=== PATIENT | male | born 1950 | race Caucasian/White ===

== ENCOUNTER 2017-05-22 13:24 | Day surgery (SDC) | payer MEDICARE ==
[2017-05-20 11:42] VITALS: BMI 34.7
[~2017-05-22 13:24] MED LIST: LACTATED RINGERS 1,000 ML IV SCH; LIDOCAINE 1% 20 ML VIAL (10MG/ML) FOR IV START INTRADERMA PRN
[2017-05-22 14:10] VITALS: TEMP 98.2
[2017-05-22] MEDS ORDERED: LIDOCAINE 1% 20 ML VIAL (10MG/ML) FOR IV START INTRADERMA ONE (14:12)
[2017-05-22] MEDS ORDERED: PROPOFOL 10 MG/ML 20 ML VIAL IV ONE (14:26)
--- NOTE | 2017-05-22 14:27 | P.GSHP ---
History of Present Illness H&P Date: 05/22/17 Chief Complaint: GERD, screening colonoscopy This is a 67-year-old male referred from Dr. Adame. Patient resents today for EGD and screening colonoscopy. He's had issues with GERD Past Medical History Past Medical History: COPD, GERD/Reflux, Hyperlipidemia, Hypertension, Myocardial Infarction ([place]), Musculoskeletal Disorder, Osteoarthritis (OA), Prostate Disorder, Vascular Disorder Additional Past Medical History / Comment(s): BORN W/ONE KIDNEY, states gets dizzy but only when looks up Last Myocardial Infarction Date:: 1998 History of Any Multi-Drug Resistant Organisms: None Reported Past Surgical History: Appendectomy, Back Surgery, Heart Catheterization With Stent, Hernia Repair, Orthopedic Surgery Additional Past Surgical History / Comment(s): BOTH SHOULDERS & BOTH KNEES. 11/16 abdominal angiography. colonoscopy, egd Past Anesthesia/Blood Transfusion Reactions: No Reported Reaction Date of Last Stent Placement:: 1998, 10/09/13 Smoking Status: Current every day smoker - Past Family History Mother Family Medical History: Cancer Father Family Medical History: Cancer Medications and Allergies Home Medications Medication Instructions Recorded Confirmed Type Albuterol Inhaler [Ventolin Hfa 2 puff INHALATION Q4HR PRN 09/08/13 05/22/17 History Inhaler] Aspirin 81 mg PO DAILY 09/08/13 05/20/17 History Lisinopril [Zestril] 10 mg PO DAILY 09/08/13 05/20/17 History Simvastatin [Zocor] 20 mg PO HS 09/08/13 05/22/17 History Tamsulosin HCl [Flomax] 0.4 mg PO HS 09/08/13 05/22/17 History amLODIPine BESYLATE [Norvasc] 10 mg PO DAILY 09/08/13 05/20/17 History ALPRAZolam [Xanax] 2 mg PO BID 09/09/13 05/22/17 History buPROPion HCL [Wellbutrin SR] 150 mg PO DAILY 09/09/13 05/22/17 History Fluticasone/Vilanterol [Breo 1 each INHALATION DAILY 05/20/17 05/22/17 History Ellipta 100-25 Mcg Inhaler] HYDROcodone/APAP 10-325MG [[place] 1 tab PO TID 05/20/17 05/22/17 History 10-325] Pantoprazole Sodium 40 mg PO DAILY 05/20/17 05/22/17 History cloNIDine HCL [Catapres] 0.1 mg PO DAILY 05/20/17 05/22/17 History Allergies Allergy/AdvReac Type Severity Reaction Status Date / Time No Known Allergies Allergy Verified 05/20/17 11:29 Surgical - Exam Vital Signs Temp Pulse Resp BP Pulse Ox 98.2 F 62 18 138/78 98 05/22/17 14:09 05/22/17 14:09 05/22/17 14:09 05/22/17 14:09 05/22/17 14:09 - General well developed, no distress - Eyes PERRL - ENT normal pinna - Neck no masses - Respiratory normal expansion - Cardiovascular Rhythm: regular - Abdomen Abdomen: soft, non tender Assessment and Plan Assessment: GERD we'll perform EGD and screening colonoscopy.
--- NOTE | 2017-05-22 14:47 | P.OP ---
Date of Procedure: 05/22/17 Preoperative Diagnosis: GERD Screening colonoscopy Postoperative Diagnosis: Antral gastritis Mild diverticulosis Procedure(s) Performed: EGD Colonoscopy Anesthesia: MAC Surgeon: Rene Del Valle Pathology: other (Antrum) Condition: stable Disposition: PACU Description of Procedure: The patient's placed on the endoscopy table lateral position. He received IV sedation. The gastroscope was placed oropharynx and passed into the esophagus and into the stomach. The scope was then placed through the pylorus. The first and second portion of the duodenum appeared normal. Scope was then brought back the antrum and this was mildly inflamed. A biopsies was performed. The scope was unretroflexed and remainder stomach appeared normal. The GE junction was at 40 cm. There is no evidence of hiatal hernia. The distal esophagus appeared normal. The proximal esophagus appeared normal. Scope was withdrawn from patient. Next digital rectal exam was performed which revealed no abnormalities. Flexible colonoscope was then placed patient anus passed throughout the entire colon. The ileocecal valve was visualized. The cecum, ascending and transverse colon appeared normal. In the descending; there is mild diverticular changes. The scope was then brought back the rectum and this appeared normal. Scope was withdrawn for patient.
[2017-05-22 14:54] VITALS: RESP 16
[2017-05-22 15:07] VITALS: BP 160/85; PULSE 67
== END 2017-05-22 15:21 | disposition home or self-care (01) ==
LOC: ORWHC2ENDO 13:24
PROVIDERS: ATTEND Surgery
DX: Z12.11 Encounter for screening for malignant neoplasm of colon (principal); K29.60 Other gastritis without bleeding; K29.50 Unspecified chronic gastritis without bleeding; K57.90 Diverticulosis of intestine, part unspecified, without perforation or abscess without bleeding; K21.9 Gastro-esophageal reflux disease without esophagitis; E78.5 Hyperlipidemia, unspecified; I25.10 Atherosclerotic heart disease of native coronary artery without angina pectoris; J44.9 Chronic obstructive pulmonary disease, unspecified; F17.210 Nicotine dependence, cigarettes, uncomplicated; I25.2 Old myocardial infarction; Z95.5 Presence of coronary angioplasty implant and graft; M19.90 Unspecified osteoarthritis, unspecified site; N42.9 Disorder of prostate, unspecified; F41.9 Anxiety disorder, unspecified; F32.9 Major depressive disorder, single episode, unspecified; Z79.82 Long term (current) use of aspirin; Z79.891 Long term (current) use of opiate analgesic; Z79.51 Long term (current) use of inhaled steroids; Z79.899 Other long term (current) drug therapy
CPT/HCPCS: 88305; 88342; 43239; J2704; G0121; 45378

== ENCOUNTER 2018-05-20 09:29 | Day surgery (SDC) | payer MEDICARE ==
[2018-05-16 12:58] VITALS: BMI 30.5
[2018-05-20] MEDS: CYCLOPENTOLATE 1% OPHTH SOLN 2 ML BTL OP ONE ×3 (10:22→10:41)
[2018-05-20] MEDS: PHENYLEPHRINE 10% OPHTH DROPS 5 ML BTL OP ONE ×3 (10:26→10:43)
[2018-05-20] MEDS: KETOROLAC 0.5% OPHTH DROPS 5 ML BTL OP ONE ×3 (10:29→10:45)
[2018-05-20 10:34] VITALS: TEMP 97.4
[2018-05-20] MEDS ORDERED: LACTATED RINGERS 1,000 ML IV ONE (10:34)
[2018-05-20] MEDS ORDERED: PROPOFOL 10 MG/ML 20 ML VIAL IV ONE (10:57)
[2018-05-20] MEDS ORDERED: EPINEPHrine (PF) 0.5 ML in BALANCED SALT IRRIG SOLN COMB2 500 ML IRRIGATION ONE (11:12)
[2018-05-20] MEDS ORDERED: BALANCED SALT IRRIG SOLN COMB2 15 ML IRRIG.SOLN IRRIGATION ONE (11:14)
[2018-05-20] MEDS ORDERED: HYALURONATE SODIUM INTRAOCULAR 1 EACH SYRINGE (10MG/ML) INTRAOCULA ONE (11:15)
--- NOTE | 2018-05-20 11:24 | P.OP ---
Date of Procedure: 05/20/18 Procedure(s) Performed: PREOPERATIVE DIAGNOSIS: Cataract, left eye. POSTOPERATIVE DIAGNOSIS: Cataract, left eye. OPERATION: Phacoemulsification of cataract, intraocular lens placement, left eye. DESCRIPTION OF PROCEDURE: The patient was taken to the operating room. Intravenous Propofol was given so as to bring about sedation. The following mixture was given for local anesthesia: 5 mL of 2% lidocaine, 5 mL of 0.75% Marcaine, and 1 mL of Wydase. Approximately 4 mL was injected in the retrobulbar space of the surgical eye. Additional 1 mL was then directed to the temporal area of the surgical eye. This was performed to allow adequate neurological block of the facial muscles. The patient was revived. The patient was prepped and draped in the usual sterile manner for the operative eye. A lid speculum was put into position. The conjunctiva was resected back from the limbus in the 12 o'clock position. Bleeding was controlled with electrocautery. A #69 blade was then used and a half-thickness scleral incision approximately 1-mm posterior to the limbus was made on bare sclera. This was shelved in the clear cornea using a crescent knife. Next a 15-degree blade was used to make a stab incision at the 3 o'clock position at the corneolimbal interface. A keratome blade was then used and the superior wound was extended into the anterior chamber. Viscoelastic was injected into the anterior chamber to maintain its form. A cystotome was used and a continuous anterior capsulotomy was made. Hydrodissection of the lens cortex using a blunt cannula and BSS was performed. A phaco probe was then introduced and a groove extending from 12 to 6 o'clock in the lens was created. A Matthew wand was used through the stab incision and used to perform a divide and conquer dismantling of the cataract. An irrigation aspiration probe was utilized and any residual cortex was removed from the eye. Again, viscoelastic was injected into the anterior chamber. An Danilo posterior chamber lens implant was placed in a delivery cartridge and injected into the anterior chamber. A Sinskey hook was utilized to spin the lens into position within the capsular bag. The irrigation and aspiration probe was again introduced and any residual viscoelastic was removed from the eye. BSS was injected via blunt canula into the limbal stab incision and the anterior chamber was re-inflated. The conjunctiva was reapproximated using electrocautery. One drop of 0.25% Timoptic was placed over the corneal along with an antibiotic ophthalmic ointment. Two sterile patches and a Smith eye shield were taped into position. The patient was transported to the recovery room in stable condition. Pathology: none sent Condition: stable Disposition: same day
[2018-05-20 11:27] VITALS: RESP 16
[2018-05-20 11:42] VITALS: BP 120/59; PULSE 52
[2018-05-20] MEDS ORDERED: TIMOLOL 0.5% OPHTH DROPS 5 ML BTL OP ONE (23:00)
[2018-05-20] MEDS ORDERED: BUPIVACAINE (PF) 0.75% 5 ML, HYALURONIDASE, HUMAN RECOMB 150 UNIT, LIDOCAINE 2% (PF) 10... MISCELLANE ONE ×3 (23:00)
[2018-05-20] MEDS ORDERED: GENTAMICIN/PREDNISOL AC OPHTH OINT 3.5GM OPHTHALMIC ONE (23:00)
== END 2018-05-20 12:37 | disposition home or self-care (01) ==
LOC: OR 09:29
PROVIDERS: ATTEND Ophthalmology
DX: H25.13 Age-related nuclear cataract, bilateral (principal); H35.379 Puckering of macula, unspecified eye; K21.9 Gastro-esophageal reflux disease without esophagitis; J44.9 Chronic obstructive pulmonary disease, unspecified; F17.200 Nicotine dependence, unspecified, uncomplicated; N42.9 Disorder of prostate, unspecified; I25.10 Atherosclerotic heart disease of native coronary artery without angina pectoris; I10 Essential (primary) hypertension; I25.2 Old myocardial infarction; Q60.0 Renal agenesis, unilateral; M19.90 Unspecified osteoarthritis, unspecified site; Z79.82 Long term (current) use of aspirin; Z79.891 Long term (current) use of opiate analgesic; Z79.899 Other long term (current) drug therapy
CPT/HCPCS: 66984; V2632; J3470; J2001; J0171; J2704

== ENCOUNTER → 2018-09-11 | Outpatient (CLI) | payer MEDICARE ==
--- NOTE | 2018-09-11 15:33 | US ---
EXAMINATION TYPE: US abdomen comp/pelvis limited DATE OF EXAM: 09/11/2018 COMPARISON: US 2014, CT 2012 CLINICAL HISTORY: R10.9 ABD/PEL PAIN,R31.9 HEMATURIA. EXAM MEASUREMENTS: Liver Length: 11.9 cm Gallbladder Wall: 0.1 cm CBD: 0.2 cm Spleen: 11.8 cm Right Kidney: 12.9 x 5.2 x 5.6 cm Left Kidney: congenitally absent Post Void Residual: 16.2 mL Pancreas: Portions Obscured by bowel gas Liver: fatty Gallbladder: 1.3 x1.0 x 2.0 cm medial cystic non vascular mass CBD: wnl Spleen: wnl Right Kidney: small cyst mid pole 1.3 x 1.0 x 1.5 cm Left Kidney: congenitally absent Upper IVC: wnl Abd Aorta: wnl Bladder: wnl Bilateral Jets Seen rt jet. Left congenitally absent Normal Post Void Residual (normal less than 50ml) Yes Bladder is not greatly distended without intraluminal mass. After voiding tiny amount of residual uri ne is present. Visualized pancreas shows no mass or ductal dilatation. Portions are secured by overly ing bowel gas. Aorta shows no aneurysmal change. Visualized liver shows no mass or ductal dilatation. Gallbladder shows no shadowing gallstones. Technologist leigh portion of liver near gallbladder isabelle a as medial mass. Left kidney is congenitally absent. Right kidney shows no hydronephrosis. There is 1.0 cm oval anechoic lesion favoring thin-walled cyst midpole level. Spleen is normal in size. IMPRESSION: No suspicious right renal mass or hydronephrosis.
== END | disposition home or self-care (01) ==
LOC: RADUSWWP 08:14
PROVIDERS: ATTEND Internal Medicine
DX: R10.9 Unspecified abdominal pain (principal); R31.9 Hematuria, unspecified
CPT/HCPCS: 76700; 76857

== ENCOUNTER 2018-09-30 09:49 | Day surgery (SDC) | payer MEDICARE ==
[2018-09-26 08:22] VITALS: BMI 32.5
[~2018-09-30 09:49] MED LIST changes: -LIDOCAINE 1% 20 ML VIAL (10MG/ML) FOR IV START INTRADERMA PRN
[2018-09-30 10:16] VITALS: RESP 16; TEMP 97.6
[2018-09-30] MEDS ORDERED: LIDOCAINE 1% 20 ML VIAL (10MG/ML) FOR IV START INTRADERMA ONE (10:19)
[2018-09-30] MEDS ORDERED: fentaNYL (PF) 50 MCG/ML 2 ML AMP ONE (10:20)
[2018-09-30] MEDS ORDERED: LIDOCAINE 1% INJ 10MG/ML (20 ML MDV) ONE (10:20)
[2018-09-30] MEDS ORDERED: PROPOFOL 10 MG/ML 20 ML VIAL IV ONE (10:20)
--- NOTE | 2018-09-30 10:23 | P.GSHP ---
History of Present Illness H&P Date: 09/30/18 Chief Complaint: GI bleed, epigastric pain This is a 68-year-old male who presents today for EGD and colonoscopy. Patient is issues with epigastric abdominal pain. He is also had GI bleed. Past Medical History Past Medical History: COPD, GERD/Reflux, Hyperlipidemia, Hypertension, Myocardial Infarction ([place]), Musculoskeletal Disorder, Osteoarthritis ([place]), Prostate Disorder, Vascular Disorder Additional Past Medical History / Comment(s): BORN W/ONE KIDNEY, states gets dizzy but only when looks up, cataracts bilat eyes, has been having black to ramachandran stool, also has been have upper chest pain that radiates to back and shoulder Last Myocardial Infarction Date:: 1998 History of Any Multi-Drug Resistant Organisms: None Reported Past Surgical History: Appendectomy, Back Surgery, Heart Catheterization With Stent, Hernia Repair, Orthopedic Surgery Additional Past Surgical History / Comment(s): BOTH SHOULDERS & BOTH KNEES. 09/09/13 abdominal angiography. colonoscopy, egd. SURGERY TO LT JAW. lt cataract removed and sx for floaters Past Anesthesia/Blood Transfusion Reactions: No Reported Reaction Date of Last Stent Placement:: 1998, 10/09/13 Smoking Status: Current every day smoker - Past Family History Mother Family Medical History: Cancer Father Family Medical History: Cancer Medications and Allergies Home Medications Medication Instructions Recorded Confirmed Type Albuterol Inhaler [Ventolin Hfa 2 puff INHALATION Q4HR PRN 09/08/13 09/30/18 History Inhaler] Aspirin 81 mg PO DAILY 09/08/13 09/30/18 History Lisinopril [Zestril] 10 mg PO DAILY 09/08/13 09/30/18 History Simvastatin [Zocor] 20 mg PO HS 09/08/13 09/30/18 History Tamsulosin HCl [Flomax] 0.4 mg PO HS 09/08/13 09/30/18 History amLODIPine BESYLATE [Norvasc] 10 mg PO DAILY 09/08/13 09/30/18 History ALPRAZolam [Xanax] 0.5 - 2 mg PO BID PRN 09/09/13 09/30/18 History Fluticasone/Vilanterol [Breo 1 each INHALATION DAILY 05/20/17 09/30/18 History Ellipta 100-25 Mcg Inhaler] HYDROcodone/APAP 10-325MG [[place] 1 tab PO TID 05/20/17 09/30/18 History 10-325] Esomeprazole Magnesium [NexIUM 20 mg PO DAILY 05/16/18 09/30/18 History 24Hr] Ferrous Sulfate [Feosol] 325 mg PO DAILY 09/26/18 09/30/18 History Nitroglycerin [Nitromist] 1 spray SL Q5M PRN 09/26/18 09/30/18 History Allergies Allergy/AdvReac Type Severity Reaction Status Date / Time blue dye AdvReac Nausea & Verified 09/26/18 08:08 Vomiting Surgical - Exam Vital Signs Temp Pulse Resp BP Pulse Ox 97.6 F 70 16 133/71 98 09/30/18 10:08 09/30/18 10:08 09/30/18 10:08 09/30/18 10:08 09/30/18 10:08 - General well developed, well nourished, no distress - Eyes PERRL - ENT normal pinna - Neck no masses - Respiratory normal expansion - Cardiovascular Rhythm: regular - Abdomen Abdomen: soft, non tender Assessment and Plan Assessment: GI bleed, epigastric dull pain. We'll perform EGD and colonoscopy.
--- NOTE | 2018-09-30 10:50 | P.OP ---
Date of Procedure: 09/30/18 Preoperative Diagnosis: Epigastric abdominal pain GI bleed Postoperative Diagnosis: Antral gastritis Mild diverticulosis Rectal polyp Procedure(s) Performed: EGD Colonoscopy Anesthesia: MAC Surgeon: Rene Del Valle Pathology: none sent (Antrum,) Disposition: PACU Description of Procedure: Patient's placed on the endoscopy table in the lateral position. He received IV sedation. Digital rectal exam was performed which revealed no mass. Flexible colonoscope was then placed patient anus and passed throughout the entire colon. The ileocecal valve was visualized. The cecum, ascending and transverse colon appeared normal. In the descending and sigmoid colon there was mild diverticular changes. Scope was then brought back the rectum and there was a small sessile polyp. This was removed with the cold forcep. Scope was withdrawn for patient. Next the gastroscope placed oropharynx and passed in the esophagus and into the stomach. The scope was placed through the pylorus. The first and second portion of the duodenum appeared normal. The scope was then brought back the antrum this appeared mildly inflamed a biopsies performed. The scope was unretroflexed and remainder the stomach appeared normal. There was no significant hiatal hernia. The distal esophagus. Normal. Scope withdrawn for patient. There is no evidence of any rectal bleeding. It is presumed the patient has had bleeding from diverticulosis.
[2018-09-30 11:20] VITALS: BP 175/82; PULSE 55
== END 2018-09-30 11:44 | disposition home or self-care (01) ==
LOC: ORWHC2ENDO 09:49
PROVIDERS: ATTEND Surgery
DX: K62.1 Rectal polyp (principal); K29.50 Unspecified chronic gastritis without bleeding; K57.90 Diverticulosis of intestine, part unspecified, without perforation or abscess without bleeding; K21.9 Gastro-esophageal reflux disease without esophagitis; J44.9 Chronic obstructive pulmonary disease, unspecified; Q60.0 Renal agenesis, unilateral; E78.5 Hyperlipidemia, unspecified; I10 Essential (primary) hypertension; I25.2 Old myocardial infarction; M19.90 Unspecified osteoarthritis, unspecified site; N40.0 Benign prostatic hyperplasia without lower urinary tract symptoms; Z95.5 Presence of coronary angioplasty implant and graft; F17.200 Nicotine dependence, unspecified, uncomplicated; I99.9 Unspecified disorder of circulatory system; Z79.82 Long term (current) use of aspirin; Z79.891 Long term (current) use of opiate analgesic; Z79.51 Long term (current) use of inhaled steroids; Z79.899 Other long term (current) drug therapy; Z91.048 Other nonmedicinal substance allergy status
CPT/HCPCS: 88305; 45380; 43239; J2001; J3010; J2704

== ENCOUNTER → 2018-10-09 | Outpatient (CLI) | payer MEDICARE ==
--- NOTE | 2018-10-09 13:43 | CT ---
EXAMINATION TYPE: CT chest w con DATE OF EXAM: 10/09/2018 COMPARISON: No recent comparisons. Previous chest x-rays 08/31/2013 HISTORY: Abnormal cxr. Left lung mass. CT DLP: 450.5 mGycm, Automated exposure control for dose reduction was used. CONTRAST: Performed injected with 80 mL of Isovue M300. TECHNIQUE: Axial images were obtained at 5 mm thick sections. Reconstructed images are reviewed on [employer] computer in the coronal plane. FINDINGS: Portion of the thyroid visualized is normal. There is a soft tissue mass adjacent to the right main pulmonary artery measuring 3.8 x 5.4 cm in siz e. There is an enlarged pretracheal lymph node measuring 1.3 cm. The ascending aorta diameter at the level of the main pulmonary artery is 3.8 cm. The main pulmonary artery diameter at the bifurcation is 3.[address] sections are obtained through the upper abdomen. Left kidney is not identified. There may be partial visualization of the superior pole of what may be an atrophic kidney. This may communicate with the posterior limb of the left adrenal gland measures 1.7 cm. By history the left kidney is con genitally absent. IMPRESSIONS: 1. Soft tissue mass adjacent to the left main pulmonary artery. 2. Enlarged pretracheal lymph node
== END | disposition home or self-care (01) ==
LOC: RADCTMAIN 09:40
PROVIDERS: ATTEND Internal Medicine
DX: R91.8 Other nonspecific abnormal finding of lung field (principal); R59.0 Localized enlarged lymph nodes
CPT/HCPCS: 82565; 84520; 71260; 36415; Q9967

== ENCOUNTER → 2018-10-18 | Outpatient (CLI) | payer MEDICARE ==
--- NOTE | 2018-10-20 07:33 | PE ---
EXAMINATION TYPE: PET CT fusion skull to thigh DATE OF EXAM: 10/18/2018 COMPARISON: Chest CT October 09, 2018 HISTORY: Left lung mass, initial staging study. TECHNIQUE: Following the intravenous administration of 10.71 mCi of F-18 FDG, whole body images are performed from the skull base to the midthigh. Images are reviewed on the computer in the coronal, a xial, and sagittal planes. Reconstructed rotating images are created on independent workstation and reviewed on the computer. A noncontrast CT is performed in conjunction with the PET scan. SCAN: Initial Scan FINDINGS: SKULL BASE AND NECK: No areas of suspicious hypermetabolic uptake. There is incidental 6 mm hypermetabolic right upper terminate posterior subcutaneous nodule abutting skin surface axial image 33, max SUV is 3.47. Differential would include melanoma. Advise direct clin ical correlation. CHEST, MEDIASTINUM, AND HILAR REGION: There is background mild to moderate underlying emphysematous c hange. Adjacent to left pulmonary artery there is redemonstration of left suprahilar upper lobe mass measuring 4.4 x 4.0 cm axial image 100 with indistinct margins from adjacent mediastinum, max SUV is 23.39. Extending superior and anterior to this there is groundglass opacity with some nodularity rede monstrated. A 1.2 cm cavitary lesion is now present axial image 96 at area of prior nodularity. Some hypermetabolic uptake is noted anterior superior to the large mass on axial image 94 Max SUV is 4.97. There is soft tissue extension into the left hilar region with occlusion of upper lobe bronchus and the mass noted. No additional areas of suspicious hypermetabolic uptake or adenopathy are present. There is enlarged pericarinal lymph node measuring 1.5 x 1.2 cm axial image 101 without abnormal hypermetabolic uptake. ABDOMEN AND PELVIS: No areas of suspicious hypermetabolic uptake. OSSEOUS STRUCTURES: No areas of suspicious hypermetabolic uptake. OTHER CT: Mild/moderate calcified plaque bilateral carotid bulb level is seen. There is generalized d iffuse cerebral atrophy and chronic small vessel ischemic change. Mild to moderate coronary artery calcification is present which is noted marker for underlying varela ry artery disease. 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 [id number] multile liv spurring in the spine is present. IMPRESSION: 1. Hypermetabolic uptake in the left upper lobe mass consistent with malignancy. Some adjacent suspic ious hypermetabolic nodularity anteriorly and superiorly noted. No hypermetabolic thoracic adenopathy . No metastatic malignancy. 2. Suspicious hypermetabolic subcentimeter focus right upper extremity, correlate clinically. Differe ntial includes malignant melanoma.
== END | disposition home or self-care (01) ==
LOC: RADPETMAIN 08:03
PROVIDERS: ATTEND Internal Medicine Critical Care Medicine
DX: R91.8 Other nonspecific abnormal finding of lung field (principal)
CPT/HCPCS: 78815; A9552

== ENCOUNTER 2018-10-31 09:32 | Day surgery (SDC) | payer MEDICARE ==
[2018-10-30 09:58] VITALS: BMI 32.5
[~2018-10-31 09:32] MED LIST changes: +ATROPINE SULFATE 0.4 MG/ML 1 ML VIAL IM ONE; +HYDROmorphone 0.5 MG/0.5 ML SYRINGE IVP PRN; -LACTATED RINGERS 1,000 ML IV SCH; +LIDOCAINE VISCOUS 300 MG/15 ML CUP MUCOUS MEM ONE; +SODIUM CHLORIDE 0.9% 1,000 ML IV SCH
[2018-10-31] MEDS: LACTATED RINGERS 1,000 ML IV SCH ×2 (10:06→11:52)
[2018-10-31] MEDS: ALBUTEROL NEB (CONC) 2.5 MG/0.5 ML INHALATION ONE ×2 (10:20→10:21)
[2018-10-31] MEDS: LIDOCAINE 2% (PF) 20 MG/ML 5 ML VIAL INHALATION ONE ×2 (10:20→10:21)
[2018-10-31] MEDS ORDERED: NEOSTIGMINE 1 MG/ML 10 ML VIAL ONE (11:54)
[2018-10-31] MEDS ORDERED: GLYCOPYRROLATE 0.2 MG/ML 2 ML VIAL ONE (11:54)
[2018-10-31] MEDS ORDERED: PROPOFOL 10 MG/ML 20 ML VIAL IV ONE (11:54)
[2018-10-31] MEDS ORDERED: SUCCINYLCHOLINE CHLORIDE 100 MG/5 ML SYR IV ONE (11:54)
[2018-10-31] MEDS ORDERED: ePHEDrine SULFATE/0.9% NACL/PF 50 MG/5 ML SYRINGE IV ONE (11:54)
[2018-10-31] MEDS ORDERED: ROCURONIUM BROMIDE 10 MG/ML 10 ML VIAL IV ONE (11:54)
[2018-10-31] MEDS ORDERED: LIDOCAINE 1% INJ 10MG/ML (20 ML MDV) ONE (11:54)
[2018-10-31] MEDS ORDERED: fentaNYL (PF) 50 MCG/ML 2 ML AMP ONE (11:54)
--- NOTE | 2018-10-31 11:54 | CT ---
EXAMINATION TYPE: CT Chest lindy Saldana Protocol DATE OF EXAM: 10/31/2018 COMPARISON: 10/09/2018 HISTORY: Bronchial navigation Unenhanced CT of the chest was performed with lung and mediastinal window settings submitted. The la ck of contrast limits evaluation of the vascular, mediastinal and parenchymal structures including th e upper abdomen. LUNGS: Left suprahilar mass measures 5.3 x 4.6 cm left upper lobe extension. Multiple satellite nodul es are identified some of which demonstrate cavitation. No additional masses seen. No evidence of ple ural effusion. MEDIASTINUM/SHERIDAN: Thoracic aorta is of normal caliber with limited evaluation given lack of contrast . The heart is not enlarged. No evidence for mediastinal mass. Low right paratracheal lymph node me asures 1.2 cm. Prevascular lymph node measures 1 cm. 2 subcentimeter AP window lymph nodes identified . Subcentimeter subcarinal lung lymph node. UPPER ABDOMEN: No significant abnormality is seen. OTHER: No significant other abnormality. IMPRESSION: 1. Lobulated left suprahilar mass with multiple satellite nodules compatible with malignancy. 2. Borderline lymph nodes within the mediastinum.
[2018-10-31 13:06] VITALS: TEMP 97.6
[2018-10-31 13:42] VITALS: RESP 18
--- NOTE | 2018-10-31 14:07 | PCN ---
PROCEDURE NOTE PROCEDURE: Navigational bronchoscopy. PREOPERATIVE DIAGNOSIS: Left upper lung mass, rule out cancer. POSTOPERATIVE DIAGNOSIS: Left upper lung mass, rule out cancer. OPERATORS: Dr. Holland and Dr. Pena. PROCEDURE: There was informed consent. There was universal timeout. All paperwork was signed in advance. Anesthesia provided general anesthesia. After the patient was anesthetized and on the ventilator, the bronchoscope adapter was connected to the endotracheal tube. The bronchoscope was pushed through the bronchoscope adapter and down the endotracheal tube. We evaluated the left lung. In the left upper lobe, there was a distinct abnormality. This is where we did our sampling. Using the variant electromagnetic navigational bronchoscopy set up, we were able to do multiple sampling in this area. It included needle biopsies, transbronchial biopsies, brushes, washes, etc. Pathology was on standby. Dr. Gomez did see atypical cells but wanted more time to evaluate the specimen. The patient tolerated the procedure well. There was no immediate complication. The patient will be recovered. He tolerated anesthesia well. The procedure went well without any immediate complications. The patient will be recovered. MMODL / IJN: [id number] /
[2018-10-31 14:12] VITALS: PULSE 59
[2018-10-31 14:29] VITALS: BP 141/76
--- NOTE | 2018-11-03 10:04 | XR ---
EXAMINATION TYPE: XR chest 1V portable DATE OF EXAM: 10/31/2018 COMPARISON: 10/31/2018 HISTORY: Shortness of breath. Cases dated 10/31/2018 and is presented for dictation on 11/03/2017 TECHNIQUE: Single frontal view of the chest is obtained. FINDINGS: Left hilar mass suspected extending the left upper lobe with left upper lobe consolidation . Right lung clear. Heart prominent. Arthropathy of the shoulders. No pneumothorax. IMPRESSION: Left hilar and upper lobe mass with left upper lobe consolidation correlate for postobst ructive atelectasis or pneumonia.
== END 2018-10-31 14:43 | disposition home or self-care (01) ==
LOC: ORWHC2ENDO 09:32
PROVIDERS: ATTEND Internal Medicine Critical Care Medicine
DX: C34.12 Malignant neoplasm of upper lobe, left bronchus or lung (principal); I10 Essential (primary) hypertension; E78.5 Hyperlipidemia, unspecified; I25.10 Atherosclerotic heart disease of native coronary artery without angina pectoris; F41.9 Anxiety disorder, unspecified; F32.9 Major depressive disorder, single episode, unspecified; M19.90 Unspecified osteoarthritis, unspecified site; J44.9 Chronic obstructive pulmonary disease, unspecified; Q60.0 Renal agenesis, unilateral; F17.210 Nicotine dependence, cigarettes, uncomplicated; Z79.891 Long term (current) use of opiate analgesic; Z79.899 Other long term (current) drug therapy
CPT/HCPCS: 31629; 31623; 31624; 31627; 88305; 94640; 88104; 88108; 88173; 88342; 88341; 71045; 71250; J0461; J2710; J2001 ×2; J3010; J0330; J2704; 31625

== ENCOUNTER → 2018-11-24 | Outpatient (CLI) | payer MEDICARE ==
--- NOTE | 2018-11-24 17:56 | MR ---
EXAMINATION TYPE: MR brain wo/w con DATE OF EXAM: 11/24/2018 COMPARISON: NONE HISTORY: No prior, lung CA TECHNIQUE: Multiplanar, multisequence images of the brain and brainstem is performed without and with IV contras t, utilizing 10ml mL intravenous Gadavist . FINDINGS: Diffusion weighted images demonstrate no evidence of a recent infarct or other diffusion ab normality. There is no worrisome extra-axial fluid collection. There is ventricular and sulcal promi nence. Scattered foci of T2 hyperintensity are seen throughout the white matter bilaterally most prom inent involving the deep and periventricular levels. Lesions are presumed on basis of product of chrome worker dominick small vessel ischemic change in patient of this age. Midline structures demonstrate normal morphology. The craniocervical junction appears within normal limits. Post contrast images demonstrate no abnormal enhancing intraparenchymal masses. The dural ve nous sinuses appear patent. The visualized sinuses are clear and the globes are intact. Nasal septum is deviated to the left of midline. IMPRESSION: There is mild to moderate diffuse cerebral atrophy and moderate to advanced chronic small vessel ischemic change. No suspicious enhancing intraparenchymal masses are present.
== END | disposition home or self-care (01) ==
LOC: RADMRIMAIN 16:44
PROVIDERS: ATTEND Radiology Radiation Oncology
DX: I67.82 Cerebral ischemia (principal); G31.9 Degenerative disease of nervous system, unspecified; C34.12 Malignant neoplasm of upper lobe, left bronchus or lung
CPT/HCPCS: 70553; A9585

== ENCOUNTER 2018-12-25 16:11 | Inpatient (IN) | payer MEDICARE ==
[2018-12-25] MEDS ORDERED: SODIUM CHLORIDE 0.9% 500 ML 500 ML IV STA (16:48)
--- NOTE | 2018-12-25 16:56 | ED ---
General Adult HPI - General Chief complaint: Recheck/Abnormal Lab/Rx Stated complaint: Confusion-ca pt Time Seen by Provider: 12/25/18 16:24 Source: patient, family Mode of arrival: wheelchair Limitations: altered mental status - History of Present Illness Initial comments: Patient is a 68-year-old male with past medical history of squamous cell lung ca ncer who presents to the emergency department after radiation today. His ex- is at bedside and provides majority of the history after his permission is obtained. She states that the patient did receive radiation to his right arm mass. At the facility, it was noted that the patient seemed more confused. He had a low blood pressure with a high heart rate. They did send him into the emergency department for further evaluation. Patient currently undergoes radiation 5 days a week. Also received chemo once per week, last of which was Saturday. The patient reports generalized fatigue and hunger. Denies any complaints of chest pain, chest palpation, shortness of breath, abdominal pain. No nausea or vomiting. Denies any fevers or chills. No ripping or tearing sensation to his back. Denies any diarrhea, constipation, melanotic stools or hematochezia. States he's had a good appetite. Denies any lower extremity edema. No history of DVTs or PEs. The patient is not on any anticoagulation. Denies any unilateral numbness or weakness. No headaches, visual changes or photophobia. No neck pain or stiffness. There are no other alleviating, precipitating or modifying factors - Related Data Home Medications Medication Instructions Recorded Confirmed Albuterol Inhaler [Ventolin Hfa 2 puff INHALATION Q4HR PRN 09/08/13 12/30/18 Inhaler] Tamsulosin HCl [Flomax] 0.4 mg PO HS 09/08/13 12/30/18 ALPRAZolam [Xanax] 1 mg PO BID PRN 09/09/13 12/30/18 Fluticasone/Vilanterol [Breo 1 puff INHALATION QAM 05/20/17 12/30/18 Ellipta 100-25 Mcg Inhaler] HYDROcodone/APAP 10-325MG [[place] 1 tab PO TID 05/20/17 12/30/18 10-325] Ferrous Sulfate [Feosol] 325 mg PO DAILY 09/26/18 12/30/18 Nitroglycerin [Nitromist] 1 spray SL Q5M PRN 09/26/18 12/30/18 Esomeprazole Magnesium [NexIUM] 40 mg PO BID 12/25/18 12/30/18 Previous Rx's Medication Instructions Recorded Apixaban [Eliquis] 5 mg PO BID #60 tab 12/27/18 Apixaban [Eliquis] 10 mg PO BID #12 tab 12/27/18 Aspirin 81 mg PO DAILY chew 12/27/18 Atorvastatin [Lipitor] 40 mg PO HS #90 tab 12/27/18 Metoprolol Tartrate [Lopressor] 25 mg PO BID #180 tab 12/27/18 Allergies Allergy/AdvReac Type Severity Reaction Status Date / Time blue dye AdvReac Nausea & Verified 12/30/18 08:49 Vomiting Review of Systems ROS Statement: Those systems with pertinent positive or pertinent negative responses have been documented in the HPI. ROS Other: All systems not noted in ROS Statement are negative. Past Medical History Past Medical History: COPD, GERD/Reflux, Hyperlipidemia, Hypertension, Myocard ial Infarction (GA), Musculoskeletal Disorder, Osteoarthritis (OA), Prostate Disorder, Vascular Disorder Additional Past Medical History / Comment(s): BORN W/ONE KIDNEY, states gets dizzy but only when looks up, cataracts bilateral eyes, recent black to ramachandran stool, upper chest pain that radiates to back and shoulder X last few months. Chronic back pain. Mass found in lung. Last Myocardial Infarction Date:: 1998 History of Any Multi-Drug Resistant Organisms: None Reported Past Surgical History: Appendectomy, Back Surgery, Heart Catheterization With Stent, Hernia Repair, Orthopedic Surgery Additional Past Surgical History / Comment(s): Bilateral shoulder, bilateral kne e surgery, abdominal angiography,. colonoscopy, EGD, SURGERY TO LEFT JAW, left cataract removed and surgery for floaters. Past Anesthesia/Blood Transfusion Reactions: No Reported Reaction Date of Last Stent Placement:: 1998, 10/09/13 Past Psychological History: Anxiety, Depression Smoking Status: Current every day smoker Past Alcohol Use History: None Reported Past Drug Use History: None Reported - Past Family History Mother Family Medical History: Cancer Father Family Medical History: Cancer General Exam Limitations: no limitations General appearance: alert, in no apparent distress, other (fatigued) Head exam: Present: atraumatic, normocephalic, normal inspection Eye exam: Present: normal appearance, PERRL, EOMI. Absent: scleral icterus, conjunctival injection, periorbital swelling ENT exam: Present: normal exam, mucous membranes dry Neck exam: Present: normal inspection. Absent: tenderness, meningismus, lymphadenopathy Respiratory exam: Present: normal lung sounds bilaterally. Absent: respiratory distress, wheezes, rales, rhonchi, stridor Cardiovascular Exam: Present: tachycardia, irregular rhythm, normal heart sounds. Absent: systolic murmur, diastolic murmur, rubs, gallop, clicks GI/Abdominal exam: Present: soft, normal bowel sounds. Absent: distended, tenderness, guarding, rebound, rigid Extremities exam: Present: full ROM, normal capillary refill, other (large nodul ar mass on the lateral aspect of the patient right arm). Absent: tenderness, pedal edema, joint swelling, calf tenderness Back exam: Present: normal inspection Neurological exam: Present: alert, oriented X3, CN II-XII intact Psychiatric exam: Present: normal affect, normal mood Skin exam: Present: warm, dry, intact, normal color. Absent: rash Course Vital Signs 12/25/18 12/25/18 12/25/18 16:14 16:47 16:50 Temperature 98.4 F Pulse Rate 129 H 133 H 124 H Respiratory 22 17 17 Rate Blood Pressure 96/65 90/63 O2 Sat by Pulse 99 Oximetry 12/25/18 12/25/18 12/25/18 17:00 17:10 17:20 Temperature Pulse Rate 147 H 144 H Respiratory 16 17 18 Rate Blood Pressure 90/63 92/67 101/68 O2 Sat by Pulse 97 Oximetry 12/25/18 12/25/18 12/25/18 17:30 17:40 17:50 Temperature Pulse Rate 129 H 161 H 122 H Respiratory 17 17 18 Rate Blood Pressure 101/68 101/68 81/54 O2 Sat by Pulse 99 Oximetry 12/25/18 12/25/18 12/25/18 18:00 18:10 18:20 Temperature Pulse Rate 138 H 135 H 129 H Respiratory 17 17 17 Rate Blood Pressure 102/60 92/74 O2 Sat by Pulse 99 Oximetry 12/25/18 12/25/18 12/25/18 18:30 18:40 18:50 Temperature Pulse Rate 138 H 129 H 134 H Respiratory 17 17 19 Rate Blood Pressure 97/81 107/81 87/67 O2 Sat by Pulse Oximetry 12/25/18 12/25/18 12/25/18 19:00 19:01 19:10 Temperature Pulse Rate 128 H 138 H 109 H Respiratory 17 18 18 Rate Blood Pressure 99/77 107/77 107/77 O2 Sat by Pulse 99 100 Oximetry 12/25/18 12/25/18 12/25/18 19:20 19:30 19:40 Temperature Pulse Rate 106 H 106 H 109 H Respiratory 19 17 Rate Blood Pressure 112/72 116/101 116/103 O2 Sat by Pulse Oximetry 12/25/18 12/25/18 19:51 20:15 Temperature 98.1 F 100.8 F H Pulse Rate Respiratory 18 Rate Blood Pressure O2 Sat by Pulse Oximetry EKG Findings - EKG Comments: EKG Findings:: EKG demonstrates atrial fibrillation with a rapid ventricular response. Rate of 138. QRS is 80 QTC 421. There is moderate ST depression in the lateral leads. No acute ST segment elevations. Medical Decision Making - Medical Decision Making Upon arrival the patient is placed into room 20. He is hooked up to continuous pulse ox and cardiac monitoring. A thorough history of physical exam was performed. Peripheral IV was established. The patient was given a 500 mL of 0.9 normal saline. I did recommend laboratory studies. An EKG was performed which demonstrated atrial fibrillation with a rapid ventricular response. The patient does not have a history of A. fib. I also recommended a CT of the patient's brain as well as a chest x-ray. The patient does have improvement in his blood pressure with the fluid administration. I did provide the patient with second 500 mL bolus. The patient's laboratory studies are reviewed. I did initiate Cardizem on the patient. He is started 2.5 mg per hour without a bolus due to his low blood pressure readings. I did recommend admission to the hospital for which the patient did agree to. I did call discuss the case with Dr. alvarado who did accept admission of the patient. I did call and discuss the case with Dr. Horn in regards to heparinizing the patient. As the patient does demonstrate some confusion at this time, it is suggested to hold off on heparinization. I will place cardiology on consult. Bridging orders were placed. The patient is reevaluated has had improvement in his heart rate as well as blood pressure. Upon transport upstairs, it is noted the patient is febrile. He is provided with Tylenol. Blood cultures were obtained and I did provide the patient with a dose of Zosyn. The patient remained in stable condition. - Differential Diagnosis afib with rvr, hypotension, lung ca on chemo/rads, acute pyrexia - Lab Data Result diagrams: 12/27/18 05:49 12/27/18 05:49 Lab Results 12/25/18 12/25/18 12/25/18 Range/Units 16:40 16:40 16:40 WBC 9.0 (3.8-10.6) k/uL RBC 4.07 L (4.30-5.90) m/uL Hgb 10.5 L (13.0-17.5) gm/dL Hct 32.9 L (39.0-53.0) % MCV 80.8 (80.0-100.0) fL MCH 25.9 (25.0-35.0) pg MCHC 32.0 (31.0-37.0) g/dL RDW 13.9 (11.5-15.5) % Plt Count 319 (150-450) k/uL Neutrophils % 86 % Lymphocytes % 8 % Monocytes % 3 % Eosinophils % 3 % Basophils % 0 % Neutrophils # 7.7 (1.3-7.7) k/uL Lymphocytes # 0.7 L (1.0-4.8) k/uL Monocytes # 0.3 (0-1.0) k/uL Eosinophils # 0.3 (0-0.7) k/uL Basophils # 0.0 (0-0.2) k/uL PT 10.8 (9.0-12.0) sec INR 1.0 (<1.2) APTT 22.1 (22.0-30.0) sec Sodium 138 (137-145) mmol/L Potassium 4.3 (3.5-5.1) mmol/L Chloride 107 (98-107) mmol/L Carbon Dioxide 22 (22-30) mmol/L Anion Gap 9 mmol/L BUN 31 H (9-20) mg/dL Creatinine 1.57 H (0.66-1.25) mg/dL Est GFR (CKD-EPI)AfAm 51 (>60 ml/min/1.73 sqM) Est GFR (CKD-EPI)NonAf 44 (>60 ml/min/1.73 sqM) Glucose 80 (74-99) mg/dL Calcium 9.3 (8.4-10.2) mg/dL Magnesium 1.8 (1.6-2.3) mg/dL Total Bilirubin 0.5 (0.2-1.3) mg/dL AST 14 L (17-59) U/L ALT 43 (21-72) U/L Alkaline Phosphatase 102 (38-126) U/L Ammonia (<30) umol/L Creatine Kinase 46 L (55-170) U/L Troponin I (0.000-0.034) ng/mL Total Protein 6.0 L (6.3-8.2) g/dL Albumin 3.4 L (3.5-5.0) g/dL TSH 1.840 (0.465-4.680) mIU/L 12/25/18 12/25/18 Range/Units 16:40 16:40 WBC (3.8-10.6) k/uL RBC (4.30-5.90) m/uL Hgb (13.0-17.5) gm/dL Hct (39.0-53.0) % MCV (80.0-100.0) fL MCH (25.0-35.0) pg MCHC (31.0-37.0) g/dL RDW (11.5-15.5) % Plt Count (150-450) k/uL Neutrophils % % Lymphocytes % % Monocytes % % Eosinophils % % Basophils % % Neutrophils # (1.3-7.7) k/uL Lymphocytes # (1.0-4.8) k/uL Monocytes # (0-1.0) k/uL Eosinophils # (0-0.7) k/uL Basophils # (0-0.2) k/uL PT (9.0-12.0) sec INR (<1.2) APTT (22.0-30.0) sec Sodium (137-145) mmol/L Potassium (3.5-5.1) mmol/L Chloride (98-107) mmol/L Carbon Dioxide (22-30) mmol/L Anion Gap mmol/L BUN (9-20) mg/dL Creatinine (0.66-1.25) mg/dL Est GFR (CKD-EPI)AfAm (>60 ml/min/1.73 sqM) Est GFR (CKD-EPI)NonAf (>60 ml/min/1.73 sqM) Glucose (74-99) mg/dL Calcium (8.4-10.2) mg/dL Magnesium (1.6-2.3) mg/dL Total Bilirubin (0.2-1.3) mg/dL AST (17-59) U/L ALT (21-72) U/L Alkaline Phosphatase (38-126) U/L Ammonia <9 (<30) umol/L Creatine Kinase (55-170) U/L Troponin I <0.012 (0.000-0.034) ng/mL Total Protein (6.3-8.2) g/dL Albumin (3.5-5.0) g/dL TSH (0.465-4.680) mIU/L Disposition Clinical Impression: New onset a-fib, Cavitating mass in left upper lung lobe, Hypotension, Pyrexia Disposition: ADMITTED IP TO THIS [facility] Condition: Serious Is patient prescribed a controlled substance at d/c from ED?: No Decision to Admit Reason: Admit from EC Decision Date: 12/25/18 Decision Time: 18:38
[2018-12-25 17:02] LABS: Basophils % (A) 0 %; Eosinophils # (A) 0.3 k/uL (0-0.7); Eosinophils % (A) 3 %; HCT 32.9 % (39.0-53.0); HGB 10.5 gm/dL (13.0-17.5); Lymphocytes # (A) 0.7 k/uL (1.0-4.8); Lymphocytes % (A) 8 %; MCH 25.9 pg (25.0-35.0); MCV 80.8 fL (80.0-100.0); Mean Platelet Volume 7.7; Monocytes # (A) 0.3 k/uL (0-1.0); Monocytes % (A) 3 %; Neutrophils # (A) 7.7 k/uL (1.3-7.7); Neutrophils % (A) 86 %; Platelet Count 319 k/uL (150-450); RBC 4.07 m/uL (4.30-5.90); RDW 13.9 % (11.5-15.5)
[2018-12-25 17:09] LABS: Partial Thromboplastin Time 22.1 sec (22.0-30.0); Prothrombin Time 10.8 sec (9.0-12.0)
[2018-12-25 17:12] LABS: Albumin 3.4 g/dL (3.5-5.0); Calcium 9.3 mg/dL (8.4-10.2); Magnesium 1.8 mg/dL (1.6-2.3); Potassium 4.3 mmol/L (3.5-5.1); Total Bilirubin 0.5 mg/dL (0.2-1.3)
--- NOTE | 2018-12-25 17:41 | CT ---
EXAMINATION TYPE: CT brain wo con DATE OF EXAM: 12/25/2018 COMPARISON: None HISTORY: Confusion, cancer patient. CT DLP: 1099.4 mGycm Automated exposure control for dose reduction was used. FINDINGS: There is cerebral cortical atrophy. There is no mass effect nor midline shift. There is no sign of in tracranial hemorrhage. Calvarium is intact. There is mild white matter hypodensity in the parietal lobes bilaterally. IMPRESSION: CEREBRAL ATROPHY AND MILD CHRONIC SMALL VESSEL ISCHEMIA. NO ACUTE INTRACRANIAL ABNORMALITY.
--- NOTE | 2018-12-25 17:44 | XR ---
EXAMINATION TYPE: XR chest 2V DATE OF EXAM: 12/25/2018 COMPARISON: 10/31/2018 HISTORY: Dysrhythmia TECHNIQUE: Frontal and lateral views of the chest are obtained. FINDINGS: There is 8 cm area of consolidation in the left upper lobe adjacent to the left pulmonary hilum. The right lung is clear. Heart size is normal. There is no heart failure. There is no pleural effusion. There are chest leads. Bones are osteopenic. IMPRESSION: Left upper lobe masslike consolidation increased compared to last exam. No heart failure.
[2018-12-25] MEDS ORDERED: SODIUM CHLORIDE 0.9% 500 ML 500 ML IV ONE (18:19)
[2018-12-25] MEDS ORDERED: DILTIAZEM 125 MG in SODIUM CHLORIDE 0.9% 100 ML IV SCH (18:30)
[2018-12-25] MEDS ORDERED: NALOXONE 0.4 MG/ML 1 ML VIAL IV PRN (18:39)
[2018-12-25] MEDS ORDERED: ALBUTEROL NEBULIZED 2.5 MG/3 ML INHALATION PRN (18:42)
[2018-12-25] MEDS ORDERED: ALPRAZolam 1 MG TAB PO PRN (18:42)
[2018-12-25] MEDS ORDERED: MAGNESIUM SULFATE-D5W PMX 1 GM in DEXTROSE/WATER 1 100ML.BAG IVPB ONE (18:43)
[2018-12-25] MEDS: SODIUM CHLORIDE 0.9% 1,000 ML IV SCH (19:46)
[2018-12-25] MEDS: HYDROcodone/APAP 10-325MG 1 EACH TAB PO SCH (20:24)
[2018-12-25] MEDS: PANTOPRAZOLE 40 MG TABLET PO SCH (20:24)
[2018-12-25] MEDS ORDERED: ACETAMINOPHEN TAB 325 MG TAB PO STA (20:27)
[2018-12-25 20:45] VITALS: BMI 30.1
[2018-12-25] MEDS ORDERED: ATORVASTATIN 10 MG TAB PO SCH (21:00)
[2018-12-25] MEDS: PIPERACILLIN-TAZOBACTAM 3.375 GM in SODIUM CHLORIDE 0.9% 100 ML IVPB SCH (23:17)
[2018-12-26] MEDS ORDERED: NITROGLYCERIN SL PRN (00:15)
[2018-12-26 01:47] LABS: Appearance,Urine Clear (Clear); Bilirubin,Urine Negative (Negative); Blood,Urine Negative (Negative); Color,Urine Yellow; Glucose,Urine (UA) Negative (Negative); Ketones,Urine Negative (Negative); Leukocyte Esterase,Urine Negative (Negative); Nitrite,Urine Negative (Negative); Protein,Urine Negative (Negative); Specific Gravity,Urine 1.017 (1.001-1.035); Urobilinogen,Urine <2.0 mg/dL (<2.0)
[2018-12-26] MEDS: PANTOPRAZOLE 40 MG TABLET PO SCH ×2 (05:58→17:12)
[2018-12-26] MEDS: SYMBICORT 80-4.5 MCG INHALER INHALATION SCH ×2 (08:21→19:17)
--- NOTE | 2018-12-26 08:57 | HP ---
HISTORY AND PHYSICAL DATE OF SERVICE: 12/25/2018 CHIEF COMPLAINTS: Confusion and change in mental status. HISTORY OF PRESENT ILLNESS: This 68-year-old gentleman with a past medical history of multiple medical problems including COPD, GERD, hypertension, hyperlipidemia, history of myocardial infarction, history of DJD, history of appendectomy, history of CAD, stent being followed by Dr. Howell in the outpatient setting, was recently diagnosed with left upper lobe lung cancer. The patient also had a skin lesion which was possibly metastatic in nature on the right shoulder area. Patient was receiving radiation therapy. Today, the patient had radiation therapy. Subsequently, patient's family noted that the patient is tired and the patient also had some confusion. The patient was taken to [facility] and was found to have atrial fibrillation with fast ventricular rate and patient started on Cardizem drip with improvement in the cardiac rhythm. Patient was closely monitored at this time. Currently the patient is drowsy, able to be aroused, but no focal weakness is noted. Patient is unable to give coherent history, most is taken from discussion with staff and review of chart at this time. The patient apparently had low blood pressure and high heart rate also prior to coming to the emergency room. There is no history of any headache, loss consciousness or seizures at this time. A CT scan done showed some atrophy without any focal changes. The patient also has fever prior to admission. PAST MEDICAL HISTORY: History of COPD, GERD, hypertension, hyperlipidemia, history of myocardial infarction, recently diagnosed lung cancer with mets as mentioned earlier. MEDICATIONS: Medications prior to admission include home medications are: 1. NitroMist 1 spray q.5 p.r.n. 2. Breo Ellipta 100/25 q.a.m. 3. Ventolin HFA 2 puffs q.4 p.r.n. 4. Xanax 1 mg p.o. b.i.d. p.r.n. 5. Norvasc 10 mg q.a.m. 6. Flomax 0.4 q.h.s. 7. Zocor 20 mg q.h.s. 8. [place] 10 mg p.o. t.i.d. 9. Iron sulfate 325 mg p.o. daily. 10.Nexium 40 mg p.o. b.i.d.. ALLERGIES: Allergies are BLUE DYE. FAMILY HISTORY: History of cancer in the family. SOCIAL HISTORY: Continued ongoing nicotine dependence. No history of alcohol intake. REVIEW OF SYSTEMS: Could not be taken because of the patient's change in mental status. PHYSICAL EXAMINATION: The patient's pulse is 118 irregular blood pressure 122/70, respiration 20, temperature 98.8, T-max 100.8, pulse ox 92% on 3L. HEENT: Conjunctivae normal. Oral mucosa moist. NECK is no jugular venous distention. No carotid bruit. No lymph node enlargement. CARDIOVASCULAR: S1, S2 muffled. No S3, no S4. RESPIRATORY: Breath sounds diminished at the bases. Bilateral scattered rhonchi and crackles. ABDOMEN: Soft, nontender. No mass palpable. LEGS: No edema, no swelling. NERVOUS SYSTEM: Higher function as mentioned earlier. Moves all 4 limbs. No focal motor or sensory deficits. LYMPHATICS: No lymphadenopathy of the neck, axillae or groin. SKIN: Significant malignant fungating ulcer present on the right shoulder area. Otherwise, no lymphadenopathy JOINTS: No active deforming arthropathy. LABS: Labs are at this time show: WBC 9, hemoglobin 10.5, creatinine is 1.57. ASSESSMENT: 1. Atrial fibrillation with fast ventricular rate. 2. Change in mental status possible acute metabolic encephalopathy multifactorial. 3. Fever, rule out infection or sepsis. 4. Anemia, normocytic anemia of malignancy. 5. Left upper lobe lung cancer, on chemotherapy with metastasis. 6. Fungating ulceration in the right shoulder area. 7. Increased BUN with possibly chronic kidney disease stage 3. 8. History of chronic obstructive pulmonary disease. 9. History of gastroesophageal reflux disease. 10.Hypertension. 11.Hyperlipidemia. 12.History of myocardial infarction,. 13.History of degenerative joint disease. 14.History of prostate disorder. 15.History of appendectomy. 16.History of coronary artery disease, stent. 17.History of anxiety, depression. 18.History of continued ongoing nicotine dependence. 19.FULL CODE. RECOMMENDATIONS AND DISCUSSION: This 68-year-old gentleman who presented with multiple complex medical issues, we will monitor the patient closely. Continue the current medications, continue symptomatic treatment. Will initiate home medications, broad-spectrum IV antibiotics. Cardiology and Hematology/Oncology consultations. The patient is currently FULL CODE. Prognosis guarded because of multiple complex medical issues. The exact etiology of fever is unknown. The patient is arousable at this time. We will continue with neuro checks. There is no focal abnormality. I would also recommend a neurology consultation as well. Otherwise, continue to monitor. Further recommendations to follow. A copy of dictation forwarded to Dr. Howell who is the primary physician. MMODL / IJN: [id number] / MTDD
[2018-12-26] MEDS ORDERED: APIXABAN 5 MG TAB PO SCH (09:00)
[2018-12-26] MEDS ORDERED: amLODIPine 10 MG TAB PO SCH (09:00)
[2018-12-26] MEDS: HYDROcodone/APAP 10-325MG 1 EACH TAB PO SCH ×3 (10:11→20:58)
[2018-12-26] MEDS: PIPERACILLIN-TAZOBACTAM 3.375 GM in SODIUM CHLORIDE 0.9% 100 ML IVPB SCH ×3 (10:11→23:35)
[2018-12-26] MEDS: ASPIRIN 81 MG PO SCH (10:12)
[2018-12-26] MEDS: METOPROLOL TARTRATE 25 MG TAB PO SCH ×2 (10:12→20:58)
[2018-12-26] MEDS: FERROUS SULFATE 325 MG TAB PO SCH (10:12)
[2018-12-26] MEDS: SODIUM CHLORIDE 0.9% 1,000 ML IV SCH ×2 (10:14→21:41)
[2018-12-26 10:43] VITALS: RESP 18
--- NOTE | 2018-12-26 13:44 | ECHOF ---
Referral Reason:afib MEASUREMENTS -------- HEIGHT: 177.8 cm WEIGHT: 95.7 kg BP: 122/70 IVSd: 1.7 cm (0.6 - 1.1) LVIDd: 4.5 cm (3.9 - 5.3) LVPWd: 1.5 cm (0.6 - 1.1) IVSs: 1.9 cm LVIDs: 3.2 cm LVPWs: 2.1 cm LAESV Index (A-L): 47.41 ml/m Ao Diam: 3.3 cm (2.0 - 3.7) AV Cusp: 1.8 cm (1.5 - 2.6) LA Diam: 5.4 cm (2.7 - 3.8) RAP: 5.00 mmHg RVSP: 42.82 mmHg FINDINGS -------- Atrial fibrillation with RVR This was a technically adequate study. The left ventricular size is normal. There is moderate concentric left ventricular hypertrophy. O verall left ventricular systolic function is mildly impaired with, an EF between 45 - 50 %. Basal i nferior LV wall motion is hypokinetic. The right ventricle is normal in size. Left atrium is severely dilated by volume. RA appears enlarged Interatrial and interventricular septum intact. The aortic valve is trileaflet and appears structurally normal. There is mild aortic regurgitation. There is no evidence of aortic stenosis. Mild mitral regurgitation is present. [id number] tricuspid regurgitation present. There is moderate pulmonary hypertension. The r ight ventricular systolic pressure, as measured by Doppler, is 42.82mmHg. The aortic root size is normal. The inferior vena cava is mildly dilated. There is no pericardial effusion. CONCLUSIONS -------- 1. Atrial fibrillation. 2. This was a technically adequate study. 3. The left ventricular size is normal. 4. There is moderate concentric left ventricular hypertrophy. 5. Overall left ventricular systolic function is mildly impaired with, an EF between 45 - 50 %. 6. Basal inferior LV wall motion is hypokinetic. 7. The right ventricle is normal in size. 8. Left atrium is severely dilated by volume. 9. RA appears enlarged 10. Interatrial and interventricular septum intact. 11. The aortic valve is trileaflet and appears structurally normal. 12. There is mild aortic regurgitation. 13. There is no evidence of aortic stenosis. 14. Mild mitral regurgitation is present. 15. [id number]-[id number]-[id number] tricuspid regurgitation present. 16. There is moderate pulmonary hypertension. 17. The right ventricular systolic pressure, as measured by Doppler, is 42.82mmHg. 18. The aortic root size is normal. 19. The inferior vena cava is mildly dilated. 20. There is no pericardial effusion. EXECUTIVE ADVISOR: Brigid Harmon RDCS
--- NOTE | 2018-12-26 14:30 | CONS ---
CONSULTATION Mr. Perez is a 68-year-old male who presented from the radiation unit with progressive weakness. He has been followed by Dr. Jacky Washburn on a regular basis. He has been diagnosed with squamous cell cancer and has been followed by Dr. Carballo and and undergoing chemotherapy and radiation. Apparently, he has been complaining of progressive fatigue and was noted to have low blood pressure and high heart rate and was noted to be in atrial fibrillation on presentation. Asking the patient, he is feeling tired but he is denying any chest pain. He denies any knowledge of the arrhythmia. He denies any dizziness or palpitation. He denies any syncope. He has dyspnea on exertion, but his main complaint is the progressive fatigue and lack of energy. His appetite has been poor. He has underwent cardiac catheterization by Dr. Jacky Washburn performed in September of this year and was noted to have a mild disease in the LAD and the right coronary artery with occluded diagonal branch. In the past, his left ventricular systolic function was preserved. His most recent echocardiogram available to me dates to January of 2018 and at that time he had moderate aortic and mild mitral and tricuspid regurgitation. He has a known history of peripheral vascular disease, has underwent peripheral revascularization by Dr. Vu in the past. He had single kidney with chronic kidney disease. His coronary risk factors are remarkable for hypertension, hyperlipidemia and chronic tobacco use. MEDICATION: His medications at home include Nexium, iron, simvastatin 20 mg daily, Flomax, Norvasc 10 mg daily, Ventolin, Breo Ellipta. REVIEW OF SYSTEMS: RESPIRATORY SYSTEM: He had dyspnea on exertion. The recent diagnosis of squamous cell CA. GI SYSTEM: No recent GI bleeding. No peptic ulcer disease. He has poor appetite. SYSTEM: No dysuria or hematuria. NERVOUS SYSTEM: No stroke or seizure. PHYSICAL EXAMINATION: A 68-year-old male, alert, oriented, no apparent distress. Blood pressure 122/70 with the heart rate in the one teens. HEAD: Normocephalic. EYES: Sclerae anicteric. NECK: No bruit. LUNGS: With decreased air exchange, no wheezes. HEART: Irregular, irregular. S1, S2. No S3 with systolic murmur at the base. No diastolic murmur. No rub. ABDOMEN: Soft, nontender. No organomegaly. EXTREMITIES: No edema. Intact distal pulses. LAB DATA: Lab data revealed a hemoglobin of 10.5, BUN and creatinine 31 and 1.57. Troponin less than 0.012 for 3 samples. TSH 1.840. EKG revealed atrial fibrillation with nonspecific ST-T wave changes, rate of 138. Chest x-ray shows no acute infiltrate with left upper lobe mass increasing in size. Brain CT shows no acute changes. IMPRESSION: 1. Atrial fibrillation of unknown duration, appears to be recent. 2. Squamous cell carcinoma, receiving chemotherapy and radiation. 3. History of coronary artery disease with no evidence of unstable pattern. 4. Progressive weakness and fatigue, probably related to his malignancy. 5. History of chronic tobacco use and chronic obstructive lung disease. 6. History of peripheral vascular disease. 7. Hypertension. 8. Hyperlipidemia. RECOMMENDATION: From the cardiac standpoint, I will start him on oral beta milady. I will stop his IV Cardizem. I will obtain echocardiogram with Doppler. I have discussed with him the issue of anticoagulation. We will initiate anticoagulation. I will follow his renal function and depending on his progress, further recommendation will be made. Thank you for this consult. We will follow with you. MMODL / IJN: [id number] /
--- NOTE | 2018-12-26 15:21 | P.CONS ---
<Amina Alexander - Last Filed: 12/26/18 15:35> History of Present Illness - Reason for Consult Consult date: 12/26/18 Metastatic Squamous Cell Carcinoma Requesting physician: Clovis Ta - Chief Complaint Mental Status Changes - History of Present Illness Mr. Perez was recently diagnosed with Metastatic Squamous Cell Carcinoma Lung with outer large skin lesion to RUE. He is status post two cycles of weekly chemotherapy carboplatin and taxol concurrent with radiation. He was seen in office yesterday and complained of pain relieved with [place]. He was sent in from office for increased mental status changes and found to have Atrial fib with RVR. Review of Systems A 14 point review of systems was assessed and completed and are all negative except for HPI Past Medical History Past Medical History: COPD, GERD/Reflux, Hyperlipidemia, Hypertension, Myocardial Infarction ([place]), Musculoskeletal Disorder, Osteoarthritis (OA), Prostate Disorder, Vascular Disorder Additional Past Medical History / Comment(s): BORN W/ONE KIDNEY, states gets dizzy but only when looks up, cataracts bilateral eyes, recent black to ramachandran stool, upper chest pain that radiates to back and shoulder X last few months. Chronic back pain. Mass found in lung. Last Myocardial Infarction Date:: 1998 History of Any Multi-Drug Resistant Organisms: None Reported Past Surgical History: Appendectomy, Back Surgery, Heart Catheterization With Stent, Hernia Repair, Orthopedic Surgery Additional Past Surgical History / Comment(s): Bilateral shoulder, bilateral knee surgery, abdominal angiography,. colonoscopy, EGD, SURGERY TO LEFT JAW, left cataract removed and surgery for floaters. Past Anesthesia/Blood Transfusion Reactions: No Reported Reaction Date of Last Stent Placement:: 1998, 10/09/13 Past Psychological History: Anxiety, Depression Smoking Status: Current every day smoker Past Alcohol Use History: None Reported Past Drug Use History: None Reported - Past Family History Mother Family Medical History: Cancer Father Family Medical History: Cancer Medications and Allergies Home Medications Medication Instructions Recorded Confirmed Type Albuterol Inhaler [Ventolin Hfa 2 puff INHALATION Q4HR PRN 09/08/13 12/25/18 History Inhaler] Simvastatin [Zocor] 20 mg PO HS 09/08/13 12/25/18 History Tamsulosin HCl [Flomax] 0.4 mg PO HS 09/08/13 12/25/18 History amLODIPine BESYLATE [Norvasc] 10 mg PO QAM 09/08/13 12/25/18 History ALPRAZolam [Xanax] 1 mg PO BID PRN 09/09/13 12/25/18 History Fluticasone/Vilanterol [Breo 1 puff INHALATION QAM 05/20/17 12/25/18 History Ellipta 100-25 Mcg Inhaler] HYDROcodone/APAP 10-325MG [[place] 1 tab PO TID 05/20/17 12/25/18 History 10-325] Ferrous Sulfate [Feosol] 325 mg PO DAILY 09/26/18 12/25/18 History Nitroglycerin [Nitromist] 1 spray SL Q5M PRN 09/26/18 12/25/18 History Esomeprazole Magnesium [NexIUM] 40 mg PO BID 12/25/18 12/25/18 History Allergies Allergy/AdvReac Type Severity Reaction Status Date / Time blue dye AdvReac Nausea & Verified 12/25/18 16:56 Vomiting Physical Exam Vitals: Vital Signs Temp Pulse Pulse Resp BP BP BP 12/26/18 14:29 62 18 116/63 12/26/18 08:20 98 F 74 18 99/65 12/26/18 03:15 98.2 F 112 H 18 12/25/18 23:10 98.8 F 118 H 20 122/70 12/25/18 20:35 99.9 F H 119 H 18 12/25/18 20:15 100.8 F H 12/25/18 19:51 98.1 F 18 12/25/18 19:40 109 H 116/103 12/25/18 19:30 106 H 17 116/101 12/25/18 19:20 106 H 19 112/72 12/25/18 19:10 109 H 18 107/77 12/25/18 19:01 138 H 18 107/77 12/25/18 19:00 128 H 17 99/77 12/25/18 18:50 134 H 19 87/67 12/25/18 18:40 129 H 17 107/81 12/25/18 18:30 138 H 17 97/81 12/25/18 18:20 129 H 17 92/74 12/25/18 18:10 135 H 17 12/25/18 18:00 138 H 17 102/60 12/25/18 17:50 122 H 18 81/54 12/25/18 17:40 161 H 17 101/68 12/25/18 17:30 129 H 17 101/68 12/25/18 17:20 18 101/68 12/25/18 17:10 144 H 17 92/67 12/25/18 17:00 147 H 16 90/63 12/25/18 16:50 124 H 17 90/63 12/25/18 16:47 133 H 17 12/25/18 16:14 98.4 F 129 H 22 96/65 BP Pulse Ox 12/26/18 14:29 98 12/26/18 08:20 98 12/26/18 03:15 92 L 12/25/18 23:10 92 L 12/25/18 20:35 124/66 96 12/25/18 20:15 12/25/18 19:51 12/25/18 19:40 12/25/18 19:30 12/25/18 19:20 12/25/18 19:10 100 12/25/18 19:01 99 12/25/18 19:00 12/25/18 18:50 12/25/18 18:40 12/25/18 18:30 12/25/18 18:20 12/25/18 18:10 12/25/18 18:00 99 12/25/18 17:50 99 12/25/18 17:40 12/25/18 17:30 12/25/18 17:20 12/25/18 17:10 97 12/25/18 17:00 12/25/18 16:50 12/25/18 16:47 12/25/18 16:14 99 Intake and Output 12/26/18 12/26/18 12/26/18 06:59 14:59 22:59 Intake Total 615 Output Total 600 600 Balance -600 15 Intake: Intake, IV Titration 615 Amount Piperacillin-Tazobactam 3 100 .375 gm In Sodium Chloride 0.9% 100 ml @ 25 mls/hr IVPB Q8HR [facility] Rx# :[id number] Sodium Chloride 0.9% 1, 515 000 ml @ 75 mls/hr IV . [id number] [facility] Rx#:[id number] Output: Urine 600 600 Other: Weight 96 kg General: NAD Head: Normocytic, Atraumatic Neck: Supple Mouth: No Lesions, No Thrush Eyes: Non-sclerotic No Palpable cervical, supraclavicular, axillary adenopathy Heart:Irreg irreg Lungs: Clear to Ausculations, No Wheeze, No Rhonchi, Diminishe bilateral lower lobes, No increased respiratory effort noted Abdomen: Soft, Non-Distended, Non-Tended, BSx4 Extremities: RUE Large exterior lesion with purulent drainage and sloghing Results CBC & Chem 7: 12/25/18 16:40 12/25/18 16:40 Labs: Abnormal Lab Results - Last 24 Hours (Table) 12/25/18 12/25/18 Range/Units 16:40 16:40 RBC 4.07 L (4.30-5.90) m/uL Hgb 10.5 L (13.0-17.5) gm/dL Hct 32.9 L (39.0-53.0) % Lymphocytes # 0.7 L (1.0-4.8) k/uL BUN 31 H (9-20) mg/dL Creatinine 1.57 H (0.66-1.25) mg/dL AST 14 L (17-59) U/L Creatine Kinase 46 L (55-170) U/L Total Protein 6.0 L (6.3-8.2) g/dL Albumin 3.4 L (3.5-5.0) g/dL Microbiology - Last 24 Hours (Table) 12/26/18 05:00 Wound Culture - Preliminary Shoulder - Right 12/26/18 01:20 Urine Culture - Preliminary Urine,Clean Catch Assessment and Plan Plan: Assessment and recommendations: Squamous Cell carcinoma lung to RuE - Status Post week two of concurrent chemo and radiation - On hold at this time - Discussed with Atrial Fib with RVR: - Cardiology Following <Kait,Mark - Last Filed: 12/26/18 18:15> Physical Exam Vitals: Vital Signs Temp Pulse Pulse Resp BP BP BP 12/26/18 14:29 62 18 116/63 12/26/18 08:20 98 F 74 18 99/65 12/26/18 03:15 98.2 F 112 H 18 12/25/18 23:10 98.8 F 118 H 20 122/70 12/25/18 20:35 99.9 F H 119 H 18 12/25/18 20:15 100.8 F H 12/25/18 19:51 98.1 F 18 12/25/18 19:40 109 H 116/103 12/25/18 19:30 106 H 17 116/101 12/25/18 19:20 106 H 19 112/72 12/25/18 19:10 109 H 18 107/77 12/25/18 19:01 138 H 18 107/77 12/25/18 19:00 128 H 17 99/77 12/25/18 18:50 134 H 19 87/67 12/25/18 18:40 129 H 17 107/81 12/25/18 18:30 138 H 17 97/81 12/25/18 18:20 129 H 17 92/74 BP Pulse Ox 12/26/18 14:29 98 12/26/18 08:20 98 12/26/18 03:15 92 L 12/25/18 23:10 92 L 12/25/18 20:35 124/66 96 12/25/18 20:15 12/25/18 19:51 12/25/18 19:40 12/25/18 19:30 12/25/18 19:20 12/25/18 19:10 100 12/25/18 19:01 99 12/25/18 19:00 12/25/18 18:50 12/25/18 18:40 12/25/18 18:30 12/25/18 18:20 Intake and Output 12/26/18 12/26/18 12/26/18 06:59 14:59 22:59 Intake Total 615 Output Total 600 600 Balance -600 15 Intake: Intake, IV Titration 615 Amount Piperacillin-Tazobactam 3 100 .375 gm In Sodium Chloride 0.9% 100 ml @ 25 mls/hr IVPB Q8HR [facility] Rx# :[id number] Sodium Chloride 0.9% 1, 515 000 ml @ 75 mls/hr IV . [id number] [facility] Rx#:[id number] Output: Urine 600 600 Other: Weight 96 kg Results CBC & Chem 7: 12/25/18 16:40 12/25/18 16:40 Labs: Microbiology - Last 24 Hours (Table) 12/26/18 05:00 Wound Culture - Preliminary Shoulder - Right 12/26/18 01:20 Urine Culture - Preliminary Urine,Clean Catch Assessment and Plan Plan: As above. Case was discussed withpractitioner, and patient personally examined and evaluated. In this patient with history of malignancy, with ongoing chemotherapy, new onset arrhythmia is suspicious for pulmonary embolism. Echocardiogram also shows pulmonary hypertension and mild to moderate TR, which, if acute, could be due to a PE. Therefore imaging for the same will be ordered. As creatinine is elevated a VQ scan will be ordered. The patient has already been started on anticoagulation. However IF a PE is confirmed, the dose of a request will need to be increased to 10 mg twice a day for 7 days before switching back to 5 mg
--- NOTE | 2018-12-26 18:57 | PN ---
PROGRESS NOTE DATE OF SERVICE: 12/26/2018 This 68-year-old gentleman who was admitted with confusion and change in mental status also had atrial fibrillation with fast ventricular rate. Patient is being closely monitored. The patient also had a fever. Patient was started on IV antibiotics. The white count is normal. Final cultures are still pending at this time. The patient's sensorium is slightly improved at this time. Patient is being closely monitored. Past medical history reviewed. REVIEW OF SYSTEMS: CARDIOVASCULAR SYSTEM: No angina, palpitations. RESPIRATORY SYSTEM: As mentioned earlier. GI: No nausea, vomiting. : No dysuria or retention. NERVOUS SYSTEM: No numbness, weakness. CURRENT MEDICATIONS: Reviewed. They include: 1. [place] 10 mg t.i.d. p.r.n. 2. Ventolin q.4. 3. Xanax 1 mg p.o. b.i.d. 4. Eliquis 5 mg p.o. b.i.d. 5. Aspirin 81 mg p.o. daily. 6. Lipitor 40 mg at bedtime. 7. Symbicort 80/4.5 two puffs b.i.d. 8. Iron sulfate 325 mg p.o. daily. 9. Lopressor 25 mg p.o. b.i.d. 10.Narcan 0.2 q.2 p.r.n. 11.NitroMist q.5 p.r.n. 12.Protonix 40 mg b.i.d. 13.Zosyn 3.375 IV q.8. 14.Flomax 0.4 at bedtime. PHYSICAL EXAMINATION: Patient is alert, oriented x3. Pulse is 74, blood pressure 99/65, respiration 18, temperature 98 degrees, pulse ox 98% on room air. HEENT: Conjunctivae normal. Oral mucosa moist. NECK: No jugular venous distention. No carotid bruit. No lymph node enlargement. CARDIOVASCULAR SYSTEM: S1, S2 muffled. RESPIRATORY SYSTEM: Breath sounds diminished at the bases. A few scattered rhonchi and crackles. ABDOMEN: Soft, non-tender. LEGS: No edema. No swelling. Right ulcer present. NERVOUS SYSTEM: No focal deficit. LABS: WBC 9, hemoglobin 10.5, creatinine 1.57. ASSESSMENT: 1. Atrial fibrillation with fast ventricular rate, present on admission. 2. Change in mental status, possible acute metabolic encephalopathy, multifactorial. 3. Fever; possible infection or sepsis. 4. Anemia, normocytic; anemia of malignancy. 5. Left upper lobe lung cancer, on chemotherapy, with metastasis. 6. Fungating ulceration on the right shoulder area. 7. Increased BUN with possibly chronic kidney disease, stage III. 8. History of chronic obstructive pulmonary disease. 9. History of gastroesophageal reflux disease. 10.Hypertension. 11.Hyperlipidemia. 12.History of myocardial infarction. 13.History of degenerative joint disease. 14.History of prostate disorder. 15.History of appendectomy. 16.History of coronary artery disease, stent. 17.History of anxiety, depression. 18.History of and continued ongoing nicotine dependence. 19.FULL CODE. RECOMMENDATIONS AND DISCUSSION: I recommend to continue current medications, continue with the monitoring, symptomatic treatment. Continue with the antibiotics. Will continue with hydration. Repeat labs have been ordered. Will closely follow with multiple consultants. Sensorium is slightly improved, but again prognosis is extremely guarded because of the multiple complex medical issues, as detailed above. Further recommendations to follow. Please see orders for details. MMODL / IJN: [id number] /
--- NOTE | 2018-12-26 18:58 | NM ---
EXAMINATION TYPE: NM pul vent and perfuse DATE OF EXAM: 12/26/2018 COMPARISON: NONE HISTORY: Short of breath TECHNIQUE: Utilizing inhalation of 66.3 mCi Tc 99m DTPA aerosol and intravenous injection of 4.87 mC i of Tc 99m MAA, ventilation and perfusion images are acquired post injection in multiple projections . FINDINGS: There is large matching ventilation and perfusion defect involving most of the left lung. There is ve ry little ventilation and perfusion seen on the left side in the left lower lobe. There is absent act ivity left upper lobe. On the right side there are small subsegmental peripheral ventilation and perfusion matching defects. IMPRESSION: Large matching defects in the left lung. Radiographic abnormality on the chest x-ray yesterday is sma ller than the perfusion abnormality. There is overall intermediate probability of pulmonary embolism. :
[2018-12-26] MEDS: APIXABAN 5 MG TAB PO SCH (20:59)
[2018-12-26] MEDS ORDERED: ATORVASTATIN 40 MG TAB PO SCH (21:00)
[2018-12-26] MEDS ORDERED: TAMSULOSIN 0.4 MG CAP.ER.24H PO SCH (21:00)
[2018-12-27] MEDS: PANTOPRAZOLE 40 MG TABLET PO SCH (06:07)
[2018-12-27 06:28] LABS: Basophils % (A) 0 %; Eosinophils # (A) 0.2 k/uL (0-0.7); Eosinophils % (A) 2 %; HCT 27.8 % (39.0-53.0); HGB 9.1 gm/dL (13.0-17.5); Lymphocytes # (A) 0.7 k/uL (1.0-4.8); Lymphocytes % (A) 10 %; MCH 26.5 pg (25.0-35.0); MCHC 32.9 g/dL (31.0-37.0); MCV 80.6 fL (80.0-100.0); Monocytes # (A) 0.1 k/uL (0-1.0); Monocytes % (A) 2 %; Neutrophils # (A) 5.6 k/uL (1.3-7.7); Neutrophils % (A) 86 %; Platelet Count 251 k/uL (150-450); RBC 3.45 m/uL (4.30-5.90); RDW 14.4 % (11.5-15.5); WBC 6.6 k/uL (3.8-10.6)
[2018-12-27 06:42] LABS: Albumin 2.5 g/dL (3.5-5.0); Calcium 8.5 mg/dL (8.4-10.2); Potassium 4.3 mmol/L (3.5-5.1); Total Bilirubin 0.4 mg/dL (0.2-1.3); Total Protein 4.7 g/dL (6.3-8.2)
[2018-12-27] MEDS: APIXABAN 5 MG TAB PO SCH (07:54)
[2018-12-27] MEDS: HYDROcodone/APAP 10-325MG 1 EACH TAB PO SCH (07:55)
[2018-12-27] MEDS: FERROUS SULFATE 325 MG TAB PO SCH (07:55)
[2018-12-27] MEDS: METOPROLOL TARTRATE 25 MG TAB PO SCH (07:55)
[2018-12-27] MEDS: PIPERACILLIN-TAZOBACTAM 3.375 GM in SODIUM CHLORIDE 0.9% 100 ML IVPB SCH (07:56)
[2018-12-27] MEDS: ASPIRIN 81 MG PO SCH (07:56)
[2018-12-27] MEDS: SYMBICORT 80-4.5 MCG INHALER INHALATION SCH (08:26)
[2018-12-27 12:16] VITALS: BP 113/75; PULSE 75; TEMP 97.8
--- NOTE | 2018-12-27 12:53 | P.PN ---
Subjective Progress Note Date: 12/27/18 This is a pleasant 68-year-old woman who presented from the radiation unit with progressive weakness. He is followed regularly in our office by Dr. KELLY Washburn. He's been diagnosed as squamous cell cancer and has been followed by Dr. Varma and and is undergoing chemotherapy and radiation. He has been complaining of progressive fatigue and was noted to have low blood pressure and high heart rate and was noted to be in atrial fibrillation on presentation. He did undergo cardiac catheterization by Dr. KELLY Washburn in September of this year and was noted to have mild disease in the LAD and RCA with occluded diagonal branch. He was initiated on beta milady yesterday and IV Cardizem was discontinued. He remains in atrial fibrillation with fairly well controlled ventricular response in the 80s to 90s. Echocardiogram with Doppler done yesterday showed a mildly impaired LV systolic function with ejection fraction of 45-50% with basal inferior LV wall motion hypokinesis, normal size RV, mild MR, [id number] TR and moderate pulmonary hypertension with an RVSP of 42. He did undergo VQ scan yesterday which showed intermediate probability of a PE and his Eliquis has been increased to 10 mg by mouth twice a day. Objective - Vital Signs Vital signs: Vital Signs Temp 97.8 F 12/27/18 12:13 Pulse 75 12/27/18 12:13 Resp 18 12/27/18 12:13 BP 113/75 12/27/18 12:13 Pulse Ox 95 12/27/18 12:13 Intake & Output 12/26/18 12/27/18 12/27/18 18:59 06:59 18:59 Intake Total 615 Output Total 600 500 Balance 15 -500 Weight 94.6 kg Intake: Intake, IV Titration 615 Amount Piperacillin-Tazobactam 3 100 .375 gm In Sodium Chloride 0.9% 100 ml @ 25 mls/hr IVPB Q8HR [facility] Rx# :[id number] Sodium Chloride 0.9% 1, 515 000 ml @ 75 mls/hr IV . [id number] [facility] Rx#:[id number] Output: Urine 600 500 - Exam PHYSICAL EXAMINATION: HEENT: Head is atraumatic, normocephalic. Pupils equal, round. Neck is supple. There is no elevated jugular venous pressure. HEART EXAMINATION: Heart sounds irregular irregular, S1 and S2 with a systolic murmur. CHEST EXAMINATION: Lungs with decreased air exchange. No chest wall tenderness is noted on palpation or with deep breathing. ABDOMEN: Soft, nontender. Bowel sounds are heard. No organomegaly noted. EXTREMITIES: 2+ peripheral pulses with no evidence of peripheral edema and no calf tenderness noted. NEUROLOGIC patient is awake, alert and oriented x3. . - Labs CBC & Chem 7: 12/27/18 05:49 12/27/18 05:49 Labs: Abnormal Lab Results - Last 24 Hours (Table) 12/27/18 12/27/18 Range/Units 05:49 05:49 RBC 3.45 L (4.30-5.90) m/uL Hgb 9.1 L (13.0-17.5) gm/dL Hct 27.8 L (39.0-53.0) % Lymphocytes # 0.7 L (1.0-4.8) k/uL Sodium 136 L (137-145) mmol/L Chloride 108 H (98-107) mmol/L BUN 24 H (9-20) mg/dL Glucose 153 H (74-99) mg/dL AST 8 L (17-59) U/L Total Protein 4.7 L (6.3-8.2) g/dL Albumin 2.5 L (3.5-5.0) g/dL Microbiology - Last 24 Hours (Table) 12/26/18 05:00 Gram Stain - Preliminary Shoulder - Right Wound Culture - Preliminary Gram Neg Bacilli Group D Enterococcus 12/26/18 01:20 Urine Culture - Preliminary Urine,Clean Catch Assessment and Plan Assessment: #1 atrial fibrillation of unknown duration, appears to be recent #2 squamous cell carcinoma, receiving chemotherapy and radiation #3 history of CAD with no evidence of unstable pattern #4 progressive weakness and fatigue, probably related to malignancy and current treatment #5 history of chronic tobacco use and COPD #6 history of peripheral vascular disease #7 hypertension #8 hyperlipidemia Plan: From cardiology's perspective, medications reviewed and will continue the same. From our standpoint, patient may be discharged home once cleared by primary and follow-up in the office with Dr. KELLY Washburn. HAT MEASURER note has been reviewed, I agree with a documented findings and plan of care. Patient was seen and examined.
--- NOTE | 2018-12-28 00:10 | DS ---
DISCHARGE SUMMARY FINAL DIAGNOSES: 1. Atrial fibrillation with fast ventricular rate, present on admission. 2. Change in mental status possible acute metabolic encephalopathy multifactorial. 3. Fever, possible infection and sepsis of undetermined etiology. 4. Anemia, normocytic anemia of chronic malignancy. 5. Left upper lobe lung cancer on chemotherapy with metastasis. 6. Fungating ulceration of the right shoulder area. 7. Increased BUN with possibly chronic kidney stage III. 8. History of chronic obstructive pulmonary disease. 9. History of gastroesophageal reflux disease. 10.History of hypertension. 11.History of hyperlipidemia. 12.History of myocardial infarction. 13.History of degenerative joint disease. 14.History of prostate disorder. 15.History of appendectomy. 16.History of coronary artery disease, stent. 17.History of anxiety, depression. 18.History of continued ongoing nicotine dependence. 19.FULL CODE. DISCHARGE DISPOSITION: The patient left the hospital AGAINST MEDICAL ADVICE. HISTORY OF PRESENT ILLNESS: This 68-year-old gentleman with a past medical problems of multiple medical problems admitted with atrial fibrillation, multiple other medical problems as mentioned earlier. Patient is being treated in the hospital. Patient on antibiotics. Cardiology is following the patient. However, the patient is not willing to stay and in the patient 1000, against medical advice. Please refer to the staff notes for further information and prognosis remains extremely guarded throughout the hospital stay. MMODL / IJN: [id number] /
[2019-01-03] MEDS ORDERED: APIXABAN 5 MG TAB PO SCH (09:00)
== END 2018-12-27 13:36 | disposition left against medical advice (07) | DRG 308 ==
LOC: EC 16:11 → 3SCARD 18:39
PROVIDERS: ADMIT Internal Medicine; ATTEND Internal Medicine
DX: I48.91 Unspecified atrial fibrillation (principal); G93.41 Metabolic encephalopathy; A41.9 Sepsis, unspecified organism; C34.12 Malignant neoplasm of upper lobe, left bronchus or lung; Q60.0 Renal agenesis, unilateral; K21.9 Gastro-esophageal reflux disease without esophagitis; J44.9 Chronic obstructive pulmonary disease, unspecified; M19.90 Unspecified osteoarthritis, unspecified site; M54.9 Dorsalgia, unspecified; F32.9 Major depressive disorder, single episode, unspecified; F41.9 Anxiety disorder, unspecified; H26.9 Unspecified cataract; I25.10 Atherosclerotic heart disease of native coronary artery without angina pectoris; D63.0 Anemia in neoplastic disease; E78.5 Hyperlipidemia, unspecified; F17.200 Nicotine dependence, unspecified, uncomplicated; I08.1 Rheumatic disorders of both mitral and tricuspid valves; I12.9 Hypertensive chronic kidney disease with stage 1 through stage 4 chronic kidney disease, or unspecified chronic kidney disease; I27.20 Pulmonary hypertension, unspecified; G89.29 Other chronic pain; I73.9 Peripheral vascular disease, unspecified; L98.9 Disorder of the skin and subcutaneous tissue, unspecified; N18.9 Chronic kidney disease, unspecified; Z79.899 Other long term (current) drug therapy; I25.2 Old myocardial infarction; Z90.49 Acquired absence of other specified parts of digestive tract; Z80.9 Family history of malignant neoplasm, unspecified; Z85.118 Personal history of other malignant neoplasm of bronchus and lung; Z95.5 Presence of coronary angioplasty implant and graft; Z91.048 Other nonmedicinal substance allergy status; Z90.89 Acquired absence of other organs; Z98.890 Other specified postprocedural states
CPT/HCPCS: 36415; 70450; 71046; 77386; 78582; 80053; 81003; 82140; 82550; 83735; 84443; 84484; 85025; 85610; 85730; 87040; 87070; 87077; 87086; 87186; 87205; 93005; 93306; 94640; 96361; 96365; 96368; 99285

== ENCOUNTER 2019-01-12 16:00 | Inpatient (IN) | payer MEDICARE ==
[2019-01-12] MEDS ORDERED: DILTIAZEM DRIP BOLUS FROM BAG 1 MG SOLN IV ONE ×2 (16:26→17:58)
--- NOTE | 2019-01-12 16:26 | ED ---
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 He denies any chest pain fevers chills nausea vomiting sweats shortness of breath cough or phlegm production nothing else out of the ordinary. No peripheral edema. MD Complaint: rapid heart beat - Related Data Home Medications Medication Instructions Recorded Confirmed Albuterol Inhaler [Ventolin Hfa 2 puff INHALATION Q4HR PRN 09/08/13 01/12/19 Inhaler] ALPRAZolam [Xanax] 1 mg PO TID 09/09/13 01/12/19 Fluticasone/Vilanterol [Breo 1 puff INHALATION QAM PRN 05/20/17 01/12/19 Ellipta 100-25 Mcg Inhaler] HYDROcodone/APAP 10-325MG [[place] 1 tab PO QID PRN 05/20/17 01/12/19 10-325] Nitroglycerin [Nitromist] 1 spray SL Q5M PRN 09/26/18 01/12/19 Esomeprazole Magnesium [NexIUM] 40 mg PO DAILY 12/25/18 01/12/19 Lisinopril [Zestril] 10 mg PO DAILY 01/06/19 01/12/19 Simvastatin [Zocor] 20 mg PO HS 01/06/19 01/12/19 amLODIPine BESYLATE [Norvasc] 10 mg PO DAILY 01/06/19 01/12/19 Apixaban [Eliquis] 5 mg PO BID 01/12/19 01/12/19 Previous Rx's Medication Instructions Recorded Atorvastatin [Lipitor] 40 mg PO HS #90 tab 12/27/18 Metoprolol Tartrate [Lopressor] 25 mg PO BID #180 tab 12/27/18 Allergies Allergy/AdvReac Type Severity Reaction Status Date / Time blue dye AdvReac Nausea & Verified 01/12/19 16:10 Vomiting Review of Systems ROS Statement: Those systems with pertinent positive or pertinent negative responses have been documented in the HPI. ROS Other: All systems not noted in ROS Statement are negative. Past Medical History Past Medical History: COPD, GERD/Reflux, Hyperlipidemia, Hypertension, Myocardial Infarction ([place]), Musculoskeletal Disorder, Osteoarthritis (OA), Prostate Disorder, Vascular Disorder Additional Past Medical History / Comment(s): BORN W/ONE KIDNEY, states gets dizzy but only when looks up, cataracts bilateral eyes, recent black to ramachandran stool, upper chest pain that radiates to back and shoulder X last few months. Chronic back pain. Mass found in lung. Last Myocardial Infarction Date:: 1998 History of Any Multi-Drug Resistant Organisms: None Reported Past Surgical History: Appendectomy, Back Surgery, Heart Catheterization With Stent, Hernia Repair, Orthopedic Surgery Additional Past Surgical History / Comment(s): Bilateral shoulder, bilateral knee surgery, abdominal angiography,. colonoscopy, EGD, SURGERY TO LEFT JAW, left cataract removed and surgery for floaters. Past Anesthesia/Blood Transfusion Reactions: No Reported Reaction Date of Last Stent Placement:: 1998, 10/09/13 Past Psychological History: Anxiety, Depression Smoking Status: Current every day smoker Past Alcohol Use History: None Reported Past Drug Use History: None Reported - Past Family History Mother Family Medical History: Cancer Father Family Medical History: Cancer General Exam - General Exam Comments Initial Comments: This is a well-developed well-nourished awake alert oriented 3 male Limitations: no limitations General appearance: alert, in no apparent distress Head exam: Present: atraumatic, normocephalic, normal inspection Eye exam: Present: normal appearance, PERRL, EOMI. Absent: scleral icterus, conjunctival injection, periorbital swelling ENT exam: Present: normal exam, mucous membranes moist Neck exam: Present: normal inspection, full ROM. Absent: tenderness, meningismus, lymphadenopathy Respiratory exam: Present: decreased breath sounds. Absent: respiratory distress, wheezes, rales, rhonchi, stridor Cardiovascular Exam: Present: tachycardia, irregular rhythm. Absent: systolic murmur, diastolic murmur, rubs, gallop, clicks GI/Abdominal exam: Present: soft, normal bowel sounds. Absent: distended, tenderness, guarding, rebound, rigid Extremities exam: Present: full ROM, normal capillary refill, other (Lesion to the right lateral arm consistent with his stated metastatic cancer.). Absent: tenderness, pedal edema, joint swelling, calf tenderness Back exam: Present: normal inspection Neurological exam: Present: alert, oriented X3, CN II-XII intact Psychiatric exam: Present: normal affect, normal mood Skin exam: Present: warm, dry, intact, normal color. Absent: rash Course Vital Signs 01/12/19 01/12/19 01/12/19 16:08 17:10 17:37 Temperature 97.9 F Pulse Rate 144 H 134 H 131 H Respiratory 20 18 18 Rate Blood Pressure 102/64 115/76 106/82 O2 Sat by Pulse 99 95 Oximetry - Reevaluation(s) Reevaluation #1: 01/12/19 18:05 The patient persists to have atrial fibrillation with rapid ventricular responses have initial treatment. He was found be continually in A. fib RVR along with hypomagnesemia. IV magnesium was initiated EKG Findings - EKG Results: EKG: interpreted by ERMD (Atrial for ablation with a rapid ventricular response rate PVC noted rate was 140 QRS 80 QT/QTC 314/[address]-T wave configuration) Medical Decision Making - Medical Decision Making I did discuss findings with the patient and his family as well as with Dr. Ta. Patient will be admitted with cardiology consultation for rapid atrial fibrillation and hypomagnesemia. - Lab Data Result diagrams: 01/12/19 16:17 01/12/19 16:17 Lab Results 01/12/19 01/12/19 01/12/19 Range/Units 16:17 16:17 16:17 WBC 2.7 L (3.8-10.6) k/uL RBC 3.74 L (4.30-5.90) m/uL Hgb 9.8 L (13.0-17.5) gm/dL Hct 29.5 L (39.0-53.0) % MCV 78.8 L (80.0-100.0) fL MCH 26.3 (25.0-35.0) pg MCHC 33.4 (31.0-37.0) g/dL RDW 15.2 (11.5-15.5) % Plt Count 245 (150-450) k/uL Neutrophils % 71 % Lymphocytes % 21 % Monocytes % 4 % Eosinophils % 2 % Basophils % 1 % Neutrophils # 1.9 (1.3-7.7) k/uL Lymphocytes # 0.6 L (1.0-4.8) k/uL Monocytes # 0.1 (0-1.0) k/uL Eosinophils # 0.1 (0-0.7) k/uL Basophils # 0.0 (0-0.2) k/uL PT 11.6 (9.0-12.0) sec INR 1.1 (<1.2) APTT 27.9 (22.0-30.0) sec Sodium 138 (137-145) mmol/L Potassium 3.8 (3.5-5.1) mmol/L Chloride 103 (98-107) mmol/L Carbon Dioxide 24 (22-30) mmol/L Anion Gap 11 mmol/L BUN 19 (9-20) mg/dL Creatinine 1.17 (0.66-1.25) mg/dL Est GFR (CKD-EPI)AfAm 73 (>60 ml/min/1.73 sqM) Est GFR (CKD-EPI)NonAf 63 (>60 ml/min/1.73 sqM) Glucose 120 H (74-99) mg/dL Calcium 8.4 (8.4-10.2) mg/dL Magnesium 1.3 L (1.6-2.3) mg/dL Total Bilirubin 0.4 (0.2-1.3) mg/dL AST 16 L (17-59) U/L ALT 29 (21-72) U/L Alkaline Phosphatase 101 (38-126) U/L Creatine Kinase 33 L (55-170) U/L Troponin I (0.000-0.034) ng/mL Total Protein 5.9 L (6.3-8.2) g/dL Albumin 3.3 L (3.5-5.0) g/dL TSH 1.730 (0.465-4.680) mIU/L 01/12/19 Range/Units 16:17 WBC (3.8-10.6) k/uL RBC (4.30-5.90) m/uL Hgb (13.0-17.5) gm/dL Hct (39.0-53.0) % MCV (80.0-100.0) fL MCH (25.0-35.0) pg MCHC (31.0-37.0) g/dL RDW (11.5-15.5) % Plt Count (150-450) k/uL Neutrophils % % Lymphocytes % % Monocytes % % Eosinophils % % Basophils % % Neutrophils # (1.3-7.7) k/uL Lymphocytes # (1.0-4.8) k/uL Monocytes # (0-1.0) k/uL Eosinophils # (0-0.7) k/uL Basophils # (0-0.2) k/uL PT (9.0-12.0) sec INR (<1.2) APTT (22.0-30.0) sec Sodium (137-145) mmol/L Potassium (3.5-5.1) mmol/L Chloride (98-107) mmol/L Carbon Dioxide (22-30) mmol/L Anion Gap mmol/L BUN (9-20) mg/dL Creatinine (0.66-1.25) mg/dL Est GFR (CKD-EPI)AfAm (>60 ml/min/1.73 sqM) Est GFR (CKD-EPI)NonAf (>60 ml/min/1.73 sqM) Glucose (74-99) mg/dL Calcium (8.4-10.2) mg/dL Magnesium (1.6-2.3) mg/dL Total Bilirubin (0.2-1.3) mg/dL AST (17-59) U/L ALT (21-72) U/L Alkaline Phosphatase (38-126) U/L Creatine Kinase (55-170) U/L Troponin I <0.012 (0.000-0.034) ng/mL Total Protein (6.3-8.2) g/dL Albumin (3.5-5.0) g/dL TSH (0.465-4.680) mIU/L Critical Care Time Critical Care Time: Yes Critical Care Time: CC time: 31 minutes of critical care time which includes initial presentation with history physical labs x-rays reevaluation patient responsive therapy review of old charting available discussed with the patient and family regarding findings discussed with the admitting physician initial orders and documentation of the above Disposition Clinical Impression: Rapid atrial fibrillation, Hypomagnesemia syndrome, Small cell lung cancer in adult Disposition: [facility]ITT[facility] Condition: Serious Referrals: Michael Howell MD [Primary Care Provider] - 1-2 days
[2019-01-12] MEDS ORDERED: DILTIAZEM 125 MG in SODIUM CHLORIDE 0.9% 100 ML IV SCH (16:30)
[2019-01-12 16:36] LABS: Basophils % (A) 1 %; Eosinophils # (A) 0.1 k/uL (0-0.7); Eosinophils % (A) 2 %; HCT 29.5 % (39.0-53.0); HGB 9.8 gm/dL (13.0-17.5); Lymphocytes # (A) 0.6 k/uL (1.0-4.8); Lymphocytes % (A) 21 %; MCH 26.3 pg (25.0-35.0); MCHC 33.4 g/dL (31.0-37.0); MCV 78.8 fL (80.0-100.0); Mean Platelet Volume 7.5; Monocytes # (A) 0.1 k/uL (0-1.0); Monocytes % (A) 4 %; Neutrophils # (A) 1.9 k/uL (1.3-7.7); Neutrophils % (A) 71 %; Platelet Count 245 k/uL (150-450); RBC 3.74 m/uL (4.30-5.90); RDW 15.2 % (11.5-15.5); WBC 2.7 k/uL (3.8-10.6)
[2019-01-12 16:44] LABS: INR 1.1 (<1.2); Partial Thromboplastin Time 27.9 sec (22.0-30.0); Prothrombin Time 11.6 sec (9.0-12.0)
[2019-01-12 16:47] LABS: Albumin 3.3 g/dL (3.5-5.0); Calcium 8.4 mg/dL (8.4-10.2); Magnesium 1.3 mg/dL (1.6-2.3); Potassium 3.8 mmol/L (3.5-5.1); Total Bilirubin 0.4 mg/dL (0.2-1.3); Total Protein 5.9 g/dL (6.3-8.2)
--- NOTE | 2019-01-12 16:52 | XR ---
EXAMINATION TYPE: XR chest 2V DATE OF EXAM: 01/12/2019 COMPARISON: Chest x-ray December 25, 2018. Chest CT October 31, 2018. PET/CT October 18, 2018. HISTORY: History of lung cancer with dysrhythmia. TECHNIQUE: Frontal and lateral views of the chest are obtained. FINDINGS: There is background chronic emphysematous change with left hilar masslike consolidation wi th suprahilar extension redemonstrated. Right lung remains clear. The cardiac silhouette size remains mildly enlarged. Surgical change right humeral head level is noted. IMPRESSION: Persistent chronic emphysematous change and mild cardiomegaly with left suprahilar neopl asm causing postobstructive atelectatic change to the left upper lung. No new infiltrate is seen. No significant change from priors.
[2019-01-12] MEDS ORDERED: NALOXONE 0.4 MG/ML 1 ML VIAL IV PRN (18:09)
[2019-01-12] MEDS ORDERED: ALBUTEROL NEBULIZED 2.5 MG/3 ML INHALATION PRN (18:12)
[2019-01-12] MEDS ORDERED: SODIUM CHLORIDE 0.9% 1,000 ML IV SCH (18:15)
[2019-01-12] MEDS ORDERED: NITROGLYCERIN SL TABS 0.4 MG TAB SUBLINGUAL PRN (18:30)
[2019-01-12] MEDS: MAGNESIUM SULFATE-D5W PMX 1 GM in DEXTROSE/WATER 1 100ML.BAG IVPB SCH ×2 (19:03→20:13)
[2019-01-12] MEDS: APIXABAN 5 MG TAB PO SCH (20:13)
[2019-01-12] MEDS: METOPROLOL TARTRATE 25 MG TAB PO SCH (20:13)
[2019-01-12] MEDS: ATORVASTATIN 10 MG TAB PO SCH (20:13)
[2019-01-12] MEDS: ALPRAZolam 1 MG TAB PO SCH (20:14)
[2019-01-12] MEDS: HYDROcodone/APAP 10-325MG 1 EACH TAB PO PRN (20:17)
[2019-01-12] MEDS ORDERED: ATORVASTATIN 40 MG TAB PO SCH (21:00)
[2019-01-12 21:53] VITALS: BMI 31.9
[2019-01-13] MEDS: PANTOPRAZOLE 40 MG TABLET PO SCH (06:25)
[2019-01-13] MEDS: SYMBICORT 80-4.5 MCG INHALER INHALATION SCH ×2 (08:39→19:54)
[2019-01-13] MEDS: APIXABAN 5 MG TAB PO SCH ×2 (08:57→20:51)
[2019-01-13] MEDS: METOPROLOL TARTRATE 25 MG TAB PO SCH ×2 (08:57→20:51)
[2019-01-13] MEDS: ALPRAZolam 1 MG TAB PO SCH ×3 (08:57→20:51)
[2019-01-13] MEDS ORDERED: amLODIPine 10 MG TAB PO SCH (09:00)
[2019-01-13] MEDS ORDERED: LISINOPRIL 10 MG TAB PO SCH (09:00)
[2019-01-13] MEDS: HYDROcodone/APAP 10-325MG 1 EACH TAB PO PRN ×2 (09:09→20:51)
[2019-01-13] MEDS ORDERED: METOPROLOL TARTRATE 25 MG TAB PO STA (10:28)
[2019-01-13] MEDS: MAGNESIUM SULFATE-D5W PMX 1 GM in DEXTROSE/WATER 1 100ML.BAG IVPB SCH ×3 (13:10→17:12)
--- NOTE | 2019-01-13 13:26 | CONS ---
CONSULTATION Mr. Perez is a 68-year-old gentleman who is seen for atrial fibrillation and rapid rate. The patient's old chart is reviewed. Patient is a rather poor historian. This patient has been diagnosed to have metastatic squamous cell carcinoma and has been treated with chemotherapy and radiation. Patient was getting radiation therapy yesterday. The patient did not look very good. His heart rate was faster and he was sent to the ER and the patient was admitted. This patient recently was in the hospital with atrial fibrillation with a rapid rate and he was treated. There was a questionable pulmonary embolism, but there was a matching defect and the patient has a mass in that side. The patient is currently being treated Eliquis for 5 mg b.i.d. The patient had a cardiac catheterization in September of this year and was found to have mild disease in the LAD and the right coronary artery. Recent echocardiogram reveals overall normal left ventricular systolic function. MEDICATIONS: Patient's home medications included Norvasc 10 mg daily, MMODL / IJN: [id number] /
--- NOTE | 2019-01-13 13:34 | P.HPIM ---
History of Present Illness 59-year-old pleasant gentleman with known history of small cell lung cancer metastatic found to be tachycardic while she was receiving radiation therapy found to be in atrial fibrillation patient does have known history of A. concha lawrence franklin is on Eliquis for that. Patient is presently on Cardizem drip. Cardiology was consulted patient had ejection fraction of 45-50% in the past. Patient doesn't have any clinical evidence of dehydration, denied any fever chills doesn't have any evidence of infection. Patient does have some of right abnormality this including hypomagnesemia which are being corrected at this time TSH is 1.7. Patient heart rate is 121 at rest. Patient is comparing of tiredness and weakness which can be part of her cancer cachexia can be from atrial fibrillation as well as company of some shortness of breath as well. Chest x-ray showed right sided cancerous mass with postobstructive atelectasis no evidence of pneumonia. Review of Systems REVIEW OF SYSTEMS: CONSTITUTIONAL: No fever, no malaise, no fatigue. HEENT: No recent visual problems or hearing problems. Denied any sore throat. CARDIOVASCULAR: No chest pain, orthopnea, PND, no palpitations, no syncope. PULMONARY: No shortness of breath, no cough, no hemoptysis. GASTROINTESTINAL: No diarrhea, no nausea, no vomiting, no abdominal pain. NEUROLOGICAL: No headaches, no weakness, no numbness. HEMATOLOGICAL: Denies any bleeding or petechiae. GENITOURINARY: Denies any burning micturition, frequency, or urgency. MUSCULOSKELETAL/RHEUMATOLOGICAL: Denies any joint pain, swelling, or any muscle pain. ENDOCRINE: Denies any polyuria or polydipsia. The rest of the 14-point review of systems is negative. Past Medical History Past Medical History: COPD, GERD/Reflux, Hyperlipidemia, Hypertension, Myocardial Infarction ([place]), Musculoskeletal Disorder, Osteoarthritis (OA), Prostate Disorder, Vascular Disorder Additional Past Medical History / Comment(s): BORN W/ONE KIDNEY, states gets dizzy but only when looks up, cataracts bilateral eyes, recent black to ramachandran stool, upper chest pain that radiates to back and shoulder X last few months. Chronic back pain. Mass found in lung. Last Myocardial Infarction Date:: 1998 History of Any Multi-Drug Resistant Organisms: None Reported Past Surgical History: Appendectomy, Back Surgery, Heart Catheterization With Stent, Hernia Repair, Orthopedic Surgery Additional Past Surgical History / Comment(s): Bilateral shoulder, bilateral knee surgery, abdominal angiography,. colonoscopy, EGD, SURGERY TO LEFT JAW, left cataract removed and surgery for floaters. Past Anesthesia/Blood Transfusion Reactions: No Reported Reaction Date of Last Stent Placement:: 1998, 10/09/13 Past Psychological History: Anxiety, Depression Smoking Status: Current every day smoker Past Alcohol Use History: None Reported Additional Past Alcohol Use History / Comment(s): SMOKES <1/2 PPD SINCE AGE 4. Past Drug Use History: None Reported - Past Family History Mother Family Medical History: Cancer Father Family Medical History: Cancer Medications and Allergies Home Medications Medication Instructions Recorded Confirmed Type Albuterol Inhaler [Ventolin Hfa 2 puff INHALATION Q4HR PRN 09/08/13 01/12/19 History Inhaler] ALPRAZolam [Xanax] 1 mg PO TID 09/09/13 01/12/19 History Fluticasone/Vilanterol [Breo 1 puff INHALATION QAM PRN 05/20/17 01/12/19 History Ellipta 100-25 Mcg Inhaler] HYDROcodone/APAP 10-325MG [[place] 1 tab PO QID PRN 05/20/17 01/12/19 History 10-325] Nitroglycerin [Nitromist] 1 spray SL Q5M PRN 09/26/18 01/12/19 History Esomeprazole Magnesium [NexIUM] 40 mg PO DAILY 12/25/18 01/12/19 History Atorvastatin [Lipitor] 40 mg PO HS #90 tab 12/27/18 01/12/19 Rx Metoprolol Tartrate [Lopressor] 25 mg PO BID #180 tab 12/27/18 01/12/19 Rx Lisinopril [Zestril] 10 mg PO DAILY 01/06/19 01/12/19 History Simvastatin [Zocor] 20 mg PO HS 01/06/19 01/12/19 History amLODIPine BESYLATE [Norvasc] 10 mg PO DAILY 01/06/19 01/12/19 History Apixaban [Eliquis] 5 mg PO BID 01/12/19 01/12/19 History Allergies Allergy/AdvReac Type Severity Reaction Status Date / Time blue dye AdvReac Nausea & Verified 01/12/19 16:10 Vomiting Physical Exam Vitals: Vital Signs Temp Pulse Pulse Resp BP BP Pulse Ox 01/13/19 12:00 121 H 16 99/61 91 L 01/13/19 08:00 97.6 F 132 H 16 108/71 92 L 01/13/19 04:00 98.2 F 123 H 18 110/67 93 L 01/12/19 23:34 134 H 18 01/12/19 23:32 98.7 F 134 H 18 115/68 94 L 01/12/19 20:00 98.3 F 132 H 18 110/71 93 L 01/12/19 18:51 68 18 111/84 95 01/12/19 17:37 131 H 18 106/82 01/12/19 17:10 134 H 18 115/76 95 01/12/19 16:08 97.9 F 144 H 20 102/64 99 Intake and Output 01/12/19 01/13/19 01/13/19 22:59 06:59 14:59 Intake Total 360 0 Balance 360 0 Intake: Intake, IV Titration 360 Amount Magnesium Sulfate-D5w Pmx 200 1 gm In Dextrose/Water 1 100ml.bag @ 100 mls/hr IVPB Q1H LILIBETH Rx#: [id number] Sodium Chloride 0.9% 1, 160 000 ml @ 20 mls/hr IV . Q24H LILIBETH Rx#:[id number] Oral 0 Other: Voiding Method Toilet Toilet Toilet Weight 95.254 kg 94.4 kg PHYSICAL EXAMINATION: GENERAL: The patient is alert and oriented x3, not in any acute distress. Well developed, well nourished. HEENT: Pupils are round and equally reacting to light. EOMI. No scleral icterus. No conjunctival pallor. Normocephalic, atraumatic. No pharyngeal erythema. No thyromegaly. CARDIOVASCULAR: S1 and S2 present. No murmurs, rubs, or gallops. Tachycardic irregularly irregular rhythm PULMONARY: Chest is clear to auscultation, no wheezing or crackles. ABDOMEN: Soft, nontender, nondistended, normoactive bowel sounds. No palpable organomegaly. MUSCULOSKELETAL: No joint swelling or deformity. EXTREMITIES: No cyanosis, clubbing, or pedal edema. NEUROLOGICAL: Gross neurological examination did not reveal any focal deficits. SKIN: No rashes. Results CBC & Chem 7: 09/09/19 16:17 01/12/19 16:17 Labs: Abnormal Lab Results - Last 24 Hours (Table) 01/12/19 01/12/19 Range/Units 16:17 16:17 WBC 2.7 L (3.8-10.6) k/uL RBC 3.74 L (4.30-5.90) m/uL Hgb 9.8 L (13.0-17.5) gm/dL Hct 29.5 L (39.0-53.0) % MCV 78.8 L (80.0-100.0) fL Lymphocytes # 0.6 L (1.0-4.8) k/uL Glucose 120 H (74-99) mg/dL Magnesium 1.3 L (1.6-2.3) mg/dL AST 16 L (17-59) U/L Creatine Kinase 33 L (55-170) U/L Total Protein 5.9 L (6.3-8.2) g/dL Albumin 3.3 L (3.5-5.0) g/dL Thrombosis Risk Factor Assmnt - Choose All That Apply Any of the Below Risk Factors Present?: Yes Each Factor Represents 1 point: Abnormal pulmonary function (COPD), Obesity (BMI >25) Other Risk Factors: Yes Each Risk Factor Represents 2 Points: Age 61-74 years Other congenital or acquired thrombophilia - If yes, enter type in comment: No Thrombosis Risk Factor Assessment Total Risk Factor Score: 4 Thrombosis Risk Factor Assessment Level: Moderate Risk Assessment and Plan Plan: -Atrial fibrillation with rapid unclear rate: Patient was on Cardizem which will be discontinued because of low ejection fraction and patient's metoprolol dose will be increased. Patient will be continued on anti-coagulation -Hypomagnesemia magnesium will be corrected -Small cell lung cancer metastatic, patient is receiving chemotherapy and radiation therapy. -Fungating ulcerating the lesion on the right arm which is cancerous metastasis to the skin and subcutaneous tissue -Hypertension: Abdomen will be discontinued with concerns of hypotension because of metoprolol -Coronary artery disease -Benign prostatic hypertrophy -Depression and anxiety Congestive heart failure chronic systolic dysfunction ejection fraction mildly decreased 40 with 50% not in acute exacerbation
[2019-01-13] MEDS: ATORVASTATIN 10 MG TAB PO SCH (20:51)
[2019-01-13] MEDS ORDERED: METOPROLOL TARTRATE 50 MG TAB PO SCH (21:00)
--- NOTE | 2019-01-13 22:55 | CONS ---
CONSULTATION Mr. Perez is a 68-year-old gentleman who has been seen for atrial fibrillation and rapid ventricular rate. Patient's old chart was reviewed. Patient is a rather poor historian. He has been diagnosed to have metastatic squamous cell carcinoma and has been treated with chemotherapy and radiation. Patient was getting radiation therapy yesterday. The patient did not look very good. His heart was beating faster. He was sent to the ER and subsequently was admitted. This patient was recently in the hospital with atrial fibrillation with a rapid rate and was treated. There was a questionable history of pulmonary embolism, but the patient has been treated with Eliquis 5 mg b.i.d. Patient has a past history of coronary artery disease. He had a cardiac catheterization done in September of this year and was found to have mild disease in the LAD and right coronary artery. Recent echocardiogram revealed normal left ventricular systolic function. HOME MEDICATIONS: Home medications included: 1. Ventolin inhaler. 2. Xanax. 3. Breo inhaler. 4. [place]. 5. Mucomyst. 6. Nexium. 7. Zestril 10 mg daily. 8. Norvasc once a day. 9. Metoprolol 25 mg b.i.d. PAST MEDICAL HISTORY: Past medical history includes: 1. Hypertension. 2. Hyperlipidemia. 3. Patient has a history of one kidney. 4. History of known coronary artery disease. 5. Metastatic squamous cell carcinoma of the lung. 6. History of appendicectomy. 7. Back surgery. PHYSICAL EXAMINATION: In the emergency room, this patient was afebrile but his heart rate was 130 to 140 and it was irregular. At present the patient is lying comfortably without any respiratory distress. Heart rate is 110 to 120, blood pressure 99/61 mmHg. Head/ENT examination is negative. Neck is supple. There is no increase in jugular venous pressure. Both the carotid pulses are felt. There is no bruit. Chest is symmetrical. HEART: The PMI is not felt. First and second heart sounds are heard. Lungs are fairly clear to auscultation and percussion. ABDOMEN: Soft. EXTREMITIES: Peripheral pulsations are 1+. Chest x-ray is suggestive of COPD without any significant congestive cardiac failure. EKG shows evidence of atrial fibrillation with a rapid ventricular response. IMPRESSION: 1. Atrial fibrillation with rapid ventricular response. 2. History of chronic obstructive pulmonary disease. 3. History of metastatic squamous cell carcinoma. 4. History of diabetes. 5. Hypertension. 6. Stable coronary artery disease. PLAN: We will discontinue the Zestril and increase the Lopressor to 75 mg b.i.d. to control the rate. Continue Lipitor 10 mg daily and Eliquis 5 mg b.i.d. MMEMMAL / MERRICKN: [id number] /
[2019-01-14 05:54] LABS: Anisocytosis Slight; HCT 27.6 % (39.0-53.0); Hypochromasia Slight; MCH 26.9 pg (25.0-35.0); MCHC 32.5 g/dL (31.0-37.0); Mean Platelet Volume 7.2; Platelet Count 224 k/uL (150-450); RBC 3.32 m/uL (4.30-5.90); RDW 16.5 % (11.5-15.5); WBC 3.2 k/uL (3.8-10.6)
[2019-01-14 06:03] LABS: Calcium 8.5 mg/dL (8.4-10.2); Magnesium 2.1 mg/dL (1.6-2.3); Potassium 4.1 mmol/L (3.5-5.1)
[2019-01-14] MEDS: PANTOPRAZOLE 40 MG TABLET PO SCH (06:32)
[2019-01-14] MEDS: ALPRAZolam 1 MG TAB PO SCH ×3 (08:54→21:18)
[2019-01-14] MEDS: METOPROLOL TARTRATE 25 MG TAB PO SCH ×2 (08:54→21:18)
[2019-01-14] MEDS: APIXABAN 5 MG TAB PO SCH ×2 (08:54→21:19)
[2019-01-14] MEDS ORDERED: LISINOPRIL 5 MG TAB PO SCH (09:00)
[2019-01-14] MEDS: SYMBICORT 80-4.5 MCG INHALER INHALATION SCH ×2 (09:49→20:30)
--- NOTE | 2019-01-14 15:36 | P.PN ---
Subjective Progress Note Date: 01/14/19 Principal diagnosis: This is a 68-year-old male who was undergoing radiation therapy and was found tachycardic and in atrial fibrillation with an elevated heart rate and is being closely monitored. Cardiology was consulted. Patient does have a history of A. fib and is currently on Eliquis for this. Patient states that he felt fine and has been with no reports of chest pain, shortness of breath, or palpitations. Patient denies any nausea or vomiting and has been tolerating diet. Patient is quite agitated about being hospitalized and has made multiple comments about feeling fine and just wanting to go home. Patient also states that he has been receiving chemo and radiation per his family's requests. Patient has made multiple comments about wanting to but denies any suicidal or homicidal ideation. Psychiatry is being consulted as he continues to make comments to nursing staff. Discussed with the patient at length about discharge plans and patient states that he wants to go home patient does not want to go to rehab at this time. Guarded prognosis. Objective - Vital Signs Vital signs: Vital Signs Temp 98.5 F 01/14/19 12:00 Pulse 108 H 01/14/19 12:00 Resp 16 01/14/19 12:00 BP 133/78 01/14/19 12:00 Pulse Ox 94 L 01/14/19 12:00 Intake & Output 01/13/19 01/14/19 01/14/19 18:59 06:59 18:59 Intake Total 700 Output Total 750 350 Balance -50 -350 Intake: Intake, IV Titration 460 Amount Magnesium Sulfate-D5w Pmx 300 1 gm In Dextrose/Water 1 100ml.bag @ 100 mls/hr IVPB Q1H LILIBETH Rx#: [id number] Sodium Chloride 0.9% 1, 160 000 ml @ 20 mls/hr IV . Q24H LILIBETH Rx#:[id number] Oral 240 Output: Urine 750 350 Other: Voiding Method Toilet Toilet Toilet # Voids 1 - Exam GENERAL: The patient is alert and oriented x3, not in any acute distress. Well developed, well nourished. Vital signs are stable. Temp is 98.5F, pulse is 94, respirations are 16, blood pressure is 133/78, oxygen saturation is 94% on room air HEENT: Pupils are round and equally reacting to light. EOMI. No scleral icterus. No conjunctival pallor. Normocephalic, atraumatic. No pharyngeal erythema. No thyromegaly. CARDIOVASCULAR: S1 and S2 present. No murmurs, rubs, or gallops. irregularly irregular rhythm PULMONARY: Chest is clear to auscultation, no wheezing or crackles. ABDOMEN: Soft, nontender, nondistended, normoactive bowel sounds. No palpable organomegaly. MUSCULOSKELETAL: No joint swelling or deformity. EXTREMITIES: No cyanosis, clubbing, or pedal edema. NEUROLOGICAL: Gross neurological examination did not reveal any focal deficits. SKIN: No rashes. Right upper extremity lesion with an ABD pad intact with some clear to light yellow drainage that is dried - Labs CBC & Chem 7: 01/14/19 05:38 01/14/19 05:38 Labs: Abnormal Lab Results - Last 24 Hours (Table) 01/14/19 01/14/19 Range/Units 05:38 05:38 WBC 3.2 L (3.8-10.6) k/uL RBC 3.32 L (4.30-5.90) m/uL Hgb 9.0 L (13.0-17.5) gm/dL Hct 27.6 L (39.0-53.0) % RDW 16.5 H (11.5-15.5) % Sodium 135 L (137-145) mmol/L Assessment and Plan Assessment: -Atrial fibrillation with rapid ventricular rate: Patient was on Cardizem which will be discontinued because of low ejection fraction and patient's metoprolol dose will be increased. Patient will be continued on anti-coagulation. Cardiology is following -Hypomagnesemia magnesium improved and is currently 2.1 -Small cell lung cancer metastatic, patient is receiving chemotherapy and radiation therapy. -Fungating ulcerating the lesion on the right arm which is cancerous metastasis to the skin and subcutaneous tissue; Abd pad shows some clear drainage that is d ried. -Hypertension: Amlodipine was discontinued with concerns of hypotension because of metoprolol -Coronary artery disease -Benign prostatic hypertrophy -Depression and anxiety Congestive heart failure chronic systolic dysfunction ejection fraction mildly decreased 40 with 50% not in acute exacerbation
--- NOTE | 2019-01-14 20:16 | PN ---
PROGRESS NOTE This patient was admitted with atrial fibrillation and rapid ventricular response. The patient is a rather poor historian. He is feeling well. He is not in any respiratory distress. The heart rate is now 80 to 90 per minute. Blood pressure is 133/78 mmHg. Respirations are not labored. First and second heart sounds are normal. Lungs are clinically clear to auscultation and percussion. The patient's hemoglobin is 9 grams. Creatinine is 1.0. Continue the current medications. Patient can be discharged home on metoprolol 75 mg b.i.d. MMODL / IJN: [id number] /
[2019-01-14] MEDS: ATORVASTATIN 10 MG TAB PO SCH (21:18)
[2019-01-14] MEDS: HYDROcodone/APAP 10-325MG 1 EACH TAB PO PRN (21:19)
[2019-01-14] MEDS ORDERED: LORazepam 2 MG/ML INJ IV PRN (21:27)
[2019-01-14] MEDS ORDERED: HALOPERIDOL LACTATE 5 MG/ML 1 ML VIAL IM PRN (21:29)
[2019-01-15] MEDS: PANTOPRAZOLE 40 MG TABLET PO SCH (07:02)
[2019-01-15] MEDS: SYMBICORT 80-4.5 MCG INHALER INHALATION SCH ×2 (07:03→20:57)
[2019-01-15 09:32] LABS: HCT 27.8 % (39.0-53.0); HGB 9.5 gm/dL (13.0-17.5); MCH 26.8 pg (25.0-35.0); MCHC 34.1 g/dL (31.0-37.0); MCV 78.5 fL (80.0-100.0); Platelet Count 210 k/uL (150-450); RBC 3.54 m/uL (4.30-5.90); RDW 15.5 % (11.5-15.5)
[2019-01-15 09:50] LABS: Calcium 8.8 mg/dL (8.4-10.2); Magnesium 1.7 mg/dL (1.6-2.3)
[2019-01-15] MEDS: APIXABAN 5 MG TAB PO SCH ×2 (09:58→20:08)
[2019-01-15] MEDS: ALPRAZolam 1 MG TAB PO SCH ×3 (09:58→20:08)
[2019-01-15] MEDS: METOPROLOL TARTRATE 25 MG TAB PO SCH (09:58)
[2019-01-15] MEDS: HYDROcodone/APAP 10-325MG 1 EACH TAB PO PRN ×2 (10:02→20:09)
--- NOTE | 2019-01-15 15:01 | P.PN ---
Subjective Progress Note Date: 01/15/19 Principal diagnosis: This is a 68-year-old male who was undergoing radiation therapy and was found tachycardic and in atrial fibrillation with an elevated heart rate and is being closely monitored. Cardiology was consulted. Patient does have a history of A. fib and is currently on Eliquis for this. Patient states that he felt fine and has been with no reports of chest pain, shortness of breath, or palpitations. Patient denies any nausea or vomiting and has been tolerating diet. Patient is quite agitated about being hospitalized and has made multiple comments about feeling fine and just wanting to go home. Patient also states that he has been receiving chemo and radiation per his family's requests. Patient has made multiple comments about wanting to but denies any suicidal or homicidal ideation. Psychiatry is being consulted as he continues to make comments to nursing staff. Discussed with the patient at length about discharge plans and patient states that he wants to go home patient does not want to go to rehab at this time. Guarded prognosis. 01/15/2019 Patient is lying in bed sleeping in no acute distress. Patient is easily arousable. Sitter is currently at the bedside for suicide precautions as he was making threats about wanting to and having the means to do it. Psychiatry was consulted and awaiting at this time. Patient denies any chest pain, shortness of breath, or palpitations at this time. Patient denies any nausea or vomiting and per nursing staff patient is not eating this morning. Patient remains afebrile. Yesterday patient refused the physical therapy evaluation. Spoke to them this morning and they will reevaluate. Patient is refusing any form of rehab upon discharge. Guarded prognosis. Objective - Vital Signs Vital signs: Vital Signs Temp 97.7 F 01/15/19 11:55 Pulse 107 H 01/15/19 12:00 Resp 12 01/15/19 12:00 BP 97/54 01/15/19 11:55 Pulse Ox 96 01/15/19 11:55 Intake & Output 01/14/19 01/15/19 01/15/19 18:59 06:59 18:59 Intake Total 280 222 260 Output Total 950 Balance -670 222 260 Weight 91 kg Intake: Oral 280 222 260 Output: Urine 950 Other: Voiding Method Toilet Toilet Toilet # Voids 0 0 - Exam GENERAL: The patient is alert and oriented x3, not in any acute distress. Well developed, well nourished. Vital signs are stable. Temp is 96.8 F, pulse is 108, respirations are 17, blood pressure is 116/80, oxygen saturation is 98 % on room air HEENT: Pupils are round and equally reacting to light. EOMI. No scleral icterus. No conjunctival pallor. Normocephalic, atraumatic. No pharyngeal erythema. No thyromegaly. CARDIOVASCULAR: S1 and S2 present. No murmurs, rubs, or gallops. irregularly irregular rhythm PULMONARY: Chest is clear to auscultation, no wheezing or crackles. ABDOMEN: Soft, nontender, nondistended, normoactive bowel sounds. No palpable organomegaly. MUSCULOSKELETAL: No joint swelling or deformity. EXTREMITIES: No cyanosis, clubbing, or pedal edema. NEUROLOGICAL: Gross neurological examination did not reveal any focal deficits. SKIN: No rashes. Right upper extremity lesion with an ABD pad intact - Labs CBC & Chem 7: 01/15/19 08:58 01/15/19 08:58 Labs: Abnormal Lab Results - Last 24 Hours (Table) 01/15/19 Range/Units 08:58 WBC 3.0 L (3.8-10.6) k/uL RBC 3.54 L (4.30-5.90) m/uL Hgb 9.5 L (13.0-17.5) gm/dL Hct 27.8 L (39.0-53.0) % MCV 78.5 L (80.0-100.0) fL Assessment and Plan Assessment: -Atrial fibrillation with rapid ventricular rate: Patient was on Cardizem which was discontinued because of low ejection fraction and patient's metoprolol dose is 75 mg twice daily. Patient will be continued on anti-coagulation. Cardiology is following -Hypomagnesemia magnesium improved and is currently 1.7 -Small cell lung cancer metastatic, patient is receiving chemotherapy and radiation therapy. -Fungating ulcerating the lesion on the right arm which is cancerous metastasis to the skin and subcutaneous tissue -Hypertension: Amlodipine was discontinued with concerns of hypotension -Coronary artery disease -Benign prostatic hypertrophy -Depression and anxiety; psychiatry was consulted and is pending for multiple statements made about wanting to with the means to do so. Suicide precaution sitter is at the bedside Congestive heart failure chronic systolic dysfunction ejection fraction mildly decreased 40-50% not in acute exacerbation
[2019-01-15] MEDS: METOPROLOL TARTRATE 50 MG TAB PO SCH ×2 (17:14→22:59)
--- NOTE | 2019-01-15 17:25 | P.CN ---
Psychiatric Consult - . Consult date: 01/15/19 Consult:: 01/15/19 17:01 IDENTIFYING DATA: This patient is a 68-year-old male who currently lives alone in a house is and has 2 kids and 3 grandkids currently retired. HISTORY OF PRESENT ILLNESS: The patient was admitted to medicine for becoming tachycardic and found to be in A. fib with a history of small cell lung cancer while he was receiving treatment outpatient. Psychiatry was consulted for suicidal ideations describing plans of wanting to end his life. Patient was seen today was agreeable to speak to copywriter the bedside. Patient appeared to be disheveled with poor hygiene and poor grooming and had a depressed affect and spoke softly. Patient states that he has been dealing with his cancer treatments and coming in and out of the hospital. Patient states he does not know what stage his cancer treatment is however feels hopeless with aggressive treatment and was endorsing suicidal ideations. Patient was stating that his ex- is the one that's pushing him to get treatment and help. Patient is not future oriented and claims that he has little support at home. When asked more about the suicidal thoughts patient claims that he has multiple plans including possibly paying himself, or shooting himself in the head with his guns at home. He states that his guns are not locked away and he has 3 of them and also has a rope to hang himself with. When asked about his reasons to live patient could not give one reason why. He also states that he is not baptism" don't care if I ". Patient even states that one of his sons agrees with him that he would rather be than getting worse with treatment. Patient threatened multiple times to copywriter stating that "if I'm not getting better then Id rather be ". He states that his mood is "okay" however affect is incongruent and appears to be depressed. He endorses some anxiety and also endorses poor sleep. At this time patient denies any homical ideations, intent or plan. Patient denies any auditory, visual hallucinations and denies any paranoia or delusions. PAST PSYCHIATRIC HISTORY: Patient denies being on any psychotropic medications in the past and denies seeing a psychiatrist however did claim that he saw a therapist many years ago. He denies any previous psychiatric diagnosis. He did claim that he has history of previously attempting to hang himself years ago. He denies any previous psychiatric admissions. PAST MEDICAL HISTORY: Small cell lung cancer currently undergoing chemo/radiation, atrial fibrillation, COPD, GERD, hypertension, previous KS, OA, vascular disease ALLERGIES: Blue dye. CHEMICAL DEPENDENCY HISTORY: Claims to smoke cigarettes approximately half a pack a day. He denies any other substance use or alcohol. FAMILY PSYCHIATRIC/SUBSTANCE USE HISTORY: Claims that his sister was depressed SOCIAL HISTORY: Patient states that he was born in [facility] and completed the 10th grade and dropped out. 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 MENTAL STATUS EXAM: General Appearance: Patient appears to be older than stated age appears to be frail and was wheezing and coughing during the interview. Patient however was directable yet guarded. Patient has poor hygiene and grooming. Behavior: Patient is calmly lying in bed without any agitated behavior. Speech: Patient's speech is fluent and nonpressured. Mood/Affect: Patient reports their mood is "ok", affect is incongruent Suicidality/Homicidality: Patient denies having any homicidal ideation intent or plan. Patient admits to having suicidal ideations with intent and plans to either hang himself or shoot himself with his guns at home. Perceptions: Patient denies any auditory or visual hallucinations. Though content/process: There is no evidence of any delusional thought content and thought process is linear and goal-directed. Memory and concentration: AOX3, grossly intact for the purposes of this session. Can spell "WORLD" backwards Judgment and insight: Poor IMPRESSIONS: Depressive disorder unspecified Nicotine dependence PLAN: -Patient DOES NOT have decision making capacity at this time and is unable to reason through and communicate/appreciate the risks, benefits and alternatives to treatment. Patient persists with suicidal ideations with intent and plan sharing multiple different plans and means to do so. -Patient is currently at high risk for suicide completion as patient is elderly, lives alone, has a terminal illness, poor support, nonreligious and has attempted suicide in the past and also has the means to complete suicide. -Would recommend the following medication changes/additions: Will start patient on Lexapro 5 mg daily for mood with plan to increase as tolerated. Will also start patient on Remeron 7.5 mg daily at bedtime for mood and insomnia. -Continue 1:1 sitter for safety -Cannot leave AMA at this time. Patient will need a petition and certification if attempting to leave AMA. Patient may need emergency guardianship if he refuses treatment or wants to leave the hospital as he does not have capacity to do so. -Will continue to follow along -When medically stable, patient is eligible for transfer to either a geriatric psych unit or possibly hospice with close observation/sitter given patient's progressive/terminal illness. Thank you for the consult 01/15/19 17:16
[2019-01-15] MEDS: ATORVASTATIN 10 MG TAB PO SCH (20:08)
[2019-01-15] MEDS: MIRTAZAPINE 15 MG TAB PO SCH (20:08)
[2019-01-16] MEDS: PANTOPRAZOLE 40 MG TABLET PO SCH (06:29)
[2019-01-16] MEDS: SYMBICORT 80-4.5 MCG INHALER INHALATION SCH ×2 (09:06→21:02)
[2019-01-16] MEDS: METOPROLOL TARTRATE 50 MG TAB PO SCH ×3 (09:26→21:43)
[2019-01-16] MEDS: ESCITALOPRAM 5 MG TAB PO SCH (09:26)
[2019-01-16] MEDS: APIXABAN 5 MG TAB PO SCH ×2 (09:26→20:07)
[2019-01-16] MEDS: ALPRAZolam 1 MG TAB PO SCH ×3 (09:26→21:43)
--- NOTE | 2019-01-16 14:24 | P.CONS ---
History of Present Illness - Reason for Consult Consult date: 01/16/19 Squamous cell on chemotherapy Requesting physician: Ashley Zuñiga - Chief Complaint Afib with RVR - History of Present Illness Mr Perez is a pleasant white male with multiple medical problems. The patient has a history of pain in the mid chest area in a bandlike distribution, described as burning in nature. This actually has been chronic for several months. He was complaining of possibly some change in that as well as a pressure sensation, leading to a chest x-ray on 09/25/18. This showed possibility of a mass in the left perihilar region. A CT of the chest was done on 10/09/18 revealing 3.8 x 5.4 cm soft tissue mass adjacent to the left main pulmonary artery with an enlarged pretracheal lymph node. The patient was referred to pulmonary medicine, Dr. Pena, and had a PET scan on 10/18/18. This showed a left suprahilar mass measuring 4.4 x 4 cm with indistinct margins from adjacent mediastinum with SUV of 23.39. There is some opacity extending superi or and anterior to this with nodularity. There was a 1.2 cm cavitary lesion in this area with SUV of 4.97. The soft tissue extension into the left hilar region with occlusion of the left upper lobe bronchus. An enlarged precarinal node was seen without associated uptake. There was no other areas of uptake noted. Incidentally there was a hypermetabolic focus noted in the right upper extremity. The patient had navigational bronchoscopy with biopsy on 10/31/18. Lavage and fine-needle aspiration revealed highly atypical cells consistent with non-small cell carcinoma with IHC consistent with pulmonary origin. The patient has a known history of COPD, as well as coronary artery disease. He was referred to radiation oncology and medical oncology as he was not felt to be a good candidate for resection based on extent of disease and underlying medical issues. The patient had noted right upper arm nodular lesion, around early October and since then has observed significant growth in size. He denied any prior history of malignancy. He had biopsy of the right upper extremity lesion by dermatology, revealing squamous cell cancer. It could not be definitively determined if this was primary versus metastatic. However the clinical appearance on exam appeared to be much more suggestive of a metastatic lesion. Case was discussed in dermatology who agreed. MRI of the brain was negative. The patient was also seen by radiation oncology. After detailed discussion of the case with dermatology and radiation oncology, it was decided to treat him with a definitive intent, as for oligo metastatic disease He started concurrent chemoRT with weekly Carbo/Taxol on 12/16/18. He is s/p 3 cycles. He was admitted to [facility] for weakness and afib with RVR. VQ scans showed intermediate probability. He was discharged on Eliquis on 12/27/18.. Review of Systems A 14 point review of systems was assessed and completed and are all negative except for HPI Past Medical History Past Medical History: COPD, GERD/Reflux, Hyperlipidemia, Hypertension, Myocardial Infarction (NM), Musculoskeletal Disorder, Osteoarthritis (OA), Prostate Disorder, Vascular Disorder Additional Past Medical History / Comment(s): BORN W/ONE KIDNEY, states gets dizzy but only when looks up, cataracts bilateral eyes, recent black to ramachandran stool, upper chest pain that radiates to back and shoulder X last few months. Chronic back pain. Mass found in lung. Last Myocardial Infarction Date:: 1998 History of Any Multi-Drug Resistant Organisms: None Reported Past Surgical History: Appendectomy, Back Surgery, Heart Catheterization With Stent, Hernia Repair, Orthopedic Surgery Additional Past Surgical History / Comment(s): Bilateral shoulder, bilateral knee surgery, abdominal angiography,. colonoscopy, EGD, SURGERY TO LEFT JAW, left cataract removed and surgery for floaters. Past Anesthesia/Blood Transfusion Reactions: No Reported Reaction Date of Last Stent Placement:: 1998, 10/09/13 Past Psychological History: Anxiety, Depression Smoking Status: Current every day smoker Past Alcohol Use History: None Reported Additional Past Alcohol Use History / Comment(s): SMOKES <1/2 PPD SINCE AGE 4. Past Drug Use History: None Reported - Past Family History Mother Family Medical History: Cancer Father Family Medical History: Cancer Medications and Allergies Home Medications Medication Instructions Recorded Confirmed Type Albuterol Inhaler [Ventolin Hfa 2 puff INHALATION Q4HR PRN 09/08/13 01/12/19 History Inhaler] ALPRAZolam [Xanax] 1 mg PO TID 09/09/13 01/12/19 History Fluticasone/Vilanterol [Breo 1 puff INHALATION QAM PRN 05/20/17 01/12/19 History Ellipta 100-25 Mcg Inhaler] HYDROcodone/APAP 10-325MG [[place] 1 tab PO QID PRN 05/20/17 01/12/19 History 10-325] Nitroglycerin [Nitromist] 1 spray SL Q5M PRN 09/26/18 01/12/19 History Esomeprazole Magnesium [NexIUM] 40 mg PO DAILY 12/25/18 01/12/19 History Atorvastatin [Lipitor] 40 mg PO HS #90 tab 12/27/18 01/12/19 Rx Metoprolol Tartrate [Lopressor] 25 mg PO BID #180 tab 12/27/18 01/12/19 Rx Lisinopril [Zestril] 10 mg PO DAILY 01/06/19 01/12/19 History Simvastatin [Zocor] 20 mg PO HS 01/06/19 01/12/19 History amLODIPine BESYLATE [Norvasc] 10 mg PO DAILY 01/06/19 01/12/19 History Apixaban [Eliquis] 5 mg PO BID 01/12/19 01/12/19 History Allergies Allergy/AdvReac Type Severity Reaction Status Date / Time blue dye AdvReac Nausea & Verified 01/12/19 16:10 Vomiting Physical Exam Vitals: Vital Signs Temp Pulse Resp BP Pulse Ox 01/16/19 08:00 98.0 F 100 12 117/79 97 01/16/19 04:00 97.7 F 91 16 118/70 95 01/15/19 23:39 98.0 F 76 17 113/76 96 01/15/19 19:58 97.9 F 98 18 114/67 97 01/15/19 16:00 97.6 F 122 H 12 112/82 96 Intake and Output 01/15/19 01/16/19 01/16/19 22:59 06:59 14:59 Intake Total 1200 220 Balance 1200 220 Intake: IV 20 Invasive Line 2 20 Oral 1200 200 Other: Voiding Method Toilet Toilet Toilet # Voids 1 1 # Bowel Movements 1 0 Weight 90.1 kg Gen: Alert and Oriented, NAD Head: NCNT Neck Supple Heart irregular irregular Lungs No increased effort CTA B Abdomen: S/ND/NT Ext: Right upper arm dressing area on squamous cell improved Psych: Depressed fla affect Neuro: No Focal Deficits Noted. Results CBC & Chem 7: 01/15/19 08:58 01/15/19 08:58 Assessment and Plan Plan: Assessment and Recommendations: 1. Squamous Cell Carcinoma: - Currently undergoing definitive treatment and good response after cycle 4 chemo and radiation 2. Atrial Fib with RVR: Recurrent - Cardiology Following 3. Depression/Anxiety: - Psych Following As far as the status of his malignancy it is felt this is treatable and he is responding well. There is not enough support to recommend hospice from oncology point of view. Agree with psych consult first to evaluate depression. Psychology does state patient does not have decision making capacity at this time
--- NOTE | 2019-01-16 16:46 | P.PN ---
Subjective Progress Note Date: 01/16/19 Principal diagnosis: This is a 68-year-old male who was undergoing radiation therapy and was found tachycardic and in atrial fibrillation with an elevated heart rate and is being closely monitored. Cardiology was consulted. Patient does have a history of A. fib and is currently on Eliquis for this. Patient states that he felt fine and has been with no reports of chest pain, shortness of breath, or palpitations. Patient denies any nausea or vomiting and has been tolerating diet. Patient is quite agitated about being hospitalized and has made multiple comments about feeling fine and just wanting to go home. Patient also states that he has been receiving chemo and radiation per his family's requests. Patient has made multiple comments about wanting to but denies any suicidal or homicidal ideation. Psychiatry is being consulted as he continues to make comments to nursing staff. Discussed with the patient at length about discharge plans and patient states that he wants to go home patient does not want to go to rehab at this time. Guarded prognosis. 01/15/2019 Patient is lying in bed sleeping in no acute distress. Patient is easily arousable. Sitter is currently at the bedside for suicide precautions as he was making threats about wanting to and having the means to do it. Psychiatry was consulted and awaiting at this time. Patient denies any chest pain, shortness of breath, or palpitations at this time. Patient denies any nausea or vomiting and per nursing staff patient is not eating this morning. Patient remains afebrile. Yesterday patient refused the physical therapy evaluation. Spoke to them this morning and they will reevaluate. Patient is refusing any form of rehab upon discharge. Guarded prognosis. 01/16/2019 Patient lying in bed in no acute distress. Suicide sitter is currently at the bedside. Patient is eating toast. She denies any chest pain, shortness of breath, or palpitations at this time. Patient has been eating more per nursing staff. Psychiatry saw the patient yesterday and has made some medication ad justments. Discussed with the patient at length today about stating accusations of wanting to with the ability to do so and patient stated "anyone to make disease comments and she be taken with a grain of salt". "I just want to go home and live what life I have left and not be bothered". Per psychiatry recommendations the patient is unable to make sound decisions and is recommending a geriatric inpatient psych facility. PT/OT following. Will continue to monitor closely. Guarded prognosis. Objective - Vital Signs Vital signs: Vital Signs Temp 97.6 F 01/16/19 15:00 Pulse 83 01/16/19 15:20 Resp 12 01/16/19 15:20 BP 122/93 01/16/19 15:00 Pulse Ox 97 01/16/19 15:00 Intake & Output 01/15/19 01/16/19 01/16/19 18:59 06:59 18:59 Intake Total 1460 230 Balance 1460 230 Weight 90.1 kg Intake: IV 30 Invasive Line 2 30 Oral 1460 200 Other: Voiding Method Toilet Toilet Toilet # Voids 0 1 1 # Bowel Movements 1 0 - Exam GENERAL: The patient is alert and oriented x3, not in any acute distress. Well developed, well nourished. Vital signs are stable. Temp is 98.0 F, pulse is 100, respirations are 12, blood pressure is 117/79, oxygen saturation is 97 % on room air HEENT: Pupils are round and equally reacting to light. EOMI. No scleral icterus. No conjunctival pallor. Normocephalic, atraumatic. No pharyngeal erythema. No thyromegaly. CARDIOVASCULAR: S1 and S2 present. No murmurs, rubs, or gallops. irregularly irregular rhythm PULMONARY: Chest is clear to auscultation, no wheezing or crackles. ABDOMEN: Soft, nontender, nondistended, normoactive bowel sounds. No palpable organomegaly. MUSCULOSKELETAL: No joint swelling or deformity. EXTREMITIES: No cyanosis, clubbing, or pedal edema. NEUROLOGICAL: Gross neurological examination did not reveal any focal deficits. SKIN: No rashes. Right upper extremity lesion with an ABD pad intact - Labs CBC & Chem 7: 01/15/19 08:58 01/15/19 08:58 Assessment and Plan Assessment: -Atrial fibrillation with rapid ventricular rate: Patient was on Cardizem which was discontinued because of low ejection fraction and patient's metoprolol dose is 75 mg twice daily. Patient will be continued on anti-coagulation. Cardiology is following -Hypomagnesemia magnesium improved and is currently 1.7 -Small cell lung cancer metastatic, patient is receiving chemotherapy and radia tion therapy. -Fungating ulcerating the lesion on the right arm which is cancerous metastasis to the skin and subcutaneous tissue -Hypertension: Amlodipine was discontinued with concerns of hypotension -Coronary artery disease -Benign prostatic hypertrophy -Depression and anxiety; psychiatry is following. Suicide precaution sitter is at the bedside Congestive heart failure chronic systolic dysfunction ejection fraction mildly decreased 40-50% not in acute exacerbation Recommendations and discussion: Recommend continue current medications, management, and symptomatic treatment. Oncology was consulted. Psychiatry is following. To continue with one-on-one patient sitter for suicide Precautions. Extremely guarded prognosis. further recommendations to follow. Case management and social work are aware of the situation and looking into possible inpatient geriatric psych facilities.
[2019-01-16] MEDS: MIRTAZAPINE 15 MG TAB PO SCH (20:07)
[2019-01-16] MEDS: ATORVASTATIN 10 MG TAB PO SCH (20:08)
[2019-01-17] MEDS: SYMBICORT 80-4.5 MCG INHALER INHALATION SCH ×2 (08:44→20:37)
[2019-01-17] MEDS: ESCITALOPRAM 5 MG TAB PO SCH (08:49)
[2019-01-17] MEDS: PANTOPRAZOLE 40 MG TABLET PO SCH (08:49)
[2019-01-17] MEDS: APIXABAN 5 MG TAB PO SCH ×2 (08:49→20:42)
[2019-01-17] MEDS: ALPRAZolam 1 MG TAB PO SCH ×3 (08:49→20:42)
[2019-01-17] MEDS: METOPROLOL TARTRATE 50 MG TAB PO SCH ×3 (08:49→20:41)
--- NOTE | 2019-01-17 13:34 | P.PN ---
Subjective 68-year-old male who was undergoing radiation therapy and was found tachycardic and in atrial fibrillation with an elevated heart rate and is being closely monitored. Cardiology was consulted. Patient does have a history of A. fib and is currently on Eliquis for this. Patient states that he felt fine and has been with no reports of chest pain, shortness of breath, or palpitations. Patient denies any nausea or vomiting and has been tolerating diet. Patient is quite agitated about being hospitalized and has made multiple comments about fee ling fine and just wanting to go home. Patient also states that he has been receiving chemo and radiation per his family's requests. Patient has made multiple comments about wanting to but denies any suicidal or homicidal ideation. Psychiatry is being consulted as he continues to make comments to nursing staff. Discussed with the patient at length about discharge plans and patient states that he wants to go home patient does not want to go to rehab at this time. Guarded prognosis. 01/15/2019 Patient is lying in bed sleeping in no acute distress. Patient is easily arousable. Sitter is currently at the bedside for suicide precautions as he was making threats about wanting to and having the means to do it. Psychiatry was consulted and awaiting at this time. Patient denies any chest pain, shortness of breath, or palpitations at this time. Patient denies any nausea or vomiting and per nursing staff patient is not eating this morning. Patient remains afebrile. Yesterday patient refused the physical therapy evaluation. Spoke to them this morning and they will reevaluate. Patient is refusing any form of rehab upon discharge. Guarded prognosis. 01/16/2019 Patient lying in bed in no acute distress. Suicide sitter is currently at the bedside. Patient is eating toast. She denies any chest pain, shortness of breath, or palpitations at this time. Patient has been eating more per nursing staff. Psychiatry saw the patient yesterday and has made some medication a djustments. Discussed with the patient at length today about stating accusations of wanting to with the ability to do so and patient stated "anyone to make disease comments and she be taken with a grain of salt". "I just want to go home and live what life I have left and not be bothered". Per psychiatry recommendations the patient is unable to make sound decisions and is recommending a geriatric inpatient psych facility. PT/OT following. Will continue to monitor closely. Guarded prognosis. 01/17/2019 Patient is wheezing on exam because of which I'll start him on oral steroids and the patient probably can be discharged tomorrow if cleared by psychiatric psychiatrically will evaluate the patient today patient has a sitter and patient has multiple family members at bedside Constitutional: Denied any fatigue denied any fever. Cardio vascular: denied any chest pain, palpitations Gastrointestinal denied any nausea vomiting Pulmonary: Denied any shortness of breath cough Neurologic denied any new focal deficits All inpatient medications were reviewed and appropriate changes in these medications as dictated in the interval history and assessment and plan. Objective - Vital Signs Vital signs: Vital Signs Temp 97.8 F 01/17/19 04:42 Pulse 99 01/17/19 04:42 Resp 28 H 01/17/19 04:42 BP 118/75 01/17/19 04:42 Pulse Ox 96 01/17/19 04:42 Intake & Output 01/16/19 01/17/19 01/17/19 18:59 06:59 18:59 Intake Total 230 10 Balance 230 10 Intake: IV 30 10 Invasive Line 2 30 10 Oral 200 Other: Voiding Method Toilet Toilet # Voids 1 1 # Bowel Movements 0 - Exam PHYSICAL EXAMINATION: GENERAL: The patient is alert and oriented x3, not in any acute distress. Well developed, well nourished. HEENT: Pupils are round and equally reacting to light. EOMI. No scleral icterus. No conjunctival pallor. Normocephalic, atraumatic. No pharyngeal erythema. No thyromegaly. CARDIOVASCULAR: S1 and S2 present. No murmurs, rubs, or gallops. PULMONARY: Expiratory wheezing on exam decreased air entry into bilateral lung lange ABDOMEN: Soft, nontender, nondistended, normoactive bowel sounds. No palpable organomegaly. MUSCULOSKELETAL: No joint swelling or deformity. EXTREMITIES: No cyanosis, clubbing, or pedal edema. NEUROLOGICAL: Gross neurological examination did not reveal any focal deficits. SKIN: No rashes. - Labs CBC & Chem 7: 01/15/19 08:58 01/15/19 08:58 Assessment and Plan Plan: -Atrial fibrillation with rapid ventricular rate: Wasn't given rate controlled Patient was on Cardizem which was discontinued because of low ejection fraction and patient's metoprolol dose is 75 mg twice daily. Patient will be continued on anti-coagulation. Cardiology is following -Hypomagnesemia magnesium improved and is currently 1.7 COPD with acute exacerbation patient will be started on systemic steroids, will be discharged tomorrow if cleared by psychiatric and if his wheezing improves -Small cell lung cancer metastatic, patient is receiving chemotherapy and radiation therapy. -Fungating ulcerating the lesion on the right arm which is cancerous metastasis to the skin and subcutaneous tissue -Hypertension: Well-controlled blood pressure -Suicidal ideation for which is psychiatrically is evaluating the patient -Benign prostatic hypertrophy -Depression and anxiety; psychiatry is following. Suicide precaution sitter is at the bedside Congestive heart failure chronic systolic dysfunction ejection fraction mildly decreased 40-50% not in acute exacerbation
--- NOTE | 2019-01-17 14:18 | PN ---
PROGRESS NOTE DATE OF SERVICE: 01/17/2019. INTERVAL HISTORY: The patient is being seen in psychiatric followup for concerns of depressive symptoms and suicidal ideation. He was seen in psychiatric consultation by Dr. Foster on 01/15/2019. The medical team is asking for re-evaluation as the patient and his family do not believe that he needs geriatric psychiatric admission. Upon entering the room, the patient had approximately 10 family members at bedside. These included 2 sons, [id number]'s, his ex- and grandchildren. The patient is seated upright in bed. He indicates his mood is good today. He states he is frustrated that he is still in the hospital. He states that he did make some statements that were "misunderstood" referring to previous suicidal ideation. He states that he is known to say things like that at times, but he has no intent or plan of acting on that. His family indicates that he does make statements that are "not politically correct" all the time and they have no concerns related to his safety. They have removed all firearms from his home. They state that they check on him on a daily basis. His home is in good order. He cooks for himself and cleans. The family unanimously state that they do not want him admitted to a psychiatric hospital as they feel it is unnecessary. The patient was prescribed Lexapro 5 mg daily and Remeron 7.5 mg at bedtime for depressive symptoms. He has been compliant with medication. We reviewed his psychiatric history. I have reviewed the psychiatric evaluation, Dr. Foster. I spent approximately 25 minutes with the patient and his family during this evaluation. MENTAL STATUS EXAM: The patient is alert. He has a disheveled appearance. Eye contact is appropriate. He is pleasant, cooperative. He indicates his mood is fine. Affect is constricted, mildly reactive. He reports no suicidal ideation, intent, or plan. He reports no hopeless thinking. He endorses feelings of frustration related to this hospitalization and his ongoing diagnosis and treatment for cancer. He reports no auditory or visual hallucinations or any specific delusions. He demonstrates no tangential thinking, loose associations or flight of ideas. He does not appear hypomanic or manic. He does appear to have some possible neurocognitive symptoms in terms of attention span and short-term memory. IMPRESSION: Depression, unspecified. PLAN: The patient may continue on the Lexapro and Remeron as written. At this time, I do not believe there is an imminent safety risk in terms of his previously reported suicidal ideation. We will discontinue the health safety coordinator. His family members at bedside adamantly and unanimously feel that he is safe and they do not wish to have him admitted to a psychiatric unit. They have removed firearms from the home. They can oversee his medication. They will be checking on him on a regular basis. It appears several family members live in close proximity to him. Internal Medicine plans to keep the patient another day due to some wheezing upon auscultation. We will continue to follow the patient while medically admitted. MMODL / IJN: [id number] /
[2019-01-17] MEDS: predniSONE 20 MG TAB PO SCH (14:28)
[2019-01-17 15:21] VITALS: RESP 16
[2019-01-17] MEDS: ATORVASTATIN 10 MG TAB PO SCH (20:42)
[2019-01-18] MEDS: MIRTAZAPINE 15 MG TAB PO SCH (00:29)
[2019-01-18 04:53] VITALS: BP 133/82; TEMP 97.5
[2019-01-18] MEDS: predniSONE 20 MG TAB PO SCH (07:38)
[2019-01-18] MEDS: PANTOPRAZOLE 40 MG TABLET PO SCH (07:38)
[2019-01-18] MEDS: APIXABAN 5 MG TAB PO SCH (07:38)
[2019-01-18] MEDS: ALPRAZolam 1 MG TAB PO SCH (07:38)
[2019-01-18] MEDS: METOPROLOL TARTRATE 50 MG TAB PO SCH (07:38)
[2019-01-18] MEDS: ESCITALOPRAM 5 MG TAB PO SCH (07:38)
[2019-01-18] MEDS: HYDROcodone/APAP 10-325MG 1 EACH TAB PO PRN (07:45)
[2019-01-18] MEDS: SYMBICORT 80-4.5 MCG INHALER INHALATION SCH (08:26)
[2019-01-18 11:52] VITALS: PULSE 98
--- NOTE | 2019-01-18 11:55 | P.DS ---
Providers Date of admission: 01/12/19 18:13 Attending physician: Clovis Ta Consults: 01/12/19 18:11 Consult Physician Routine Consulting Provider: Kevin Castro Consult Reason/Comments: Rapid atrial fibrillation, hypomagnesemia Do you want consulting provider notified?: Yes 01/14/19 17:40 Consult Physician Routine Consulting Provider: Lorenzo Foster Consult Reason/Comments: suicidal ideations Do you want consulting provider notified?: Already Contacted 01/15/19 17:20 Consult Physician Routine Consulting Provider: Wilberto Perez Consult Reason/Comments: Possible hospice, life expectancy, Do you want consulting provider notified?: Yes Primary care physician: Dante Osborne [facility] Course: 68-year-old male who was undergoing radiation therapy and was found tachycardic and in atrial fibrillation with an elevated heart rate and is being closely monitored. Cardiology was consulted. Patient does have a history of A. fib and is currently on Eliquis for this. Patient states that he felt fine and has been with no reports of chest pain, shortness of breath, or palpitations. Patient denies any nausea or vomiting and has been tolerating diet. Patient is quite agitated about being hospitalized and has made multiple comments about feeling fine and just wanting to go home. Patient also states that he has been receiving chemo and radiation per his family's requests. Patient has made multiple comments about wanting to but denies any suicidal or homicidal ideation. Psychiatry is being consulted as he continues to make comments to nursing staff. Discussed with the patient at length about discharge plans and patient states that he wants to go home patient does not want to go to rehab at this time. Guarded prognosis. 01/15/2019 Patient is lying in bed sleeping in no acute distress. Patient is easily arousable. Sitter is currently at the bedside for suicide precautions as he was making threats about wanting to and having the means to do it. Psychiatry was consulted and awaiting at this time. Patient denies any chest pain, shortness of breath, or palpitations at this time. Patient denies any nausea or vomiting and per nursing staff patient is not eating this morning. Patient remains afebrile. Yesterday patient refused the physical therapy evaluation. Spoke to them this morning and they will reevaluate. Patient is refusing any form of rehab upon discharge. Guarded prognosis. 01/16/2019 Patient lying in bed in no acute distress. Suicide sitter is currently at the bedside. Patient is eating toast. She denies any chest pain, shortness of br eath, or palpitations at this time. Patient has been eating more per nursing staff. Psychiatry saw the patient yesterday and has made some medication adjustments. Discussed with the patient at length today about stating accusations of wanting to with the ability to do so and patient stated "anyone to make disease comments and she be taken with a grain of salt". "I just want to go home and live what life I have left and not be bothered". Per psychiatry recommendations the patient is unable to make sound decisions and is recommending a geriatric inpatient psych facility. PT/OT following. Will continue to monitor closely. Guarded prognosis. 01/17/2019 Patient is wheezing on exam because of which I'll start him on oral steroids and the patient probably can be discharged tomorrow if cleared by psychiatric psychiatrically will evaluate the patient today patient has a sitter and patient has multiple family members at bedside. 01/18/2019 Patient wheezing completely resolved will ablate the patient is doing okay patient will be discharged patient was Cleared from a psychiatric perspective. PHYSICAL EXAMINATION: GENERAL: The patient is alert and oriented x3, not in any acute distress. Well developed, well nourished. HEENT: Pupils are round and equally reacting to light. EOMI. No scleral icterus. No conjunctival pallor. Normocephalic, atraumatic. No pharyngeal erythema. No thyromegaly. CARDIOVASCULAR: S1 and S2 present. No murmurs, rubs, or gallops. PULMONARY: Chest is clear to auscultation, no wheezing or crackles. ABDOMEN: Soft, nontender, nondistended, normoactive bowel sounds. No palpable organomegaly. MUSCULOSKELETAL: No joint swelling or deformity. EXTREMITIES: No cyanosis, clubbing, or pedal edema. NEUROLOGICAL: Gross neurological examination did not reveal any focal deficits. SKIN: Fungating ulcer in the right hand Assessment and Plan Plan: -Atrial fibrillation with rapid ventricular rate: Presently rate controlled will be discharged today -Hypomagnesemia improved with supplementation COPD with acute exacerbation improved now patient will be discharged on short course of steroids -Small cell lung cancer metastatic, patient is receiving chemotherapy and radiation therapy. -Fungating ulcerating the lesion on the right arm which is cancerous metastasis to the skin and subcutaneous tissue -Hypertension: Well-controlled blood pressure -Suicidal ideation psychiatric evaluate the patient and the patient is cleared from psychiatric perspective -Benign prostatic hypertrophy -Depression and anxiety; Congestive heart failure chronic systolic dysfunction ejection fraction mildly decreased 40-50% not in acute exacerbation Patient Condition at Discharge: Serious Plan - Discharge Summary Discharge Rx Participant: No New Discharge Prescriptions: New Metoprolol Tartrate [Lopressor] 75 mg PO TID #90 tab predniSONE 10 mg PO DAILY #10 tab Continue Albuterol Inhaler [Ventolin Hfa Inhaler] 2 puff INHALATION Q4HR PRN PRN Reason: Shortness Of Breath ALPRAZolam [Xanax] 1 mg PO TID HYDROcodone/APAP 10-325MG [[place] 10-325] 1 tab PO QID PRN PRN Reason: Moderate To Severe Pain Fluticasone/Vilanterol [Breo Ellipta 100-25 Mcg Inhaler] 1 puff INHALATION QAM PRN PRN Reason: difficulty breathing Nitroglycerin [Nitromist] 1 spray SL Q5M PRN PRN Reason: Chest Pain Esomeprazole Magnesium [NexIUM] 40 mg PO DAILY Atorvastatin [Lipitor] 40 mg PO HS #90 tab Simvastatin [Zocor] 20 mg PO HS Apixaban [Eliquis] 5 mg PO BID Discontinued Metoprolol Tartrate [Lopressor] 25 mg PO BID #180 tab Lisinopril [Zestril] 10 mg PO DAILY amLODIPine BESYLATE [Norvasc] 10 mg PO DAILY Discharge Medication List Albuterol Inhaler [Ventolin Hfa Inhaler] 2 puff INHALATION Q4HR PRN 09/08/13 [History] ALPRAZolam [Xanax] 1 mg PO TID 09/09/13 [History] Fluticasone/Vilanterol [Breo Ellipta 100-25 Mcg Inhaler] 1 puff INHALATION QAM PRN 05/20/17 [History] HYDROcodone/APAP 10-325MG [[place] 10-325] 1 tab PO QID PRN 05/20/17 [History] Nitroglycerin [Nitromist] 1 spray SL Q5M PRN 09/26/18 [History] Esomeprazole Magnesium [NexIUM] 40 mg PO DAILY 12/25/18 [History] Atorvastatin [Lipitor] 40 mg PO HS #90 tab 12/27/18 [Rx] Simvastatin [Zocor] 20 mg PO HS 01/06/19 [History] Apixaban [Eliquis] 5 mg PO BID 01/12/19 [History] Metoprolol Tartrate [Lopressor] 75 mg PO TID #90 tab 01/18/19 [Rx] predniSONE 10 mg PO DAILY #10 tab 01/18/19 [Rx] Follow up Appointment(s)/Referral(s): Michael Howell MD [Primary Care Provider] - 3 Days Patient Instructions/Handouts: Metoprolol (By mouth), Prednisone (By mouth), A- fib (Atrial Fibrillation) (DC) Discharge Disposition: HOME SELF-CARE
== END 2019-01-18 12:20 | disposition home or self-care (01) | DRG 309 ==
LOC: EC 16:00 → 3SCARD 18:13 → 3NMEDONC 01-17 00:59
PROVIDERS: ADMIT Hospitalist; ATTEND Hospitalist
DX: I48.91 Unspecified atrial fibrillation (principal); I50.22 Chronic systolic (congestive) heart failure; J44.1 Chronic obstructive pulmonary disease with (acute) exacerbation; C34.90 Malignant neoplasm of unspecified part of unspecified bronchus or lung; C79.2 Secondary malignant neoplasm of skin; J98.11 Atelectasis; Q60.0 Renal agenesis, unilateral; R45.851 Suicidal ideations; R64 Cachexia; E11.9 Type 2 diabetes mellitus without complications; E78.5 Hyperlipidemia, unspecified; E83.42 Hypomagnesemia; F17.210 Nicotine dependence, cigarettes, uncomplicated; F32.9 Major depressive disorder, single episode, unspecified; F41.9 Anxiety disorder, unspecified; I11.0 Hypertensive heart disease with heart failure; I25.10 Atherosclerotic heart disease of native coronary artery without angina pectoris; I25.2 Old myocardial infarction; K21.9 Gastro-esophageal reflux disease without esophagitis; N40.0 Benign prostatic hyperplasia without lower urinary tract symptoms; Z68.30 Body mass index [BMI] 30.0-30.9, adult; Z79.01 Long term (current) use of anticoagulants; Z79.899 Other long term (current) drug therapy; Z98.42 Cataract extraction status, left eye; Z98.41 Cataract extraction status, right eye; Z80.9 Family history of malignant neoplasm, unspecified; Z60.2 Problems related to living alone; R45.1 Restlessness and agitation; G89.29 Other chronic pain; M54.9 Dorsalgia, unspecified; Z88.8 Allergy status to other drugs, medicaments and biological substances
CPT/HCPCS: 36415; 71046; 77336; 77386; 80048; 80053; 82550; 83735; 84443; 84484; 85025; 85027; 85610; 85730; 93005; 94640; 96365; 96366; 96368; 96376; 99291

== ENCOUNTER → 2019-02-13 | Outpatient (CLI) | payer MEDICARE ==
[2019-02-13 21:17] LABS: African American GFR (CKD) 64.5 (60.0-200.0); Anion Gap 10.1 mmol/L (4.00-12.00); BUN/Creat Ratio 18.46 Ratio (12.00-20.00); Calcium 8.8 mg/dL (8.7-10.3); Carbon Dioxide 23.9 mmol/L (21.6-31.8); Magnesium 1.3 mg/dL (1.5-2.4)
== END | disposition home or self-care (01) ==
LOC: LABWHC1 10:20
PROVIDERS: ATTEND Nurse Practitioner
DX: I48.91 Unspecified atrial fibrillation (principal)
CPT/HCPCS: 36415; 80048; 83735

== ENCOUNTER → 2019-02-16 | Outpatient (CLI) | payer MEDICARE ==
--- NOTE | 2019-02-17 09:11 | CT ---
EXAMINATION TYPE: CT ChestAbdPelvis wo con DATE OF EXAM: 02/16/2019 INDICATION: Lung cancer COMPARISON: 10/31/[address] DLP: 1035.4 mGycm CONTRAST: Performed with Oral Contrast TECHNIQUE: Axial images at 5 mm thick sections. Delayed images through the kidneys. FINDINGS: CT CHEST: Portion of the thyroid visualized is normal. There is an irregular area of increased density within the left upper lobe compatible with the patien t's lung cancer. A moderate left pleural effusion is present. Minimal right pleural effusion is prese nt There is a 0.4 cm nodule within the major fissure on the left. Series 4 image 22. There is a 1.0 cm lymph node in the pretracheal space. The more inferior pretracheal space lymph node enlargement 1.8 cm. Soft tissue thickening is along the left lateral mediastinum which extends into the patient's left lung cancer. It may be difficult to exclude left hilar adenopathy on this noncontr ast study. The ascending aorta diameter at the level of the main pulmonary artery is 4.1 cm. The main pulmonary artery diameter at the bifurcation is 3.6 cm. Moderate coronary artery calcification is present. Some reflux into the distal esophagus is evident. CT ABDOMEN: Small amount of ascites is adjacent to the liver and minimal ascites is adjacent to the s pleen. Some fluid is adjacent to the gallbladder. Small amount of fluid is within the pelvis. Liver: Normal Spleen: Normal Pancreas: Normal Adrenal glands: The adrenal glands are normal. Gallbladder: Small amount of fluid is adjacent. Cholecystitis is not excluded. This may be related to ascites in the absence of clinical symptoms. Kidneys: No masses are evident. No hydronephrosis is present. No cysts are present. Left kidney is absent. Aorta: Vascular calcifications within the aorta. Inferior vena cava: Normal. CT PELVIS: Loops of bowel within the abdomen and pelvis are normal. There are loops of bowel which are incom pletely distended or lack oral contrast limiting their evaluation. Appendix: Not clearly identified. Urinary bladder: Decompressive Limited evaluation Genitourinary structures: Prostate is normal size. Some calcification is present. Osseous structures: No suspicious lytic or sclerotic lesions. Facet degenerative changes are within t he lower lumbar spine. IMPRESSIONS: 1. Left upper lobe mass compatible with the patient's lung cancer. 2. Enlarged pretracheal lymphadenopathy. 3. Moderate left and minimal right pleural effusions. 4. Small amount of free fluid within the pelvis with minimal ascites in the upper abdomen discussed a kerline
== END | disposition home or self-care (01) ==
LOC: RADCTMAIN 12:58
PROVIDERS: ATTEND Internal Medicine Hematology & Oncology
DX: C34.12 Malignant neoplasm of upper lobe, left bronchus or lung (principal); R59.0 Localized enlarged lymph nodes; J90 Pleural effusion, not elsewhere classified; R18.8 Other ascites
CPT/HCPCS: 82565; 84520; 71250; 74176; Q9967

== ENCOUNTER → 2019-02-28 | Outpatient (CLI) | payer MEDICARE ==
--- NOTE | 2019-02-28 15:39 | MR ---
EXAMINATION TYPE: MR humerus RT w/wo con DATE OF EXAM: 02/28/2019 COMPARISON: None HISTORY: Soft tissue mass, humeral head CONTRAST: Standard multiplanar, multisequence MRI departmental protocol utilizing 10 mL intravenous Gadavist ga dolinium contrast. FINDINGS: There is a 6 x 2.5 cm cutaneous mass on the lateral aspect of the proximal upper arm. The mass has intermediate signal on T1 images and shows mild enhancement. Margins are fairly sharp. Mass is lobulated. There is metal artifact at the greater tuberosity of the humerus consistent with previous surgery. Th ere is narrowing of the subacromial joint space. There is no evidence of focal bone destruction in th e humerus. IMPRESSION: Large lobulated subcutaneous mass that measures up to 2.5 cm in thickness. There is invasion into the subcutaneous fat down to the upper arm musculature. 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
== END | disposition home or self-care (01) ==
LOC: RADMRIMAIN 08:03
PROVIDERS: ATTEND Radiology Radiation Oncology
DX: R22.31 Localized swelling, mass and lump, right upper limb (principal); C49.11 Malignant neoplasm of connective and soft tissue of right upper limb, including shoulder; C34.12 Malignant neoplasm of upper lobe, left bronchus or lung; C79.2 Secondary malignant neoplasm of skin; F17.210 Nicotine dependence, cigarettes, uncomplicated
CPT/HCPCS: 73220; A9585

== ENCOUNTER 2019-03-18 09:13 | Inpatient (IN) | payer MEDICARE, OTHER ==
[2019-03-18] MEDS ORDERED: SODIUM CHLORIDE 0.9% 500 ML 500 ML IV STA (09:43)
[2019-03-18] MEDS ORDERED: IPRATROPIUM-ALBUTEROL 3 ML NEB INHALATION STA (09:44)
[2019-03-18] MEDS ORDERED: PIPERACILLIN-TAZOBACTAM 3.375 GM in SODIUM CHLORIDE 0.9% 100 ML IVPB STA (09:44)
--- NOTE | 2019-03-18 10:01 | ED ---
General Adult HPI - General Chief complaint: Altered Mental Status Stated complaint: WEAKNESS Time Seen by Provider: 03/18/19 09:25 Source: EMS, RN notes reviewed, old records reviewed Mode of arrival: EMS Limitations: altered mental status - History of Present Illness Initial comments: This is a 69-year-old male who presents emergency Department with a past medical history significant for lung cancer with metastatic disease to a pedunculated open wound on the patient's right arm. Patient was post to have the mass on the arm removed today however they were unable to get him up because he was so weak. Patient denies any fever chills. Patient states she's always short of breath and always has chest pain but it's no different today. Patient denies any headache patient denies numbness weakness. Patient denies any abdominal pain patient denies nausea vomiting diarrhea per patient denies any dysuria hematuria urinary frequency. Family states there is no confusion he's just too weak to get him up to go to the hospital. - Related Data Home Medications Medication Instructions Recorded Confirmed Albuterol Inhaler [Ventolin Hfa 2 puff INHALATION RT-QID PRN 09/08/13 03/18/19 Inhaler] ALPRAZolam [Xanax] 1 mg PO BID 09/09/13 03/18/19 HYDROcodone/APAP 10-325MG [[place] 1 tab PO QID PRN 05/20/17 03/18/19 10-325] Nitroglycerin [Nitromist] 1 spray SL Q5M PRN 09/26/18 03/18/19 Esomeprazole Magnesium [NexIUM] 40 mg PO DAILY 12/25/18 03/18/19 Simvastatin [Zocor] 20 mg PO HS 01/06/19 03/18/19 Apixaban [Eliquis] 5 mg PO BID 01/12/19 03/18/19 Amiodarone [Cordarone] 200 mg PO BID 03/18/19 03/18/19 Ferrous Sulfate [Feosol] 325 mg PO DAILY 03/18/19 03/18/19 Fluticasone/Vilanterol [Breo 1 puff INHALATION RT-DAILY 03/18/19 03/18/19 Ellipta 200-25 Mcg INH] Furosemide [Lasix] 40 mg PO DAILY 03/18/19 03/18/19 Magnesium Oxide [Mag-Ox] 400 mg PO DAILY 03/18/19 03/18/19 Metoprolol Tartrate [Lopressor] 75 mg PO TID 03/18/19 03/18/19 Montelukast [Singulair] 10 mg PO HS 03/18/19 03/18/19 Tamsulosin HCl [Flomax] 0.4 mg PO HS 03/18/19 03/18/19 amLODIPine [Norvasc] 10 mg PO DAILY 03/18/19 03/18/19 Allergies Allergy/AdvReac Type Severity Reaction Status Date / Time blue dye AdvReac Nausea & Verified 03/18/19 11:34 Vomiting Review of Systems ROS Statement: Those systems with pertinent positive or pertinent negative responses have been documented in the HPI. ROS Other: All systems not noted in ROS Statement are negative. Past Medical History Past Medical History: COPD, GERD/Reflux, Hyperlipidemia, Hypertension, Myocardia l Infarction ([place]), Musculoskeletal Disorder, Osteoarthritis (OA), Prostate Disorder, Vascular Disorder Additional Past Medical History / Comment(s): BORN W/ONE KIDNEY, states gets dizzy but only when looks up, cataracts bilateral eyes, recent black to ramachandran stool, upper chest pain that radiates to back and shoulder X last few months. Chronic back pain. Mass found in lung. Last Myocardial Infarction Date:: 1998 History of Any Multi-Drug Resistant Organisms: None Reported Past Surgical History: Appendectomy, Back Surgery, Heart Catheterization With Stent, Hernia Repair, Orthopedic Surgery Additional Past Surgical History / Comment(s): Bilateral shoulder, bilateral knee surgery, abdominal angiography,. colonoscopy, EGD, SURGERY TO LEFT JAW, left cataract removed and surgery for floaters. Past Anesthesia/Blood Transfusion Reactions: No Reported Reaction Date of Last Stent Placement:: 1998, 10/09/13 Past Psychological History: Anxiety, Depression Smoking Status: Former smoker Past Alcohol Use History: None Reported Past Drug Use History: None Reported - Past Family History Mother Family Medical History: Cancer Father Family Medical History: Cancer General Exam - General Exam Comments Initial Comments: GENERAL: Patient is well-developed and well-nourished. Patient is nontoxic and well- hydrated and is in distress. ENT: Neck is soft and supple. No significant lymphadenopathy is noted. Oropharynx is clear. Moist mucous membranes. Neck has full range of motion without eliciting any pain. EYES: The sclera were anicteric and conjunctiva were pink and moist. Extraocular movements were intact and pupils were equal round and reactive to light. Eye lids were unremarkable. PULMONARY: very wheezing CARDIOVASCULAR: There is a regular rate and rhythm without any murmurs gallops or rubs. ABDOMEN: Soft and nontender with normal bowel sounds. No palpable organomegaly was noted. There is no palpable pulsatile mass. SKIN: Skin is clear with no lesions or rashes and otherwise unremarkable. NEUROLOGIC: Patient is alert and oriented x3. Cranial nerves II through XII are grossly intact. Motor and sensory are also intact. Normal speech, volume and content. Symmetrical smile. MUSCULOSKELETAL: Normal extremities with adequate strength and full range of motion. Patient has an 8 cm in diameter fungating mass right arm PSYCHIATRIC: Normal psychiatric evaluation. Limitations: altered mental status Course Vital Signs 03/18/19 03/18/19 03/18/19 09:21 10:30 10:43 Temperature 97.9 F Pulse Rate 64 65 64 Respiratory 20 Rate Blood Pressure 132/70 O2 Sat by Pulse 100 Oximetry 03/18/19 11:00 Temperature Pulse Rate 67 Respiratory 16 Rate Blood Pressure 104/60 O2 Sat by Pulse 96 Oximetry Medical Decision Making - Medical Decision Making EKG shows atrial fibrillation at 69 bpm QRS is 82 QT interval 478 QTC is 512. Patient has no ST segment elevation Chest x-ray shows multifocal pneumonia. Patient also has a urinary tract infection. I started the patient on Rocephin emergency department. Patient has elevated troponins started on eliquis I will consult cardiology. I spoke with Dr. Milian he agreed to admit the patient admitted the patient wrote admitting orders. - Lab Data Result diagrams: 03/18/19 09:54 03/18/19 09:54 Lab Results 03/18/19 03/18/19 03/18/19 Range/Units 09:54 09:54 09:54 WBC 5.3 (3.8-10.6) k/uL RBC 3.26 L (4.30-5.90) m/uL Hgb 8.9 L (13.0-17.5) gm/dL Hct 29.9 L (39.0-53.0) % MCV 91.8 D (80.0-100.0) fL MCH 27.3 (25.0-35.0) pg MCHC 29.7 L (31.0-37.0) g/dL RDW 19.1 H (11.5-15.5) % Plt Count 282 (150-450) k/uL Neutrophils % 63 % Lymphocytes % 18 % Monocytes % 4 % Eosinophils % 12 % Basophils % 1 % Neutrophils # 3.3 (1.3-7.7) k/uL Lymphocytes # 1.0 (1.0-4.8) k/uL Monocytes # 0.2 (0-1.0) k/uL Eosinophils # 0.7 (0-0.7) k/uL Basophils # 0.1 (0-0.2) k/uL Hypochromasia Marked Anisocytosis Slight PT (9.0-12.0) sec INR (<1.2) APTT (22.0-30.0) sec Sodium 145 (137-145) mmol/L Potassium 3.7 (3.5-5.1) mmol/L Chloride 104 (98-107) mmol/L Carbon Dioxide 34 H (22-30) mmol/L Anion Gap 7 mmol/L BUN 22 H (9-20) mg/dL Creatinine 1.12 (0.66-1.25) mg/dL Est GFR (CKD-EPI)AfAm 77 (>60 ml/min/1.73 sqM) Est GFR (CKD-EPI)NonAf 66 (>60 ml/min/1.73 sqM) Glucose 102 H (74-99) mg/dL Plasma Lactic Acid [place] 1.0 (0.7-2.0) mmol/L Calcium 9.6 (8.4-10.2) mg/dL Magnesium 2.2 (1.6-2.3) mg/dL Total Bilirubin 1.7 H (0.2-1.3) mg/dL AST 11 L (17-59) U/L ALT 21 (21-72) U/L Alkaline Phosphatase 92 (38-126) U/L Troponin I (0.000-0.034) ng/mL Total Protein 5.6 L (6.3-8.2) g/dL Albumin 3.0 L (3.5-5.0) g/dL Urine Color Urine Appearance (Clear) Urine pH (5.0-8.0) Ur Specific [place] (1.001-1.035) Urine Protein (Negative) Urine Glucose (UA) (Negative) Urine Ketones (Negative) Urine Blood (Negative) Urine Nitrite (Negative) Urine Bilirubin (Negative) Urine Urobilinogen (<2.0) mg/dL Ur Leukocyte Esterase (Negative) Urine RBC (0-5) /hpf Urine WBC (0-5) /hpf Urine WBC Clumps (None) /hpf Ur Squamous Epith Cells (0-4) /hpf Urine Bacteria (None) /hpf Urine Mucus (None) /hpf 03/18/19 03/18/19 03/18/19 Range/Units 09:54 09:54 10:08 WBC (3.8-10.6) k/uL RBC (4.30-5.90) m/uL Hgb (13.0-17.5) gm/dL Hct (39.0-53.0) % MCV (80.0-100.0) fL MCH (25.0-35.0) pg MCHC (31.0-37.0) g/dL RDW (11.5-15.5) % Plt Count (150-450) k/uL Neutrophils % % Lymphocytes % % Monocytes % % Eosinophils % % Basophils % % Neutrophils # (1.3-7.7) k/uL Lymphocytes # (1.0-4.8) k/uL Monocytes # (0-1.0) k/uL Eosinophils # (0-0.7) k/uL Basophils # (0-0.2) k/uL Hypochromasia Anisocytosis PT 13.2 H (9.0-12.0) sec INR 1.3 H (<1.2) APTT 25.9 (22.0-30.0) sec Sodium (137-145) mmol/L Potassium (3.5-5.1) mmol/L Chloride (98-107) mmol/L Carbon Dioxide (22-30) mmol/L Anion Gap mmol/L BUN (9-20) mg/dL Creatinine (0.66-1.25) mg/dL Est GFR (CKD-EPI)AfAm (>60 ml/min/1.73 sqM) Est GFR (CKD-EPI)NonAf (>60 ml/min/1.73 sqM) Glucose (74-99) mg/dL Plasma Lactic Acid [place] (0.7-2.0) mmol/L Calcium (8.4-10.2) mg/dL Magnesium (1.6-2.3) mg/dL Total Bilirubin (0.2-1.3) mg/dL AST (17-59) U/L ALT (21-72) U/L Alkaline Phosphatase (38-126) U/L Troponin I 0.254 H* (0.000-0.034) ng/mL Total Protein (6.3-8.2) g/dL Albumin (3.5-5.0) g/dL Urine Color Yellow Urine Appearance Cloudy (Clear) Urine pH 6.5 (5.0-8.0) Ur Specific [place] 1.017 (1.001-1.035) Urine Protein Trace H (Negative) Urine Glucose (UA) Negative (Negative) Urine Ketones Trace H (Negative) Urine Blood Negative (Negative) Urine Nitrite Negative (Negative) Urine Bilirubin Negative (Negative) Urine Urobilinogen 4.0 (<2.0) mg/dL Ur Leukocyte Esterase Large H (Negative) Urine RBC 1 (0-5) /hpf Urine WBC 110 H (0-5) /hpf Urine WBC Clumps Few H (None) /hpf Ur Squamous Epith Cells <1 (0-4) /hpf Urine Bacteria Many H (None) /hpf Urine Mucus Few H (None) /hpf Critical Care Time Critical Care Time: Yes Total Critical Care Time: 35 Disposition Clinical Impression: Generalized weakness, Pneumonia, NSTEMI (non-ST elevated myocardial infarction), Urinary tract infection, Mass of arm Disposition: ADMITTED IP TO THIS HOSP Referrals: Michael Howell MD [Primary Care Provider] - 1-2 days Time of Disposition: 12:08
[2019-03-18 10:04] LABS: Anisocytosis Slight; Basophils # (A) 0.1 k/uL (0-0.2); Basophils % (A) 1 %; Eosinophils # (A) 0.7 k/uL (0-0.7); Eosinophils % (A) 12 %; HCT 29.9 % (39.0-53.0); HGB 8.9 gm/dL (13.0-17.5); Hypochromasia Marked; Lymphocytes % (A) 18 %; MCH 27.3 pg (25.0-35.0); MCHC 29.7 g/dL (31.0-37.0); Monocytes # (A) 0.2 k/uL (0-1.0); Monocytes % (A) 4 %; Neutrophils # (A) 3.3 k/uL (1.3-7.7); Neutrophils % (A) 63 %; Platelet Count 282 k/uL (150-450); RBC 3.26 m/uL (4.30-5.90); RDW 19.1 % (11.5-15.5); WBC 5.3 k/uL (3.8-10.6)
[2019-03-18 10:08] LABS: MCV 91.8 fL (80.0-100.0)
[2019-03-18 10:12] LABS: INR 1.3 (<1.2); Partial Thromboplastin Time 25.9 sec (22.0-30.0); Prothrombin Time 13.2 sec (9.0-12.0)
[2019-03-18 10:13] LABS: Calcium 9.6 mg/dL (8.4-10.2); Magnesium 2.2 mg/dL (1.6-2.3); Potassium 3.7 mmol/L (3.5-5.1); Total Bilirubin 1.7 mg/dL (0.2-1.3); Total Protein 5.6 g/dL (6.3-8.2)
[2019-03-18 10:27] LABS: Appearance,Urine Cloudy (Clear); Bacteria,Urine Many /hpf; Bilirubin,Urine Negative (Negative); Blood,Urine Negative (Negative); Color,Urine Yellow; Glucose,Urine (UA) Negative (Negative); Ketones,Urine Trace (Negative); Leukocyte Esterase,Urine Large (Negative); Mucus,Urine Few /hpf; Nitrite,Urine Negative (Negative); PH, Urine 6.5 (5.0-8.0); Protein,Urine Trace (Negative); RBC,Urine 1 /hpf (0-5); Specific Gravity,Urine 1.017 (1.001-1.035); Squamous Epithelial Cell,Urine <1 /hpf (0-4)
--- NOTE | 2019-03-18 10:45 | XR ---
EXAMINATION TYPE: XR chest 2V DATE OF EXAM: 03/18/2019 COMPARISON: 01/12/2019 HISTORY: Weakness TECHNIQUE: Frontal and lateral views of the chest are obtained. FINDINGS: There is left hemidiaphragm elevation and new left basilar opacity. Left perihilar opacity is also new. Mild diffuse interstitial prominence. Cardiomediastinal silhouette is partially obscure d. Moderate degenerative changes of the spine. Flattening of the diaphragms on the lateral view indic ative of underlying COPD. Mild diffuse osseous. IMPRESSION: New multifocal left-sided patchy opacities, likely multifocal pneumonia with component o f atelectasis given the left hemidiaphragm elevation (secondary sign of volume loss). Underlying COPD .
[2019-03-18] MEDS ORDERED: LEVOFLOXACIN 750MG-D5W PMX 750 MG in DEXTROSE/WATER 1 150ML.BAG IVPB STA (12:08)
[2019-03-18] MEDS ORDERED: PNEUMONIA PROTOCOL UTILIZED 1 EACH MISC PO PRN (12:08)
[2019-03-18] MEDS: ALBUTEROL NEBULIZED 2.5 MG/3 ML INHALATION SCH ×2 (16:15→19:47)
[2019-03-18] MEDS: PIPERACILLIN-TAZOBACTAM 3.375 GM in SODIUM CHLORIDE 0.9% 100 ML IVPB SCH ×2 (17:32→23:07)
--- NOTE | 2019-03-18 22:46 | P.HPIM ---
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 Patient has chronic confused but very lethargic on admission. Patient has been having baseline shortness of breath and medications chest pains. Denied any worsening cough or sputum production. Denied any abdominal pain. No hematuria or dysuria. Patient does have some urinary frequency increased. No headache or dizziness. The case is mainly generalized. No diarrhea. Troponin 0.254 and 0.233 Hemoglobin 8.9 Urinalysis showed large leukocyte esterase and pyuria. Chest x-ray showed new multifocal left-sided patchy opacities. Likely multifocal pneumonia with component of atelectasis given the left hemidiaphragm elevation. Underlying COPD. Patient is supposed to go to his surgeon for right upper extremity tumor resection. Review of Systems Constitutional: Patient denies any fever or chills . Generalized weakness and weight loss. Abdomen: Patient denied nausea vomiting and diarrhea and abdominal pain. Cardiovascular: Patient denies any chest pain or short of breath no palpitations. Respiratory: patient denied any cough is from production. No shortness of breath Neurologic: Patient denied any numbness or tingling headache. Generalized weakness. Musculoskeletal: Patient denies any complaints of joint swelling or deformity. Skin: Negative Psychiatric: Negative Endocrine: No heat or cold intolerance. No recent weight gain. Genitourinary: No dysuria or hematuria. All other 14 point ROS negative except the above Past Medical History Past Medical History: Atrial Fibrillation, Coronary Artery Disease (CAD), Cancer, Heart Failure, COPD, Eye Disorder, GERD/Reflux, Hyperlipidemia, Hypertension, Myocardial Infarction ([place]), Musculoskeletal Disorder, Osteoarthritis (OA), Prostate Disorder, Renal Disease, Vascular Disorder Additional Past Medical History / Comment(s): L lung small cell lung cancer with mets to skin/subcutaneous tissue-has sore/mass R upper arm, pt states last chemo/radiation was a few months ago, chronic SOB, chronic chest pain which goes into his back and shoulders, chronic low back pain, DJD, Afib with RVR, pt born with only R kidney, kidney stones, BPH, vertigo if looks upward, r cataract. Last Myocardial Infarction Date:: 1998 History of Any Multi-Drug Resistant Organisms: None Reported Past Surgical History: Appendectomy, Back Surgery, Heart Catheterization With St ent, Hernia Repair, Orthopedic Surgery Additional Past Surgical History / Comment(s): PCI with stents in 1998 and 2013, bilateral carpal tunnel releases, bilateral shoulder surgery for rotator cuff repairs, bilateral knee arthroscopies, L jaw injury with surgery, abdominal a ngiography, EGD, colonoscopy, L cataract removal and surgery for "floaters" Past Anesthesia/Blood Transfusion Reactions: No Reported Reaction Date of Last Stent Placement:: 1998, 10/09/13 Smoking Status: Former smoker - Past Family History Mother History Unknown: Yes Family Medical History: Cancer Additional Family Medical History / Comment(s): Pt states he does not know his mothers health history/he had no relationship with her. Father Family Medical History: Cancer Additional Family Medical History / Comment(s): Leukemia Medications and Allergies Home Medications Medication Instructions Recorded Confirmed Type Albuterol Inhaler [Ventolin Hfa 2 puff INHALATION RT-QID PRN 09/08/13 03/18/19 History Inhaler] ALPRAZolam [Xanax] 1 mg PO BID 09/09/13 03/18/19 History HYDROcodone/APAP 10-325MG [[place] 1 tab PO QID PRN 05/20/17 03/18/19 History 10-325] Nitroglycerin [Nitromist] 1 spray SL Q5M PRN 09/26/18 03/18/19 History Esomeprazole Magnesium [NexIUM] 40 mg PO DAILY 12/25/18 03/18/19 History Simvastatin [Zocor] 20 mg PO HS 01/06/19 03/18/19 History Apixaban [Eliquis] 5 mg PO BID 01/12/19 03/18/19 History Amiodarone [Cordarone] 200 mg PO BID 03/18/19 03/18/19 History Ferrous Sulfate [Feosol] 325 mg PO DAILY 03/18/19 03/18/19 History Fluticasone/Vilanterol [Breo 1 puff INHALATION RT-DAILY 03/18/19 03/18/19 History Ellipta 200-25 Mcg INH] Furosemide [Lasix] 40 mg PO DAILY 03/18/19 03/18/19 History Magnesium Oxide [Mag-Ox] 400 mg PO DAILY 03/18/19 03/18/19 History Metoprolol Tartrate [Lopressor] 75 mg PO TID 03/18/19 03/18/19 History Montelukast [Singulair] 10 mg PO HS 03/18/19 03/18/19 History Tamsulosin HCl [Flomax] 0.4 mg PO HS 03/18/19 03/18/19 History amLODIPine [Norvasc] 10 mg PO DAILY 03/18/19 03/18/19 History Allergies Allergy/AdvReac Type Severity Reaction Status Date / Time blue dye AdvReac Nausea & Verified 03/18/19 11:34 Vomiting Physical Exam Vitals: Vital Signs Temp Pulse Pulse Resp BP BP Pulse Ox 03/18/19 20:51 67 18 03/18/19 19:55 75 03/18/19 19:47 98.3 F 69 67 18 107/55 92 L 03/18/19 16:29 68 03/18/19 16:15 68 03/18/19 15:10 70 18 92/67 91 L 03/18/19 12:30 73 30 H 100/66 96 03/18/19 11:45 98.1 F 70 30 H 109/64 89 L 03/18/19 11:00 67 16 104/60 96 03/18/19 10:43 64 03/18/19 10:30 65 03/18/19 09:21 97.9 F 64 20 132/70 100 Intake and Output 03/18/19 03/18/19 03/18/19 06:59 14:59 22:59 Intake Total 100 Output Total 1 Balance 99 Intake: Intake, IV Titration 100 Amount Piperacillin-Tazobactam 3 100 .375 gm In Sodium Chloride 0.9% 100 ml @ 25 mls/hr IVPB Q8HR [facility] Rx# :[id number] Output: Urine 1 Other: # Voids 1 Weight 77.111 kg PHYSICAL EXAMINATION: Patient is lying in the bed comfortably, no acute distress, awake alert and oriented but confused and lethargic.. HEENT: Normocephalic. Neck is supple. Pupils reactive. Nostrils clear. Oral cavity is moist. Ears reveal no drainage. Neck reveals no JVD, carotid bruits, or thyromegaly. CHEST EXAMINATION: Trachea is central. Symmetrical expansion. Scattered rhonchi and bibasilar diminished air entry. CARDIAC: Normal S1, S2 with no gallops. No murmurs ABDOMEN: Soft. Bowel sounds normal. No organomegaly. No abdominal bruits. Extremities: reveal no edema. No clubbing or cyanosis Neurologically awake, alert, oriented x3 with well-coordinated movements. No focal deficits noted Skin: No rash or skin lesions. Psychiatric: Coperative. Nonsuicidal Musculoskeletal: No joint swelling or deformity. Normal range of motion. Results CBC & Chem 7: 03/18/19 09:54 03/18/19 09:54 Labs: Abnormal Lab Results - Last 24 Hours (Table) 03/18/19 03/18/19 03/18/19 Range/Units 09:54 09:54 09:54 RBC 3.26 L (4.30-5.90) m/uL Hgb 8.9 L (13.0-17.5) gm/dL Hct 29.9 L (39.0-53.0) % MCHC 29.7 L (31.0-37.0) g/dL RDW 19.1 H (11.5-15.5) % PT 13.2 H (9.0-12.0) sec INR 1.3 H (<1.2) Carbon Dioxide 34 H (22-30) mmol/L BUN 22 H (9-20) mg/dL Glucose 102 H (74-99) mg/dL Total Bilirubin 1.7 H (0.2-1.3) mg/dL AST 11 L (17-59) U/L Troponin I (0.000-0.034) ng/mL Total Protein 5.6 L (6.3-8.2) g/dL Albumin 3.0 L (3.5-5.0) g/dL Urine Protein (Negative) Urine Ketones (Negative) Ur Leukocyte Esterase (Negative) Urine WBC (0-5) /hpf Urine WBC Clumps (None) /hpf Urine Bacteria (None) /hpf Urine Mucus (None) /hpf 03/18/19 03/18/19 03/18/19 Range/Units 09:54 10:08 15:08 RBC (4.30-5.90) m/uL Hgb (13.0-17.5) gm/dL Hct (39.0-53.0) % MCHC (31.0-37.0) g/dL RDW (11.5-15.5) % PT (9.0-12.0) sec INR (<1.2) Carbon Dioxide (22-30) mmol/L BUN (9-20) mg/dL Glucose (74-99) mg/dL Total Bilirubin (0.2-1.3) mg/dL AST (17-59) U/L Troponin I 0.254 H* 0.233 H* (0.000-0.034) ng/mL Total Protein (6.3-8.2) g/dL Albumin (3.5-5.0) g/dL Urine Protein Trace H (Negative) Urine Ketones Trace H (Negative) Ur Leukocyte Esterase Large H (Negative) Urine WBC 110 H (0-5) /hpf Urine WBC Clumps Few H (None) /hpf Urine Bacteria Many H (None) /hpf Urine Mucus Few H (None) /hpf Microbiology - Last 24 Hours (Table) 03/18/19 10:08 Wound Culture - Preliminary Arm - Right 03/18/19 10:08 Urine Culture - Preliminary Urine,Voided Thrombosis Risk Factor Assmnt - DVT/VTE Prophylaxis DVT/VTE Prophylaxis: Pharmacologic Prophylaxis ordered - Choose All That Apply Any of the Below Risk Factors Present?: Yes Each Factor Represents 1 point: Abnormal pulmonary function (COPD), Acute OR, Serious lung disease incl. pneumonia (< 1month) Other Risk Factors: Yes Each Risk Factor Represents 2 Points: Age 61-74 years, Malignancy Other congenital or acquired thrombophilia - If yes, enter type in comment: No Thrombosis Risk Factor Assessment Total Risk Factor Score: 7 Thrombosis Risk Factor Assessment Level: High Risk Assessment and Plan Assessment: Acute urinary tract infection Left lower lobe Multifocal pneumonia with component of atelectasis given the left hemidiaphragm elevation. Possible gram-negative. Elevated troponin level. Possible non-ST elevated OR History of left lung small cell cancer status post chemoradiation and metastatic lesions to skin/subcutaneous tissue Right upper arm mass. Hypertension Paroxysmal atrial fibrillation on anticoagulation with Eliquis Chronic CHF with ejection fraction unknown Coronary artery disease with history of stent placement COPD stable GERD Hyperlipidemia History of OR BPH Chronic low back pain right nephrolithiasis nonobstructive Generalized weakness and medical debility Previous history of smoking Plan: Patient will be continued on IV antibiotics in the form of Levaquin and Zosyn. Follow with blood in urine culture report Serial troponins and telemetry monitoring. Continue with aspirin, statins, metoprolol and Eliquis. Patient is also on amiodarone at home. Continue the pain management and follow closely. Prognosis is poor at this time. Further recommendations based on the clinical course. Time with Patient: Greater than 30
[2019-03-18] MEDS: MONTELUKAST 10 MG TAB PO SCH (23:07)
[2019-03-18] MEDS: ATORVASTATIN 10 MG TAB PO SCH (23:07)
[2019-03-18] MEDS: APIXABAN 5 MG TAB PO SCH (23:07)
[2019-03-19] MEDS ORDERED: FUROSEMIDE 10 MG/ML 4 ML VIAL IV STA (00:03)
[2019-03-19 06:13] LABS: Anisocytosis Slight; Basophils # (A) 0.1 k/uL (0-0.2); Basophils % (A) 1 %; Eosinophils # (A) 0.3 k/uL (0-0.7); Eosinophils % (A) 7 %; HCT 30.1 % (39.0-53.0); HGB 8.9 gm/dL (13.0-17.5); Hypochromasia Marked; Lymphocytes # (A) 0.8 k/uL (1.0-4.8); Lymphocytes % (A) 16 %; MCH 27.2 pg (25.0-35.0); MCHC 29.6 g/dL (31.0-37.0); Mean Platelet Volume 6.9; Monocytes # (A) 0.2 k/uL (0-1.0); Monocytes % (A) 4 %; Neutrophils # (A) 3.4 k/uL (1.3-7.7); Neutrophils % (A) 71 %; Platelet Count 274 k/uL (150-450); RBC 3.27 m/uL (4.30-5.90); RDW 18.7 % (11.5-15.5); WBC 4.8 k/uL (3.8-10.6)
[2019-03-19 06:35] LABS: Calcium 9.6 mg/dL (8.4-10.2); Potassium 3.5 mmol/L (3.5-5.1)
[2019-03-19] MEDS: IPRATROPIUM-ALBUTEROL 3 ML NEB INHALATION PRN (08:43)
[2019-03-19] MEDS: SYMBICORT 160-4.5 MCG INHALER INHALATION SCH ×3 (08:44→20:36)
--- NOTE | 2019-03-19 09:13 | XR ---
EXAMINATION TYPE: XR chest 2V DATE OF EXAM: 03/19/2019 COMPARISON: 03/18/2019 HISTORY: 69-year-old male with pneumonia TECHNIQUE: AP and lateral views FINDINGS: Heart mild to moderately enlarged. Multifocal airspace opacities left mid and lower lung and slightly increasing right midlung. Diffuse interstitial densities also persist. Small bilateral pleural effus ions slightly increased in the interval. IMPRESSION: 1. Cardiomegaly with continued diffuse interstitial changes and enlarging small effusions. Consider s uperimposed CHF with pulmonary edema. 2. Multifocal infiltrates/airspace disease stable to slightly increasing. Either multifocal pneumonia and/or worsening pulmonary edema.
[2019-03-19] MEDS: PIPERACILLIN-TAZOBACTAM 3.375 GM in SODIUM CHLORIDE 0.9% 100 ML IVPB SCH ×3 (09:16→23:06)
[2019-03-19] MEDS: APIXABAN 5 MG TAB PO SCH ×2 (09:34→20:13)
[2019-03-19] MEDS: AMIODARONE 200 MG TAB PO SCH ×2 (09:34→20:13)
[2019-03-19] MEDS: FUROSEMIDE 40 MG TAB PO SCH (09:34)
[2019-03-19] MEDS: PANTOPRAZOLE 40 MG TABLET PO SCH (09:35)
[2019-03-19] MEDS: METOPROLOL TARTRATE 25 MG TAB PO SCH ×3 (09:39→22:59)
--- NOTE | 2019-03-19 12:03 | P.CRDCN ---
History of Present Illness Consult date: 03/19/19 Requesting physician: Clare Milian Reason for Consult (text): Abnormal troponin Chief complaint: Mental status changes History of present illness: This is a 69-year-old gentleman with known history of peripheral vascular disease and prior peripheral revascularization by Dr. Fabian in the past, a single kidney with chronic kidney disease, hypertension, hyperlipidemia, chronic tobacco use, lung cancer with metastatic disease to a pedunculated open wound on the patient's right arm. He was supposed to have a mass on his arm removed however they were unable to get him off because he was so weak. Patient was also noted to have some mental status changes and was brought to the hospital for the same. Patient does have history of undergoing cardiac catheterization in September of this year he was noted to have mild disease in the LAD and RCA with an occluded diagonal branch, echocardiogram with Doppler study was performed in December 2018 which revealed an ejection fraction of 45-50% with mild mitral regurgitation, mild to moderate tricuspid regurg and moderate pulmonary hypertension. Chest x-ray on presentation here showed new multifocal left-sided patchy opaque cities, likely a multifocal pneumonia with a component of atelectasis. Underlying COPD. EKG shows atrial fibrillation with a controlled ventricular response. Blood pressure 122/60 with a heart rate of 78, resp irations 20, afebrile. White blood cell count 4.8, hemoglobin 8.9, platelet count 274. Sodium 144, potassium 3.5, BUN 19, creatinine 1.0. Magnesium 2.2, total bilirubin 1.7, troponin 0.2, 0.2, 0.2. Cardiology consultation was requested because of abnormality in troponin. Urinalysis shows positive UTI. At the time of my examination this morning, patient is sitting up in his chair at bedside, he denies having any chest discomfort. Does admit to productive cough. 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 Last Myocardial Infarction Date:: 1998 History of Any Multi-Drug Resistant Organisms: None Reported Past Surgical History: Appendectomy, Back Surgery, Heart Catheterization With Stent, Hernia Repair, Orthopedic Surgery Additional Past Surgical History / Comment(s): PCI with stents in 1998 and 2013, bilateral carpal tunnel releases, bilateral shoulder surgery for rotator cuff repairs, bilateral knee arthroscopies, L jaw injury with surgery, abdominal angiography, EGD, colonoscopy, L cataract removal and surgery for "floaters" Past Anesthesia/Blood Transfusion Reactions: No Reported Reaction Date of Last Stent Placement:: 1998, 10/09/13 Smoking Status: Former smoker - Past Family History Mother History Unknown: Yes Family Medical History: Cancer Additional Family Medical History / Comment(s): Pt states he does not know his mothers health history/he had no relationship with her. Father Family Medical History: Cancer Additional Family Medical History / Comment(s): Leukemia Medications and Allergies Home Medications Medication Instructions Recorded Confirmed Type Albuterol Inhaler [Ventolin Hfa 2 puff INHALATION RT-QID PRN 09/08/13 03/18/19 History Inhaler] ALPRAZolam [Xanax] 1 mg PO BID 09/09/13 03/18/19 History HYDROcodone/APAP 10-325MG [[place] 1 tab PO QID PRN 05/20/17 03/18/19 History 10-325] Nitroglycerin [Nitromist] 1 spray SL Q5M PRN 09/26/18 03/18/19 History Esomeprazole Magnesium [NexIUM] 40 mg PO DAILY 12/25/18 03/18/19 History Simvastatin [Zocor] 20 mg PO HS 01/06/19 03/18/19 History Apixaban [Eliquis] 5 mg PO BID 01/12/19 03/18/19 History Amiodarone [Cordarone] 200 mg PO BID 03/18/19 03/18/19 History Ferrous Sulfate [Feosol] 325 mg PO DAILY 03/18/19 03/18/19 History Fluticasone/Vilanterol [Breo 1 puff INHALATION RT-DAILY 03/18/19 03/18/19 History Ellipta 200-25 Mcg INH] Furosemide [Lasix] 40 mg PO DAILY 03/18/19 03/18/19 History Magnesium Oxide [Mag-Ox] 400 mg PO DAILY 03/18/19 03/18/19 History Metoprolol Tartrate [Lopressor] 75 mg PO TID 03/18/19 03/18/19 History Montelukast [Singulair] 10 mg PO HS 03/18/19 03/18/19 History Tamsulosin HCl [Flomax] 0.4 mg PO HS 03/18/19 03/18/19 History amLODIPine [Norvasc] 10 mg PO DAILY 03/18/19 03/18/19 History Allergies Allergy/AdvReac Type Severity Reaction Status Date / Time blue dye AdvReac Nausea & Verified 03/18/19 11:34 Vomiting Physical Exam Vitals: Vital Signs Temp Pulse Pulse Resp BP BP Pulse Ox 03/19/19 08:54 78 36 H 03/19/19 08:00 98.3 F 78 36 H 107/59 95 03/19/19 04:00 98.2 F 87 22 111/68 90 L 03/19/19 03:41 20 03/18/19 23:24 98.0 F 78 20 114/78 90 L 03/18/19 20:51 67 18 03/18/19 19:55 75 03/18/19 19:47 98.3 F 69 67 18 107/55 92 L 03/18/19 16:29 68 03/18/19 16:15 68 03/18/19 15:10 70 18 92/67 91 L 03/18/19 12:30 73 30 H 100/66 96 Intake and Output 03/18/19 03/19/19 03/19/19 22:59 06:59 14:59 Intake Total 100 Output Total 1 150 Balance 99 -150 Intake: Intake, IV Titration 100 Amount Piperacillin-Tazobactam 3 100 .375 gm In Sodium Chloride 0.9% 100 ml @ 25 mls/hr IVPB Q8HR [facility] Rx# :[id number] Output: Urine 1 150 Other: # Voids 1 2 2 Weight 37 kg PHYSICAL EXAMINATION: GENERAL: 69-year-old gentleman in no acute distress at the time of my examination HEENT: Head is atraumatic, normocephalic. Pupils equal, round. Sclera anicteric. Conjunctiva are clear. Mucous membranes of the mouth are moist. Neck is supple. There is no elevated jugular venous pressure. No carotid bruit is heard. HEART EXAMINATION: Heart S1-S2 irregularly irregular a systolic murmur is heard CHEST EXAMINATION: Reveal scattered coarse rhonchi and wheezing throughout. ABDOMEN: Soft, nontender. Bowel sounds are heard. No organomegaly noted. EXTREMITIES: 2+ peripheral pulses with no evidence of peripheral edema and no calf tenderness noted. Dressing applied to the right upper arm. NEUROLOGIC patient is awake, alert and oriented 1. . Results 03/19/19 05:58 03/19/19 05:58 Cardiac Enzymes 03/18/19 03/18/19 Range/Units 15:08 21:17 Troponin I 0.233 H* 0.212 H* (0.000-0.034) ng/mL CBC 03/19/19 Range/Units 05:58 WBC 4.8 (3.8-10.6) k/uL RBC 3.27 L (4.30-5.90) m/uL Hgb 8.9 L (13.0-17.5) gm/dL Hct 30.1 L (39.0-53.0) % Plt Count 274 (150-450) k/uL Comprehensive Metabolic Panel 03/19/19 Range/Units 05:58 Sodium 144 (137-145) mmol/L Potassium 3.5 (3.5-5.1) mmol/L Chloride 103 (98-107) mmol/L Carbon Dioxide 34 H (22-30) mmol/L BUN 19 (9-20) mg/dL Creatinine 1.05 (0.66-1.25) mg/dL Glucose 124 H (74-99) mg/dL Calcium 9.6 (8.4-10.2) mg/dL Current Medications Generic Name Dose Route Start Last Admin Trade Name Freq PRN Reason Stop Dose Admin Albuterol/Ipratropium 3 ml 03/18/19 22:23 Duoneb 0.5 Mg-3 Mg/3 Ml Soln INHALATION RT-QID PRN Shortness Of Breath Or Wheezing Amiodarone HCl 200 mg 03/19/19 09:00 03/19/19 09:34 Cordarone PO Not Given BID LILIBETH Apixaban 5 mg 03/18/19 22:30 03/19/19 09:34 Eliquis PO Not Given BID [facility] Atorvastatin Calcium 10 mg 03/18/19 22:45 03/18/19 23:07 Lipitor PO 10 mg HS LILIBETH Administration Budesonide/Formoterol Fumarate 2 puff 03/19/19 08:00 Symbicort 160-4.5 Mcg Inhaler INHALATION RT-BID LILIBETH Furosemide 40 mg 03/19/19 09:00 03/19/19 09:34 Lasix PO Not Given DAILY LILIBETH Piperacillin Sod/Tazobactam 100 mls @ 25 mls/hr 03/18/19 16:00 03/19/19 09:16 Sod 3.375 gm/ Sodium Chloride IVPB 03/28/19 16:01 25 mls/hr Q8HR LILIBETH Administration Levofloxacin 750 mg/ IV 150 mls @ 100 mls/hr 03/19/19 16:00 Solution IVPB 03/31/19 16:01 Q24H LILIBETH Metoprolol Tartrate 75 mg 03/19/19 09:00 03/19/19 09:39 Lopressor PO Not Given TID [facility] Miscellaneous Information 1 each 03/18/19 12:08 Pneumonia Protocol Utilized PO ONCE PRN Per Protocol Montelukast Sodium 10 mg 03/18/19 22:30 03/18/19 23:07 Singulair PO 10 mg HS LILIBETH Administration Pantoprazole Sodium 40 mg 03/19/19 09:00 03/19/19 09:35 Protonix PO Not Given DAILY [facility] Tamsulosin HCl 0.4 mg 03/19/19 21:00 Flomax PO HS [facility] Intake and Output 03/18/19 03/19/19 03/19/19 22:59 06:59 14:59 Intake Total 100 Output Total 1 150 Balance 99 -150 Intake: Intake, IV Titration 100 Amount Piperacillin-Tazobactam 3 100 .375 gm In Sodium Chloride 0.9% 100 ml @ 25 mls/hr IVPB Q8HR [facility] Rx# :[id number] Output: Urine 1 150 Other: # Voids 1 2 2 Weight 37 kg 03/19/19 05:58 03/19/19 05:58 EKG Interpretations (text) EKG shows atrial fibrillation with a controlled ventricular response Assessment and Plan Plan: Assessment and plan #1 mental status changes, could be secondary to UTI, patient has known mild dementia #2 acute UTI #3 left lower lobe multifocal pneumonia #4 history of left lung small lung cancer status post chemoradiation with metastatic lesions to the skin and subcutaneous tissue, metastatic squamous cell carcinoma #5 right upper arm mass #6 hypertension #7 chronic persistent A. fib on Eliquis #8 chronic congestive heart failure, diastolic #9 coronary artery disease with prior PCI #10 COPD #11 GERD #12 hyperlipidemia #13 abnormal troponin, with no significant rise and fall pattern, not suggestive of acute coronary syndrome. #14 anemia Plan Troponin abnormality likely secondary to pneumonia, patient had an echocardiogram with Doppler study performed in December which revealed an ejection fraction of 45-50%. We will obtain a limited echo at this time to assess the LV function. Continue current medications.. Further recommendation to follow. DNP note has been reviewed, I agree with a documented findings and plan of care. Patient was seen and examined.
[2019-03-19 12:20] VITALS: BMI 28.3
[2019-03-19] MEDS ORDERED: LEVOFLOXACIN 750MG-D5W PMX 750 MG in DEXTROSE/WATER 1 150ML.BAG IVPB SCH (16:00)
[2019-03-19] MEDS: LEVOFLOXACIN 750 MG TAB PO SCH (17:28)
--- NOTE | 2019-03-19 18:31 | ECHOF ---
Referral Reason:limited assess lvf MEASUREMENTS -------- HEIGHT: 175.3 cm WEIGHT: 82.1 kg BP: IVSd: 1.4 cm (0.6 - 1.1) LVIDd: 5.2 cm (3.9 - 5.3) LVPWd: 1.5 cm (0.6 - 1.1) IVSs: 1.7 cm LVIDs: 3.6 cm LVPWs: 2.1 cm %FS: 29.69 % EDV(Teich): 222.55 ml EF(Teich): 55.58 % ESV(Teich): 98.85 ml IVSd: 1.47 cm (0.6 - 1.1) IVSs: 1.96 cm LVIDd: 6.59 cm (3.9 - 5.3) LVIDs: 4.63 cm LVPWd: 1.44 cm (0.6 - 1.1) LVPWs: 2.47 cm SV(Teich): 123.70 ml FINDINGS -------- Sinus rhythm. This was a technically adequate study. Limited Study The left ventricular size is normal. There is moderate concentric left ventricular hypertrophy. O verall left ventricular systolic function is moderate-severely impaired with, an EF between 30 - 35 % . Mid lateral LV wall motion is hypokinetic. Mid posterior LV wall motion is hypokinetic. Mid inferior LV wall motion is hypokinetic. Mid inferoseptal LV wall motion is hypokinetic. Mid an teroseptal LV wall motion is hypokinetic. Apical lateral LV wall motion is hypokinetic. Apical inferior LV wall motion is hypokinetic. Apical septum LV wall motion is hypokinetic. CONCLUSIONS -------- 1. Sinus rhythm. 2. This was a technically adequate study. 3. Limited Study 4. The left ventricular size is normal. 5. There is moderate concentric left ventricular hypertrophy. 6. Overall left ventricular systolic function is moderate-severely impaired with, an EF between 30 - 35 %. 7. Mid lateral LV wall motion is hypokinetic. 8. Mid posterior LV wall motion is hypokinetic. 9. Mid inferior LV wall motion is hypokinetic. 10. Mid inferoseptal LV wall motion is hypokinetic. 11. Mid anteroseptal LV wall motion is hypokinetic. 12. Apical lateral LV wall motion is hypokinetic. 13. Apical inferior LV wall motion is hypokinetic. 14. Apical septum LV wall motion is hypokinetic. PRESIDENT CEO [employer] FOUNDER: Brigid Harmon RDCS
[2019-03-19] MEDS: MONTELUKAST 10 MG TAB PO SCH (20:13)
[2019-03-19] MEDS: ATORVASTATIN 10 MG TAB PO SCH (20:13)
[2019-03-19] MEDS: TAMSULOSIN 0.4 MG CAP.ER.24H PO SCH (20:13)
--- NOTE | 2019-03-19 22:55 | P.PN ---
Subjective Progress Note Date: 03/19/19 Principal diagnosis: Generalized weakness Multifocal pneumonia Acute urinary tract infection Patient is a 69-year-old male with a known history of paroxysmal atrial fibrillation on anticoagulation with Eliquis, coronary artery disease with history of stent placement, COPD, 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 Patient has chronic confused but very lethargic on admission. Patient has been having baseline shortness of breath and medications chest pains. Denied any worsening cough or sputum production. Denied any abdominal pain. No hematuria or dysuria. Patient does have some urinary frequency increased. No headache or dizziness. The case is mainly generalized. No diarrhea. Troponin 0.254 and 0.233 Hemoglobin 8.9 Urinalysis showed large leukocyte esterase and pyuria. Chest x-ray showed new multifocal left-sided patchy opacities. Likely multifocal pneumonia with component of atelectasis given the left hemidiaphragm elevation. Underlying COPD. Patient is supposed to go to his surgeon for right upper extremity tumor resection. 03/19/2019 Patient is currently sitting in the chair comfortably. Weakness is better. Able to tolerate diet slowly. Otherwise patient is being continued on antibiotics. No complaints of chest pain or shortness of breath. No fever no chills. No leukocytosis. Urine culture showed gram-negative bacilli. Cardiology has seen the patient. Troponin anemia likely due to infection. Limited 2-D echocardiogram was ordered. I did discuss with Dr. Raffi Johnson his radiation oncologist. Apparently patient was scheduled for right upper arm mass resection yesterday but patient could not follow up with his surgeon Dr. Garcia, orthopedic oncology at [facility]. Suggested to transfer the patient to be seen by his surgeon for possible resection on Saturday. Will hold Eliquis if cardiology is agreeable. Active Medications Albuterol/Ipratropium (Duoneb 0.5 Mg-3 Mg/3 Ml Soln) 3 ml INHALATION RT-QID PRN PRN Reason: Shortness Of Breath Or Wheezing Amiodarone HCl (Cordarone) 200 mg PO BID LILIBETH Last Admin: 03/19/19 20:13 Dose: 200 mg Documented by: Apixaban (Eliquis) 5 mg PO BID [facility] Last Admin: 03/19/19 20:13 Dose: 5 mg Documented by: Atorvastatin Calcium (Lipitor) 10 mg PO [facility] Last Admin: 03/19/19 20:13 Dose: 10 mg Documented by: Budesonide/Formoterol Fumarate (Symbicort 160-4.5 Mcg Inhaler) 2 puff INHALATION RT-BID [facility] Last Admin: 03/19/19 20:36 Dose: 2 puff Documented by: Furosemide (Lasix) 40 mg PO DAILY [facility] Last Admin: 03/19/19 09:34 Dose: Not Given Documented by: Piperacillin Sod/Tazobactam (Sod 3.375 gm/ Sodium Chloride) 100 mls @ 25 mls/hr IVPB Q8HR [facility] Stop: 03/28/19 16:01 Last Admin: 03/19/19 17:28 Dose: 25 mls/hr Documented by: Levofloxacin (Levaquin) 750 mg PO DAILY@1600 [facility] Stop: 03/31/19 16:01 Last Admin: 03/19/19 17:28 Dose: 750 mg Documented by: Metoprolol Tartrate (Lopressor) 75 mg PO TID [facility] Last Admin: 03/19/19 17:28 Dose: 75 mg Documented by: Miscellaneous Information (Pneumonia Protocol Utilized) 1 each PO ONCE PRN PRN Reason: Per Protocol Montelukast Sodium (Singulair) 10 mg PO [facility] Last Admin: 03/19/19 20:13 Dose: 10 mg Documented by: Pantoprazole Sodium (Protonix) 40 mg PO DAILY [facility] Last Admin: 03/19/19 09:35 Dose: Not Given Documented by: Tamsulosin HCl (Flomax) 0.4 mg PO [facility] Last Admin: 03/19/19 20:13 Dose: 0.4 mg Documented by: Objective - Vital Signs Vital signs: Vital Signs Temp 98.7 F 03/19/19 20:16 Pulse 75 03/19/19 20:16 Resp 16 03/19/19 20:16 BP 108/63 03/19/19 20:16 Pulse Ox 93 L 03/19/19 20:16 Intake & Output 03/19/19 03/19/19 03/20/19 06:59 18:59 06:59 Intake Total 100 Output Total 150 Balance -150 100 Weight 37 kg 86.954 kg Intake: Oral 100 Output: Urine 150 Other: # Voids 2 2 - Exam PHYSICAL EXAMINATION: Patient is lying in the bed comfortably, no acute distress, awake alert and oriented but slow to respond.. HEENT: Normocephalic. Neck is supple. Pupils reactive. Nostrils clear. Oral cavity is moist. Ears reveal no drainage. Neck reveals no JVD, carotid bruits, or thyromegaly. CHEST EXAMINATION: Trachea is central. Symmetrical expansion. Scattered rhonchi and bibasilar diminished air entry. CARDIAC: Normal S1, S2 with no gallops. No murmurs ABDOMEN: Soft. Bowel sounds normal. No organomegaly. No abdominal bruits. Extremities: reveal no edema. No clubbing or cyanosis Neurologically awake, alert, oriented x3 with well-coordinated movements. No focal deficits noted Skin: No rash or skin lesions. Psychiatric: Coperative. Nonsuicidal Musculoskeletal: No joint swelling or deformity. Normal range of motion. - Labs CBC & Chem 7: 03/19/19 05:58 03/19/19 05:58 Labs: Abnormal Lab Results - Last 24 Hours (Table) 03/18/19 03/19/19 03/19/19 Range/Units 21:17 05:58 05:58 RBC 3.27 L (4.30-5.90) m/uL Hgb 8.9 L (13.0-17.5) gm/dL Hct 30.1 L (39.0-53.0) % MCHC 29.6 L (31.0-37.0) g/dL RDW 18.7 H (11.5-15.5) % Lymphocytes # 0.8 L (1.0-4.8) k/uL Carbon Dioxide 34 H (22-30) mmol/L Glucose 124 H (74-99) mg/dL Troponin I 0.212 H* (0.000-0.034) ng/mL Microbiology - Last 24 Hours (Table) 03/18/19 16:08 Blood Culture - Preliminary Blood No Growth after 24 hours 03/18/19 15:08 Blood Culture - Preliminary Blood No Growth after 24 hours 03/18/19 10:08 Urine Culture - Preliminary Urine,Voided Gram Neg Bacilli 03/18/19 09:54 Blood Culture - Preliminary Blood No Growth after 24 hours 03/18/19 10:08 Gram Stain - Preliminary Arm - Right Wound Culture - Preliminary Gram Neg Bacilli Assessment and Plan Assessment: Acute urinary tract infection with gram-negative bacilli Left lower lobe Multifocal pneumonia with component of atelectasis given the left hemidiaphragm elevation. Possible gram-negative. Elevated troponin level. Likely due to infection. Unlikely acute IN. History of left lung small cell cancer status post chemoradiation and metastatic lesions to skin/subcutaneous tissue Right upper arm mass. Hypertension Paroxysmal atrial fibrillation on anticoagulation with Eliquis Chronic CHF with ejection fraction unknown Coronary artery disease with history of stent placement COPD stable GERD Hyperlipidemia History of IN BPH Chronic low back pain right nephrolithiasis nonobstructive Generalized weakness and medical debility Previous history of smoking Plan: Patient will be continued on IV antibiotics in the form of Levaquin and Zosyn. Follow with blood in urine culture final report Serial troponins and telemetry monitoring. Continue with aspirin, statins, metoprolol and Eliquis. Patient is also on amiodarone at home. Cardiology is following. Continue the pain management and follow closely. Prognosis is poor at this time. Further recommendations based on the clinical course. Time with Patient: Greater than 30
[2019-03-20] MEDS: SYMBICORT 160-4.5 MCG INHALER INHALATION SCH ×2 (07:11→19:49)
[2019-03-20] MEDS: PIPERACILLIN-TAZOBACTAM 3.375 GM in SODIUM CHLORIDE 0.9% 100 ML IVPB SCH ×3 (08:31→23:53)
[2019-03-20] MEDS: FUROSEMIDE 40 MG TAB PO SCH (08:32)
[2019-03-20] MEDS: AMIODARONE 200 MG TAB PO SCH ×2 (08:32→21:33)
[2019-03-20] MEDS: PANTOPRAZOLE 40 MG TABLET PO SCH (08:32)
[2019-03-20] MEDS: METOPROLOL TARTRATE 25 MG TAB PO SCH ×3 (08:33→21:33)
[2019-03-20] MEDS: APIXABAN 5 MG TAB PO SCH ×2 (08:33→21:33)
[2019-03-20] MEDS: LISINOPRIL 2.5 MG TAB PO SCH (10:44)
--- NOTE | 2019-03-20 12:21 | P.PN ---
Subjective Progress Note Date: 03/20/19 This is a 69-year-old gentleman with known history of peripheral vascular disease and prior peripheral revascularization by Dr. Fabian in the past, a single kidney with chronic kidney disease, hypertension, hyperlipidemia, chronic tobacco use, lung cancer with metastatic disease to a pedunculated open wound on the patient's right arm. He was supposed to have a mass on his arm removed however they were unable to get him off because he was so weak. Patient was also noted to have some mental status changes and was brought to the hospital for the same. Patient does have history of undergoing cardiac catheterization in September of this year he was noted to have mild disease in the LAD and RCA with an occluded diagonal branch, echocardiogram with Doppler study was performed in December 2018 which revealed an ejection fraction of 45-50% with mild mitral regurgitation, mild to moderate tricuspid regurg and moderate pulmonary hypertension. Chest x-ray on presentation here showed new multifocal left-sided patchy opaque cities, likely a multifocal pneumonia with a component of atelectasis. Underlying COPD. EKG shows atrial fibrillation with a controlled ventricular response. Blood pressure 122/60 with a heart rate of 78, respirations 20, afebrile. White blood cell count 4.8, hemoglobin 8.9, platelet count 274. Sodium 144, potassium 3.5, BUN 19, creatinine 1.0. Magnesium 2.2, total bilirubin 1.7, troponin 0.2, 0.2, 0.2. Cardiology consultation was requested because of abnormality in troponin. Urinalysis shows positive UTI. At the time of my examination this morning, patient is sitting up in his chair at bedside, he denies having any chest discomfort. Does admit to productive cough. 03/20/2019 Patient seen and examined this morning, blood pressure 119/72 with heart rate in the 70s, 88% on 2 L of oxygen. Blood cell count 4.8, hemoglobin 8.9, platelet count 274. Sodium 144, potassium 3.5, BUN 19 and creatinine 1.0. Echocardiogram with Doppler study was performed which revealed an ejection fraction of 30-35%, patient's prior echo showed an ejection fraction of 40-45%. We will add lisinopril and a dose of Aldactone to the patient's medication regime. Objective - Vital Signs Vital signs: Vital Signs Temp 98 F 03/20/19 11:51 Pulse 71 03/20/19 11:51 Resp 28 H 03/20/19 11:51 BP 119/72 03/20/19 11:51 Pulse Ox 86 L 03/20/19 11:51 Intake & Output 03/19/19 03/20/19 03/20/19 18:59 06:59 18:59 Intake Total 100 Output Total 2 Balance 98 Weight 86.954 kg 86.9 kg Intake: Oral 100 Output: Urine 2 Other: Voiding Method Urinal # Voids 2 2 - Exam PHYSICAL EXAMINATION: GENERAL: 69-year-old gentleman in no acute distress at the time of my examination HEENT: Head is atraumatic, normocephalic. Pupils equal, round. Sclera anicteric. Conjunctiva are clear. Mucous membranes of the mouth are moist. Neck is supple. There is no elevated jugular venous pressure. No carotid bruit is heard. HEART EXAMINATION: Heart S1-S2 irregularly irregular a systolic murmur is heard CHEST EXAMINATION: Reveal scattered coarse rhonchi and wheezing throughout. ABDOMEN: Soft, nontender. Bowel sounds are heard. No organomegaly noted. EXTREMITIES: 2+ peripheral pulses with no evidence of peripheral edema and no calf tenderness noted. Dressing applied to the right upper arm. NEUROLOGIC patient is awake, alert and oriented 1. - Labs CBC & Chem 7: 03/19/19 05:58 03/19/19 05:58 Labs: Microbiology - Last 24 Hours (Table) 03/18/19 09:54 Blood Culture - Preliminary Blood No Growth after 48 hours 03/18/19 10:08 Urine Culture - Final Urine,Voided Escherichia coli 03/18/19 16:08 Blood Culture - Preliminary Blood No Growth after 24 hours 03/18/19 15:08 Blood Culture - Preliminary Blood No Growth after 24 hours 03/18/19 10:08 Gram Stain - Preliminary Arm - Right Wound Culture - Preliminary Gram Neg Bacilli Assessment and Plan Plan: Assessment and plan #1 mental status changes, could be secondary to UTI, patient has known mild dementia #2 acute UTI #3 left lower lobe multifocal pneumonia #4 history of left lung small lung cancer status post chemoradiation with metastatic lesions to the skin and subcutaneous tissue, metastatic squamous cell carcinoma #5 right upper arm mass #6 hypertension #7 chronic persistent A. fib on Eliquis #8 chronic congestive heart failure, diastolic #9 coronary artery disease with prior PCI #10 COPD #11 GERD #12 hyperlipidemia #13 abnormal troponin, with no significant rise and fall pattern, not suggestive of acute coronary syndrome. #14 anemia Plan Echocardiogram with Doppler study was performed which revealed an ejection fraction of 30-35%. We will add a dose of BELLA inhibitor and Aldactone to the patient's medication regime DNP note has been reviewed, I agree with a documented findings and plan of care. Patient was seen and examined.
--- NOTE | 2019-03-20 12:56 | CDI ---
Documentation Clarification Form Date: 03/20/2019 12:24:55 PM From: Sommer Obrien RN CCDS Admit Date: 03/18/2019 12:08:00 PM Patient Name: Vamsi Perez Visit Number: [id number] Discharge Date: ATTENTION: The Clinical Documentation Specialists (CDI) and [facility] Coding Staff appreciate your assistance in clarifying documentation. Please respond to the clarification below the line at the bottom and electronically sign. The CDI & [facility] Coding staff will review the response and follow-up if needed. Please note: Queries are made part of the Legal Health Record. If you have any questions, please contact the author of this message via ITS. Dr. Clare Milian Altered Mental Status was documented in the Cardiology consult 03/18/2019 Also documented in the ED report 03/18/2019 History/Risk Factors: 69-year-old male presents to the ED via EMS with weakness. Medical History Renal disease, chronic shortness of breath; Afib with RVR, Chronic Congestive Heart Failure, diastolic Clinical Indicators: Labs: 03/18 UA large leukocyte esterase; Wbc 110; Protein trace; Wbc Clumps; bacteria many; UA Culture Ecoli Per the H & P 03/18 Patient has chronic confused but very lethargic on admission Per Cardiology consult 03/19/2019 mental status changes, could be secondary to UTI, patient has known mild dementia Treatment: 03/18 Zosyn Ivpb q 8 hrs ; Levaquin Ivpb q 24 hrs In your professional opinion, please clarify the etiology of the Altered Mental Status, if known. * Metabolic Encephalopathy (Underlying Medical Illness) * Other condition (please specify) * Unable to determine (Last Revision: August 2017) Metabolic encephalopathy secondary to infection MTDD
[2019-03-20] MEDS: LEVOFLOXACIN 750 MG TAB PO SCH (17:16)
[2019-03-20] MEDS ORDERED: HYDROmorphone 0.5 MG/0.5 ML SYRINGE IVP PRN (20:11)
[2019-03-20] MEDS: TAMSULOSIN 0.4 MG CAP.ER.24H PO SCH (21:33)
[2019-03-20] MEDS: ATORVASTATIN 10 MG TAB PO SCH (21:33)
[2019-03-20] MEDS: MONTELUKAST 10 MG TAB PO SCH (21:33)
[2019-03-21] MEDS: SYMBICORT 160-4.5 MCG INHALER INHALATION SCH ×2 (08:32→20:08)
[2019-03-21] MEDS: FUROSEMIDE 40 MG TAB PO SCH (09:32)
[2019-03-21] MEDS: METOPROLOL TARTRATE 25 MG TAB PO SCH ×3 (09:32→22:35)
[2019-03-21] MEDS: APIXABAN 5 MG TAB PO SCH ×2 (09:32→20:27)
[2019-03-21] MEDS: PANTOPRAZOLE 40 MG TABLET PO SCH (09:32)
[2019-03-21] MEDS: SPIRONOLACTONE 25 MG TAB PO SCH (09:33)
[2019-03-21] MEDS: LISINOPRIL 2.5 MG TAB PO SCH (09:33)
[2019-03-21] MEDS: PIPERACILLIN-TAZOBACTAM 3.375 GM in SODIUM CHLORIDE 0.9% 100 ML IVPB SCH ×3 (09:33→23:21)
[2019-03-21] MEDS: AMIODARONE 200 MG TAB PO SCH ×2 (09:33→20:26)
[2019-03-21] MEDS: LEVOFLOXACIN 750 MG TAB PO SCH (17:26)
[2019-03-21] MEDS: TAMSULOSIN 0.4 MG CAP.ER.24H PO SCH (20:26)
[2019-03-21] MEDS: MONTELUKAST 10 MG TAB PO SCH (20:26)
[2019-03-21] MEDS: ATORVASTATIN 10 MG TAB PO SCH (20:27)
--- NOTE | 2019-03-22 00:21 | P.PN ---
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 Patient has chronic confused but very lethargic on admission. Patient has been having baseline shortness of breath and medications chest pains. Denied any worsening cough or sputum production. Denied any abdominal pain. No hematuria or dysuria. Patient does have some urinary frequency increased. No headache or dizziness. The case is mainly generalized. No diarrhea. Troponin 0.254 and 0.233 Hemoglobin 8.9 Urinalysis showed large leukocyte esterase and pyuria. Chest x-ray showed new multifocal left-sided patchy opacities. Likely multifocal pneumonia with component of atelectasis given the left hemidiaphragm elevation. Underlying COPD. Patient is supposed to go to his surgeon for right upper extremity tumor resection. 03/19/2019 Patient is currently sitting in the chair comfortably. Weakness is better. Able to tolerate diet slowly. Otherwise patient is being continued on antibiotics. No complaints of chest pain or shortness of breath. No fever no chills. No leukocytosis. Urine culture showed gram-negative bacilli. Cardiology has seen the patient. Troponin anemia likely due to infection. Limited 2-D echocardiogram was ordered. I did discuss with Dr. Raffi Johnson his radiation oncologist. Apparently patient was scheduled for right upper arm mass resection yesterday but patient could not follow up with his surgeon Dr. Garcia, orthopedic oncology at [facility]. Suggested to transfer the patient to be seen by his surgeon for possible resection on Saturday. Will hold Eliquis if cardiology is agreeable. 03/20/2019 Patient is currently sitting in the chair comfortably. Patient is still hypoxic requiring oxygen with another cannula 3-4 L. No leukocytosis. Patient has been afebrile. GEN 19 creatinine 1.0, 2-D echocardiogram was done. Cardiology is following. Showed 30-35% ejection fraction. Patient is being continued on broad-spectrum antibiotics. Active Medications Albuterol/Ipratropium (Duoneb 0.5 Mg-3 Mg/3 Ml Soln) 3 ml INHALATION RT-QID PRN PRN Reason: Shortness Of Breath Or Wheezing Amiodarone HCl (Cordarone) 200 mg PO BID [facility] Last Admin: 03/19/19 20:13 Dose: 200 mg Documented by: Apixaban (Eliquis) 5 mg PO BID [facility] Last Admin: 03/19/19 20:13 Dose: 5 mg Documented by: Atorvastatin Calcium (Lipitor) 10 mg PO HS [facility] Last Admin: 03/19/19 20:13 Dose: 10 mg Documented by: Budesonide/Formoterol Fumarate (Symbicort 160-4.5 Mcg Inhaler) 2 puff INHALATION RT-BID [facility] Last Admin: 03/19/19 20:36 Dose: 2 puff Documented by: Furosemide (Lasix) 40 mg PO DAILY [facility] Last Admin: 03/19/19 09:34 Dose: Not Given Documented by: Piperacillin Sod/Tazobactam (Sod 3.375 gm/ Sodium Chloride) 100 mls @ 25 mls/hr IVPB Q8HR [facility] Stop: 03/28/19 16:01 Last Admin: 03/19/19 17:28 Dose: 25 mls/hr Documented by: Levofloxacin (Levaquin) 750 mg PO DAILY@1600 [facility] Stop: 03/31/19 16:01 Last Admin: 03/19/19 17:28 Dose: 750 mg Documented by: Metoprolol Tartrate (Lopressor) 75 mg PO TID [facility] Last Admin: 03/19/19 17:28 Dose: 75 mg Documented by: Miscellaneous Information (Pneumonia Protocol Utilized) 1 each PO ONCE PRN PRN Reason: Per Protocol Montelukast Sodium (Singulair) 10 mg PO [facility] Last Admin: 03/19/19 20:13 Dose: 10 mg Documented by: Pantoprazole Sodium (Protonix) 40 mg PO DAILY [facility] Last Admin: 03/19/19 09:35 Dose: Not Given Documented by: Tamsulosin HCl (Flomax) 0.4 mg PO [facility] Last Admin: 03/19/19 20:13 Dose: 0.4 mg Documented by: Objective - Vital Signs Vital signs: Vital Signs Temp 98.2 F 03/20/19 19:58 Pulse 65 03/20/19 19:58 Resp 22 03/20/19 19:58 BP 112/72 03/20/19 21:31 Pulse Ox 95 03/20/19 19:58 Intake & Output 03/20/19 03/20/19 03/21/19 06:59 18:59 06:59 Intake Total 100 Output Total 2 200 Balance 98 -200 Weight 86.9 kg Intake: Oral 100 Output: Urine 2 200 Other: Voiding Method Urinal Urinal Incontinent Incontinent # Voids 2 3 - Exam PHYSICAL EXAMINATION: Patient is lying in the bed comfortably, no acute distress, awake alert and oriented but slow to respond.. HEENT: Normocephalic. Neck is supple. Pupils reactive. Nostrils clear. Oral cavity is moist. Ears reveal no drainage. Neck reveals no JVD, carotid bruits, or thyromegaly. CHEST EXAMINATION: Trachea is central. Symmetrical expansion. Scattered rhonchi and bibasilar diminished air entry. CARDIAC: Normal S1, S2 with no gallops. No murmurs ABDOMEN: Soft. Bowel sounds normal. No organomegaly. No abdominal bruits. Extremities: reveal no edema. No clubbing or cyanosis Neurologically awake, alert, oriented x3 with well-coordinated movements. No focal deficits noted Skin: No rash or skin lesions. Psychiatric: Coperative. Nonsuicidal Musculoskeletal: No joint swelling or deformity. Normal range of motion. - Labs CBC & Chem 7: 03/19/19 05:58 03/19/19 05:58 Labs: Microbiology - Last 24 Hours (Table) 03/20/19 10:57 Gram Stain - Preliminary Sputum Sputum Culture - Preliminary 03/18/19 16:08 Blood Culture - Preliminary Blood No Growth after 48 hours 03/18/19 15:08 Blood Culture - Preliminary Blood No Growth after 48 hours 03/18/19 09:54 Blood Culture - Preliminary Blood No Growth after 48 hours 03/18/19 10:08 Urine Culture - Final Urine,Voided Escherichia coli Assessment and Plan Assessment: Acute urinary tract infection with E. coli Left lower lobe Multifocal pneumonia with component of atelectasis given the left hemidiaphragm elevation. Possible gram-negative. Elevated troponin level. Likely due to infection. Unlikely acute OR. History of left lung small cell cancer status post chemoradiation and metastatic lesions to skin/subcutaneous tissue Right upper arm mass with wound cultures growing KlebsiellaHypertension Paroxysmal atrial fibrillation on anticoagulation with Eliquis Chronic CHF with ejection fraction unknown Coronary artery disease with history of stent placement COPD stable GERD Hyperlipidemia History of [place] BPH Chronic low back pain right nephrolithiasis nonobstructive Generalized weakness and medical debility Previous history of smoking Plan: Patient will be continued on IV antibiotics in the form of Levaquin and Zosyn. Urine culture showed E. coli and right upper extremity weakness is central. Serial troponins and telemetry monitoring. Continue with aspirin, statins, metoprolol and Eliquis. On amiodarone. Started on losartan and chel nolactone. Cardiology is following. Continue the pain management and follow closely. Prognosis is poor at this time. Further recommendations based on the clinical course. Time with Patient: Greater than 30
--- NOTE | 2019-03-22 00:23 | P.PN ---
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 Patient has chronic confused but very lethargic on admission. Patient has been having baseline shortness of breath and medications chest pains. Denied any worsening cough or sputum production. Denied any abdominal pain. No hematuria or dysuria. Patient does have some urinary frequency increased. No headache or dizziness. The case is mainly generalized. No diarrhea. Troponin 0.254 and 0.233 Hemoglobin 8.9 Urinalysis showed large leukocyte esterase and pyuria. Chest x-ray showed new multifocal left-sided patchy opacities. Likely multifocal pneumonia with component of atelectasis given the left hemidiaphragm elevation. Underlying COPD. Patient is supposed to go to his surgeon for right upper extremity tumor resection. 03/19/2019 Patient is currently sitting in the chair comfortably. Weakness is better. Able to tolerate diet slowly. Otherwise patient is being continued on antibiotics. No complaints of chest pain or shortness of breath. No fever no chills. No leukocytosis. Urine culture showed gram-negative bacilli. Cardiology has seen the patient. Troponin anemia likely due to infection. Limited 2-D echocardiogram was ordered. I did discuss with Dr. Raffi Johnson his radiation oncologist. Apparently patient was scheduled for right upper arm mass resection yesterday but patient could not follow up with his surgeon Dr. Garcia, orthopedic oncology at [facility]. Suggested to transfer the patient to be seen by his surgeon for possible resection on Saturday. Will hold Eliquis if cardiology is agreeable. 03/20/2019 Patient is currently sitting in the chair comfortably. Patient is still hypoxic requiring oxygen with another cannula 3-4 L. No leukocytosis. Patient has been afebrile. GEN 19 creatinine 1.0, 2-D echocardiogram was done. Cardiology is following. Showed 30-35% ejection fraction. Patient is being continued on broad-spectrum antibiotics. 03/21/2019 Patient is more awake and alert today. Feels comfortable. Still hypoxic requiring oxygen with another cannula. Patient has been afebrile. Blood pressure is fairly stable. Cardiology is following. Continued on broad-spectrum antibiotics. Anticipate transfer to [facility] for right upper extremity mass resection once medically stable. Active Medications Albuterol/Ipratropium (Duoneb 0.5 Mg-3 Mg/3 Ml Soln) 3 ml INHALATION RT-QID PRN PRN Reason: Shortness Of Breath Or Wheezing Amiodarone HCl (Cordarone) 200 mg PO BID [facility] Last Admin: 03/19/19 20:13 Dose: 200 mg Documented by: Apixaban (Eliquis) 5 mg PO BID [facility] Last Admin: 03/19/19 20:13 Dose: 5 mg Documented by: Atorvastatin Calcium (Lipitor) 10 mg PO HS [facility] Last Admin: 03/19/19 20:13 Dose: 10 mg Documented by: Budesonide/Formoterol Fumarate (Symbicort 160-4.5 Mcg Inhaler) 2 puff INHALATION RT-BID [facility] Last Admin: 03/19/19 20:36 Dose: 2 puff Documented by: Furosemide (Lasix) 40 mg PO DAILY [facility] Last Admin: 03/19/19 09:34 Dose: Not Given Documented by: Piperacillin Sod/Tazobactam (Sod 3.375 gm/ Sodium Chloride) 100 mls @ 25 mls/hr IVPB Q8HR [facility] Stop: 03/28/19 16:01 Last Admin: 03/19/19 17:28 Dose: 25 mls/hr Documented by: Levofloxacin (Levaquin) 750 mg PO DAILY@1600 [facility] Stop: 03/31/19 16:01 Last Admin: 03/19/19 17:28 Dose: 750 mg Documented by: Metoprolol Tartrate (Lopressor) 75 mg PO TID [facility] Last Admin: 03/19/19 17:28 Dose: 75 mg Documented by: Miscellaneous Information (Pneumonia Protocol Utilized) 1 each PO ONCE PRN PRN Reason: Per Protocol Montelukast Sodium (Singulair) 10 mg PO HS [facility] Last Admin: 03/19/19 20:13 Dose: 10 mg Documented by: Pantoprazole Sodium (Protonix) 40 mg PO DAILY [facility] Last Admin: 03/19/19 09:35 Dose: Not Given Documented by: Tamsulosin HCl (Flomax) 0.4 mg PO HS [facility] Last Admin: 03/19/19 20:13 Dose: 0.4 mg Documented by: Objective - Vital Signs Vital signs: Vital Signs Temp 98.6 F 03/21/19 16:00 Pulse 75 03/21/19 16:00 Resp 22 03/21/19 16:00 BP 112/67 03/21/19 16:00 Pulse Ox 95 03/21/19 16:00 Intake & Output 03/20/19 03/21/19 03/21/19 18:59 06:59 18:59 Intake Total 210 Output Total 365 022 7254 Balance -200 -150 -1390 Intake: Oral 210 Output: Urine 160 461 3529 Other: Voiding Method Urinal Urinal Urinal Incontinent Incontinent Incontinent # Voids 3 1 1 # Bowel Movements 0 - Exam PHYSICAL EXAMINATION: Patient is lying in the bed comfortably, no acute distress, awake alert and oriented but slow to respond.. HEENT: Normocephalic. Neck is supple. Pupils reactive. Nostrils clear. Oral cavity is moist. Ears reveal no drainage. Neck reveals no JVD, carotid bruits, or thyromegaly. CHEST EXAMINATION: Trachea is central. Symmetrical expansion. Scattered rhonchi and bibasilar diminished air entry. CARDIAC: Normal S1, S2 with no gallops. No murmurs ABDOMEN: Soft. Bowel sounds normal. No organomegaly. No abdominal bruits. Extremities: reveal no edema. No clubbing or cyanosis Neurologically awake, alert, oriented x3 with well-coordinated movements. No focal deficits noted Skin: No rash or skin lesions. Psychiatric: Coperative. Nonsuicidal Musculoskeletal: No joint swelling or deformity. Normal range of motion. - Labs CBC & Chem 7: 03/19/19 05:58 03/19/19 05:58 Labs: Microbiology - Last 24 Hours (Table) 03/18/19 15:08 Blood Culture - Preliminary Blood No Growth after 72 hours 03/20/19 10:57 Gram Stain - Preliminary Sputum Sputum Culture - Preliminary 03/18/19 10:08 Gram Stain - Final Arm - Right Wound Culture - Final Klebsiella pneumoniae Acinetobacter edson/haemol 03/18/19 09:54 Blood Culture - Preliminary Blood No Growth after 72 hours 03/18/19 16:08 Blood Culture - Preliminary Blood No Growth after 48 hours Assessment and Plan Assessment: Acute urinary tract infection with E. coli Left lower lobe Multifocal pneumonia with component of atelectasis given the le ft hemidiaphragm elevation. Possible gram-negative. Elevated troponin level. Likely due to infection. Unlikely acute CA. History of left lung small cell cancer status post chemoradiation and metastatic lesions to skin/subcutaneous tissue Right upper arm mass with wound cultures growing KlebsiellaHypertension Paroxysmal atrial fibrillation on anticoagulation with Eliquis Chronic CHF with ejection fraction unknown Coronary artery disease with history of stent placement COPD stable GERD Hyperlipidemia History of [place] BPH Chronic low back pain right nephrolithiasis nonobstructive Generalized weakness and medical debility Previous history of smoking Plan: Patient will be continued on IV antibiotics in the form of Levaquin and Zosyn. Urine culture showed E. coli and right upper extremity weakness is central. Serial troponins and telemetry monitoring. Continue with aspirin, statins, meto prolol and Eliquis. On amiodarone. Started on losartan and spironolactone. Cardiology is following. Continue the pain management and follow closely. Prognosis is poor at this time. Further recommendations based on the clinical course. Time with Patient: Greater than 30
[2019-03-22] MEDS: PIPERACILLIN-TAZOBACTAM 3.375 GM in SODIUM CHLORIDE 0.9% 100 ML IVPB SCH ×3 (09:43→23:18)
[2019-03-22] MEDS: METOPROLOL TARTRATE 25 MG TAB PO SCH ×3 (09:44→21:44)
[2019-03-22] MEDS: APIXABAN 5 MG TAB PO SCH ×2 (09:44→21:24)
[2019-03-22] MEDS: SPIRONOLACTONE 25 MG TAB PO SCH (09:44)
[2019-03-22] MEDS: AMIODARONE 200 MG TAB PO SCH ×2 (09:44→23:17)
[2019-03-22] MEDS: LISINOPRIL 2.5 MG TAB PO SCH (09:44)
[2019-03-22] MEDS: FUROSEMIDE 40 MG TAB PO SCH (09:44)
[2019-03-22] MEDS: PANTOPRAZOLE 40 MG TABLET PO SCH (09:44)
[2019-03-22] MEDS: SYMBICORT 160-4.5 MCG INHALER INHALATION SCH ×2 (11:08→19:09)
[2019-03-22] MEDS: IPRATROPIUM-ALBUTEROL 3 ML NEB INHALATION PRN (11:08)
--- NOTE | 2019-03-22 11:46 | P.PN ---
Subjective Progress Note Date: 03/22/19 This is a 69-year-old gentleman with known history of peripheral vascular disease and prior peripheral revascularization by Dr. Fabian in the past, a single kidney with chronic kidney disease, hypertension, hyperlipidemia, chronic tobacco use, lung cancer with metastatic disease to a pedunculated open wound on the patient's right arm. He was supposed to have a mass on his arm removed however they were unable to get him off because he was so weak. Patient was also noted to have some mental status changes and was brought to the hospital for the same. Patient does have history of undergoing cardiac catheterization in September of this year he was noted to have mild disease in the LAD and RCA with an occluded diagonal branch, echocardiogram with Doppler study was performed in December 2018 which revealed an ejection fraction of 45-50% with mild mitral regurgitation, mild to moderate tricuspid regurg and moderate pulmonary hypertension. Chest x-ray on presentation here showed new multifocal left-sided patchy opaque cities, likely a multifocal pneumonia with a component of atelectasis. Underlying COPD. EKG shows atrial fibrillation with a controlled ventricular response. Blood pressure 122/60 with a heart rate of 78, respirations 20, afebrile. White blood cell count 4.8, hemoglobin 8.9, platelet count 274. Sodium 144, potassium 3.5, BUN 19, creatinine 1.0. Magnesium 2.2, total bilirubin 1.7, troponin 0.2, 0.2, 0.2. Cardiology consultation was requested because of abnormality in troponin. Urinalysis shows positive UTI. At the time of my examination this morning, patient is sitting up in his chair at bedside, he denies having any chest discomfort. Does admit to productive cough. 03/20/2019 Patient seen and examined this morning, blood pressure 119/72 with heart rate in the 70s, 88% on 2 L of oxygen. Blood cell count 4.8, hemoglobin 8.9, platelet count 274. Sodium 144, potassium 3.5, BUN 19 and creatinine 1.0. Echocardiogram with Doppler study was performed which revealed an ejection fraction of 30-35%, patient's prior echo showed an ejection fraction of 40-45%. We will add lisinopril and a dose of Aldactone to the patient's medication regime. 03/22/2019 Patient seen and examined this morning, sitting up in his chair at bedside, denies any shortness of breath, no chest discomfort. He is actually feeling quite bored from being here. I pressure this morning 104/60 with a heart rate in the 60s blood cell count 4.8, hemoglobin 8.9, platelet count 274. Sodium 144, potassium 3.5, BUN 19 and creatinine 1.0. The plan is for the patient to transfer to [facility] on Saturday of next week for right upper extremity mass resection. They are requesting cardiac clearance. Patient was cleared prior to this admission to go for the procedure, his LV function is noted to be less then previous with an ejection fraction of 30-35. Tomorrow whe n the office is open we will obtain the records from Dr. KELLY Washburn on his clearance previously, and reassess the patient again tomorrow morning. Objective - Vital Signs Vital signs: Vital Signs Temp 97.7 F 03/22/19 08:00 Pulse 71 03/22/19 11:20 Resp 20 03/22/19 08:00 BP 104/62 03/22/19 08:00 Pulse Ox 93 L 03/22/19 04:00 Intake & Output 03/21/19 03/22/19 03/22/19 18:59 06:59 18:59 Intake Total 210 240 Output Total 1600 350 Balance -1390 -350 240 Intake: Oral 210 240 Output: Urine 1600 350 Other: Voiding Method Urinal Urinal Urinal Incontinent Incontinent Incontinent # Voids 1 1 # Bowel Movements 0 1 - Exam PHYSICAL EXAMINATION: GENERAL: 69-year-old gentleman in no acute distress at the time of my examination HEENT: Head is atraumatic, normocephalic. Pupils equal, round. Sclera anicteric. Conjunctiva are clear. Mucous membranes of the mouth are moist. Neck is supple. There is no elevated jugular venous pressure. No carotid bruit is heard. HEART EXAMINATION: Heart S1-S2 irregularly irregular a systolic murmur is heard CHEST EXAMINATION: Reveal scattered coarse rhonchi and wheezing throughout. ABDOMEN: Soft, nontender. Bowel sounds are heard. No organomegaly noted. EXTREMITIES: 2+ peripheral pulses with no evidence of peripheral edema and no calf tenderness noted. Dressing applied to the right upper arm. NEUROLOGIC patient is awake, alert and oriented 1. - Labs CBC & Chem 7: 03/19/19 05:58 03/19/19 05:58 Labs: Microbiology - Last 24 Hours (Table) 03/20/19 10:57 Gram Stain - Final Sputum Sputum Culture - Final Orquidea albicans 03/18/19 16:08 Blood Culture - Preliminary Blood No Growth after 72 hours 03/18/19 15:08 Blood Culture - Preliminary Blood No Growth after 72 hours 03/18/19 10:08 Gram Stain - Final Arm - Right Wound Culture - Final Klebsiella pneumoniae Acinetobacter edson/haemol 03/18/19 09:54 Blood Culture - Preliminary Blood No Growth after 72 hours Assessment and Plan Plan: Assessment and plan #1 mental status changes, could be secondary to UTI, patient has known mild dementia #2 acute UTI #3 left lower lobe multifocal pneumonia #4 history of left lung small lung cancer status post chemoradiation with metastatic lesions to the skin and subcutaneous tissue, metastatic squamous cell carcinoma #5 right upper arm mass #6 hypertension #7 chronic persistent A. fib on Eliquis #8 chronic congestive heart failure, diastolic #9 coronary artery disease with prior PCI #10 COPD #11 GERD #12 hyperlipidemia #13 abnormal troponin, with no significant rise and fall pattern, not suggestive of acute coronary syndrome. #14 anemia Plan We will obtain Dr. KELLY Washburn's notes from the office, giving consent for the patient to have the right arm mass removal previously. We will reevaluate the patient in the morning and further recommendations will be made. DNP note has been reviewed, I agree with a documented findings and plan of care. Patient was seen and examined.
[2019-03-22] MEDS: LEVOFLOXACIN 750 MG TAB PO SCH (16:58)
[2019-03-22] MEDS: TAMSULOSIN 0.4 MG CAP.ER.24H PO SCH (21:24)
[2019-03-22] MEDS: ATORVASTATIN 10 MG TAB PO SCH (21:24)
[2019-03-22] MEDS: MONTELUKAST 10 MG TAB PO SCH (21:24)
[2019-03-22] MEDS: HYDROcodone/APAP 10-325MG 1 EACH TAB PO SCH (21:24)
[2019-03-22] MEDS: SODIUM CHLORIDE 0.9% 1,000 ML IV SCH (23:18)
[2019-03-23] MEDS: SYMBICORT 160-4.5 MCG INHALER INHALATION SCH ×2 (07:56→19:47)
--- NOTE | 2019-03-23 08:29 | CDI ---
Documentation Clarification Form Date: 03/23/2019 7:58:12 AM From: Sommer Obrien RN CCDS Admit Date: 03/18/2019 12:08:00 PM Patient Name: Vamsi Perez Visit Number: [id number] Discharge Date: ATTENTION: The Clinical Documentation Specialists (CDI) and [facility] Coding Staff appreciate your assistance in clarifying documentation. Please respond to the clarification below the line at the bottom and electronically sign. The CDI & [facility] Coding staff will review the response and follow-up if needed. Please note: Queries are made part of the Legal Health Record. If you have any questions, please contact the author of this message via ITS. Dr. Clare Milian The patient presented with baseline shortness of breath. Documented in the H & P 03/18 History/Risk Factors: 69-year-old male presents to the ED with lethargy and increased urinary frequency. Medical History of HTN; Hyperlipidemia; Heart Failure; Lung Cancer; COPD Tobacco use: chronic tobacco use. Clinical Indicators: Vital signs: admission 132/70 64 97.9 20 100% 2L 03/19 90% 7L 22 rr; 95% 6L 36 rr 03/21 75 98.6 20 95% 4L 03/21 Your Progress Note Patient is still hypoxic requiring oxygen with another cannula 3-4L. Lung/Breathing assessment: 03/21 Scattered rhonchi and bibasilar diminished airway Treatment: Breathing tx 03/18 DuoNeb qid prn; Singulair po HS; 03/19 Symbicort inhaler oxygen 2L to 7L In your professional opinion, can you please clarify if these findings signify one of the following conditions? * Acute Respiratory Failure * Acute on Chronic Respiratory Failure * Chronic Respiratory Failure * Acute Respiratory Distress * Acute Respiratory Insufficiency * Other Diagnosis, please specify * Unable to determine Specificity: If known, further specify (if known): With hypercapnia? (pCO2 >50 and pH <7.35) With hypoxia? (pO2 <60 mm Hg or SpO2 <91% on room air) (Last Query Form Revision: January 2019) Acute Respiratory Failure With hypoxia MTDD
--- NOTE | 2019-03-23 09:03 | CDI ---
chronic combined chf Documentation Clarification Form Date: 03/23/2019 8:30:50 AM From: Sommer Obrien RN CCDS Admit Date: 03/18/2019 12:08:00 PM Patient Name: Vamsi Perez Visit Number: [id number] Discharge Date: ATTENTION: The Clinical Documentation Specialists (CDI) and [facility] Coding Staff appreciate your assistance in clarifying documentation. Please respond to the clarification below the line at the bottom and electronically sign. The CDI & [facility] Coding staff will review the response and follow-up if needed. Please note: Queries are made part of the Legal Health Record. If you have any questions, please contact the author of this message via ITS. Dr. Andreina Mcknight Chronic diastolic heart failure is documented in the Cardiology consult 03/19 and in subsequent documentation History/Risk Factors: 69-year-old male presents to the ED with weakness and lethargy. Medical history COPD; HTN; Heart Failure Clinical Indicators: VS/Pulse OX: 132/70 64 97.9 axillary 20 100% 2L Echocardiogram Results: 03/19 moderate concentric left ventricular hypertrophy. Overall left ventricular systolic function is moderate- severely impaired with an EF 30 -35 % Echo from 12/22 EF of 45 50% with mild mitral regurgitation mild to moderate tricuspid reg and moderate pulmonary htn; Chest X Ray: 03/19 Cardiomegaly with continued diffuse interstitial changes and enlarging small effusions. Home meds Lasix 40mg po daily; Lopressor 75mg po tid; Treatment: 03/19 Lasix ivp x 1; Lasix 40mg po daily; Lopressor 75mg po tid ; Zestril 2.5mg po daily 03/21 Aldatcone 25mg po ; In your professional opinion, can you please clarify the acuity and type of CHF if known? * Chronic Systolic Heart Failure * Chronic Diastolic Heart Failure * Chronic Systolic Diastolic Heart failure * Unable to Determine * Other, please specify (Last Revision: August 2017) MTDD
[2019-03-23] MEDS: PANTOPRAZOLE 40 MG TABLET PO SCH (09:29)
[2019-03-23] MEDS: METOPROLOL TARTRATE 25 MG TAB PO SCH ×3 (09:29→20:12)
[2019-03-23] MEDS: LISINOPRIL 2.5 MG TAB PO SCH (09:29)
[2019-03-23] MEDS: PIPERACILLIN-TAZOBACTAM 3.375 GM in SODIUM CHLORIDE 0.9% 100 ML IVPB SCH ×2 (09:30→18:23)
[2019-03-23] MEDS: FUROSEMIDE 40 MG TAB PO SCH (09:30)
[2019-03-23] MEDS: SPIRONOLACTONE 25 MG TAB PO SCH (09:30)
[2019-03-23] MEDS: APIXABAN 5 MG TAB PO SCH ×2 (09:30→19:13)
[2019-03-23] MEDS: HYDROcodone/APAP 10-325MG 1 EACH TAB PO SCH ×2 (09:30→20:09)
[2019-03-23] MEDS: AMIODARONE 200 MG TAB PO SCH ×2 (09:30→20:09)
[2019-03-23] MEDS: SODIUM CHLORIDE 0.9% 1,000 ML IV SCH ×2 (09:32→19:13)
--- NOTE | 2019-03-23 14:54 | P.PN ---
Subjective Progress Note Date: 03/23/19 This is a 69-year-old gentleman with known history of peripheral vascular disease and prior peripheral revascularization by Dr. Fabian in the past, a single kidney with chronic kidney disease, hypertension, hyperlipidemia, chronic tobacco use, lung cancer with metastatic disease to a pedunculated open wound on the patient's right arm. He was supposed to have a mass on his arm removed however they were unable to get him off because he was so weak. Patient was also noted to have some mental status changes and was brought to the hospital for the same. Patient does have history of undergoing cardiac catheterization in September of this year he was noted to have mild disease in the LAD and RCA with an occluded diagonal branch, echocardiogram with Doppler study was performed in December 2018 which revealed an ejection fraction of 45-50% with mild mitral regurgitation, mild to moderate tricuspid regurg and moderate pulmonary hypertension. Chest x-ray on presentation here showed new multifocal left-sided patchy opaque cities, likely a multifocal pneumonia with a component of atelectasis. Underlying COPD. EKG shows atrial fibrillation with a controlled ventricular response. Blood pressure 122/60 with a heart rate of 78, respirations 20, afebrile. White blood cell count 4.8, hemoglobin 8.9, platelet count 274. Sodium 144, potassium 3.5, BUN 19, creatinine 1.0. Magnesium 2.2, total bilirubin 1.7, troponin 0.2, 0.2, 0.2. Cardiology consultation was requested because of abnormality in troponin. Urinalysis shows positive UTI. At the time of my examination this morning, patient is sitting up in his chair at bedside, he denies having any chest discomfort. Does admit to productive cough. 03/20/2019 Patient seen and examined this morning, blood pressure 119/72 with heart rate in the 70s, 88% on 2 L of oxygen. Blood cell count 4.8, hemoglobin 8.9, platelet count 274. Sodium 144, potassium 3.5, BUN 19 and creatinine 1.0. Echocardiogram with Doppler study was performed which revealed an ejection fraction of 30-35%, patient's prior echo showed an ejection fraction of 40-45%. We will add lisinopril and a dose of Aldactone to the patient's medication regime. 03/22/2019 Patient seen and examined this morning, sitting up in his chair at bedside, denies any shortness of breath, no chest discomfort. He is actually feeling quite bored from being here. I pressure this morning 104/60 with a heart rate in the 60s blood cell count 4.8, hemoglobin 8.9, platelet count 274. Sodium 144, potassium 3.5, BUN 19 and creatinine 1.0. The plan is for the patient to transfer to [facility] on Saturday of next week for right upper extremity mass resection. They are requesting cardiac clearance. Patient was cleared prior to this admission to go for the procedure, his LV function is noted to be less then previous with an ejection fraction of 30-35. Tomorrow whe n the office is open we will obtain the records from Dr. KELLY Washburn on his clearance previously, and reassess the patient again tomorrow morning. 03/23/2019 Patient seen and examined this morning, hemodynamically stable. Denies any shortness of breath, no chest discomfort. We did obtain the office notes from Dr. India Washburn which stated that the patient is having increased risk for perioperative cardiac events but no absolute contraindication to his proposed surgery on the right arm. The plan is for the patient to be transferred tomorrow to undergo that surgery. In spite of the fact that his LV function is reduced as compared with prior Dr. Fabian feels that the patient continues to be at an increased risk but that there is no absolute contraindication to his proposed surgery. Objective - Vital Signs Vital signs: Vital Signs Temp 97.9 F 03/23/19 08:00 Pulse 68 03/23/19 12:00 Resp 18 03/23/19 12:00 BP 96/57 03/23/19 12:00 Pulse Ox 99 03/23/19 12:00 Intake & Output 03/22/19 03/23/19 03/23/19 18:59 06:59 18:59 Intake Total 690 Output Total 1050 400 Balance -360 -400 Weight 87.2 kg 87.2 kg Intake: Oral 690 Output: Urine 1050 400 Other: Voiding Method Urinal Urinal Urinal Incontinent Incontinent Incontinent # Voids 1 # Bowel Movements 0 - Exam PHYSICAL EXAMINATION: GENERAL: 69-year-old gentleman in no acute distress at the time of my examination HEENT: Head is atraumatic, normocephalic. Pupils equal, round. Sclera anicteric. Conjunctiva are clear. Mucous membranes of the mouth are moist. Neck is supple. There is no elevated jugular venous pressure. No carotid bruit is heard. HEART EXAMINATION: Heart S1-S2 irregularly irregular a systolic murmur is heard CHEST EXAMINATION: Reveal scattered coarse rhonchi and wheezing throughout. ABDOMEN: Soft, nontender. Bowel sounds are heard. No organomegaly noted. EXTREMITIES: 2+ peripheral pulses with no evidence of peripheral edema and no calf tenderness noted. Dressing applied to the right upper arm. NEUROLOGIC patient is awake, alert and oriented 1. 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 fib on Eliquis #8 chronic congestive heart failure, diastolic #9 coronary artery disease with prior PCI #10 COPD #11 GERD #12 hyperlipidemia #13 abnormal troponin, with no significant rise and fall pattern, not suggestive of acute coronary syndrome. #14 anemia Plan Cardiology's perspective, patient may be transferred tomorrow to undergo surgery on that right arm, he is at an increased risk for perioperative cardiac events but there is no absolute contraindication to the proposed surgery. DNP note has been reviewed, I agree with a documented findings and plan of care. Patient was seen and examined.
[2019-03-23 16:08] LABS: Calcium 9.3 mg/dL (8.4-10.2); Potassium 3.6 mmol/L (3.5-5.1)
[2019-03-23 16:29] LABS: Anisocytosis Slight; Basophils % (A) 1 %; Eosinophils # (A) 0.6 k/uL (0-0.7); Eosinophils % (A) 18 %; HCT 29.2 % (39.0-53.0); HGB 9.1 gm/dL (13.0-17.5); Hypochromasia Marked; Lymphocytes % (A) 28 %; MCHC 31.1 g/dL (31.0-37.0); MCV 89.8 fL (80.0-100.0); Mean Platelet Volume 6.6; Monocytes # (A) 0.2 k/uL (0-1.0); Monocytes % (A) 7 %; Neutrophils # (A) 1.6 k/uL (1.3-7.7); Neutrophils % (A) 45 %; Platelet Count 220 k/uL (150-450); RBC 3.25 m/uL (4.30-5.90); RDW 16.8 % (11.5-15.5); WBC 3.5 k/uL (3.8-10.6)
[2019-03-23] MEDS: LEVOFLOXACIN 750 MG TAB PO SCH (18:27)
[2019-03-23] MEDS: TAMSULOSIN 0.4 MG CAP.ER.24H PO SCH (20:09)
[2019-03-23] MEDS: MONTELUKAST 10 MG TAB PO SCH (20:10)
[2019-03-23] MEDS: ATORVASTATIN 10 MG TAB PO SCH (20:10)
[2019-03-23 20:44] VITALS: BP 102/62; PULSE 72; RESP 17; TEMP 98.7
--- NOTE | 2019-03-23 23:28 | P.PN ---
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 Patient has chronic confused but very lethargic on admission. Patient has been having baseline shortness of breath and medications chest pains. Denied any worsening cough or sputum production. Denied any abdominal pain. No hematuria or dysuria. Patient does have some urinary frequency increased. No headache or dizziness. The case is mainly generalized. No diarrhea. Troponin 0.254 and 0.233 Hemoglobin 8.9 Urinalysis showed large leukocyte esterase and pyuria. Chest x-ray showed new multifocal left-sided patchy opacities. Likely multifocal pneumonia with component of atelectasis given the left hemidiaphragm elevation. Underlying COPD. Patient is supposed to go to his surgeon for right upper extremity tumor resection. 03/19/2019 Patient is currently sitting in the chair comfortably. Weakness is better. Able to tolerate diet slowly. Otherwise patient is being continued on antibiotics. No complaints of chest pain or shortness of breath. No fever no chills. No leukocytosis. Urine culture showed gram-negative bacilli. Cardiology has seen the patient. Troponin anemia likely due to infection. Limited 2-D echocardiogram was ordered. I did discuss with Dr. Raffi Johnson his radiation oncologist. Apparently patient was scheduled for right upper arm mass resection yesterday but patient could not follow up with his surgeon Dr. Garcia, orthopedic oncology at [facility]. Suggested to transfer the patient to be seen by his surgeon for possible resection on Saturday. Will hold Eliquis if cardiology is agreeable. 03/20/2019 Patient is currently sitting in the chair comfortably. Patient is still hypoxic requiring oxygen with another cannula 3-4 L. No leukocytosis. Patient has been afebrile. GEN 19 creatinine 1.0, 2-D echocardiogram was done. Cardiology is following. Showed 30-35% ejection fraction. Patient is being continued on broad-spectrum antibiotics. 03/21/2019 Patient is more awake and alert today. Feels comfortable. Still hypoxic requiring oxygen with another cannula. Patient has been afebrile. Blood pressure is fairly stable. Cardiology is following. Continued on broad-spectrum antibiotics. Anticipate transfer to [facility] for right upper extremity mass resection once medically stable. 03/22/2019 Patient is more awake and oriented. Sitting with a comfortably. Requiring oxyg en via nasal cannula. Otherwise hemodynamically stable. Blood pressure this morning 104/60 with a heart rate in the 60s blood cell count 4.8, hemoglobin 8.9, platelet count 274. Sodium 144, potassium 3.5, BUN 19 and creatinine 1.0. his LV function is noted to be less then previous with an ejection fraction of 30-35. Cardiology is following for clearance. Plan to transfer the patient to [facility] for right upper extremity mass dissection was cleared by cardiology. Patient has been afebrile. No nausea vomiting or abdominal pain. Tolerating oral diet. No cough or sputum production. Antibiotics day 6 / for multifocal pneumonia and E. coli UTI. Levaquin and Zosyn. Active Medications Albuterol/Ipratropium (Duoneb 0.5 Mg-3 Mg/3 Ml Soln) 3 ml INHALATION RT-QID PRN PRN Reason: Shortness Of Breath Or Wheezing Amiodarone HCl (Cordarone) 200 mg PO BID COUNTS INCLUDE 234 BEDS AT THE [facility] Last Admin: 03/19/19 20:13 Dose: 200 mg Documented by: Apixaban (Eliquis) 5 mg PO BID COUNTS INCLUDE 234 BEDS AT THE [facility] Last Admin: 03/19/19 20:13 Dose: 5 mg Documented by: Atorvastatin Calcium (Lipitor) 10 mg PO HS COUNTS INCLUDE 234 BEDS AT THE [facility] Last Admin: 03/19/19 20:13 Dose: 10 mg Documented by: Budesonide/Formoterol Fumarate (Symbicort 160-4.5 Mcg Inhaler) 2 puff INHALATION RT-BID COUNTS INCLUDE 234 BEDS AT THE [facility] Last Admin: 03/19/19 20:36 Dose: 2 puff Documented by: Furosemide (Lasix) 40 mg PO DAILY COUNTS INCLUDE 234 BEDS AT THE [facility] Last Admin: 03/19/19 09:34 Dose: Not Given Documented by: Piperacillin Sod/Tazobactam (Sod 3.375 gm/ Sodium Chloride) 100 mls @ 25 mls/hr IVPB Q8HR COUNTS INCLUDE 234 BEDS AT THE [facility] Stop: 03/28/19 16:01 Last Admin: 03/19/19 17:28 Dose: 25 mls/hr Documented by: Levofloxacin (Levaquin) 750 mg PO DAILY@1600 COUNTS INCLUDE 234 BEDS AT THE [facility] Stop: 03/31/19 16:01 Last Admin: 03/19/19 17:28 Dose: 750 mg Documented by: Metoprolol Tartrate (Lopressor) 75 mg PO TID COUNTS INCLUDE 234 BEDS AT THE [facility] Last Admin: 03/19/19 17:28 Dose: 75 mg Documented by: Miscellaneous Information (Pneumonia Protocol Utilized) 1 each PO ONCE PRN PRN Reason: Per Protocol Montelukast Sodium (Singulair) 10 mg PO [facility] Last Admin: 03/19/19 20:13 Dose: 10 mg Documented by: Pantoprazole Sodium (Protonix) 40 mg PO DAILY COUNTS INCLUDE 234 BEDS AT THE [facility] Last Admin: 03/19/19 09:35 Dose: Not Given Documented by: Tamsulosin HCl (Flomax) 0.4 mg PO [facility] Last Admin: 03/19/19 20:13 Dose: 0.4 mg Documented by: Objective - Vital Signs Vital signs: Vital Signs Temp 98.7 F 03/23/19 20:00 Pulse 72 03/23/19 20:00 Resp 17 03/23/19 20:00 BP 102/62 03/23/19 20:00 Pulse Ox 96 03/23/19 20:00 Intake & Output 03/23/19 03/23/19 03/24/19 06:59 18:59 06:59 Intake Total 222 200 Output Total 400 500 100 Balance -400 -278 100 Weight 87.2 kg 87.2 kg Intake: Intake, IV Titration 200 Amount Sodium Chloride 0.9% 1, 200 000 ml @ 100 mls/hr IV . Q10H COUNTS INCLUDE 234 BEDS AT THE [facility] Rx#:[id number] Oral 222 Output: Urine 400 500 100 Other: Voiding Method Urinal Urinal Urinal Incontinent Incontinent Incontinent # Voids 1 - Exam PHYSICAL EXAMINATION: Patient is lying in the bed comfortably, no acute distress, awake alert and oriented but slow to respond.. HEENT: Normocephalic. Neck is supple. Pupils reactive. Nostrils clear. Oral cavity is moist. Ears reveal no drainage. Neck reveals no JVD, carotid bruits, or thyromegaly. CHEST EXAMINATION: Trachea is central. Symmetrical expansion. Scattered rhonchi and bibasilar diminished air entry. CARDIAC: Normal S1, S2 with no gallops. No murmurs ABDOMEN: Soft. Bowel sounds normal. No organomegaly. No abdominal bruits. Extremities: reveal no edema. No clubbing or cyanosis Neurologically awake, alert, oriented x3 with well-coordinated movements. No focal deficits noted Skin: No rash or skin lesions. Psychiatric: Coperative. Nonsuicidal Musculoskeletal: No joint swelling or deformity. Normal range of motion. - Labs CBC & Chem 7: 03/23/19 15:01 03/23/19 15:01 Labs: Abnormal Lab Results - Last 24 Hours (Table) 03/23/19 03/23/19 Range/Units 15: 15:01 WBC 3.5 L (3.8-10.6) k/uL RBC 3.25 L (4.30-5.90) m/uL Hgb 9.1 L (13.0-17.5) gm/dL Hct 29.2 L (39.0-53.0) % RDW 16.8 H (11.5-15.5) % Glucose 144 H (74-99) mg/dL Microbiology - Last 24 Hours (Table) 03/18/19 16:08 Blood Culture - Preliminary Blood No Growth after 120 hours 03/18/19 15:08 Blood Culture - Preliminary Blood No Growth after 120 hours 03/18/19 09:54 Blood Culture - Preliminary Blood No Growth after 120 hours Assessment and Plan Assessment: Acute urinary tract infection with E. coli Left lower lobe Multifocal pneumonia with component of atelectasis given the left hemidiaphragm elevation. Possible gram-negative. Elevated troponin level. Likely due to infection. Unlikely acute [place]. History of left lung small cell cancer status post chemoradiation and metastatic lesions to skin/subcutaneous tissue Right upper arm mass with wound cultures growing KlebsiellaHypertension Paroxysmal atrial fibrillation on anticoagulation with Eliquis Chronic CHF with ejection fraction unknown Coronary artery disease with history of stent placement COPD stable GERD Hyperlipidemia History of [place] BPH Chronic low back pain right nephrolithiasis nonobstructive Generalized weakness and medical debility Previous history of smoking Plan: Patient will be continued on IV antibiotics in the form of Levaquin and Zosyn. Urine culture showed E. coli and right upper extremity wound cultures showed Klebsiella. Serial troponins and telemetry monitoring. Continue with aspirin, statins, metoprolol and Eliquis. On amiodarone. Started on losartan and spironolactone. Cardiology is following. Plan to transferred to [facility] once cleared by cardiology for right upper extremities mass resection. Continue the pain management and follow closely. Prognosis is poor at this time. Further recommendations based on the clinical course. Time with Patient: Greater than 30
--- NOTE | 2019-03-26 09:47 | P.PN ---
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 Patient has chronic confused but very lethargic on admission. Patient has been having baseline shortness of breath and medications chest pains. Denied any worsening cough or sputum production. Denied any abdominal pain. No hematuria or dysuria. Patient does have some urinary frequency increased. No headache or dizziness. The case is mainly generalized. No diarrhea. Troponin 0.254 and 0.233 Hemoglobin 8.9 Urinalysis showed large leukocyte esterase and pyuria. Chest x-ray showed new multifocal left-sided patchy opacities. Likely multifocal pneumonia with component of atelectasis given the left hemidiaphragm elevation. Underlying COPD. Patient is supposed to go to his surgeon for right upper extremity tumor resection. 03/19/2019 Patient is currently sitting in the chair comfortably. Weakness is better. Able to tolerate diet slowly. Otherwise patient is being continued on antibiotics. No complaints of chest pain or shortness of breath. No fever no chills. No leukocytosis. Urine culture showed gram-negative bacilli. Cardiology has seen the patient. Troponin anemia likely due to infection. Limited 2-D echocardiogram was ordered. I did discuss with Dr. Raffi Johnson his radiation oncologist. Apparently patient was scheduled for right upper arm mass resection yesterday but patient could not follow up with his surgeon Dr. Garcia, orthopedic oncology at [facility]. Suggested to transfer the patient to be seen by his surgeon for possible resection on Saturday. Will hold Eliquis if cardiology is agreeable. 03/20/2019 Patient is currently sitting in the chair comfortably. Patient is still hypoxic requiring oxygen with another cannula 3-4 L. No leukocytosis. Patient has been afebrile. GEN 19 creatinine 1.0, 2-D echocardiogram was done. Cardiology is following. Showed 30-35% ejection fraction. Patient is being continued on broad-spectrum antibiotics. 03/21/2019 Patient is more awake and alert today. Feels comfortable. Still hypoxic requiring oxygen with another cannula. Patient has been afebrile. Blood pressure is fairly stable. Cardiology is following. Continued on broad-spectrum antibiotics. Anticipate transfer to [facility] for right upper extremity mass resection once medically stable. 03/22/2019 Patient is more awake and oriented. Sitting with a comfortably. Requiring oxyg en via nasal cannula. Otherwise hemodynamically stable. Blood pressure this morning 104/60 with a heart rate in the 60s blood cell count 4.8, hemoglobin 8.9, platelet count 274. Sodium 144, potassium 3.5, BUN 19 and creatinine 1.0. his LV function is noted to be less then previous with an ejection fraction of 30-35. Cardiology is following for clearance. Plan to transfer the patient to [facility] for right upper extremity mass dissection was cleared by cardiology. Patient has been afebrile. No nausea vomiting or abdominal pain. Tolerating oral diet. No cough or sputum production. Antibiotics day 6 / for multifocal pneumonia and E. coli UTI. Levaquin and Zosyn. Active Medications Albuterol/Ipratropium (Duoneb 0.5 Mg-3 Mg/3 Ml Soln) 3 ml INHALATION RT-QID PRN PRN Reason: Shortness Of Breath Or Wheezing Amiodarone HCl (Cordarone) 200 mg PO BID [facility] Last Admin: 03/19/19 20:13 Dose: 200 mg Documented by: Apixaban (Eliquis) 5 mg PO BID [facility] Last Admin: 03/19/19 20:13 Dose: 5 mg Documented by: Atorvastatin Calcium (Lipitor) 10 mg PO HS [facility] Last Admin: 03/19/19 20:13 Dose: 10 mg Documented by: Budesonide/Formoterol Fumarate (Symbicort 160-4.5 Mcg Inhaler) 2 puff INHALATION RT-BID [facility] Last Admin: 03/19/19 20:36 Dose: 2 puff Documented by: Furosemide (Lasix) 40 mg PO DAILY [facility] Last Admin: 03/19/19 09:34 Dose: Not Given Documented by: Piperacillin Sod/Tazobactam (Sod 3.375 gm/ Sodium Chloride) 100 mls @ 25 mls/hr IVPB Q8HR [facility] Stop: 03/28/19 16:01 Last Admin: 03/19/19 17:28 Dose: 25 mls/hr Documented by: Levofloxacin (Levaquin) 750 mg PO DAILY@1600 [facility] Stop: 03/31/19 16:01 Last Admin: 03/19/19 17:28 Dose: 750 mg Documented by: Metoprolol Tartrate (Lopressor) 75 mg PO TID [facility] Last Admin: 03/19/19 17:28 Dose: 75 mg Documented by: Miscellaneous Information (Pneumonia Protocol Utilized) 1 each PO ONCE PRN PRN Reason: Per Protocol Montelukast Sodium (Singulair) 10 mg PO [facility] Last Admin: 03/19/19 20:13 Dose: 10 mg Documented by: Pantoprazole Sodium (Protonix) 40 mg PO DAILY [facility] Last Admin: 03/19/19 09:35 Dose: Not Given Documented by: Tamsulosin HCl (Flomax) 0.4 mg PO [facility] Last Admin: 03/19/19 20:13 Dose: 0.4 mg Documented by: Objective - Vital Signs Vital signs: Vital Signs Temp 97.9 F 03/22/19 16:00 Pulse 64 03/22/19 16:00 Resp 18 03/22/19 16:00 BP 98/57 03/22/19 16:00 Pulse Ox 98 03/22/19 16:00 Intake & Output 03/21/19 03/22/19 03/22/19 18:59 06:59 18:59 Intake Total 210 480 Output Total 1600 350 300 Balance -1390 -350 180 Intake: Oral 210 480 Output: Urine 1600 350 300 Other: Voiding Method Urinal Urinal Urinal Incontinent Incontinent Incontinent # Voids 1 1 # Bowel Movements 0 1 - Exam PHYSICAL EXAMINATION: Patient is lying in the bed comfortably, no acute distress, awake alert and oriented but slow to respond.. HEENT: Normocephalic. Neck is supple. Pupils reactive. Nostrils clear. Oral cavity is moist. Ears reveal no drainage. Neck reveals no JVD, carotid bruits, or thyromegaly. CHEST EXAMINATION: Trachea is central. Symmetrical expansion. Scattered rhonchi and bibasilar diminished air entry. CARDIAC: Normal S1, S2 with no gallops. No murmurs ABDOMEN: Soft. Bowel sounds normal. No organomegaly. No abdominal bruits. Extremities: reveal no edema. No clubbing or cyanosis Neurologically awake, alert, oriented x3 with well-coordinated movements. No focal deficits noted Skin: No rash or skin lesions. Psychiatric: Coperative. Nonsuicidal Musculoskeletal: No joint swelling or deformity. Normal range of motion. - Labs CBC & Chem 7: 03/23/19 15:01 03/23/19 15:01 Labs: Microbiology - Last 24 Hours (Table) 03/18/19 09:54 Blood Culture - Preliminary Blood No Growth after 96 hours 03/20/19 10:57 Gram Stain - Final Sputum Sputum Culture - Final Orquidea albicans 03/18/19 16:08 Blood Culture - Preliminary Blood No Growth after 72 hours 03/18/19 15:08 Blood Culture - Preliminary Blood No Growth after 72 hours 03/18/19 10:08 Gram Stain - Final Arm - Right Wound Culture - Final Klebsiella pneumoniae Acinetobacter edson/haemol Assessment and Plan Assessment: Acute urinary tract infection with E. coli Left lower lobe Multifocal pneumonia with component of atelectasis given the le ft hemidiaphragm elevation. Possible gram-negative. Elevated troponin level. Likely due to infection. Unlikely acute [place]. History of left lung small cell cancer status post chemoradiation and metastatic lesions to skin/subcutaneous tissue Right upper arm mass with wound cultures growing KlebsiellaHypertension Paroxysmal atrial fibrillation on anticoagulation with Eliquis Chronic CHF with ejection fraction unknown Coronary artery disease with history of stent placement COPD stable GERD Hyperlipidemia History of [place] BPH Chronic low back pain right nephrolithiasis nonobstructive Generalized weakness and medical debility Previous history of smoking Plan: Patient will be continued on IV antibiotics in the form of Levaquin and Zosyn. Urine culture showed E. coli and right upper extremity wound cultures showed Klebsiella. Serial troponins and telemetry monitoring. Continue with aspirin, statins, metoprolol and Eliquis. On amiodarone. Started on losartan and spironolactone. Cardiology is following. Plan to transferred to [facility] once cleared by cardiology for right upper extremities mass resection. Continue the pain management and follow closely. Prognosis is poor at this time. Further recommendations based on the clinical course. Time with Patient: Greater than 30
--- NOTE | 2019-03-26 18:37 | P.DS ---
Providers Date of admission: 03/18/19 12:08 Expected date of discharge: 03/23/19 Attending physician: Clare Milian Consults: 03/18/19 12:08 Consult Physician Routine Consulting Provider: [facility] Consult Reason/Comments: N STEMI Do you want consulting provider notified?: Yes Primary care physician: Dante Rodriguez Hospital Course: Discharge diagnosis Acute urinary tract infection with E. coli Left lower lobe Multifocal pneumonia with component of atelectasis given the left hemidiaphragm elevation. Possible gram-negative. Elevated troponin level. Likely due to infection. Unlikely acute VT. History of left lung small cell cancer status post chemoradiation and metastatic lesions to skin/subcutaneous tissue Right upper arm mass with wound cultures growing Klebsiella Hypertension Paroxysmal atrial fibrillation on anticoagulation with Eliquis Chronic CHF with ejection fraction unknown Coronary artery disease with history of stent placement COPD stable GERD Hyperlipidemia History of VT BPH Chronic low back pain right nephrolithiasis nonobstructive Generalized weakness and medical debility Previous history of smoking Hospital course Patient is a 69-year-old male with a known history of paroxysmal atrial fibrillation on anticoagulation with Eliquis, coronary artery disease with history of stent placement, COPD, 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 Patient has chronic confused but very lethargic on admission. Patient has been having baseline shortness of breath and medications chest pains. Denied any worsening cough or sputum production. Denied any abdominal pain. No hematuria or dysuria. Patient does have some urinary frequency increased. No headache or dizziness. The case is mainly generalized. No diarrhea. Troponin 0.254 and 0.233 Hemoglobin 8.9 Urinalysis showed large leukocyte esterase and pyuria. Chest x-ray showed new multifocal left-sided patchy opacities. Likely multifocal pneumonia with component of atelectasis given the left hemidiaphragm elevation. Underlying COPD. Patient is supposed to go to his surgeon for right upper extremity tumor resection. 03/19/2019 Patient is currently sitting in the chair comfortably. Weakness is better. Able to tolerate diet slowly. Otherwise patient is being continued on antibiotics. No complaints of chest pain or shortness of breath. No fever no chills. No leukocytosis. Urine culture showed gram-negative bacilli. Cardiology has seen the patient. Troponin anemia likely due to infection. Limited 2-D echocardiogram was ordered. I did discuss with Dr. Raffi Johnson his radiation oncologist. Apparently patient was scheduled for right upper arm mass resection yesterday but patient could not follow up with his surgeon Dr. Garcia, orthopedic oncology at [facility]. Suggested to transfer the patient to be seen by his surgeon for possible resection on Saturday. Will hold Eliquis if cardiology is agreeable. 03/20/2019 Patient is currently sitting in the chair comfortably. Patient is still hypoxic requiring oxygen with another cannula 3-4 L. No leukocytosis. Patient has been afebrile. GEN 19 creatinine 1.0, 2-D echocardiogram was done. Cardiology is following. Showed 30-35% ejection fraction. Patient is being continued on broad-spectrum antibiotics. 03/21/2019 Patient is more awake and alert today. Feels comfortable. Still hypoxic requiring oxygen with another cannula. Patient has been afebrile. Blood pressure is fairly stable. Cardiology is following. Continued on broad-spectrum antibiotics. Anticipate transfer to [facility] for right upper extremity mass resection once medically stable. 03/22/2019 Patient is more awake and oriented. Sitting with a comfortably. Requiring oxygen via nasal cannula. Otherwise hemodynamically stable. Blood pressure this morning 104/60 with a heart rate in the 60s blood cell count 4.8, hemoglobin 8.9, platelet count 274. Sodium 144, potassium 3.5, BUN 19 and creatinine 1.0. his LV function is noted to be less then previous with an ejection fraction of 30-35. Cardiology is following for clearance. Plan to transfer the patient to [facility] for right upper extremity mass dissection was cleared by cardiology. Patient has been afebrile. No nausea vomiting or abdominal pain. Tolerating oral diet. No cough or sputum production. Antibiotics day 6 /7 for multifocal pneumonia and E. coli UTI. Levaquin and Zosyn. 03/23/2019 Patient is more comfortable today. Still requiring oxygen via nasal cannula. Awake and oriented. Currently being continued on antibiotics in the form of Levaquin and Zosyn. Patient will be able to complete antibiotic course today for total of 7 days. Denied any complaints of chest pain. patient is having increased risk for perioperative cardiac events but no absolute contraindication to his proposed surgery on the right arm. Nam needs on hold 48 hours prior to surgery. I did discuss with the accepting physician at [facility]. Patient will be transferred to [facility] for further evaluation by orthopedic oncologist for his right upper extremity tumor resection. PHYSICAL EXAMINATION: Patient is lying in the bed comfortably, no acute distress, awake alert and oriented.. HEENT: Normocephalic. Neck is supple. Pupils reactive. Nostrils clear. Oral cavity is moist. Ears reveal no drainage. Neck reveals no JVD, carotid bruits, or thyromegaly. CHEST EXAMINATION: Trachea is central. Symmetrical expansion. Left basilar coarse breath sounds. No wheezing. CARDIAC: Normal S1, S2 with no gallops. No murmurs ABDOMEN: Soft. Bowel sounds normal. No organomegaly. No abdominal bruits. Extremities: reveal no edema. No clubbing or cyanosis Right upper extremity tumor. No active drainage noted. Neurologically awake, alert, oriented x3 with well-coordinated movements. No fo yaima deficits noted Skin: No rash or skin lesions. Psychiatric: Coperative. Nonsuicidal Musculoskeletal: No joint swelling or deformity. Normal range of motion. Vital Signs Temp 97.9 F 03/23/19 08:00 Pulse 68 03/23/19 12:00 Resp 18 03/23/19 12:00 BP 96/57 03/23/19 12:00 Pulse Ox 99 03/23/19 12:00 Intake & Output 03/22/19 03/23/19 03/23/19 18:59 06:59 18:59 Intake Total 690 Output Total 1050 400 Balance -360 -400 Weight 87.2 kg 87.2 kg Intake: Oral 690 Output: Urine 1050 400 Other: Voiding Method Urinal Urinal Urinal Incontinent Incontinent Incontinent # Voids 1 # Bowel Movements 0 Total time taken greater than 35 minutes including 18 minutes for counseling and coordination of care. Patient Condition at Discharge: Fair Plan - Discharge Summary Discharge Rx Participant: No New Discharge Prescriptions: No Action Albuterol Inhaler [Ventolin Hfa Inhaler] 2 puff INHALATION RT-QID PRN PRN Reason: Shortness Of Breath ALPRAZolam [Xanax] 1 mg PO BID HYDROcodone/APAP 10-325MG [[place] 10-325] 1 tab PO QID PRN PRN Reason: Moderate To Severe Pain Nitroglycerin [Nitromist] 1 spray SL Q5M PRN PRN Reason: Chest Pain Esomeprazole Magnesium [NexIUM] 40 mg PO DAILY Simvastatin [Zocor] 20 mg PO HS Apixaban [Eliquis] 5 mg PO BID Amiodarone [Cordarone] 200 mg PO BID Montelukast [Singulair] 10 mg PO HS Metoprolol Tartrate [Lopressor] 75 mg PO TID Furosemide [Lasix] 40 mg PO DAILY Ferrous Sulfate [Feosol] 325 mg PO DAILY amLODIPine [Norvasc] 10 mg PO DAILY Magnesium Oxide [Mag-Ox] 400 mg PO DAILY Tamsulosin HCl [Flomax] 0.4 mg PO HS Fluticasone/Vilanterol [Breo Ellipta 200-25 Mcg INH] 1 puff INHALATION RT- DAILY Discharge Medication List Albuterol Inhaler [Ventolin Hfa Inhaler] 2 puff INHALATION RT-QID PRN 09/08/13 [History] ALPRAZolam [Xanax] 1 mg PO BID 09/09/13 [History] HYDROcodone/APAP 10-325MG [[place] 10-325] 1 tab PO QID PRN 05/20/17 [History] Nitroglycerin [Nitromist] 1 spray SL Q5M PRN 09/26/18 [History] Esomeprazole Magnesium [NexIUM] 40 mg PO DAILY 12/25/18 [History] Simvastatin [Zocor] 20 mg PO HS 01/06/19 [History] Apixaban [Eliquis] 5 mg PO BID 01/12/19 [History] Amiodarone [Cordarone] 200 mg PO BID 03/18/19 [History] Ferrous Sulfate [Feosol] 325 mg PO DAILY 03/18/19 [History] Fluticasone/Vilanterol [Breo Ellipta 200-25 Mcg INH] 1 puff INHALATION RT-DAILY 03/18/19 [History] Furosemide [Lasix] 40 mg PO DAILY 03/18/19 [History] Magnesium Oxide [Mag-Ox] 400 mg PO DAILY 03/18/19 [History] Metoprolol Tartrate [Lopressor] 75 mg PO TID 03/18/19 [History] Montelukast [Singulair] 10 mg PO HS 03/18/19 [History] Tamsulosin HCl [Flomax] 0.4 mg PO HS 03/18/19 [History] amLODIPine [Norvasc] 10 mg PO DAILY 03/18/19 [History] Follow up Appointment(s)/Referral(s): Michael Howell MD [Primary Care Provider] - 1-2 days Discharge Disposition: TRANSFER TO SHORT TERM HOSP
== END 2019-03-23 21:23 | disposition short-term general hospital (02) | DRG 177 ==
LOC: EC 09:13 → 3SCARD 12:08
PROVIDERS: ADMIT Internal Medicine; ATTEND Internal Medicine
DX: J15.6 Pneumonia due to other Gram-negative bacteria (principal); G93.41 Metabolic encephalopathy; J96.01 Acute respiratory failure with hypoxia; I13.0 Hypertensive heart and chronic kidney disease with heart failure and stage 1 through stage 4 chronic kidney disease, or unspecified chronic kidney disease; I48.19 Other persistent atrial fibrillation; J44.0 Chronic obstructive pulmonary disease with (acute) lower respiratory infection; J98.11 Atelectasis; N39.0 Urinary tract infection, site not specified; C79.2 Secondary malignant neoplasm of skin; I50.42 Chronic combined systolic (congestive) and diastolic (congestive) heart failure; B96.20 Unspecified Escherichia coli [E. coli] as the cause of diseases classified elsewhere; D64.9 Anemia, unspecified; E78.5 Hyperlipidemia, unspecified; F03.90 Unspecified dementia, unspecified severity, without behavioral disturbance, psychotic disturbance, mood disturbance, and anxiety; G89.29 Other chronic pain; I07.1 Rheumatic tricuspid insufficiency; I25.10 Atherosclerotic heart disease of native coronary artery without angina pectoris; I25.2 Old myocardial infarction; I27.20 Pulmonary hypertension, unspecified; I73.9 Peripheral vascular disease, unspecified; K21.9 Gastro-esophageal reflux disease without esophagitis; N18.9 Chronic kidney disease, unspecified; N20.0 Calculus of kidney; N40.0 Benign prostatic hyperplasia without lower urinary tract symptoms; Z79.01 Long term (current) use of anticoagulants; Z79.51 Long term (current) use of inhaled steroids; Z79.899 Other long term (current) drug therapy; Z80.6 Family history of leukemia; Z85.118 Personal history of other malignant neoplasm of bronchus and lung; Z87.442 Personal history of urinary calculi; Z87.891 Personal history of nicotine dependence; Z92.21 Personal history of antineoplastic chemotherapy; Z92.3 Personal history of irradiation; Z95.5 Presence of coronary angioplasty implant and graft; Z98.42 Cataract extraction status, left eye
CPT/HCPCS: 36415; 71046; 80048; 80053; 81001; 83605; 83735; 84484; 85025; 85610; 85730; 87040; 87070; 87077; 87086; 87186; 87205; 93005; 93306; 94640; 94760; 96361; 96365; 96367; 99291

== ENCOUNTER → 2019-05-04 | Outpatient (CLI) | payer MEDICARE, OTHER ==
--- NOTE | 2019-05-04 15:25 | CT ---
EXAMINATION TYPE: CT chest wo/w con DATE OF EXAM: 05/04/2019 COMPARISON: CT February 16, 2019 and older studies. PET/CT October 18, 2018. HISTORY: Lung ca. CT DLP: 726.40 mGycm. Automated Exposure Control for Dose Reduction was Utilized. TECHNIQUE: CT scan of the thorax is performed following without and with IV Contrast, patient inject ed with 80 mL of Isovue 300. FINDINGS: LUNGS: Background mild to moderate underlying emphysematous change. Persistent left hilar mass or perfecto plasm causing mass effect or narrowing of the lingular bronchus image 29 not significantly changed fr om most prior study image 30 difficult to accurately measure but estimated 2.2 x 2.2 cm image 27 seri es 7 with anterior superior lateral extension showing bronchiectatic change extending to pleural surf liang similar to prior study with adjacent satellite nodularity again seen. Postcontrast assessment dif ficult due to adjacent enhancing vessels. Right lung remains clear. No pleural effusion or pneumothor ax. MEDIASTINUM: There are no new greater than 1 cm hilar or mediastinal lymph nodes. No pericardial e ffusion is seen. Stable pericarinal lymph node axial image 24 measuring 1.6 x 1.3 cm not significant change from last 2 studies. Coronary artery calcification and/or stents redemonstrated. Heart size st able and upper limits of normal. OTHER: Redemonstration of inferior positioning pancreatic tail. Moderate multilevel spurring lower th oracic spine. IMPRESSION: 1. Interval resolution of left-sided pleural effusion. Stable nonspecific left hilar mass could refle ct treated neoplasm. Stable anterior superior lateral extension. No new suspicious mass or adenopathy .
== END | disposition home or self-care (01) ==
LOC: RADCTMAIN 14:00
PROVIDERS: ATTEND Radiology Radiation Oncology
DX: C34.12 Malignant neoplasm of upper lobe, left bronchus or lung (principal); C49.11 Malignant neoplasm of connective and soft tissue of right upper limb, including shoulder; C79.2 Secondary malignant neoplasm of skin; F17.210 Nicotine dependence, cigarettes, uncomplicated; Z92.3 Personal history of irradiation
CPT/HCPCS: 82565; 84520; 71270; 36415; Q9967

== ENCOUNTER → 2019-07-20 | Outpatient (CLI) | payer MEDICARE | END | disposition home or self-care (01) | CPT/HCPCS: 82565; 84520; 71260; 74177; 36415; Q9967 ×2 ==

== ENCOUNTER 2019-08-25 14:54 | Inpatient (IN) | payer MEDICARE ==
[~2019-08-25 14:54] MED LIST changes: -ATROPINE SULFATE 0.4 MG/ML 1 ML VIAL IM ONE; +EPINEPHrine 10 ML SYRINGE (0.1 MG/ML) ONE; -HYDROmorphone 0.5 MG/0.5 ML SYRINGE IVP PRN; -LIDOCAINE VISCOUS 300 MG/15 ML CUP MUCOUS MEM ONE; +SODIUM BICARB 8.4% 50 ML SYR (1 MEQ/ML) ONE; -SODIUM CHLORIDE 0.9% 1,000 ML IV SCH
[2019-08-25] MEDS ORDERED: SODIUM CHLORIDE 0.9% 1,000 ML IV STA ×2 (15:12)
[2019-08-25 15:14] LABS: Glucose,Whole Blood 139 mg/dL (75-99)
--- NOTE | 2019-08-25 15:15 | ED ---
General Adult HPI - General Stated complaint: Unresponsive,intubated Time Seen by Provider: 08/25/19 15:00 Source: RN/, RN notes reviewed, old records reviewed - History of Present Illness Initial comments: This is a 69-year-old male who presents emergency department from outpatient procedures. Patient was there getting a infusion of his chemotherapy medication and he became unresponsive they checked for pulses he did not have one. Patient was in PEA. A code was called. Patient was intubated on the floor and brought him to the emergency department. - Related Data Home Medications Medication Instructions Recorded Confirmed Albuterol Inhaler (Bulk) [Ventolin 2 puff INHALATION RT-QID PRN 09/08/13 08/25/19 Hfa Inhaler (Bulk)] ALPRAZolam [Xanax] 1 mg PO BID 09/09/13 08/25/19 HYDROcodone/APAP 10-325MG [[place] 1 tab PO QID PRN 05/20/17 08/25/19 10-325] Nitroglycerin [Nitromist] 1 spray SL Q5M PRN 09/26/18 08/25/19 Esomeprazole Magnesium [NexIUM] 40 mg PO DAILY 12/25/18 08/25/19 Apixaban [Eliquis] 5 mg PO BID 01/12/19 08/25/19 Amiodarone [Cordarone] 200 mg PO BID 03/18/19 08/25/19 Ferrous Sulfate [Feosol] 325 mg PO DAILY 03/18/19 08/25/19 Fluticasone/Vilanterol [Breo 1 puff INHALATION RT-DAILY 03/18/19 08/25/19 Ellipta 200-25 Mcg INH] Furosemide [Lasix] 40 mg PO DAILY 03/18/19 08/25/19 Magnesium Oxide [Mag-Ox] 400 mg PO DAILY 03/18/19 08/25/19 Metoprolol Tartrate [Lopressor] 75 mg PO TID 03/18/19 08/25/19 Montelukast [Singulair] 10 mg PO HS 03/18/19 08/25/19 Tamsulosin HCl [Flomax] 0.4 mg PO HS 03/18/19 08/25/19 amLODIPine [Norvasc] 10 mg PO DAILY 03/18/19 08/25/19 Atorvastatin [Lipitor] 1 tab PO DAILY 06/15/19 08/25/19 Ferrous Sulfate [Iron] 1 tab PO DAILY 06/15/19 08/25/19 Allergies Allergy/AdvReac Type Severity Reaction Status Date / Time No Known Allergies Allergy Verified 08/25/19 09:30 Review of Systems ROS Statement: Those systems with pertinent positive or pertinent negative responses have been documented in the HPI. ROS Other: All systems not noted in ROS Statement are negative. 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 Last Myocardial Infarction Date:: 1998 History of Any Multi-Drug Resistant Organisms: None Reported Past Surgical History: Appendectomy, Back Surgery, Heart Catheterization With Stent, Hernia Repair, Orthopedic Surgery Additional Past Surgical History / Comment(s): PCI with stents in 1998 and 2013, bilateral carpal tunnel releases, bilateral shoulder surgery for rotator cuff repairs, bilateral knee arthroscopies, L jaw injury with surgery, abdominal ang iography, EGD, colonoscopy, L cataract removal and surgery for "floaters" Past Anesthesia/Blood Transfusion Reactions: No Reported Reaction Date of Last Stent Placement:: 1998, 10/09/13 Smoking Status: Current every day smoker - Past Family History Mother History Unknown: Yes Family Medical History: Cancer Additional Family Medical History / Comment(s): Pt states he does not know his mothers health history/he had no relationship with her. Father Family Medical History: Cancer Additional Family Medical History / Comment(s): Leukemia General Exam - General Exam Comments Initial Comments: GENERAL: Patient is well-developed and well-nourished. Patient is intubated and unresponsive ENT: Neck is soft and supple. No significant lymphadenopathy is noted. Oropharynx is clear. Moist mucous membranes. Neck has full range of motion without eliciting any pain. EYES: The sclera were anicteric and conjunctiva were pink and moist. Extraocular movements were intact and pupils were equal round and reactive to light. Eyelids were unremarkable. PULMONARY: Unlabored respirations. Good breath sounds bilaterally. No audible rales rhonchi or wheezing was noted. CARDIOVASCULAR: There is a regular rate and rhythm without any murmurs gallops or rubs. ABDOMEN: Soft and nontender with normal bowel sounds. SKIN: Skin is clear with no lesions or rashes and otherwise unremarkable. NEUROLOGIC: Patient is unresponsive and intubated at this time MUSCULOSKELETAL: Normal extremities with adequate strength and full range of motion. LYMPHATICS: No significant lymphadenopathy is noted PSYCHIATRIC: Unable to assess Course Vital Signs 08/25/19 08/25/19 08/25/19 15:13 15:36 16:11 Temperature 98.8 F Pulse Rate 105 H 112 H Pulse Rate [ 113 H Floorperson ] Respiratory 25 H 20 Rate Blood Pressure 79/54 122/70 O2 Sat by Pulse 97 100 Oximetry 08/25/19 17:00 Temperature Pulse Rate 125 H Pulse Rate [ Floorperson ] Respiratory 20 Rate Blood Pressure 163/93 O2 Sat by Pulse 98 Oximetry Medical Decision Making - Medical Decision Making EKG shows atrial fibrillation with a rapid ventricular response at 104 beats a minute QRS is 74 QT interval 362 QTC is 476. EKG shows multiple PVCs. EKG is also poor quality there is no obvious ST segment elevation or depression. Patient received a few liters of fluid in the emergency department Dr. Rubin saw the patient in the emergency department start a central line and also started the patient on Levophed. I spoke with [facility] agreed to admit the patient admitted the patient I consult the Dr. Rubin as well as cardiology and wrote admitting orders. - Lab Data Result diagrams: 08/25/19 15:27 08/25/19 15:27 Lab Results 08/25/19 08/25/19 08/25/19 Range/Units 14:58 15:27 15:27 WBC 9.0 (3.8-10.6) k/uL RBC 4.53 (4.30-5.90) m/uL Hgb 12.7 L (13.0-17.5) gm/dL Hct 40.6 (39.0-53.0) % MCV 89.6 (80.0-100.0) fL MCH 28.1 (25.0-35.0) pg MCHC 31.4 (31.0-37.0) g/dL RDW 16.7 H (11.5-15.5) % Plt Count 210 (150-450) k/uL Neutrophils % 70 % Lymphocytes % 28 % Monocytes % 1 % Eosinophils % 0 % Basophils % 0 % Neutrophils # 6.3 (1.3-7.7) k/uL Lymphocytes # 2.5 (1.0-4.8) k/uL Monocytes # 0.1 (0-1.0) k/uL Eosinophils # 0.0 (0-0.7) k/uL Basophils # 0.0 (0-0.2) k/uL Hypochromasia Slight Anisocytosis Slight PT 12.9 H (9.0-12.0) sec INR 1.3 H (<1.2) APTT 35.8 H (22.0-30.0) sec Sample Site ABG pH (7.35-7.45) ABG pCO2 (35-45) mmHg ABG pO2 (83-108) mmHg ABG HCO3 (21-25) mmol/L ABG Total CO2 (19-24) mmol/L ABG O2 Saturation (94-97) % ABG Base Excess mmol/L Adis Test FiO2 % Sodium (137-145) mmol/L Potassium (3.5-5.1) mmol/L Chloride (98-107) mmol/L Carbon Dioxide (22-30) mmol/L Anion Gap mmol/L BUN (9-20) mg/dL Creatinine (0.66-1.25) mg/dL Est GFR (CKD-EPI)AfAm (>60 ml/min/1.73 sqM) Est GFR (CKD-EPI)NonAf (>60 ml/min/1.73 sqM) Glucose (74-99) mg/dL POC Glucose (mg/dL) 139 H (75-99) mg/dL POC Glu [employer] [place] Calcium (8.4-10.2) mg/dL Magnesium (1.6-2.3) mg/dL Total Bilirubin (0.2-1.3) mg/dL AST (17-59) U/L ALT (4-49) U/L Alkaline Phosphatase (38-126) U/L Troponin I (0.000-0.034) ng/mL Total Protein (6.3-8.2) g/dL Albumin (3.5-5.0) g/dL 08/25/19 08/25/19 08/25/19 Range/Units 15:27 15:27 15:36 WBC (3.8-10.6) k/uL RBC (4.30-5.90) m/uL Hgb (13.0-17.5) gm/dL Hct (39.0-53.0) % MCV (80.0-100.0) fL MCH (25.0-35.0) pg MCHC (31.0-37.0) g/dL RDW (11.5-15.5) % Plt Count (150-450) k/uL Neutrophils % % Lymphocytes % % Monocytes % % Eosinophils % % Basophils % % Neutrophils # (1.3-7.7) k/uL Lymphocytes # (1.0-4.8) k/uL Monocytes # (0-1.0) k/uL Eosinophils # (0-0.7) k/uL Basophils # (0-0.2) k/uL Hypochromasia Anisocytosis PT (9.0-12.0) sec INR (<1.2) APTT (22.0-30.0) sec Sample Site R Radial ABG pH 7.17 L* (7.35-7.45) ABG pCO2 54 H (35-45) mmHg ABG pO2 >400 H (83-108) mmHg ABG HCO3 20 L (21-25) mmol/L ABG Total CO2 22 (19-24) mmol/L ABG O2 Saturation 99.7 H (94-97) % ABG Base Excess -8.6 mmol/L Adis Test Yes FiO2 100 % Sodium 140 (137-145) mmol/L Potassium 4.0 (3.5-5.1) mmol/L Chloride 113 H (98-107) mmol/L Carbon Dioxide 19 L (22-30) mmol/L Anion Gap 8 mmol/L BUN 15 (9-20) mg/dL Creatinine 1.15 (0.66-1.25) mg/dL Est GFR (CKD-EPI)AfAm 75 (>60 ml/min/1.73 sqM) Est GFR (CKD-EPI)NonAf 65 (>60 ml/min/1.73 sqM) Glucose 145 H (74-99) mg/dL POC Glucose (mg/dL) (75-99) mg/dL POC Glu [employer] Helper ID Calcium 7.3 L (8.4-10.2) mg/dL Magnesium 1.5 L (1.6-2.3) mg/dL Total Bilirubin 0.6 (0.2-1.3) mg/dL AST 19 (17-59) U/L ALT 13 (4-49) U/L Alkaline Phosphatase 161 H (38-126) U/L Troponin I 0.026 (0.000-0.034) ng/mL Total Protein 5.2 L (6.3-8.2) g/dL Albumin 2.9 L (3.5-5.0) g/dL Critical Care Time Critical Care Time: Yes Total Critical Care Time: 35 Disposition Clinical Impression: Cardiac arrest, Hypotension Referrals: Mark Carballo MD [Primary Care Provider] - 1-2 days
[2019-08-25 15:40] LABS: ABG Base Excess -8.6 mmol/L; ABG HCO3 20 mmol/L (21-25); ABG Oxygen Saturation 99.7 % (94-97); ABG PCO2 54 mmHg (35-45); ABG PO2 >400 mmHg (83-108); ABG TCO2 22 mmol/L (19-24); Allen Test Performed? Yes
--- NOTE | 2019-08-25 16:04 | XR ---
EXAMINATION TYPE: XR chest 1V portable DATE OF EXAM: 08/25/2019 COMPARISON: Chest x-ray dated 03/19/2019 HISTORY: Chest pain. History of lung cancer. TECHNIQUE: Single frontal view of the chest is obtained. FINDINGS: Progression of consolidation in the left upper lung. Resolution of the right lung consolid ation. Pulmonary hyperinflation of underlying COPD. Endotracheal tube terminates at the level of the aortic arch appropriately placed. Difficult to evaluate the distal tip of the left central venous cat heter although as this appears appropriately placed in the distal superior vena cava. Enteric tube an d difficult to evaluate with certainty distally but appears cephalad and abdominal radiograph could b e obtained after advancement. IMPRESSION: 1. Increasing consolidation in the left upper lobe and a patient with known left perihilar neoplasm a nd likely downstream postobstructive atelectasis. 2. Appropriately placed tracheal tube and left central venous catheter. Enteric tube appears slightly cephalad with distal portion difficult to visualize. Abdominal radiograph could be obtained for veri fication of appropriate placement after advancement.
[2019-08-25 16:12] LABS: Anisocytosis Slight; Basophils % (A) 0 %; Eosinophils % (A) 0 %; HCT 40.6 % (39.0-53.0); HGB 12.7 gm/dL (13.0-17.5); Hypochromasia Slight; Lymphocytes # (A) 2.5 k/uL (1.0-4.8); Lymphocytes % (A) 28 %; MCH 28.1 pg (25.0-35.0); MCHC 31.4 g/dL (31.0-37.0); MCV 89.6 fL (80.0-100.0); Mean Platelet Volume 7.9; Monocytes # (A) 0.1 k/uL (0-1.0); Monocytes % (A) 1 %; Neutrophils # (A) 6.3 k/uL (1.3-7.7); Neutrophils % (A) 70 %; Platelet Count 210 k/uL (150-450); RBC 4.53 m/uL (4.30-5.90); RDW 16.7 % (11.5-15.5)
[2019-08-25] MEDS: NOREPINEPHRINE 4 MG in SODIUM CHLORIDE 0.9% 250 ML IV ONE ×2 (16:20→22:24)
[2019-08-25 16:23] LABS: INR 1.3 (<1.2); Partial Thromboplastin Time 35.8 sec (22.0-30.0); Prothrombin Time 12.9 sec (9.0-12.0)
[2019-08-25 16:48] LABS: Albumin 2.9 g/dL (3.5-5.0); Calcium 7.3 mg/dL (8.4-10.2); Magnesium 1.5 mg/dL (1.6-2.3); Total Bilirubin 0.6 mg/dL (0.2-1.3); Total Protein 5.2 g/dL (6.3-8.2)
[2019-08-25 16:54] LABS: ABG PH 7.17 (7.35-7.45)
[2019-08-25] MEDS ORDERED: PROPOFOL 1,000 MG in EMPTY BAG 1 BAG IV ONE (17:17)
[2019-08-25] MEDS ORDERED: NALOXONE 0.4 MG/ML 1 ML VIAL IV PRN (18:06)
[2019-08-25] MEDS ORDERED: EMPTY BAG 1 BAG with PROPOFOL 1,000 MG IV SCH (20:00)
[2019-08-25] MEDS: IPRATROPIUM-ALBUTEROL 3 ML NEB INHALATION SCH (20:07)
--- NOTE | 2019-08-25 20:14 | P.CNPUL ---
History of Present Illness Consult date: 08/25/19 Chief complaint: cardiac arrest History of present illness: This is a 69-year-old male patient diagnosed having squamous cell carcinoma lung was undergoing systemic chemotherapy on outpatient setting with the patient's acutely collapse and the patient was found to be in PEA during which a CODE BLUE was called and the patient was resuscitated for a total of 2-3 minutes during which she was given epinephrine, received CPR, intubated and there was return of spontaneous circulation and pulse and blood pressure. Following that the patient got transferred to the emergency department where I had the chance to evaluate the patient. The patient was already intubated on a mechanical ventilator. The patient was sedated with propofol. The patient was also started on pressors and norepinephrine was being titrated to bring up the mean artery p ressure above 65. He was started on IV fluids also. A triple lumen catheter was established in the left subclavian vein. The chest x-ray post-line insertion shows no acute abnormalities. There is a left upper lobe mass which was seen on previous chest x-ray consistent with his history of lung cancer. Post intubation blood gases showed a pH of 7.17 with a pCO2 of 54 and pO2 more than 400. Necessity ventilator changes were done and the patient was placed on a tidal volume of 500 with a rate of 20 and FiO2 was gradually weaned off to maintain a saturation above 90%. The rest of the blood work showed a normal white cell count, normal hemoglobin, normal coagulation profile, calcium level o f 7.3, magnesium level of 1.8, troponin of 0.026, electrolytes showed a mild non-anion gap metabolic acidosis. EKG was consistent with atrial fibrillation and a rapid ventricular response. His current heart rate is 123, A. fib. This patient is known case of lung cancer. He initially presented in September 2018 with a left perihilar mass. CAT scan of the chest showed a 5.4 x 3.8 cm soft tissue mass adjacent to the left main pulmonary artery with enlarged pretracheal lymph nodes. The patient also had a PET scan that showed increased uptake within the left suprahilar mass and there was some opacity extending superiorly anterior to the area with a 1.2 cm cavitary lesion in this area measuring an SUV of 4.9. This soft tissue extension occluded the left upper lobe bronchus partially. There was also an incidental uptake in the right upper extremity and a biopsy of the right upper extremity lesion was also consistent with squamous cell carcinoma, likely metastatic disease. The patient was started on systemic chemotherapy and it was decided to treat him with radiation as the metastatic focus in the right upper extremity was considered to be in a legal metastases and he was treated for curative intent. He was given combination of chemoradiation therapy with received weekly carboplatinum and Taxol as of 12/16/2018 and he completed radiation therapy in early February 2019. He was subsequently admitted to the hospital for atrial fibrillation with rapid ventricular response. He was found to have an intermediate probability VQ scan. He was started to coagulation with Eliquis. 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 CAT scan of the chest from 05/04/2019 showed a stable left upper lobe mass measuring 2.2 cm and is stable precarinal lymph node measuring 1.6 x 1.3 cm. He continued to receive chemotherapy and during the course of treatment he was noted to have a heart mass developing in the right axilla which was shaking with systemic chemotherapy. Noted the patient was tolerating systemic chemotherapy rather well and his treatment was initiated as the patient developed progression in the right axillary lesion and he continued to receive a combination of carboplatinum and Taxol and he was supposed to have Keytruda added to his regimen. He was under the care of Dr. Carballo. The patient also has history of coronary artery disease, hypertension, hyperlipidemia and peripheral vascular disease. He is known to have COPD as comorbidities. The patient's has history of chronic atrial fibrillation and has been anticoagulation. He has a single kidney which is only a right-sided kidney. His other comorbidities include BPH, and history of kidney stones. He has undergone previous cardiac catheterization in September 2018 and the patient was found to have mild disease involving the LAD and RCA with an occluded diagonal branch. His previous echocardiogram done in December 2018 had shown ejection fraction 45-50% in addition to moderate pulmonary hypertension with a PA pressure 42 along with some segmental wall motion abnormalities in the most recent CAT scan of the chest abdomen and pelvis that was done on 07/20/2019 showed a stable left hilar and suprahilar mass unchanged from previous evaluation in addition to a satellite left apical nodule measuring 7 mm in size and there was a new area of lymphadenopathy in the right axillary measuring 1.9 cm and is stable 1.6 cm soft tissue nodule in the left adrenal bed stable compared to previous evaluation. He had a tiny left-sided pleural effusion also. Review of Systems ROS unobtainable: due to endotracheal tube Past Medical History Past Medical History: Atrial Fibrillation, Coronary Artery Disease (CAD), Cancer, Heart Failure, COPD, Eye Disorder, GERD/Reflux, Hyperlipidemia, Hypertension, Myocardial Infarction (CT), Musculoskeletal Disorder, Osteoarthritis (OA), Prostate Disorder, Renal Disease, Vascular Disorder Additional Past Medical History / Comment(s): history of squamous cell lung cancer with mets to skin/subcutaneous tissue-has sore/mass R upper arm, pt states last chemo/radiation was a few months ago, coronary artery disease, CHF with ejection fraction 45-50%, chronic atrial fibrillation, long-term anticoagulation with Eliquis, chronic back pain, single right-sided kidney,history of kidney stones, BPH, COPD Last Myocardial Infarction Date:: 1998 History of Any Multi-Drug Resistant Organisms: None Reported Past Surgical History: Appendectomy, Back Surgery, Heart Catheterization With Stent, Hernia Repair, Orthopedic Surgery Additional Past Surgical History / Comment(s): PCI with stents in 1998 and 2013, bilateral carpal tunnel releases, bilateral shoulder surgery for rotator cuff repairs, bilateral knee arthroscopies, L jaw injury with surgery, abdominal angiography, EGD, colonoscopy, L cataract removal and surgery for "floaters" Past Anesthesia/Blood Transfusion Reactions: No Reported Reaction Date of Last Stent Placement:: 1998, 10/09/13 Smoking Status: Current every day smoker - Past Family History Mother History Unknown: Yes Family Medical History: Cancer Additional Family Medical History / Comment(s): Pt states he does not know his mothers health history/he had no relationship with her. Father Family Medical History: Cancer Additional Family Medical History / Comment(s): Leukemia Medications and Allergies Home Medications Medication Instructions Recorded Confirmed Type Albuterol Inhaler (Bulk) [Ventolin 2 puff INHALATION RT-QID PRN 09/08/13 08/25/19 History Hfa Inhaler (Bulk)] ALPRAZolam [Xanax] 1 mg PO BID PRN 09/09/13 08/25/19 History HYDROcodone/APAP 10-325MG [[place] 1 tab PO QID PRN 05/20/17 08/25/19 History 10-325] Esomeprazole Magnesium [NexIUM] 40 mg PO DAILY 12/25/18 08/25/19 History Apixaban [Eliquis] 5 mg PO BID 01/12/19 08/25/19 History Ferrous Sulfate [Feosol] 325 mg PO DAILY 03/18/19 08/25/19 History Fluticasone/Vilanterol [Breo 1 puff INHALATION RT-DAILY 03/18/19 08/25/19 History Ellipta 200-25 Mcg INH] Furosemide [Lasix] 40 mg PO DAILY 03/18/19 08/25/19 History Montelukast [Singulair] 10 mg PO HS 03/18/19 08/25/19 History Tamsulosin HCl [Flomax] 0.4 mg PO HS 03/18/19 08/25/19 History Atorvastatin [Lipitor] 40 mg PO HS 06/15/19 08/25/19 History Loratadine 10 mg PO DAILY 08/25/19 08/25/19 History Spironolactone 25 mg PO DAILY 08/25/19 08/25/19 History Allergies Allergy/AdvReac Type Severity Reaction Status Date / Time No Known Allergies Allergy Verified 08/25/19 09:30 Physical Exam Vitals: Vital Signs Temp Pulse Pulse Resp BP Pulse Ox 08/25/19 19:30 123 H 22 123/100 100 08/25/19 19:20 124 H 22 138/102 100 08/25/19 19:18 121 H 22 100 08/25/19 19:15 113 H 18 117/56 98 08/25/19 18:00 115 H 20 113/72 99 08/25/19 17:30 113 H 20 106/66 98 08/25/19 17:00 125 H 20 163/93 98 08/25/19 16:11 112 H 20 122/70 100 08/25/19 15:36 113 H 08/25/19 15:13 98.8 F 105 H 25 H 79/54 97 Intake and Output 08/25/19 08/25/19 08/25/19 06:59 14:59 22:59 Intake Total 66.038 Output Total 50 Balance 16.038 Intake: Intake, IV Titration 66.038 Amount Norepinephrine 4 mg In 52.997 Sodium Chloride 0.9% 250 ml @ 0.05 MCG/KG/MIN 19. 874 mls/hr IV .[id number] ONE Rx#:[id number] Propofol 1,000 mg In 13.041 Empty Bag 1 bag @ Titrate IV .Q0M ONE Rx#: [id number] Output: Urine 50 Uretheral ([place]) 50 Other: Weight 104.326 kg gen. appearance, comfortable not in distress and currently the patient is propofol for sedation. The patient has an orogastric and orotracheal tube are both of them out of place. Head exam was generally normal. There was no scleral icterus or corneal arcus. Mucous membranes were moist. Neck was supple and without jugular venous distension, thyromegaly, or carotid bruits. Carotids were easily palpable bilaterally. There was no adenopathy. Lungs were diminishedbreath sounds to auscultation and percussion, and with normal diaphragmatic excursion. positive wheezes or rales were noted. Scattered external wheezes throughout the lung lange bilaterally Cardiac exam revealed the PMI to be normally situated and sized. The rhythm was regular and no extrasystoles were noted during several minutes of auscultation. The first and second heart sounds were normal and physiologic splitting of the second heart sound was noted. There were no murmurs, rubs, clicks, or gallops. Abdominal exam revealed normal bowel sounds. The abdomen was soft, non-tender, and without masses, organomegaly, or appreciable enlargement of the abdominal aorta. Examination of the extremities revealed easily palpable radial, femoral and pedal pulses. There was no cyanosis, clubbing or edema. The patient has a scar of a previous surgical resection of a skin lesion in the right forearm. There is some right axillary lymphadenopathy Examination of the skin revealed no evidence of significant rashes, suspicious appearing nevi or other concerning lesions. Neurologic the patient is sedated, comfortable likely distress Results - Laboratory Findings CBC and BMP: 08/25/19 15:27 08/25/19 15:27 ABG ABG pH 7.17 (7.35-7.45) L* 08/25/19 15:36 ABG pCO2 54 mmHg (35-45) H 08/25/19 15:36 ABG pO2 >400 mmHg (83-108) H 08/25/19 15:36 ABG O2 Saturation 99.7 % (94-97) H 08/25/19 15:36 PT/INR, D-dimer PT 12.9 sec (9.0-12.0) H 08/25/19 15:27 INR 1.3 (<1.2) H 08/25/19 15:27 Abnormal lab findings: Abnormal Labs 08/25/19 08/25/19 08/25/19 14:58 15:27 15:27 Hgb 12.7 L RDW 16.7 H PT 12.9 H INR 1.3 H APTT 35.8 H ABG pH ABG pCO2 ABG pO2 ABG HCO3 ABG O2 Saturation Chloride Carbon Dioxide Glucose POC Glucose (mg/dL) 139 H Calcium Magnesium Alkaline Phosphatase Total Protein Albumin 08/25/19 08/25/19 15:27 15:36 Hgb RDW PT INR APTT ABG pH 7.17 L* ABG pCO2 54 H ABG pO2 >400 H ABG HCO3 20 L ABG O2 Saturation 99.7 H Chloride 113 H Carbon Dioxide 19 L Glucose 145 H POC Glucose (mg/dL) Calcium 7.3 L Magnesium 1.5 L Alkaline Phosphatase 161 H Total Protein 5.2 L Albumin 2.9 L - Diagnostic Findings Chest x-ray: image reviewed Assessment and Plan Plan: 1 acute cardiac pulmonary arrest, patient was found to be in PEA , exact cause is not clear. The patient is currently under investigation. The patient's downtime was very limited, less than 5 minutes during which she received CPR, epinephrine, intubated and placed on a mechanical ventilator. Currently sedated with propofol. The patient is hemodynamically improving. 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 The patient was treated with systemic chemotherapy and radiation therapy for curative intent. The patient was found to have a right axillary mas s consistent with metastases and the patient was started on systemic chemotherapy by oncology. Original diagnosis established and 2019. 4 COPD 5 coronary artery disease with previous coronary intervention and the results of the cardiac catheterization from 2019 showed nonocclusive disease 6 chronic atrial fibrillation 7 peripheral vascular disease 8 solitary kidney, right-sided within normal kidney function 9 BPH and history of nephrolithiasis 10 hyperlipidemia plan perform a rapid COVID 19 evaluation although my overall clinical suspicion for COVID 19 infection is low Keep the patient sedated with propofol Chest x-ray and blood gases were noted and the 0 ventilator changes were done IV fluids in the form of boluses 2 L and the patient is currently on a maintenance of 75 mL an hour normal saline Wean off pressors to maintain a mean artery pressure above 65. The patient is currently on norepinephrine infusion DuoNeb nebulized treatments around the clock iV Solu-Medrol IV Protonix Resume Eliquis Monitor cardiac enzymes Echocardiogram in a.m. regarding LV function Cardiology consultation regarding cardiopulmonary arrest CT of the brain no contrast we'll continue to follow. A triple lumen cath was established Time with Patient: Greater than 30
--- NOTE | 2019-08-25 20:16 | P.PCN ---
Date of Procedure: 08/25/19 Preoperative Diagnosis: acute cardiopulmonary arrest, PEA rhythm Postoperative Diagnosis: acute cardiopulmonary arrest, PEA rhythm Procedure(s) Performed: insertion of a triple-lumen catheter Anesthesia: local Surgeon: Ronnie Rubin Estimated Blood Loss (ml): 0 Pathology: none sent Condition: critical Disposition: ICU Operative Findings: Indication: Hemodynamic monitoring/Intravenous access. A time-out was completed verifying correct patient, procedure, site, positioning , and implant(s) or special equipment if applicable. The patient was placed in a dependent position appropriate for central line placement based on the vein to be cannulated. The patient's right shoulder was prepped and draped in sterile fashion. 1% Lidocaine was used to anesthetize the surrounding skin area. A triple lumen 9F Cordis catheter was introduced into the Right subclavian vein using Seldinger technique. The catheter was threaded smoothly over the guide wire and appropriate blood return was obtained. Each lumen of the catheter was evacuated of air and flushed with sterile sa line. The catheter was then sutured in place to the skin and a sterile dressing applied. Perfusion to the extremity distal to the point of catheter insertion was checked and found to be adequate. The patient tolerated the procedure well and there were no complications.
[2019-08-25 20:50] LABS: Glucose,Whole Blood 162 mg/dL (75-99)
--- NOTE | 2019-08-25 20:51 | CT ---
EXAMINATION TYPE: CT brain wo con DATE OF EXAM: 08/25/2019 COMPARISON: December 25, 2018 HISTORY: ams CT DLP: 1201.[address] of the brain was performed. The ventricles, basal cisterns and sulci overlying the cerebral convexities demonstrate mild enlargem ent. There is no evidence for intracranial hemorrhage or sulcal effacement. There is decreased attenuation about the periventricular white matter and deep white matter of both c erebral hemispheres, compatible with chronic small vessel ischemia. Differential diagnosis does inclu de demyelination. No mass effects are seen.No midline shift. Osseous calvarium is intact. If symptoms persist consider MRI. IMPRESSION: 1. Age related atrophic and chronic small vessel ischemic change without acute intracranial process s een at this time.
[2019-08-25] MEDS: SODIUM CHLORIDE 0.9% 1,000 ML IV SCH (21:21)
[2019-08-25] MEDS: PROPOFOL 1,000 MG in EMPTY BAG 1 BAG IV SCH (21:25)
[2019-08-25] MEDS ORDERED: DEXTROSE 5% IN WATER 100 ML with AMIODARONE 150 MG IV ONE (21:30)
[2019-08-25] MEDS ORDERED: AMIODARONE 360 MG in DEXTROSE 5% IN WATER 200 ML IV ONE ×2 (21:40)
[2019-08-25] MEDS: PANTOPRAZOLE 40 MG/10 ML VIAL IVP SCH (22:24)
[2019-08-25] MEDS: APIXABAN 5 MG TAB PO SCH (22:25)
[2019-08-25] MEDS: CHLORHEXIDINE GLUCONATE 15 ML CUP MUCOUS MEM SCH (22:25)
[2019-08-25] MEDS: methylPREDNISolone SOD SUCCI 40 MG/ML 1 ML VIAL IV SCH ×2 (22:25)
[2019-08-26] MEDS: PROPOFOL 1,000 MG in EMPTY BAG 1 BAG IV SCH ×2 (00:23→04:34)
[2019-08-26 01:12] LABS: Appearance,Urine Cloudy (Clear); Bacteria,Urine Occasional /hpf; Bilirubin,Urine Negative (Negative); Blood,Urine Moderate (Negative); Color,Urine Yellow; Glucose,Urine (UA) Negative (Negative); Hyaline Casts,Urine 4 /lpf (0-2); Ketones,Urine Negative (Negative); Leukocyte Esterase,Urine Negative (Negative); Mucus,Urine Rare /hpf; Nitrite,Urine Negative (Negative); PH, Urine 5.5 (5.0-8.0); Protein,Urine 1+ (Negative); RBC,Urine 39 /hpf (0-5); Specific Gravity,Urine 1.017 (1.001-1.035); Squamous Epithelial Cell,Urine 1 /hpf (0-4); WBC,Urine 4 /hpf (0-5)
[2019-08-26 03:13] LABS: Anisocytosis Slight; Basophils % (A) 0 %; Eosinophils # (A) 0.1 k/uL (0-0.7); Eosinophils % (A) 1 %; HGB 13.1 gm/dL (13.0-17.5); Hypochromasia Slight; Lymphocytes # (A) 0.9 k/uL (1.0-4.8); Lymphocytes % (A) 5 %; MCH 28.1 pg (25.0-35.0); MCV 87.9 fL (80.0-100.0); Mean Platelet Volume 7.6; Monocytes # (A) 0.5 k/uL (0-1.0); Monocytes % (A) 3 %; Neutrophils # (A) 18.8 k/uL (1.3-7.7); Neutrophils % (A) 92 %; Platelet Count 142 k/uL (150-450); RBC 4.67 m/uL (4.30-5.90); RDW 16.9 % (11.5-15.5); WBC 20.4 k/uL (3.8-10.6)
[2019-08-26] MEDS: AMIODARONE 300 MG in DEXTROSE 5% IN WATER 250 ML IV SCH ×4 (03:56→18:09)
[2019-08-26] MEDS ORDERED: ALBUTEROL HFA INHALER INHALATION PRN (04:00)
[2019-08-26 04:01] LABS: Calcium 7.3 mg/dL (8.4-10.2); Potassium 4.9 mmol/L (3.5-5.1)
[2019-08-26 05:29] LABS: ABG Base Excess -6.8 mmol/L; ABG HCO3 19 mmol/L (21-25); ABG Oxygen Saturation 99.2 % (94-97); ABG PCO2 36 mmHg (35-45); ABG PH 7.33 (7.35-7.45); ABG PO2 170 mmHg (83-108); ABG TCO2 20 mmol/L (19-24); Allen Test Performed? Yes
[2019-08-26] MEDS: methylPREDNISolone SOD SUCCI 40 MG/ML 1 ML VIAL IV SCH ×4 (06:06→18:12)
[2019-08-26 06:43] LABS: Glucose,Whole Blood 196 mg/dL (75-99)
[2019-08-26] MEDS: NOREPINEPHRINE 4 MG in SODIUM CHLORIDE 0.9% 250 ML IV SCH ×2 (06:43→18:09)
[2019-08-26] MEDS: IPRATROPIUM-ALBUTEROL 3 ML NEB INHALATION SCH ×2 (07:30→11:26)
[2019-08-26 08:01] LABS: Magnesium 1.4 mg/dL (1.6-2.3); Phosphorus 3.4 mg/dL (2.5-4.5)
--- NOTE | 2019-08-26 08:05 | US ---
EXAMINATION TYPE: US kidneys/renal and bladder DATE OF EXAM: 08/26/2019 COMPARISON: CT 2019, US 2018 CLINICAL HISTORY: decreased urine output. Decreased urine output, exam done portable in ICU. EXAM MEASUREMENTS: Right Kidney: 13.3 cm Right Kidney: no hydronephrosis or masses seen Left Kidney: congenitally absent Bladder: not distended, morrison catheter Bilateral Jets seen: no Congenital absence of the left kidney. No hydronephrosis is seen on the right. No right-sided nephrol ithiasis is identified. Cortical medullary differentiation is maintained. No significant cortical kristi al thinning. Urinary bladder is not seen as it is nondistended secondary to Morrison catheter placement. Left renal fossa was imaged. IMPRESSION: No hydronephrosis or nephrolithiasis of the right kidney. Congenitally absent left kidney. No sequela of chronic medical renal disease on the right.
--- NOTE | 2019-08-26 08:26 | XR ---
EXAMINATION TYPE: XR chest 1V portable DATE OF EXAM: 08/26/2019 COMPARISON: 08/25/2019 HISTORY: Ventilatory dependent respiratory failure. TECHNIQUE: Single frontal view of the chest is obtained. FINDINGS: Improved probable peritumoral atelectasis on the left upper lobe in this patient with know n left upper lobe neoplasm. New left basilar consolidation at the costophrenic angle may also relate to atelectasis. Enteric tube courses off the distal [id number] appearing appropriately placed. Lef t-sided subclavian approach central venous catheter is similar in position. Endotracheal tube appears slightly retracted in the interim now measuring 6.5 cm from the jaz although this could be positi onal related to the patient's head positioning. Cardiomediastinal silhouette is nonenlarged. Right gosia ng is clear. IMPRESSION: Improved left upper lobe probable peritumoral atelectasis with new left basilar consolid ation, also likely atelectasis. Endotracheal tube has become more cephalad in position in the interim but may relate to patient positioning. Attention on follow-up exams.
--- NOTE | 2019-08-26 09:25 | CONS ---
CONSULTATION Mr. Perez is a 69-year-old male who was receiving chemotherapy yesterday at the [facility] because squamous cell carcinoma and he collapsed apparently trying to stand up, was reported to have PA,. has a resuscitation for 2 to 3 minutes, was giving epinephrine, intubated with catholic of his rhythm and blood pressure. He had a history of atrial fibrillation with atrial fibrillation and rapid ventricular response on presentation. He is back in sinus mechanism at this time. There was no pause upon conversion. Patient is intubated and sedated. He has a diagnosis of lung cancer in September of 2018 and has received chemotherapy and radiation and has evidence of metastasis. He has a known history of coronary artery disease, underwent cardiac catheterization in September 2018, was found to have mild disease in the LAD and RCA and occluded diagonal branch with a mildly impaired left ventricular systolic function, but subsequent admission. He had worsening in his LV systolic function to the 35%. He also has a history of peripheral vascular disease. His last echocardiogram was performed in March 2019. At that time, his ejection fraction was estimated at 30%-35% percent with segmental wall motion abnormalities. MEDICATION: At the time of admission included Aldactone 25 mg daily, metoprolol tartrate 25 mg twice a day, Eliquis 5 mg twice a day, Lipitor 40 mg daily, Nexium, iron, Breo Ellipta, Lasix 40 mg daily, [place], Flomax. REVIEW OF SYSTEMS: Could not be obtained. PHYSICAL EXAMINATION: A 69-year-old male, intubated, sedated. Blood pressure 106/60 with a heart rate in 60s on IV amiodarone. HEAD: Normocephalic. EYES: Sclerae nonicteric. NECK: No bruit noted. LUNGS: Clear to auscultation anteriorly. HEART: Regular rate and rhythm. S1, S2. No S3 with a systolic murmur heard at the base, ejection type 2/6, no diastolic murmur, no rub. ABDOMEN: Soft, positive bowel sounds. No organomegaly. EXTREMITIES: Trace edema. LAB DATA: Lab data revealed a BUN and creatinine 27 and 1.54, worse than yesterday on admission were 15 and 1.15. His hemoglobin on admission was 12.7. Troponin 1.02 and 1.05. He is coronavirus negative. His chest x-ray revealed the left lung mass. He underwent a CT scan of the brain that showed age-related atrophic and chronic small-vessel disease. His EKG revealed atrial fibrillation, rate of 104 with aberrancy and right axis deviation. IMPRESSION: 1. Cardiopulmonary arrest, initial event is unclear. The patient has no documented evidence of ventricular tachycardia or ventricular fibrillation. He had PEA, exact cause unclear. 2. History of coronary artery disease, stable with minimal elevation of troponin related to the cardiac arrest and CPR. 3. Squamous cell carcinoma with metastasis, receiving chemotherapy and radiation. 4. History of atrial fibrillation, back in sinus mechanism. 5. Peripheral vessel disease. 6. Coronary artery disease, status post cardiac catheterization 2019. 7. Cardiomyopathy by echocardiography performed a year ago. RECOMMENDATION: I will add to his regimen a beta milady. Will continue anticoagulation. Continue amiodarone per protocol. I will obtain echocardiogram with Doppler. Depending on his neurological status, further recommendation will be made. Thank you for this consult. Will follow with you. MMODL / IJN: [id number] /
[2019-08-26] MEDS: METOPROLOL TARTRATE 25 MG TAB PO SCH ×2 (10:01→20:12)
[2019-08-26] MEDS: PANTOPRAZOLE 40 MG/10 ML VIAL IVP SCH (10:01)
[2019-08-26] MEDS: CHLORHEXIDINE GLUCONATE 15 ML CUP MUCOUS MEM SCH (10:01)
[2019-08-26] MEDS: APIXABAN 5 MG TAB PO SCH ×2 (10:01→20:12)
[2019-08-26] MEDS: SODIUM CHLORIDE 0.9% 1,000 ML IV SCH ×2 (10:02→20:23)
--- NOTE | 2019-08-26 10:10 | ECHOF ---
Referral Reason:cardiac arrest MEASUREMENTS -------- HEIGHT: 180.3 cm WEIGHT: 100.2 kg BP: 105/71 IVSd: 1.3 cm (0.6 - 1.1) LVIDd: 4.2 cm (3.9 - 5.3) LVPWd: 1.4 cm (0.6 - 1.1) IVSs: 1.8 cm LVIDs: 2.7 cm LVPWs: 1.7 cm LAESV Index (A-L): 27.50 ml/m Ao Diam: 3.4 cm (2.0 - 3.7) AV Cusp: 2.0 cm (1.5 - 2.6) LA Diam: 3.1 cm (2.7 - 3.8) MV EXCURSION: 15.271 mm (> 18.000) MV EF SLOPE: 30 mm/s (70 - 150) EPSS: 0.5 cm MV E Daniel: 0.43 m/s MV DecT: 183 ms MV A Daniel: 0.47 m/s MV E/A Ratio: 0.92 AR PHT: 1256 ms RAP: 5.00 mmHg RVSP: 19.65 mmHg FINDINGS -------- Sinus rhythm. This was a technically good study. The left ventricular size is normal. There is moderate concentric left ventricular hypertrophy. O verall left ventricular systolic function is normal with, an EF between 55 - 60 %. The diastolic fi lling pattern is normal for the age of the patient 11.86. The right ventricle is normal in size. The left atrial size is normal. Normal LA size by volume 22+/-6 ml/m2. The right atrial size is normal. The aortic valve is trileaflet and appears structurally normal. The mitral valve is normal. There is trace mitral regurgitation. The tricuspid valve appears structurally normal. Trace tricuspid regurgitation present. Right guille tricular systolic pressure is normal at < 35 mmHg. There is no pulmonic regurgitation present. The aortic root size is normal. Normal inferior vena cava with normal inspiratory collapse consistent with estimated right atrial pre ssure of 5 mmHg. There is a trivial pericardial effusion present. CONCLUSIONS -------- 1. Sinus rhythm. 2. This was a technically good study. 3. The left ventricular size is normal. 4. There is moderate concentric left ventricular hypertrophy. 5. Overall left ventricular systolic function is normal with, an EF between 55 - 60 %. 6. The diastolic filling pattern is normal for the age of the patient 11.86 7. The right ventricle is normal in size. 8. The left atrial size is normal. 9. Normal LA size by volume 22+/-6 ml/m2. 10. The right atrial size is normal. 11. The aortic valve is trileaflet and appears structurally normal. 12. The mitral valve is normal. 13. There is trace mitral regurgitation. 14. The tricuspid valve appears structurally normal. 15. Trace tricuspid regurgitation present. 16. Right ventricular systolic pressure is normal at < 35 mmHg. 17. There is no pulmonic regurgitation present. 18. The aortic root size is normal. 19. Normal inferior vena cava with normal inspiratory collapse consistent with estimated right atrial pressure of 5 mmHg. 20. There is a trivial pericardial effusion present. [employer]MENT [employer]ING SUPERVISOR: Yoseiln Cullen RDCS
--- NOTE | 2019-08-26 11:59 | P.HPIM ---
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 he Is a patient of Dr. Carballo, patient could not provide information so it was obtained from the records and staff patient was getting his chemotherapy at the [facility] side of this hospital, when he collapsed and became unresponsive and followed the EEA and tao blue was called, he was resuscitated and the down time was about 2-5 minutes per staff and transferred to the emergency room. He was hypothermic. Patient got intubated and placed on mechanical ventilation, started on norepinephrine drip Echocardiogram: Ejection fraction 55-60%, LVH. Chest x-ray: Improved left upper lobe atelectasis with a new left basilar consolidation suspicious for atelectasis. CT of the brain: No acute process. Renal ultrasound: No hydronephrosis This morning patient was able to come off the vent and he got extubated, currently he is on 5 L oxygen on nasal cannula. He is little confused, however as per son patient usually develops hallucination for 1-3 days postchemotherapy Also patient was started on amiodarone drip for his A. fib, he converted to sinus and this morning and the amiodarone drip will be stopped tonight per protocol. Review of Systems n/a Past Medical History Past Medical History: Atrial Fibrillation, Coronary Artery Disease (CAD), Cancer, Heart Failure, COPD, Eye Disorder, GERD/Reflux, Hyperlipidemia, Hypertension, Myocardial Infarction (IN), Musculoskeletal Disorder, Osteoarthritis (OA), Prostate Disorder, Renal Disease, Vascular Disorder Additional Past Medical History / Comment(s): history of squamous cell lung cancer with mets to skin/subcutaneous tissue-has sore/mass R upper arm, pt states last chemo/radiation was a few months ago, coronary artery disease, CHF with ejection fraction 45-50%, chronic atrial fibrillation, long-term anticoagulation with Eliquis, chronic back pain, single right-sided kidney,history of kidney stones, BPH, COPD Last Myocardial Infarction Date:: 1998 History of Any Multi-Drug Resistant Organisms: None Reported Past Surgical History: Appendectomy, Back Surgery, Heart Catheterization With Stent, Hernia Repair, Orthopedic Surgery Additional Past Surgical History / Comment(s): PCI with stents in 1998 and 2013, bilateral carpal tunnel releases, bilateral shoulder surgery for rotator cuff repairs, bilateral knee arthroscopies, L jaw injury with surgery, abdominal angiography, EGD, colonoscopy, L cataract removal and surgery for "floaters" Past Anesthesia/Blood Transfusion Reactions: No Reported Reaction Date of Last Stent Placement:: 1998, 10/09/13 Smoking Status: Current every day smoker - Past Family History Mother History Unknown: Yes Family Medical History: Cancer Additional Family Medical History / Comment(s): Pt states he does not know his mothers health history/he had no relationship with her. Father Family Medical History: Cancer Additional Family Medical History / Comment(s): Leukemia Medications and Allergies Home Medications Medication Instructions Recorded Confirmed Type ALPRAZolam [Xanax] 1 mg PO BID PRN 09/09/13 08/25/19 History HYDROcodone/APAP 10-325MG [[place] 1 tab PO QID PRN 05/20/17 08/25/19 History 10-325] Esomeprazole Magnesium [NexIUM] 40 mg PO DAILY 12/25/18 08/25/19 History Apixaban [Eliquis] 5 mg PO BID 01/12/19 08/25/19 History Ferrous Sulfate [Feosol] 325 mg PO DAILY 03/18/19 08/25/19 History Fluticasone/Vilanterol [Breo 1 puff INHALATION RT-DAILY 03/18/19 08/25/19 History Ellipta 200-25 Mcg INH] Furosemide [Lasix] 40 mg PO DAILY 03/18/19 08/25/19 History Montelukast [Singulair] 10 mg PO HS 03/18/19 08/25/19 History Tamsulosin HCl [Flomax] 0.4 mg PO HS 03/18/19 08/25/19 History Atorvastatin [Lipitor] 40 mg PO HS 06/15/19 08/25/19 History Albuterol Sulfate [Ventolin HFA] 2 puff INHALATION RT-QID PRN 08/25/19 08/25/19 History Loratadine 10 mg PO DAILY 08/25/19 08/25/19 History Metoprolol Tartrate [Lopressor] 25 mg PO BID 08/25/19 08/25/19 History Spironolactone 25 mg PO DAILY 08/25/19 08/25/19 History Allergies Allergy/AdvReac Type Severity Reaction Status Date / Time No Known Allergies Allergy Verified 08/25/19 09:30 Physical Exam Vitals: Vital Signs Temp Pulse Pulse Resp BP Pulse Ox 08/26/19 07:00 60 22 106/68 98 08/26/19 06:45 59 L 22 110/67 98 08/26/19 06:30 58 L 22 105/71 98 08/26/19 06:15 58 L 22 99/65 98 08/26/19 06:00 60 22 108/69 98 08/26/19 05:45 60 22 103/69 98 08/26/19 05:30 60 22 103/66 98 08/26/19 05:15 59 L 22 99/67 98 08/26/19 05:00 60 22 100/67 98 08/26/19 04:45 60 22 94/66 98 08/26/19 04:30 59 L 22 95/61 98 08/26/19 04:15 60 22 101/68 97 08/26/19 04:00 97.5 F L 61 22 98/65 98 08/26/19 03:45 63 22 123/81 98 08/26/19 03:30 65 22 115/69 97 08/26/19 03:15 63 22 134/77 97 08/26/19 03:00 65 22 126/74 97 08/26/19 02:45 61 22 133/74 97 08/26/19 02:30 62 22 125/76 97 08/26/19 02:15 62 22 125/78 97 08/26/19 02:00 61 22 127/77 97 08/26/19 01:45 63 22 119/76 97 08/26/19 01:30 64 22 117/77 97 08/26/19 01:15 64 22 125/74 96 08/26/19 01:00 66 22 118/76 96 08/26/19 00:45 67 22 116/77 96 08/26/19 00:30 70 22 127/76 96 08/26/19 00:15 68 22 125/75 95 08/26/19 00:00 97.5 F L 68 22 123/74 95 08/25/19 23:45 67 22 121/77 95 04/21/20 23:30 68 22 130/81 94 L 08/25/19 23:15 66 22 116/77 94 L 08/25/19 23:00 67 22 113/74 93 L 08/25/19 22:45 68 22 109/72 92 L 08/25/19 22:30 27 H 111/75 94 L 08/25/19 22:15 66 22 115/85 95 08/25/19 22:00 96 22 110/80 95 08/25/19 21:45 94 22 154/98 96 08/25/19 21:30 113 H 22 126/89 97 08/25/19 21:15 115 H 22 158/100 98 08/25/19 21:00 96 F L 128 H 22 107/95 98 08/25/19 20:46 22 08/25/19 20:30 168/109 08/25/19 20:19 120 H 18 08/25/19 20:10 121 H 22 142/100 100 08/25/19 20:09 118 H 17 08/25/19 20:00 129 H 22 113/101 100 08/25/19 19:50 115 H 22 122/101 100 08/25/19 19:40 117 H 22 135/101 100 08/25/19 19:30 123 H 22 123/100 100 08/25/19 19:20 124 H 22 138/102 100 08/25/19 19:18 121 H 22 100 08/25/19 19:15 113 H 18 117/56 98 08/25/19 18:00 115 H 20 113/72 99 08/25/19 17:30 113 H 20 106/66 98 08/25/19 17:00 125 H 20 163/93 98 08/25/19 16:11 112 H 20 122/70 100 08/25/19 15:36 113 H 08/25/19 15:13 98.8 F 105 H 25 H 79/54 97 Intake and Output 08/25/19 08/26/19 08/26/19 22:59 06:59 14:59 Intake Total 492.041 945.881 75 Output Total 200 160 15 Balance 292.041 785.881 60 Intake: IV 225 600 75 Sodium Chloride 0.9% 1, 225 600 75 000 ml @ 75 mls/hr IV . [id number] [facility] Rx#:[id number] Intake, IV Titration 267.041 345.881 Amount Norepinephrine 4 mg In 254.000 153.030 Sodium Chloride 0.9% 250 ml @ 0.05 MCG/KG/MIN 19. 874 mls/hr IV .[id number] ONE Rx#:[id number] Propofol 1,000 mg In 13.041 Empty Bag 1 bag @ Titrate IV .Q0M ONE Rx#: [id number] Propofol 1,000 mg In 192.851 Empty Bag 1 bag @ Titrate IV .Q0M [facility] Rx#: [id number] Output: Urine 200 160 15 Uretheral ([place]) 50 Other: Voiding Method Indwelling Catheter Indwelling Catheter Weight 104.326 kg 100.4 kg GENERAL: The patient is patient treated HEENT: Pupils are round and equally reacting to light. EOMI. No scleral icterus. No conjunctival pallor. Normocephalic, atraumatic. No pharyngeal erythema. No thyromegaly. CARDIOVASCULAR: S1 and S2 present. No murmurs, rubs, or gallops. PULMONARY: Chest is clear to auscultation, no wheezing or crackles. ABDOMEN: Soft, nontender, nondistended, normoactive bowel sounds. No palpable organomegaly. MUSCULOSKELETAL: No joint swelling or deformity. EXTREMITIES: No cyanosis, clubbing, or pedal edema. NEUROLOGICAL: Gross neurological examination did not reveal any focal deficits. SKIN: No rashes. No petechiae Results CBC & Chem 7: 08/26/19 02:55 08/26/19 02:55 Labs: Abnormal Lab Results - Last 24 Hours (Table) 08/25/19 08/25/19 08/25/19 Range/Units 14:58 15:27 15:27 WBC (3.8-10.6) k/uL Hgb 12.7 L (13.0-17.5) gm/dL RDW 16.7 H (11.5-15.5) % Plt Count (150-450) k/uL Neutrophils # (1.3-7.7) k/uL Lymphocytes # (1.0-4.8) k/uL PT 12.9 H (9.0-12.0) sec INR 1.3 H (<1.2) APTT 35.8 H (22.0-30.0) sec ABG pH (7.35-7.45) ABG pCO2 (35-45) mmHg ABG pO2 (83-108) mmHg ABG HCO3 (21-25) mmol/L ABG O2 Saturation (94-97) % Sodium (137-145) mmol/L Chloride (98-107) mmol/L Carbon Dioxide (22-30) mmol/L BUN (9-20) mg/dL Creatinine (0.66-1.25) mg/dL Glucose (74-99) mg/dL POC Glucose (mg/dL) 139 H (75-99) mg/dL Calcium (8.4-10.2) mg/dL Magnesium (1.6-2.3) mg/dL Alkaline Phosphatase (38-126) U/L Troponin I (0.000-0.034) ng/mL Total Protein (6.3-8.2) g/dL Albumin (3.5-5.0) g/dL Urine Protein (Negative) Urine Blood (Negative) Urine RBC (0-5) /hpf Urine Bacteria (None) /hpf Hyaline Casts (0-2) /lpf Urine Mucus (None) /hpf 08/25/19 08/25/19 08/25/19 Range/Units 15:27 15:36 20:50 WBC (3.8-10.6) k/uL Hgb (13.0-17.5) gm/dL RDW (11.5-15.5) % Plt Count (150-450) k/uL Neutrophils # (1.3-7.7) k/uL Lymphocytes # (1.0-4.8) k/uL PT (9.0-12.0) sec INR (<1.2) APTT (22.0-30.0) sec ABG pH 7.17 L* (7.35-7.45) ABG pCO2 54 H (35-45) mmHg ABG pO2 >400 H (83-108) mmHg ABG HCO3 20 L (21-25) mmol/L ABG O2 Saturation 99.7 H (94-97) % Sodium (137-145) mmol/L Chloride 113 H (98-107) mmol/L Carbon Dioxide 19 L (22-30) mmol/L BUN (9-20) mg/dL Creatinine (0.66-1.25) mg/dL Glucose 145 H (74-99) mg/dL POC Glucose (mg/dL) 162 H (75-99) mg/dL Calcium 7.3 L (8.4-10.2) mg/dL Magnesium 1.5 L (1.6-2.3) mg/dL Alkaline Phosphatase 161 H (38-126) U/L Troponin I (0.000-0.034) ng/mL Total Protein 5.2 L (6.3-8.2) g/dL Albumin 2.9 L (3.5-5.0) g/dL Urine Protein (Negative) Urine Blood (Negative) Urine RBC (0-5) /hpf Urine Bacteria (None) /hpf Hyaline Casts (0-2) /lpf Urine Mucus (None) /hpf 08/25/19 08/26/19 08/26/19 Range/Units 21:10 00:50 02:55 WBC (3.8-10.6) k/uL Hgb (13.0-17.5) gm/dL RDW (11.5-15.5) % Plt Count (150-450) k/uL Neutrophils # (1.3-7.7) k/uL Lymphocytes # (1.0-4.8) k/uL PT (9.0-12.0) sec INR (<1.2) APTT (22.0-30.0) sec ABG pH (7.35-7.45) ABG pCO2 (35-45) mmHg ABG pO2 (83-108) mmHg ABG HCO3 (21-25) mmol/L ABG O2 Saturation (94-97) % Sodium (137-145) mmol/L Chloride (98-107) mmol/L Carbon Dioxide (22-30) mmol/L BUN (9-20) mg/dL Creatinine (0.66-1.25) mg/dL Glucose (74-99) mg/dL POC Glucose (mg/dL) (75-99) mg/dL Calcium (8.4-10.2) mg/dL Magnesium (1.6-2.3) mg/dL Alkaline Phosphatase (38-126) U/L Troponin I 1.020 H* 1.050 H* (0.000-0.034) ng/mL Total Protein (6.3-8.2) g/dL Albumin (3.5-5.0) g/dL Urine Protein 1+ H (Negative) Urine Blood Moderate H (Negative) Urine RBC 39 H (0-5) /hpf Urine Bacteria Occasional H (None) /hpf Hyaline Casts 4 H (0-2) /lpf Urine Mucus Rare H (None) /hpf 08/26/19 08/26/19 08/26/19 Range/Units 02:55 02:55 02:55 WBC 20.4 H (3.8-10.6) k/uL Hgb (13.0-17.5) gm/dL RDW 16.9 H (11.5-15.5) % Plt Count 142 L (150-450) k/uL Neutrophils # 18.8 H (1.3-7.7) k/uL Lymphocytes # 0.9 L (1.0-4.8) k/uL PT (9.0-12.0) sec INR (<1.2) APTT (22.0-30.0) sec ABG pH (7.35-7.45) ABG pCO2 (35-45) mmHg ABG pO2 (83-108) mmHg ABG HCO3 (21-25) mmol/L ABG O2 Saturation (94-97) % Sodium 136 L (137-145) mmol/L Chloride 112 H (98-107) mmol/L Carbon Dioxide 17 L (22-30) mmol/L BUN 27 H (9-20) mg/dL Creatinine 1.54 H (0.66-1.25) mg/dL Glucose 186 H (74-99) mg/dL POC Glucose (mg/dL) (75-99) mg/dL Calcium 7.3 L (8.4-10.2) mg/dL Magnesium 1.4 L (1.6-2.3) mg/dL Alkaline Phosphatase (38-126) U/L Troponin I (0.000-0.034) ng/mL Total Protein (6.3-8.2) g/dL Albumin (3.5-5.0) g/dL Urine Protein (Negative) Urine Blood (Negative) Urine RBC (0-5) /hpf Urine Bacteria (None) /hpf Hyaline Casts (0-2) /lpf Urine Mucus (None) /hpf 04/22/20 04/22/20 Range/Units 05:22 06:41 WBC (3.8-10.6) k/uL Hgb (13.0-17.5) gm/dL RDW (11.5-15.5) % Plt Count (150-450) k/uL Neutrophils # (1.3-7.7) k/uL Lymphocytes # (1.0-4.8) k/uL PT (9.0-12.0) sec INR (<1.2) APTT (22.0-30.0) sec ABG pH 7.33 L (7.35-7.45) ABG pCO2 (35-45) mmHg ABG pO2 170 H (83-108) mmHg ABG HCO3 19 L (21-25) mmol/L ABG O2 Saturation 99.2 H (94-97) % Sodium (137-145) mmol/L Chloride (98-107) mmol/L Carbon Dioxide (22-30) mmol/L BUN (9-20) mg/dL Creatinine (0.66-1.25) mg/dL Glucose (74-99) mg/dL POC Glucose (mg/dL) 196 H (75-99) mg/dL Calcium (8.4-10.2) mg/dL Magnesium (1.6-2.3) mg/dL Alkaline Phosphatase (38-126) U/L Troponin I (0.000-0.034) ng/mL Total Protein (6.3-8.2) g/dL Albumin (3.5-5.0) g/dL Urine Protein (Negative) Urine Blood (Negative) Urine RBC (0-5) /hpf Urine Bacteria (None) /hpf Hyaline Casts (0-2) /lpf Urine Mucus (None) /hpf Assessment and Plan Assessment: status post cardiac arrest and PEA. with acute hypoxic respiratory failure requiring intubation and Extubation left upper lobe squamous cell lung cancer with metastasis including the skin status post chemo and radiotherapy Acute delirium and metabolic encephalopathy, secondary to above Chronic atrial fibrillation, was on Eliquis Chronic systolic heart failure History of coronary artery disease status post stent COPD GERD one sided kidney on the right Hyperlipidemia Hypertension Osteoarthritis benign prostatic hypertrophy history of Chronic back pain Plan: this is a 69 years old male who presents with cardiac arrest status post intubation. Patient kept on IV fluid, vent management as per pulmonary/critical care team or the case. Trying to wean off the norepinephrine. Continue with steroids. Cardiology consult and consult oncology service Labs and medication were reviewed.. Continue same treatment. Continue with symptomatic treatment. Resume home medication. Monitor lytes and vitals. DVT and GI prophylaxis. Further recommendations of the clinical course of the patient DVT prophylaxis: eliquis GI Prophylaxis: Ppi Prognosis is guarded
[2019-08-26 12:58] LABS: Glucose,Whole Blood 164 mg/dL (75-99)
[2019-08-26] MEDS: INSULIN ASPART (NovoLOG) 100 UNIT/ML VIAL SQ SCH ×3 (13:00→18:11)
--- NOTE | 2019-08-26 14:15 | P.PN ---
Subjective Progress Note Date: 08/26/19 This is a 69-year-old male patient diagnosed having squamous cell carcinoma lung was undergoing systemic chemotherapy on outpatient setting with the patient's acutely collapse and the patient was found to be in PEA during which a CODE BLUE was called and the patient was resuscitated for a total of 2-3 minutes during which she was given epinephrine, received CPR, intubated and there was return of spontaneous circulation and pulse and blood pressure. Following that the patient got transferred to the emergency department where I had the chance to evaluate the patient. The patient was already intubated on a mechanical ventilator. The patient was sedated with propofol. The patient was also started on pressors and norepinephrine was being titrated to bring up the mean artery pressure above 65. He was started on IV fluids also. A triple lumen catheter was established in the left subclavian vein. The chest x-ray post-line insertion shows no acute abnormalities. There is a left upper lobe mass which was seen on previous chest x-ray consistent with his history of lung cancer. Post intubation blood gases showed a pH of 7.17 with a pCO2 of 54 and pO2 more than 400. Necessity ventilator changes were done and the patient was placed on a tidal volume of 500 with a rate of 20 and FiO2 was gradually weaned off to maintain a saturation above 90%. The rest of the blood work showed a normal w yanet cell count, normal hemoglobin, normal coagulation profile, calcium level of 7.3, magnesium level of 1.8, troponin of 0.026, electrolytes showed a mild non- anion gap metabolic acidosis. EKG was consistent with atrial fibrillation and a rapid ventricular response. His current heart rate is 123, A. fib. This patient is known case of lung cancer. He initially presented in September 2018 with a left perihilar mass. CAT scan of the chest showed a 5.4 x 3.8 cm soft tissue mass adjacent to the left main pulmonary artery with enlarged pretracheal lymph nodes. The patient also had a PET scan that showed increased uptake within the left suprahilar mass and there was some opacity extending superiorly anterior to the area with a 1.2 cm cavitary lesion in this area measuring an SUV of 4.9. This soft tissue extension occluded the left upper lobe bronchus partially. There was also an incidental uptake in the right upper extremity and a biopsy of the right upper extremity lesion was also consistent with squamous cell carcinoma, likely metastatic disease. The patient was started on systemic ivon motherapy and it was decided to treat him with radiation as the metastatic focus in the right upper extremity was considered to be in a legal metastases and he was treated for curative intent. He was given combination of chemoradiation therapy with received weekly carboplatinum and Taxol as of 12/16/2018 and he completed radiation therapy in early February 2019. He was subsequently admitted to the hospital for atrial fibrillation with rapid ventricular response. He was found to have an intermediate probability VQ scan. He was started to coagulation with Eliquis. 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 CAT scan of the chest from 05/04/2019 showed a stable left upper lobe mass measuring 2.2 cm and is stable precarinal lymph node measuring 1.6 x 1.3 cm. He continued to receive chemotherapy and during the course of treatment he was noted to have a heart mass developing in the right axilla which was shaking with systemic chemotherapy. Noted the patient was tolerating systemic chemotherapy rather well and his treatment was initiated as the patient developed progression in the right axillary lesion and he continued to receive a combination of carboplatinum and Taxol and he was supposed to have Keytruda added to his regimen. He was un geraldo the care of Dr. Carballo. The patient also has history of coronary artery disease, hypertension, hyperlipidemia and peripheral vascular disease. He is known to have COPD as comorbidities. The patient's has history of chronic atrial fibrillation and has been anticoagulation. He has a single kidney which is only a right-sided kidney. His other comorbidities include BPH, and history of kidney stones. He has undergone previous cardiac catheterization in September 2018 and the patient was found to have mild disease involving the LAD and RCA with an occluded diagonal branch. His previous echocardiogram done in December 2018 had shown ejection fraction 45-50% in addition to moderate pulmonary hypertension with a PA pressure 42 along with some segmental wall motion abnormalities in the most recent CAT scan of the chest abdomen and pelvis that was done on 07/20/2019 showed a stable left hilar and suprahilar mass unchanged from previous evaluation in addition to a satellite left apical nodule measuring 7 mm in size and there was a new area of lymphadenopathy in the right axillary measuring 1.9 cm and is stable 1.6 cm soft tissue nodule in the left adrenal bed stable compared to previous evaluation. He had a tiny left-sided pleural effusion also. On today's evaluation of 08/26/2019, the patient is being seen in follow-up. As mentioned earlier, the patient is post cardiac arrest. The patient had a brief cardiac arrest, that was less than 5 minutes during which she was found to be in PEA. Overnight the patient was kept on a mechanical ventilator. This morning, he is still on propofol which will be taken off and his mental status will be assessed. In terms of his ventilator septic, the patient on a assist-control at the rate of 22 with tidal volume of 550 and FiO2 of 50% with a PEEP of 5. Peak air pressures 26. Static pressure is 16. The patient is on norepinephrine infusion running at 0.05 mg per KG per minute. The patient is also on normal saline running at 75 mL an hour. He remains in atrial fibrillation. Around 10:00 when he converted back into sinus rhythm and the patient is still on amiodarone maintenance. The chest x-ray shows no interval change. There is no acute abnormalities. There is a left upper lobe opacity which has remained unchanged and this is related to his lung cancer. No significant respiratory secretions. Blood gases from today showed a pH of 7.33 with a pCO2 of 36 and pO2 of 170. The white cell count is at 20. The patient is afebrile. Creatinine is at 1.5 with a BMI of 27. The calcium level is at 7.3. The troponin levels were at 1.02 and 1.05 respectively. The echo of the heart showed a moderate concentric LVH, EF around 55-60%, there was some diastolic filling pattern, no significant valvular abnormalities noted and there was a trivial pericardial effusion. CAT scan of the brain was also negative for an acute abnormalities. When the process of giving this patient a sedation holiday to assess his mental status and assess his readiness for further weaning. Objective - Vital Signs Vital signs: Vital Signs Temp 97.4 F L 08/26/19 12:00 Pulse 68 08/26/19 14:00 Resp 13 08/26/19 14:00 BP 150/85 08/26/19 14:00 Pulse Ox 98 08/26/19 14:00 Intake & Output 08/25/19 08/26/19 08/26/19 18:59 06:59 18:59 Intake Total 66.038 1371.884 728.817 Output Total 50 310 540 Balance 16.038 1061.884 188.817 Weight 104.326 kg 100.4 kg Intake: IV 825 600 Sodium Chloride 0.9% 1, 825 600 000 ml @ 75 mls/hr IV . [id number] [facility] Rx#:[id number] Intake, IV Titration 66.038 546.884 128.817 Amount Norepinephrine 4 mg In 52.997 354.033 Sodium Chloride 0.9% 250 ml @ 0.05 MCG/KG/MIN 19. 874 mls/hr IV .[id number] [facility] Rx#:[id number] Norepinephrine 4 mg In 28.817 Sodium Chloride 0.9% 250 ml @ 0.05 MCG/KG/MIN 19. 874 mls/hr IV .[id number] [facility] Rx#:[id number] Propofol 1,000 mg In 13.041 Empty Bag 1 bag @ Titrate IV .Q0M [facility] Rx#: [id number] Propofol 1,000 mg In 192.851 100 Empty Bag 1 bag @ Titrate IV .Q0M [facility] Rx#: [id number] Output: Urine 50 310 540 Uretheral (Flores) 50 Other: Voiding Method Indwelling Catheter # Bowel Movements 1 - Exam gen. appearance, comfortable not in distress and currently the patient is propofol for sedation. The patient has an orogastric and orotracheal tube are b oth of them out of place. Head exam was generally normal. There was no scleral icterus or corneal arcus. Mucous membranes were moist. Neck was supple and without jugular venous distension, thyromegaly, or carotid bruits. Carotids were easily palpable bilaterally. There was no adenopathy. Lungs were diminishedbreath sounds to auscultation and percussion, and with normal diaphragmatic excursion. positive wheezes or rales were noted. Scattered external wheezes throughout the lung lange bilaterally Cardiac exam revealed the PMI to be normally situated and sized. The rhythm was regular and no extrasystoles were noted during several minutes of auscultation. The first and second heart sounds were normal and physiologic splitting of the second heart sound was noted. There were no murmurs, rubs, clicks, or gallops. Abdominal exam revealed normal bowel sounds. The abdomen was soft, non-tender, and without masses, organomegaly, or appreciable enlargement of the abdominal aorta. Examination of the extremities revealed easily palpable radial, femoral and pedal pulses. There was no cyanosis, clubbing or edema. The patient has a scar of a previous surgical resection of a skin lesion in the right forearm. There is some right axillary lymphadenopathy Examination of the skin revealed no evidence of significant rashes, suspicious appearing nevi or other concerning lesions. Neurologic the patient is sedated, comfortable likely distress - Labs CBC & Chem 7: 08/26/19 02:55 08/26/19 02:55 Labs: Abnormal Lab Results - Last 24 Hours (Table) 08/25/19 08/25/19 08/25/19 Range/Units 14:58 15:27 15:27 WBC (3.8-10.6) k/uL Hgb 12.7 L (13.0-17.5) gm/dL RDW 16.7 H (11.5-15.5) % Plt Count (150-450) k/uL Neutrophils # (1.3-7.7) k/uL Lymphocytes # (1.0-4.8) k/uL PT 12.9 H (9.0-12.0) sec INR 1.3 H (<1.2) APTT 35.8 H (22.0-30.0) sec ABG pH (7.35-7.45) ABG pCO2 (35-45) mmHg ABG pO2 (83-108) mmHg ABG HCO3 (21-25) mmol/L ABG O2 Saturation (94-97) % Sodium (137-145) mmol/L Chloride (98-107) mmol/L Carbon Dioxide (22-30) mmol/L BUN (9-20) mg/dL Creatinine (0.66-1.25) mg/dL Glucose (74-99) mg/dL POC Glucose (mg/dL) 139 H (75-99) mg/dL Calcium (8.4-10.2) mg/dL Magnesium (1.6-2.3) mg/dL Alkaline Phosphatase (38-126) U/L Troponin I (0.000-0.034) ng/mL Total Protein (6.3-8.2) g/dL Albumin (3.5-5.0) g/dL Urine Protein (Negative) Urine Blood (Negative) Urine RBC (0-5) /hpf Urine Bacteria (None) /hpf Hyaline Casts (0-2) /lpf Urine Mucus (None) /hpf 08/25/19 08/25/19 08/25/19 Range/Units 15:27 15:36 20:50 WBC (3.8-10.6) k/uL Hgb (13.0-17.5) gm/dL RDW (11.5-15.5) % Plt Count (150-450) k/uL Neutrophils # (1.3-7.7) k/uL Lymphocytes # (1.0-4.8) k/uL PT (9.0-12.0) sec INR (<1.2) APTT (22.0-30.0) sec ABG pH 7.17 L* (7.35-7.45) ABG pCO2 54 H (35-45) mmHg ABG pO2 >400 H (83-108) mmHg ABG HCO3 20 L (21-25) mmol/L ABG O2 Saturation 99.7 H (94-97) % Sodium (137-145) mmol/L Chloride 113 H (98-107) mmol/L Carbon Dioxide 19 L (22-30) mmol/L BUN (9-20) mg/dL Creatinine (0.66-1.25) mg/dL Glucose 145 H (74-99) mg/dL POC Glucose (mg/dL) 162 H (75-99) mg/dL Calcium 7.3 L (8.4-10.2) mg/dL Magnesium 1.5 L (1.6-2.3) mg/dL Alkaline Phosphatase 161 H (38-126) U/L Troponin I (0.000-0.034) ng/mL Total Protein 5.2 L (6.3-8.2) g/dL Albumin 2.9 L (3.5-5.0) g/dL Urine Protein (Negative) Urine Blood (Negative) Urine RBC (0-5) /hpf Urine Bacteria (None) /hpf Hyaline Casts (0-2) /lpf Urine Mucus (None) /hpf 08/25/19 08/26/19 08/26/19 Range/Units 21:10 00:50 02:55 WBC (3.8-10.6) k/uL Hgb (13.0-17.5) gm/dL RDW (11.5-15.5) % Plt Count (150-450) k/uL Neutrophils # (1.3-7.7) k/uL Lymphocytes # (1.0-4.8) k/uL PT (9.0-12.0) sec INR (<1.2) APTT (22.0-30.0) sec ABG pH (7.35-7.45) ABG pCO2 (35-45) mmHg ABG pO2 (83-108) mmHg ABG HCO3 (21-25) mmol/L ABG O2 Saturation (94-97) % Sodium (137-145) mmol/L Chloride (98-107) mmol/L Carbon Dioxide (22-30) mmol/L BUN (9-20) mg/dL Creatinine (0.66-1.25) mg/dL Glucose (74-99) mg/dL POC Glucose (mg/dL) (75-99) mg/dL Calcium (8.4-10.2) mg/dL Magnesium (1.6-2.3) mg/dL Alkaline Phosphatase (38-126) U/L Troponin I 1.020 H* 1.050 H* (0.000-0.034) ng/mL Total Protein (6.3-8.2) g/dL Albumin (3.5-5.0) g/dL Urine Protein 1+ H (Negative) Urine Blood Moderate H (Negative) Urine RBC 39 H (0-5) /hpf Urine Bacteria Occasional H (None) /hpf Hyaline Casts 4 H (0-2) /lpf Urine Mucus Rare H (None) /hpf 08/26/19 08/26/19 08/26/19 Range/Units 02:55 02:55 02:55 WBC 20.4 H (3.8-10.6) k/uL Hgb (13.0-17.5) gm/dL RDW 16.9 H (11.5-15.5) % Plt Count 142 L (150-450) k/uL Neutrophils # 18.8 H (1.3-7.7) k/uL Lymphocytes # 0.9 L (1.0-4.8) k/uL PT (9.0-12.0) sec INR (<1.2) APTT (22.0-30.0) sec ABG pH (7.35-7.45) ABG pCO2 (35-45) mmHg ABG pO2 (83-108) mmHg ABG HCO3 (21-25) mmol/L ABG O2 Saturation (94-97) % Sodium 136 L (137-145) mmol/L Chloride 112 H (98-107) mmol/L Carbon Dioxide 17 L (22-30) mmol/L BUN 27 H (9-20) mg/dL Creatinine 1.54 H (0.66-1.25) mg/dL Glucose 186 H (74-99) mg/dL POC Glucose (mg/dL) (75-99) mg/dL Calcium 7.3 L (8.4-10.2) mg/dL Magnesium 1.4 L (1.6-2.3) mg/dL Alkaline Phosphatase (38-126) U/L Troponin I (0.000-0.034) ng/mL Total Protein (6.3-8.2) g/dL Albumin (3.5-5.0) g/dL Urine Protein (Negative) Urine Blood (Negative) Urine RBC (0-5) /hpf Urine Bacteria (None) /hpf Hyaline Casts (0-2) /lpf Urine Mucus (None) /hpf 08/26/19 08/26/19 08/26/19 Range/Units 05:22 06:41 12:56 WBC (3.8-10.6) k/uL Hgb (13.0-17.5) gm/dL RDW (11.5-15.5) % Plt Count (150-450) k/uL Neutrophils # (1.3-7.7) k/uL Lymphocytes # (1.0-4.8) k/uL PT (9.0-12.0) sec INR (<1.2) APTT (22.0-30.0) sec ABG pH 7.33 L (7.35-7.45) ABG pCO2 (35-45) mmHg ABG pO2 170 H (83-108) mmHg ABG HCO3 19 L (21-25) mmol/L ABG O2 Saturation 99.2 H (94-97) % Sodium (137-145) mmol/L Chloride (98-107) mmol/L Carbon Dioxide (22-30) mmol/L BUN (9-20) mg/dL Creatinine (0.66-1.25) mg/dL Glucose (74-99) mg/dL POC Glucose (mg/dL) 196 H 164 H (75-99) mg/dL Calcium (8.4-10.2) mg/dL Magnesium (1.6-2.3) mg/dL Alkaline Phosphatase (38-126) U/L Troponin I (0.000-0.034) ng/mL Total Protein (6.3-8.2) g/dL Albumin (3.5-5.0) g/dL Urine Protein (Negative) Urine Blood (Negative) Urine RBC (0-5) /hpf Urine Bacteria (None) /hpf Hyaline Casts (0-2) /lpf Urine Mucus (None) /hpf Assessment and Plan Plan: 1 acute cardiac pulmonary arrest, patient was found to be in PEA , exact cause is not clear. The patient is currently under investigation. The patient's downtime was very limited, less than 5 minutes during which she received CPR, epinephrine, intubated and placed on a mechanical ventilator. Currently sedated with propofol. The patient is hemodynamically improving. On 08/26/2019, the patient remains intubated on a mechanical ventilator and the patient is sedated. Overnight he converted into a normal sinus rhythm and the patient is on amiodarone maintenance, IV. The patient did have some minimal troponin elevation. Nevertheless, the echo of the heart was essentially within normal limits. Chest x-ray remains clear from any acute pulmonary infiltration. Developed some mild leukocytosis which is likely reactive. He also has developed an acute kidney injury with a creatinine of 1.5. Nevertheless, overall he is doing well and he remains on low-dose norepinephrine infusion running at 0.05 g per KG per minute for hemodynamic support. 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 The patient was treated with systemic chemotherapy and radiation therapy for curative intent. The patient was found to have a right axillary mass consistent with metastases and the patient was started on systemic chemotherapy by oncology. Original diagnosis established and 2019. 4 COPD, with secondary exacerbation currently on a combination of bronchodilators and steroids 5 coronary artery disease with previous coronary intervention and the results of the cardiac catheterization from 2019 showed nonocclusive disease 6 chronic atrial fibrillation, currently back into normal sinus rhythm 7 peripheral vascular disease 8 solitary kidney, right-sided within normal kidney function 9 BPH and history of nephrolithiasis 10 hyperlipidemia 11 acute leukocytosis 12 acute kidney injury in the creatinine is up to 1.5 plan The patient's Covid 19 evaluation came back negative The patient will be given a sedation holiday and taken off the propofol We will assess the patient's readiness to wean once the patient is taken off the sedation and he demonstrated adequate mentation The patient is adequately resuscitated IV fluids. We'll keep the maintenance IV fluid with normal saline 75 mL an hour Continue amiodarone IV for recommendations on by cardiology Echo was noted Wean off pressors to maintain a mean artery pressure above 65. The patient is currently on norepinephrine infusion DuoNeb nebulized treatments around the clock iV Solu-Medrol IV Protonix Resume Eliquis Monitor cardiac enzymes Echocardiogram in a.m. regarding LV function Cardiology consultation regarding cardiopulmonary arrest, is appreciated CT of the brain no contrast, was negative for neck abnormalities We'll make further recommendations based on his progress. The patient will be taken off sedation for now in this patient for possible extubation depending on his condition and clinical response. This evaluation was on a more than 30 minutes. Time with Patient: Greater than 30
[2019-08-26] MEDS: ALBUTEROL HFA INHALER INHALATION SCH ×2 (15:52→20:06)
--- NOTE | 2019-08-26 15:55 | CONS ---
CONSULTATION REASON FOR CONSULT: Renal failure. HISTORY OF PRESENT ILLNESS: Patient is a 69-year-old male who was admitted to the hospital yesterday as he had a cardiac arrest while receiving chemotherapy at [facility]. He had developed PEA; however, he was not down for too long, did receive CPR for a very short time, down time was about 2-3 minutes. Patient was actually extubated this morning. He is currently doing well. He was noted to have a serum creatinine of 1.54 mg/dL which has gone up from 1.15 yesterday. Previous creatinine was 1.08 on 08/24 and a creatinine of 1.11 on 07/20/2019. Currently patient has good urine output. He does have a solitary kidney, which is his right kidney. The patient has had left nephrectomy previously. He is being treated for squamous cell lung cancer with metastasis to the skin. He is maintained on chemotherapy and radiation therapy. PAST MEDICAL HISTORY: Atrial fibrillation, coronary artery disease, CHF, COPD, hypertension, [place], hyperlipidemia, osteoarthritis, BPH, squamous cell lung cancer with metastasis to the right arm and skin, history of CHF cardiomyopathy, EF 45%-50%. Chronic atrial fibrillation. History of left nephrectomy unclear as to reason. I am not sure if it was related to his history of nephrolithiasis versus underlying renal cell cancer. PAST SURGICAL HISTORY: Appendectomy, cardiac catheterization, coronary stent placement, hernia repair, carpal tunnel release, rotator cuff surgery, knee arthroscopies, colonoscopy. SOCIAL HISTORY: Positive for smoking. No history of drug abuse, alcohol abuse. MEDICATIONS: Prior to admission, Xanax, [place], Nexium, Eliquis, iron, Breo, Lasix Singulair, Flomax, Lipitor, Lopressor, loratadine, spironolactone. ALLERGIES: None. PHYSICAL EXAMINATION: Patient is currently comfortable, awake, he is not in any acute distress. He is resting comfortably. Blood pressure this morning was 110/77, heart rate 60 per minute, he is afebrile. Examination of the abdomen reveals it to be soft, nontender. Examination of the lower extremities shows no significant edema. [employer] exam shows patient moving all 4 extremities. He is awake, he is sleepy but arousable. He follows commands. LABS: Show sodium 136, potassium 4.9, chloride 112, CO2 is 17, BUN 27, creatinine 1.54. Troponin 1.050. UA shows 1+ protein, blood moderate, RBCs 39, WBCs 4. ASSESSMENT: 1. Acute kidney injury, status post cardiac arrest, currently nonoliguric. No nephrotoxic medications on board. Continue with IV fluids, repeat labs in a.m. 2. Rule out chronic kidney disease stage III secondary to diabetic nephropathy and nephrosclerosis. Previous creatinine has been around 1.1 mg/dL. 3. Atrial fibrillation status post amiodarone, converted to sinus rhythm, maintained on Eliquis. 4. History of left nephrectomy. Unclear whether it was related to malignancy. 5. Metabolic acidosis. Add oral sodium bicarb. Etiology is associated with underlying renal failure and IV fluids. PLAN: Add oral sodium bicarb, continue IV fluids. Repeat labs in a.m. Continue to avoid nephrotoxic medications. Thank you for this consultation. Will continue to follow the patient with you during his hospitalization. MMODL / IJN: [id number] /
[2019-08-26 17:39] LABS: Glucose,Whole Blood 134 mg/dL (75-99)
[2019-08-26] MEDS: SODIUM BICARBONATE TAB 650 MG TAB PO SCH (20:12)
--- NOTE | 2019-08-26 20:49 | P.CONS ---
History of Present Illness - Reason for Consult Consult date: 08/26/19 Lung Cancer Requesting physician: Donnie Salmeron - Chief Complaint Respiratory Failure - History of Present Illness Mr Perez is a pleasant white male with multiple medical problems. The patient has a history of pain in the mid chest area in a bandlike distribution, descr ibed as burning in nature. This actually has been chronic for several months. He was complaining of possibly some change in that as well as a pressure sensation, leading to a chest x-ray on 09/25/18. This showed possibility of a mass in the left perihilar region. A CT of the chest was done on 10/09/18 revealing 3.8 x 5.4 cm soft tissue mass adjacent to the left main pulmonary artery with an enlarged pretracheal lymph node. The patient was referred to pulmonary medicine, Dr. Pena, and had a PET scan on 10/18/18. This showed a left suprahilar mass measuring 4.4 x 4 cm with indistinct margins from adjacent mediastinum with SUV of 23.39. There is some opacity extending superior and anterior to this with nodularity. There was a 1.2 cm cavitary lesion in this area with SUV of 4.97. The soft tissue extension into the left hilar region with occlusion of the left upper lobe bronchus. An enlarged precarinal node was seen without associated uptake. There was no other areas of uptake noted. Incidentally there was a hypermetabolic focus noted in the right upper extremity. The patient had navigational bronchoscopy with biopsy on 10/31/18. Lavage and fine-needle aspiration revealed highly atypical cells consistent with non-small cell carcinoma with IHC consistent with pulmonary origin He was treated in 2019 with chemotherapy and responded but did have residual tumor on his RUE and referred to [facility] March 2019. He then resumed chemotherapy Carboplatin and taxol at the beginning of year. He had been tolerating well until his last treatment in the hospital infusion room this week. Yesterday during chemo he went into cardiac arrest with PEA, requiring intubation and ventilation. He has since been extubated. His Palpable right axillary mass is not palpable, showing response to treatment, during evaluation he states he wants to go home. Review of Systems Poor historian, a 14 point review was assessed and completed and all negative except HPI Past Medical History Past Medical History: Atrial Fibrillation, Coronary Artery Disease (CAD), Cancer, Heart Failure, COPD, Eye Disorder, GERD/Reflux, Hyperlipidemia, Hypertension, Myocardial Infarction ([place]), Musculoskeletal Disorder, Osteoa rthritis (OA), Prostate Disorder, Renal Disease, Vascular Disorder Additional Past Medical History / Comment(s): history of squamous cell lung cancer with mets to skin/subcutaneous tissue-has sore/mass R upper arm, pt states last chemo/radiation was a few months ago, coronary artery disease, CHF with ejection fraction 45-50%, chronic atrial fibrillation, long-term anticoag ulation with Eliquis, chronic back pain, single right-sided kidney,history of kidney stones, BPH, COPD Last Myocardial Infarction Date:: 1998 History of Any Multi-Drug Resistant Organisms: None Reported Past Surgical History: Appendectomy, Back Surgery, Heart Catheterization With Stent, Hernia Repair, Orthopedic Surgery Additional Past Surgical History / Comment(s): PCI with stents in 1998 and 2013, bilateral carpal tunnel releases, bilateral shoulder surgery for rotator cuff repairs, bilateral knee arthroscopies, L jaw injury with surgery, abdominal angiography, EGD, colonoscopy, L cataract removal and surgery for "floaters" Past Anesthesia/Blood Transfusion Reactions: No Reported Reaction Date of Last Stent Placement:: 1998, 10/09/13 Smoking Status: Current every day smoker - Past Family History Mother History Unknown: Yes Family Medical History: Cancer Additional Family Medical History / Comment(s): Pt states he does not know his mothers health history/he had no relationship with her. Father Family Medical History: Cancer Additional Family Medical History / Comment(s): Leukemia Medications and Allergies Home Medications Medication Instructions Recorded Confirmed Type ALPRAZolam [Xanax] 1 mg PO BID PRN 09/09/13 08/25/19 History HYDROcodone/APAP 10-325MG [[place] 1 tab PO QID PRN 05/20/17 08/25/19 History 10-325] Esomeprazole Magnesium [NexIUM] 40 mg PO DAILY 12/25/18 08/25/19 History Apixaban [Eliquis] 5 mg PO BID 01/12/19 08/25/19 History Ferrous Sulfate [Feosol] 325 mg PO DAILY 03/18/19 08/25/19 History Fluticasone/Vilanterol [Breo 1 puff INHALATION RT-DAILY 03/18/19 08/25/19 History Ellipta 200-25 Mcg INH] Furosemide [Lasix] 40 mg PO DAILY 03/18/19 08/25/19 History Montelukast [Singulair] 10 mg PO HS 03/18/19 08/25/19 History Tamsulosin HCl [Flomax] 0.4 mg PO HS 03/18/19 08/25/19 History Atorvastatin [Lipitor] 40 mg PO HS 06/15/19 08/25/19 History Albuterol Sulfate [Ventolin HFA] 2 puff INHALATION RT-QID PRN 08/25/19 08/25/19 History Loratadine 10 mg PO DAILY 08/25/19 08/25/19 History Metoprolol Tartrate [Lopressor] 25 mg PO BID 08/25/19 08/25/19 History Spironolactone 25 mg PO DAILY 08/25/19 08/25/19 History Allergies Allergy/AdvReac Type Severity Reaction Status Date / Time No Known Allergies Allergy Verified 08/25/19 09:30 Physical Exam Vitals: Vital Signs Temp Pulse Resp BP Pulse Ox 08/26/19 15:55 93 L 08/26/19 15:00 72 17 152/97 95 08/26/19 14:00 68 13 150/85 98 08/26/19 13:00 66 26 H 142/88 99 08/26/19 12:00 97.4 F L 62 24 154/87 99 08/26/19 11:00 60 25 H 110/77 97 08/26/19 10:30 60 12 111/64 100 08/26/19 10:00 61 12 120/62 99 08/26/19 09:30 62 12 98/65 98 08/26/19 09:00 12 91/61 95 08/26/19 08:15 63 22 113/71 98 08/26/19 08:00 97.5 F L 62 22 114/71 98 08/26/19 07:45 62 22 115/73 98 08/26/19 07:30 61 22 110/68 98 08/26/19 07:15 59 L 22 114/71 98 08/26/19 07:00 60 22 106/68 98 08/26/19 06:45 59 L 22 110/67 98 08/26/19 06:30 58 L 22 105/71 98 08/26/19 06:15 58 L 22 99/65 98 08/26/19 06:00 60 22 108/69 98 08/26/19 05:45 60 22 103/69 98 08/26/19 05:30 60 22 103/66 98 08/26/19 05:15 59 L 22 99/67 98 08/26/19 05:00 60 22 100/67 98 08/26/19 04:45 60 22 94/66 98 08/26/19 04:30 59 L 22 95/61 98 08/26/19 04:15 60 22 101/68 97 08/26/19 04:00 97.5 F L 61 22 98/65 98 08/26/19 03:45 63 22 123/81 98 08/26/19 03:30 65 22 115/69 97 08/26/19 03:15 63 22 134/77 97 08/26/19 03:00 65 22 126/74 97 08/26/19 02:45 61 22 133/74 97 08/26/19 02:30 62 22 125/76 97 08/26/19 02:15 62 22 125/78 97 08/26/19 02:00 61 22 127/77 97 08/26/19 01:45 63 22 119/76 97 08/26/19 01:30 64 22 117/77 97 08/26/19 01:15 64 22 125/74 96 08/26/19 01:00 66 22 118/76 96 08/26/19 00:45 67 22 116/77 96 08/26/19 00:30 70 22 127/76 96 08/26/19 00:15 68 22 125/75 95 08/26/19 00:00 97.5 F L 68 22 123/74 95 08/25/19 23:45 67 22 121/77 95 08/25/19 23:30 68 22 130/81 94 L 08/25/19 23:15 66 22 116/77 94 L 08/25/19 23:00 67 22 113/74 93 L 08/25/19 22:45 68 22 109/72 92 L 08/25/19 22:30 27 H 111/75 94 L 08/25/19 22:15 66 22 115/85 95 08/25/19 22:00 96 22 110/80 95 08/25/19 21:45 94 22 154/98 96 04/21/20 21:30 113 H 22 126/89 97 08/25/19 21:15 115 H 22 158/100 98 08/25/19 21:00 96 F L 128 H 22 107/95 98 08/25/19 20:46 22 08/25/19 20:30 168/109 08/25/19 20:19 120 H 18 08/25/19 20:10 121 H 22 142/100 100 08/25/19 20:09 118 H 17 08/25/19 20:00 129 H 22 113/101 100 08/25/19 19:50 115 H 22 122/101 100 08/25/19 19:40 117 H 22 135/101 100 08/25/19 19:30 123 H 22 123/100 100 08/25/19 19:20 124 H 22 138/102 100 08/25/19 19:18 121 H 22 100 08/25/19 19:15 113 H 18 117/56 98 08/25/19 18:00 115 H 20 113/72 99 08/25/19 17:30 113 H 20 106/66 98 08/25/19 17:00 125 H 20 163/93 98 Intake and Output 08/26/19 08/26/19 08/26/19 06:59 14:59 22:59 Intake Total 945.881 728.817 Output Total 160 540 Balance 785.881 188.817 Intake: IV 600 600 Sodium Chloride 0.9% 1, 600 600 000 ml @ 75 mls/hr IV . [id number] [facility] Rx#:[id number] Intake, IV Titration 345.881 128.817 Amount Norepinephrine 4 mg In 153.030 Sodium Chloride 0.9% 250 ml @ 0.05 MCG/KG/MIN 19. 874 mls/hr IV .[id number] [facility] Rx#:[id number] Norepinephrine 4 mg In 28.817 Sodium Chloride 0.9% 250 ml @ 0.05 MCG/KG/MIN 19. 874 mls/hr IV .[id number] [facility] Rx#:[id number] Propofol 1,000 mg In 192.851 100 Empty Bag 1 bag @ Titrate IV .Q0M [facility] Rx#: [id number] Output: Urine 160 540 Other: Voiding Method Indwelling Catheter Indwelling Catheter # Bowel Movements 1 Weight 100.4 kg Gen: Awake, Mild increase distress Head: NC AT Neck Supple Previous palpable adenopathy not palpable Heart Irr, Irr Lungs: DIminshed Abd: Soft, ND Ext: pedal edema Mood: COnfusion Results CBC & Chem 7: 08/26/19 02:55 08/26/19 02:55 Labs: Abnormal Lab Results - Last 24 Hours (Table) 08/25/19 08/25/19 08/25/19 Range/Units 15:27 15:27 15:27 WBC (3.8-10.6) k/uL Hgb 12.7 L (13.0-17.5) gm/dL RDW 16.7 H (11.5-15.5) % Plt Count (150-450) k/uL Neutrophils # (1.3-7.7) k/uL Lymphocytes # (1.0-4.8) k/uL PT 12.9 H (9.0-12.0) sec INR 1.3 H (<1.2) APTT 35.8 H (22.0-30.0) sec ABG pH (7.35-7.45) ABG pCO2 (35-45) mmHg ABG pO2 (83-108) mmHg ABG HCO3 (21-25) mmol/L ABG O2 Saturation (94-97) % Sodium (137-145) mmol/L Chloride 113 H (98-107) mmol/L Carbon Dioxide 19 L (22-30) mmol/L BUN (9-20) mg/dL Creatinine (0.66-1.25) mg/dL Glucose 145 H (74-99) mg/dL POC Glucose (mg/dL) (75-99) mg/dL Calcium 7.3 L (8.4-10.2) mg/dL Magnesium 1.5 L (1.6-2.3) mg/dL Alkaline Phosphatase 161 H (38-126) U/L Troponin I (0.000-0.034) ng/mL Total Protein 5.2 L (6.3-8.2) g/dL Albumin 2.9 L (3.5-5.0) g/dL Urine Protein (Negative) Urine Blood (Negative) Urine RBC (0-5) /hpf Urine Bacteria (None) /hpf Hyaline Casts (0-2) /lpf Urine Mucus (None) /hpf 08/25/19 08/25/19 08/25/19 Range/Units 15:36 20:50 21:10 WBC (3.8-10.6) k/uL Hgb (13.0-17.5) gm/dL RDW (11.5-15.5) % Plt Count (150-450) k/uL Neutrophils # (1.3-7.7) k/uL Lymphocytes # (1.0-4.8) k/uL PT (9.0-12.0) sec INR (<1.2) APTT (22.0-30.0) sec ABG pH 7.17 L* (7.35-7.45) ABG pCO2 54 H (35-45) mmHg ABG pO2 >400 H (83-108) mmHg ABG HCO3 20 L (21-25) mmol/L ABG O2 Saturation 99.7 H (94-97) % Sodium (137-145) mmol/L Chloride (98-107) mmol/L Carbon Dioxide (22-30) mmol/L BUN (9-20) mg/dL Creatinine (0.66-1.25) mg/dL Glucose (74-99) mg/dL POC Glucose (mg/dL) 162 H (75-99) mg/dL Calcium (8.4-10.2) mg/dL Magnesium (1.6-2.3) mg/dL Alkaline Phosphatase (38-126) U/L Troponin I 1.020 H* (0.000-0.034) ng/mL Total Protein (6.3-8.2) g/dL Albumin (3.5-5.0) g/dL Urine Protein (Negative) Urine Blood (Negative) Urine RBC (0-5) /hpf Urine Bacteria (None) /hpf Hyaline Casts (0-2) /lpf Urine Mucus (None) /hpf 08/26/19 08/26/19 08/26/19 Range/Units 00:50 02:55 02:55 WBC 20.4 H (3.8-10.6) k/uL Hgb (13.0-17.5) gm/dL RDW 16.9 H (11.5-15.5) % Plt Count 142 L (150-450) k/uL Neutrophils # 18.8 H (1.3-7.7) k/uL Lymphocytes # 0.9 L (1.0-4.8) k/uL PT (9.0-12.0) sec INR (<1.2) APTT (22.0-30.0) sec ABG pH (7.35-7.45) ABG pCO2 (35-45) mmHg ABG pO2 (83-108) mmHg ABG HCO3 (21-25) mmol/L ABG O2 Saturation (94-97) % Sodium (137-145) mmol/L Chloride (98-107) mmol/L Carbon Dioxide (22-30) mmol/L BUN (9-20) mg/dL Creatinine (0.66-1.25) mg/dL Glucose (74-99) mg/dL POC Glucose (mg/dL) (75-99) mg/dL Calcium (8.4-10.2) mg/dL Magnesium (1.6-2.3) mg/dL Alkaline Phosphatase (38-126) U/L Troponin I 1.050 H* (0.000-0.034) ng/mL Total Protein (6.3-8.2) g/dL Albumin (3.5-5.0) g/dL Urine Protein 1+ H (Negative) Urine Blood Moderate H (Negative) Urine RBC 39 H (0-5) /hpf Urine Bacteria Occasional H (None) /hpf Hyaline Casts 4 H (0-2) /lpf Urine Mucus Rare H (None) /hpf 08/26/19 08/26/19 08/26/19 Range/Units 02:55 02:55 05:22 WBC (3.8-10.6) k/uL Hgb (13.0-17.5) gm/dL RDW (11.5-15.5) % Plt Count (150-450) k/uL Neutrophils # (1.3-7.7) k/uL Lymphocytes # (1.0-4.8) k/uL PT (9.0-12.0) sec INR (<1.2) APTT (22.0-30.0) sec ABG pH 7.33 L (7.35-7.45) ABG pCO2 (35-45) mmHg ABG pO2 170 H (83-108) mmHg ABG HCO3 19 L (21-25) mmol/L ABG O2 Saturation 99.2 H (94-97) % Sodium 136 L (137-145) mmol/L Chloride 112 H (98-107) mmol/L Carbon Dioxide 17 L (22-30) mmol/L BUN 27 H (9-20) mg/dL Creatinine 1.54 H (0.66-1.25) mg/dL Glucose 186 H (74-99) mg/dL POC Glucose (mg/dL) (75-99) mg/dL Calcium 7.3 L (8.4-10.2) mg/dL Magnesium 1.4 L (1.6-2.3) mg/dL Alkaline Phosphatase (38-126) U/L Troponin I (0.000-0.034) ng/mL Total Protein (6.3-8.2) g/dL Albumin (3.5-5.0) g/dL Urine Protein (Negative) Urine Blood (Negative) Urine RBC (0-5) /hpf Urine Bacteria (None) /hpf Hyaline Casts (0-2) /lpf Urine Mucus (None) /hpf 08/26/19 08/26/19 Range/Units 06:41 12:56 WBC (3.8-10.6) k/uL Hgb (13.0-17.5) gm/dL RDW (11.5-15.5) % Plt Count (150-450) k/uL Neutrophils # (1.3-7.7) k/uL Lymphocytes # (1.0-4.8) k/uL PT (9.0-12.0) sec INR (<1.2) APTT (22.0-30.0) sec ABG pH (7.35-7.45) ABG pCO2 (35-45) mmHg ABG pO2 (83-108) mmHg ABG HCO3 (21-25) mmol/L ABG O2 Saturation (94-97) % Sodium (137-145) mmol/L Chloride (98-107) mmol/L Carbon Dioxide (22-30) mmol/L BUN (9-20) mg/dL Creatinine (0.66-1.25) mg/dL Glucose (74-99) mg/dL POC Glucose (mg/dL) 196 H 164 H (75-99) mg/dL Calcium (8.4-10.2) mg/dL Magnesium (1.6-2.3) mg/dL Alkaline Phosphatase (38-126) U/L Troponin I (0.000-0.034) ng/mL Total Protein (6.3-8.2) g/dL Albumin (3.5-5.0) g/dL Urine Protein (Negative) Urine Blood (Negative) Urine RBC (0-5) /hpf Urine Bacteria (None) /hpf Hyaline Casts (0-2) /lpf Urine Mucus (None) /hpf CT Scan - head: report reviewed Assessment and Plan Plan: Assessement and Recommendations: 1. Acute Cardiac Arrest PEA requiring intubation: - Since been extubated - Per intensive care and kennel hand - Exact cause unknown 2. Metastatic Lung Cancer: - Status Post 4th cycle chemotherapy - Further chemotherapy on hold. - Good clinical response, will discuss further treatment measures at follow-up in hospital. 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
[2019-08-26] MEDS ORDERED: NITROGLYCERIN SL TABS 0.4 MG TAB SUBLINGUAL ONE ×2 (22:06→22:15)
[2019-08-26 23:21] LABS: Glucose,Whole Blood 148 mg/dL (75-99)
[2019-08-27] MEDS: INSULIN ASPART (NovoLOG) 100 UNIT/ML VIAL SQ SCH ×5 (00:13→20:52)
[2019-08-27] MEDS: methylPREDNISolone SOD SUCCI 40 MG/ML 1 ML VIAL IV SCH ×2 (00:14→05:42)
[2019-08-27] MEDS ORDERED: AMIODARONE 300 MG in DEXTROSE 5% IN WATER 250 ML IV SCH ×2 (05:08)
[2019-08-27 05:14] LABS: Glucose,Whole Blood 146 mg/dL (75-99)
[2019-08-27 06:08] LABS: Anisocytosis Slight; Basophils % (A) 0 %; Eosinophils # (A) 0.1 k/uL (0-0.7); Eosinophils % (A) 1 %; HCT 28.7 % (39.0-53.0); Lymphocytes # (A) 0.2 k/uL (1.0-4.8); Lymphocytes % (A) 3 %; MCH 27.9 pg (25.0-35.0); MCHC 32.6 g/dL (31.0-37.0); MCV 85.8 fL (80.0-100.0); Mean Platelet Volume 9.3; Monocytes # (A) 0.1 k/uL (0-1.0); Monocytes % (A) 1 %; Neutrophils # (A) 7.8 k/uL (1.3-7.7); Neutrophils % (A) 95 %; RBC 3.34 m/uL (4.30-5.90); RDW 16.8 % (11.5-15.5); WBC 8.2 k/uL (3.8-10.6)
[2019-08-27 06:10] LABS: HGB 9.3 gm/dL (13.0-17.5)
[2019-08-27 06:30] LABS: Calcium 7.3 mg/dL (8.4-10.2); Potassium 4.6 mmol/L (3.5-5.1)
--- NOTE | 2019-08-27 06:36 | XR ---
EXAMINATION TYPE: XR chest 1V portable DATE OF EXAM: 08/27/2019 CLINICAL HISTORY: Difficulty breathing progress study. History of lung cancer. TECHNIQUE: Single AP portable upright view of the chest is obtained. COMPARISON: Chest x-ray from one day earlier and older studies. CT July 20, 2019. FINDINGS: Interval removal of endotracheal and orogastric tubes. Interval removal of left subclavian central venous catheter. Background chronic emphysematous change with worsening left lung opacity an d left-sided volume loss. Peripheral left upper lobe mass or neoplasm seen better on recent CT. Persi stent small left pleural effusion. Right lung remains clear. Cardiac silhouette size remains within n ormal limits. Osseous structures are intact. IMPRESSION: Interval extubation. Background chronic emphysematous change and left upper lung neoplasm . Stable small left pleural effusion. Worsening left lung infiltrate and/or atelectasis and developin g left-sided volume loss all noted.
[2019-08-27 06:48] LABS: Platelet Count 82 k/uL (150-450)
[2019-08-27] MEDS: ALBUTEROL HFA INHALER INHALATION SCH ×4 (07:27→20:11)
[2019-08-27] MEDS: AMIODARONE 200 MG TAB PO SCH ×2 (08:57→20:52)
[2019-08-27] MEDS: APIXABAN 5 MG TAB PO SCH ×2 (08:57→20:52)
[2019-08-27] MEDS: amLODIPine 5 MG TAB PO SCH (08:57)
[2019-08-27] MEDS: PANTOPRAZOLE 40 MG/10 ML VIAL IVP SCH (08:57)
[2019-08-27] MEDS: SODIUM BICARBONATE TAB 650 MG TAB PO SCH ×2 (08:57→20:53)
[2019-08-27] MEDS: METOPROLOL TARTRATE 25 MG TAB PO SCH ×3 (08:57→21:02)
[2019-08-27] MEDS: NOREPINEPHRINE 4 MG in SODIUM CHLORIDE 0.9% 250 ML IV SCH (08:58)
[2019-08-27] MEDS: SODIUM CHLORIDE 0.9% 1,000 ML IV SCH (09:09)
[2019-08-27] MEDS: PIPERACILLIN-TAZOBACTAM 3.375 GM in SODIUM CHLORIDE 0.9% 100 ML IVPB SCH ×2 (09:09→20:42)
--- NOTE | 2019-08-27 10:18 | PN ---
PROGRESS NOTE Mr. Perez is a 69-year-old male with a history of metastatic lung CA who has a history of coronary artery disease who had cardiac arrest during chemotherapy. He is extubated at this time, awake, alert. He was in atrial fibrillation but back in sinus mechanism baseline. He has chest wall tenderness. He has no dizziness or palpitation. Hemodynamically, he is stable, he is on no pressors. He underwent an echocardiogram yesterday that showed an ejection fraction of 55% to 60% . He continues to be at this time on IV amiodarone, Eliquis 5 mg twice a day, metoprolol tartrate 25 mg twice a day. PHYSICAL EXAMINATION: Blood pressure running in the 170s with a heart rate in 70s. LUNGS: With crackles bilaterally and scattered wheezes. HEART: Regular rate and rhythm, S1, S2. No S3. No rub appreciated with systolic ejection murmur. ABDOMEN: Soft, nontender. EXTREMITIES: With no edema. LAB DATA: Chest x-ray revealed an infiltrate on the left side with left upper lung neoplasm. BUN and creatinine 36 and 1.46, which is slightly better than yesterday. Potassium 4.6, hemoglobin of 9.3. IMPRESSION: 1. Cardiac arrest with PEA, etiology unclear, no evidence of acute ischemic event. 2. Atrial fibrillation, back in sinus mechanism. 3. Metastatic squamous select lung CA. 4. Chronic obstructive pulmonary disease. 5. Possible aspiration pneumonia. 6. Peripheral vascular disease. 7. Solitary kidney. 8. History of hyperlipidemia. RECOMMENDATION: I will switch him to oral amiodarone. I will add to his regimen amlodipine to optimize his blood pressure control. I will increase the dose of his beta milady, continue on anticoagulation and depending on his progress, further recommendation will be made. MMODL / IJN: [id number] /
[2019-08-27 11:56] LABS: Glucose,Whole Blood 194 mg/dL (75-99)
[2019-08-27] MEDS: HYDROcodone/APAP 5-325MG 1 EACH TAB PO PRN ×2 (12:04→20:52)
--- NOTE | 2019-08-27 14:43 | P.PN ---
Subjective Progress Note Date: 08/27/19 This is a 69-year-old male patient diagnosed having squamous cell carcinoma lung was undergoing systemic chemotherapy on outpatient setting with the patient's acutely collapse and the patient was found to be in PEA during which a CODE BLUE was called and the patient was resuscitated for a total of 2-3 minutes during which she was given epinephrine, received CPR, intubated and there was return of spontaneous circulation and pulse and blood pressure. Following that the patient got transferred to the emergency department where I had the chance to evaluate the patient. The patient was already intubated on a mechanical ventilator. The patient was sedated with propofol. The patient was also started on pressors and norepinephrine was being titrated to bring up the mean artery pressure above 65. He was started on IV fluids also. A triple lumen catheter was established in the left subclavian vein. The chest x-ray post-line insertion shows no acute abnormalities. There is a left upper lobe mass which was seen on previous chest x-ray consistent with his history of lung cancer. Post intubation blood gases showed a pH of 7.17 with a pCO2 of 54 and pO2 more than 400. Necessity ventilator changes were done and the patient was placed on a tidal volume of 500 with a rate of 20 and FiO2 was gradually weaned off to maintain a saturation above 90%. The rest of the blood work showed a normal w yanet cell count, normal hemoglobin, normal coagulation profile, calcium level of 7.3, magnesium level of 1.8, troponin of 0.026, electrolytes showed a mild non- anion gap metabolic acidosis. EKG was consistent with atrial fibrillation and a rapid ventricular response. His current heart rate is 123, A. fib. This patient is known case of lung cancer. He initially presented in September 2018 with a left perihilar mass. CAT scan of the chest showed a 5.4 x 3.8 cm soft tissue mass adjacent to the left main pulmonary artery with enlarged pretracheal lymph nodes. The patient also had a PET scan that showed increased uptake within the left suprahilar mass and there was some opacity extending superiorly anterior to the area with a 1.2 cm cavitary lesion in this area measuring an SUV of 4.9. This soft tissue extension occluded the left upper lobe bronchus partially. There was also an incidental uptake in the right upper extremity and a biopsy of the right upper extremity lesion was also consistent with squamous cell carcinoma, likely metastatic disease. The patient was started on systemic ivon motherapy and it was decided to treat him with radiation as the metastatic focus in the right upper extremity was considered to be in a legal metastases and he was treated for curative intent. He was given combination of chemoradiation therapy with received weekly carboplatinum and Taxol as of 12/16/2018 and he completed radiation therapy in early February 2019. He was subsequently admitted to the hospital for atrial fibrillation with rapid ventricular response. He was found to have an intermediate probability VQ scan. He was started to coagulation with Eliquis. 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 CAT scan of the chest from 05/04/2019 showed a stable left upper lobe mass measuring 2.2 cm and is stable precarinal lymph node measuring 1.6 x 1.3 cm. He continued to receive chemotherapy and during the course of treatment he was noted to have a heart mass developing in the right axilla which was shaking with systemic chemotherapy. Noted the patient was tolerating systemic chemotherapy rather well and his treatment was initiated as the patient developed progression in the right axillary lesion and he continued to receive a combination of carboplatinum and Taxol and he was supposed to have Keytruda added to his regimen. He was un geraldo the care of Dr. Carballo. The patient also has history of coronary artery disease, hypertension, hyperlipidemia and peripheral vascular disease. He is known to have COPD as comorbidities. The patient's has history of chronic atrial fibrillation and has been anticoagulation. He has a single kidney which is only a right-sided kidney. His other comorbidities include BPH, and history of kidney stones. He has undergone previous cardiac catheterization in September 2018 and the patient was found to have mild disease involving the LAD and RCA with an occluded diagonal branch. His previous echocardiogram done in December 2018 had shown ejection fraction 45-50% in addition to moderate pulmonary hypertension with a PA pressure 42 along with some segmental wall motion abnormalities in the most recent CAT scan of the chest abdomen and pelvis that was done on 07/20/2019 showed a stable left hilar and suprahilar mass unchanged from previous evaluation in addition to a satellite left apical nodule measuring 7 mm in size and there was a new area of lymphadenopathy in the right axillary measuring 1.9 cm and is stable 1.6 cm soft tissue nodule in the left adrenal bed stable compared to previous evaluation. He had a tiny left-sided pleural effusion also. On today's evaluation of 08/26/2019, the patient is being seen in follow-up. As mentioned earlier, the patient is post cardiac arrest. The patient had a brief cardiac arrest, that was less than 5 minutes during which she was found to be in PEA. Overnight the patient was kept on a mechanical ventilator. This morning, he is still on propofol which will be taken off and his mental status will be assessed. In terms of his ventilator septic, the patient on a assist-control at the rate of 22 with tidal volume of 550 and FiO2 of 50% with a PEEP of 5. Peak air pressures 26. Static pressure is 16. The patient is on norepinephrine infusion running at 0.05 mg per KG per minute. The patient is also on normal saline running at 75 mL an hour. He remains in atrial fibrillation. Around 10:00 when he converted back into sinus rhythm and the patient is still on amiodarone maintenance. The chest x-ray shows no interval change. There is no acute abnormalities. There is a left upper lobe opacity which has remained unchanged and this is related to his lung cancer. No significant respiratory secretions. Blood gases from today showed a pH of 7.33 with a pCO2 of 36 and pO2 of 170. The white cell count is at 20. The patient is afebrile. Creatinine is at 1.5 with a BMI of 27. The calcium level is at 7.3. The troponin levels were at 1.02 and 1.05 respectively. The echo of the heart showed a moderate concentric LVH, EF around 55-60%, there was some diastolic filling pattern, no significant valvular abnormalities noted and there was a trivial pericardial effusion. CAT scan of the brain was also negative for an acute abnormalities. When the process of giving this patient a sedation holiday to assess his mental status and assess his readiness for further weaning. On 08/27/2019, patient is being seen for a follow-up. The patient is extubated and the patient was extubated yesterday without any major difficulties. Post extubation, the patient was not cooperating with the medical treatment. Overnight, the patient became quite uncooperative and he wanted to leave the hospital and he wanted to stop all treatment and he wanted to . He pulled his triple-lumen catheter and an outlying catheter. He was refusing any form of oral medication. This morning, he seems much more comfortable and he is cooperating more so with the treatment offered to him. There is a sitter at the bedside. He seems to be calm and appropriate on today's evaluation. He has a sinus rhythm. He was taken off the amiodarone drip and the patient is currently on oral amiodarone 400 mg by mouth twice a day. The patient is also on metop rolol 25 mg by mouth 3 times a day. He had a follow-up chest x-ray today that showed worsening in the left lung findings and the patient developed a new onset infiltration of the left lung and the patient will be started on Zosyn and Antibiotic coverage considering the possibility of an aspiration pneumonia. He is on IV fluids at 75 mL an hour normal saline. He is currently on 2 L of oxygen by nasal cannula with a pulse of 76%. Objective - Vital Signs Vital signs: Vital Signs Temp 97.7 F 08/27/19 12:00 Pulse 63 08/27/19 14:00 Resp 22 08/27/19 14:00 BP 144/74 08/27/19 14:00 Pulse Ox 97 08/27/19 14:00 Intake & Output 08/26/19 08/27/19 08/27/19 18:59 06:59 18:59 Intake Total 1278.817 900 805 Output Total 970 1285 625 Balance 308.817 -385 180 Weight 97.1 kg Intake: IV 900 900 225 Sodium Chloride 0.9% 1, 900 900 225 000 ml @ 75 mls/hr IV . [id number] [facility] Rx#:[id number] Intake, IV Titration 378.817 100 Amount Amiodarone 300 mg In 250 Dextrose 5% in Water 250 ml @ 0.5 MG/MIN 25 mls/hr IV .Q10H [facility] Rx#: [id number] Norepinephrine 4 mg In 28.817 Sodium Chloride 0.9% 250 ml @ 0.05 MCG/KG/MIN 19. 874 mls/hr IV .[id number] [facility] Rx#:[id number] Piperacillin-Tazobactam 3 100 .375 gm In Sodium Chloride 0.9% 100 ml @ 25 mls/hr IVPB Q12HR [facility] Rx #:[id number] Propofol 1,000 mg In 100 Empty Bag 1 bag @ Titrate IV .Q0M [facility] Rx#: [id number] Oral 480 Output: Urine 970 1285 625 Other: Voiding Method Indwelling Catheter Indwelling Catheter Indwelling Catheter # Bowel Movements 1 1 - Exam gen. appearance, comfortable not in distress and currently the patient is is extubated on 2 L of oxygen by nasal cannula Head exam was generally normal. There was no scleral icterus or corneal arcus. Mucous membranes were moist. Neck was supple and without jugular venous distension, thyromegaly, or carotid bruits. Carotids were easily palpable bilaterally. There was no adenopathy. Lungs were diminishedbreath sounds to auscultation and percussion, and with normal diaphragmatic excursion. positive wheezes or rales were noted. Scattered external wheezes throughout the lung lange bilaterally Cardiac exam revealed the PMI to be normally situated and sized. The rhythm was regular and no extrasystoles were noted during several minutes of auscultation. The first and second heart sounds were normal and physiologic splitting of the second heart sound was noted. There were no murmurs, rubs, clicks, or gallops. Abdominal exam revealed normal bowel sounds. The abdomen was soft, non-tender, and without masses, organomegaly, or appreciable enlargement of the abdominal aorta. Examination of the extremities revealed easily palpable radial, femoral and pedal pulses. There was no cyanosis, clubbing or edema. The patient has a scar of a previous surgical resection of a skin lesion in the right forearm. There is some right axillary lymphadenopathy Examination of the skin revealed no evidence of significant rashes, suspicious appearing nevi or other concerning lesions. Neurologic the patient is awake and alert and appropriate for now. - Labs CBC & Chem 7: 08/27/19 05:41 08/27/19 05:41 Labs: Abnormal Lab Results - Last 24 Hours (Table) 08/26/19 08/26/19 08/27/19 Range/Units 17:37 23:19 05:12 RBC (4.30-5.90) m/uL Hgb (13.0-17.5) gm/dL Hct (39.0-53.0) % RDW (11.5-15.5) % Plt Count (150-450) k/uL Neutrophils # (1.3-7.7) k/uL Lymphocytes # (1.0-4.8) k/uL Chloride (98-107) mmol/L Carbon Dioxide (22-30) mmol/L BUN (9-20) mg/dL Creatinine (0.66-1.25) mg/dL Glucose (74-99) mg/dL POC Glucose (mg/dL) 134 H 148 H 146 H (75-99) mg/dL Calcium (8.4-10.2) mg/dL 08/27/19 08/27/19 08/27/19 Range/Units 05:41 05:41 11:55 RBC 3.34 L (4.30-5.90) m/uL Hgb 9.3 L D (13.0-17.5) gm/dL Hct 28.7 L (39.0-53.0) % RDW 16.8 H (11.5-15.5) % Plt Count 82 L (150-450) k/uL Neutrophils # 7.8 H (1.3-7.7) k/uL Lymphocytes # 0.2 L (1.0-4.8) k/uL Chloride 116 H (98-107) mmol/L Carbon Dioxide 20 L (22-30) mmol/L BUN 36 H (9-20) mg/dL Creatinine 1.46 H (0.66-1.25) mg/dL Glucose 138 H (74-99) mg/dL POC Glucose (mg/dL) 194 H (75-99) mg/dL Calcium 7.3 L (8.4-10.2) mg/dL Assessment and Plan Plan: 1 acute cardiac pulmonary arrest, patient was found to be in PEA , exact cause is not clear. The patient is currently under investigation. The workup for the cardiac arrest of been negative and the patient has no clear cause for his underlying cardiac arrest. The patient was intubated, received CPR per ACLS protocol and ultimately was extubated yesterday and his been hemodynamically stable since. 2 acute hypercapnic/hypoxic respiratory failure following cardiac arrest, currently the patient is extubated and the patient has developed a left lung consolidation over the past 24 hours highly suspicion for an underlying aspiration pneumonia. 3 squamous cell lung cancer with solitary metastases to his right upper extremity. The patient was treated with systemic chemotherapy and radiation therapy for curative intent. The patient was found to have a right axillary mass consistent with metastases and the patient was started on systemic chemotherapy by oncology. Original diagnosis established and 2019. The patient has received 4 cycles of systemic chemotherapy and for no further chemotherapy is on hold. 4 COPD, with secondary exacerbation currently on a combination of bronchodilators and steroids 5 coronary artery disease with previous coronary intervention and the results of the cardiac catheterization from 2019 showed nonocclusive disease 6 chronic atrial fibrillation, currently back into normal sinus rhythm 7 peripheral vascular disease 8 solitary kidney, right-sided within normal kidney function 9 BPH and history of nephrolithiasis 10 hyperlipidemia 11 acute leukocytosis, improving 12 acute kidney injury in the creatinine is improving is down to 1.46 plan The patient's Covid 19 evaluation came back negative The patient has been extubated to 2 L by nasal cannula Add IV Zosyn for a left lung pneumonia, possible aspiration Switch this patient to oral amiodarone No pressors for now This continued IV Solu Medrol and put the patient prednisone burst taper Continue anticoagulation with Eliquis The patient can be transferred to oncology unit The echo of the heart showed an ejection fraction of 55-60%. No other major abnormalities noted CT of the brain no contrast, was negative for neck abnormalities Repeat chest x-ray with the next 24 hours Monitor renal function Continue IV fluids Advance diet We'll make further recommendations based on his progress.
--- NOTE | 2019-08-27 16:45 | PN ---
PROGRESS NOTE Patient is seen for followup for acute kidney injury. He is status post cardiac arrest while receiving chemotherapy at [facility]. Patient was essentially extubated the next day. He is currently doing fairly well. He is being transferred out of the ICU. Serum creatinine has improved to 1.4 from 1.5 yesterday. Initial creatinine was as low as 1.15. Patient has had good urine output. He has an indwelling Flores catheter, 24 hour urine output 2.2 L. He is maintained on IV fluids at about 75 mL an hour. PHYSICAL EXAMINATION: On examination today, blood pressure 144/74, heart rate 63 per minute, he is afebrile. Examination shows no evidence of edema bilateral lower extremities. Abdmen is soft, nontender. Breath sounds are heard bilaterally. LABS: Show hemoglobin 9.3, sodium 140, potassium 4.6, chloride 116. CO2 is 20, BUN 36, creatinine 1.46. ASSESSMENT: 1. Acute kidney injury associated with cardiac arrest, hypotension, currently slowly improving. Good urine output. No nephrotoxic medications on board. May continue with the IV fluids for now. 2. Possible CKD stage III secondary to diabetic nephropathy nephrosclerosis. 3. Atrial fibrillation status post amiodarone, converted back to normal sinus rhythm. 4. Solitary kidney. 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 5. Metabolic acidosis maintained on oral sodium bicarb, currently improved. PLAN: Continue IV fluids for now. Continue sodium bicarb. Repeat labs in a.m. MMODL / IJN: [id number] /
[2019-08-27 17:01] LABS: Glucose,Whole Blood 132 mg/dL (75-99)
--- NOTE | 2019-08-27 19:13 | P.PN ---
Subjective Progress Note Date: 08/27/19 Principal diagnosis: Status POst PEA during chemotherapy infusion He is a little less "angry" today. overall feeling better, still wants to go home Objective - Vital Signs Vital signs: Vital Signs Temp 97.7 F 08/27/19 12:00 Pulse 63 08/27/19 14:00 Resp 22 08/27/19 14:00 BP 144/74 08/27/19 14:00 Pulse Ox 97 08/27/19 14:00 Intake & Output 08/27/19 08/27/19 08/28/19 06:59 18:59 06:59 Intake Total 900 805 Output Total 1285 625 Balance -385 180 Weight 97.1 kg Intake: IV 900 225 Sodium Chloride 0.9% 1, 900 225 000 ml @ 75 mls/hr IV . [id number] [facility] Rx#:[id number] Intake, IV Titration 100 Amount Piperacillin-Tazobactam 3 100 .375 gm In Sodium Chloride 0.9% 100 ml @ 25 mls/hr IVPB Q12HR [facility] Rx #:[id number] Oral 480 Output: Urine 1285 625 Other: Voiding Method Indwelling Catheter Indwelling Catheter # Bowel Movements 1 - Exam Gen: Awake, no ncrease distress Head: NC AT Neck Supple Previous palpable adenopathy not palpable Heart Irr, Irr Lungs: DIminshed Abd: Soft, ND Ext: pedal edema Mood: grumpy - Labs CBC & Chem 7: 08/27/19 05:41 08/27/19 05:41 Labs: Abnormal Lab Results - Last 24 Hours (Table) 08/26/19 08/27/19 08/27/19 Range/Units 23:19 05:12 05:41 RBC 3.34 L (4.30-5.90) m/uL Hgb 9.3 L D (13.0-17.5) gm/dL Hct 28.7 L (39.0-53.0) % RDW 16.8 H (11.5-15.5) % Plt Count 82 L (150-450) k/uL Neutrophils # 7.8 H (1.3-7.7) k/uL Lymphocytes # 0.2 L (1.0-4.8) k/uL Chloride (98-107) mmol/L Carbon Dioxide (22-30) mmol/L BUN (9-20) mg/dL Creatinine (0.66-1.25) mg/dL Glucose (74-99) mg/dL POC Glucose (mg/dL) 148 H 146 H (75-99) mg/dL Calcium (8.4-10.2) mg/dL 08/27/19 08/27/19 08/27/19 Range/Units 05:41 11:55 16:59 RBC (4.30-5.90) m/uL Hgb (13.0-17.5) gm/dL Hct (39.0-53.0) % RDW (11.5-15.5) % Plt Count (150-450) k/uL Neutrophils # (1.3-7.7) k/uL Lymphocytes # (1.0-4.8) k/uL Chloride 116 H (98-107) mmol/L Carbon Dioxide 20 L (22-30) mmol/L BUN 36 H (9-20) mg/dL Creatinine 1.46 H (0.66-1.25) mg/dL Glucose 138 H (74-99) mg/dL POC Glucose (mg/dL) 194 H 132 H (75-99) mg/dL Calcium 7.3 L (8.4-10.2) mg/dL Assessment and Plan Plan: Assessement and Recommendations: 1. Acute Cardiac Arrest PEA requiring intubation: - Since been extubated - Per intensive care and machine stemmer - Exact cause unknown 2. Metastatic Lung Cancer: - Status Post 4th cycle chemotherapy - Further chemotherapy on hold. - Good clinical response, will discuss further treatment measures at follow-up in hospital. Normocytic Anemia: - Likely secondary to recent chemotherapy and dilution but will work up further Thrombocytopenia: - Decreased to 89K today, multifactorial to recent arrest and chemotherapy - Monitor closely, if less than 50K stop AC therapy less than 10K transfuse We will follow along with you All acute problems currently under care of primary team
[2019-08-27 20:40] LABS: Glucose,Whole Blood 139 mg/dL (75-99)
--- NOTE | 2019-08-27 21:08 | P.PN ---
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 he Is a patient of Dr. Carballo, patient could not provide information so it was obtained from the records and staff patient was getting his chemotherapy at the [facility] side of this hospital, when he collapsed and became unresponsive and followed the [facility] and tao silva was called, he was resuscitated and the down time was about 2-5 minutes per staff and transferred to the emergency room. He was hypothermic. Patient got intubated and placed on mechanical ventilation, started on norepinephrine drip Echocardiogram: Ejection fraction 55-60%, LVH. Chest x-ray: Improved left upper lobe atelectasis with a new left basilar consolidation suspicious for atelectasis. CT of the brain: No acute process. Renal ultrasound: No hydronephrosis This morning patient was able to come off the vent and he got extubated, currently he is on 5 L oxygen on nasal cannula. He is little confused, however as per son patient usually develops hallucination for 1-3 days postchemotherapy Also patient was started on amiodarone drip for his A. fib, he converted to sinus and this morning and the amiodarone drip will be stopped tonight per protocol. 08/27/2019 Patient got extubated last night however he was agitated and he wanted to leave the hospital and fusion treatment currently smoke, sitter at bedside Possibly patient has metabolic encephalopathy related to his cardiac arrest and left lower lobe pneumonia seen on chest x-ray today suspicious for aspiration pneumonia patient was started on Zosyn, His heart rate is better controlled, continue on amiodarone pills 200 mg. Vital showing temperature of 98.2, heart rate 63, breathing at a rate of 24 and blood pressure 157/78, he saturating 94% 2 L oxygen via nasal cannula Labs reviewed showing hemoglobin of 9.3, leukocytosis improved from 20 K down to 8.2K, platelets are trending down, today at 80 2K. Creatinine is slightly improving from 1.5 down to 1.4. Glucose controlled Review of systems HEENT: No recent visual problems or hearing problems. Denied any sore throat. CARDIOVASCULAR: No orthopnea, PND, no palpitations, no syncope. GASTROINTESTINAL: No diarrhea, no nausea, no vomiting, no abdominal pain. Normoactive bowel sounds. NEUROLOGICAL: No headaches, no weakness, no numbness. HEMATOLOGICAL: Denies any bleeding or petechiae. GENITOURINARY: Denies any burning micturition, frequency, or urgency. MUSCULOSKELETAL/RHEUMATOLOGICAL: Denies any joint pain, swelling, or any muscle pain. ENDOCRINE: Denies any polyuria or polydipsia. Active Medications Generic Name Dose Route Start Last Admin Trade Name Freq PRN Reason Stop Dose Admin Hydrocodone Bitart/Acetaminophen 1 each 08/27/19 11:49 08/27/19 20:52 [place] 5-325 PO 1 each Q6HR PRN Administration Pain Albuterol Sulfate 2 puff 08/26/19 04:00 Ventolin Hfa Inhaler INHALATION RT-QID PRN Shortness Of Breath Albuterol Sulfate 2 puff 08/26/19 16:00 08/27/19 20:11 Ventolin Hfa Inhaler INHALATION 2 puff RT-QID LILIBETH Administration Amiodarone HCl 400 mg 08/27/19 09:00 08/27/19 20:52 Cordarone PO 400 mg BID LILIBETH Administration Amlodipine Besylate 5 mg 08/27/19 09:00 08/27/19 08:57 Norvasc PO 5 mg DAILY LILIBETH Administration Apixaban 5 mg 08/25/19 21:00 08/27/19 20:52 Eliquis PO 5 mg BID LILIBETH Administration Sodium Chloride 1,000 mls @ 75 mls/hr 08/25/19 20:15 08/27/19 09:09 Saline 0.9% IV 75 mls/hr .[id number] LILIBETH Administration Piperacillin Sod/Tazobactam 100 mls @ 25 mls/hr 08/27/19 09:00 08/27/19 20:42 Sod 3.375 gm/ Sodium Chloride IVPB 25 mls/hr Q12HR LILIBETH Administration Insulin Aspart 0 unit 08/27/19 12:30 08/27/19 20:52 Novolog SQ 1 unit ACHS LILIBETH Administration Protocol Metoprolol Tartrate 25 mg 08/27/19 09:00 08/27/19 21:02 Lopressor PO 25 mg TID LILIBETH Administration Naloxone HCl 0.2 mg 04/21/20 18:06 Narcan IV Q2M PRN Opioid Reversal Pantoprazole Sodium 40 mg 08/25/19 20:15 08/27/19 08:57 Protonix IVP 40 mg DAILY LILIBETH Administration Prednisone 40 mg 08/28/19 09:00 PO DAILY LILIBETH Sodium Bicarbonate 650 mg 08/26/19 21:00 08/27/19 20:53 Sodium Bicarbonate Tab PO 650 mg BID LILIBETH Administration Objective - Vital Signs Vital signs: Vital Signs Temp 97.7 F 08/27/19 12:00 Pulse 63 08/27/19 14:00 Resp 22 08/27/19 14:00 BP 144/74 08/27/19 14:00 Pulse Ox 97 08/27/19 14:00 Intake & Output 08/26/19 08/27/19 08/27/19 18:59 06:59 18:59 Intake Total 1278.817 900 805 Output Total 970 1285 625 Balance 308.817 -385 180 Weight 97.1 kg Intake: IV 900 900 225 Sodium Chloride 0.9% 1, 900 900 225 000 ml @ 75 mls/hr IV . [id number] LILIBETH Rx#:[id number] Intake, IV Titration 378.817 100 Amount Amiodarone 300 mg In 250 Dextrose 5% in Water 250 ml @ 0.5 MG/MIN 25 mls/hr IV .Q10H LILIBETH Rx#: [id number] Norepinephrine 4 mg In 28.817 Sodium Chloride 0.9% 250 ml @ 0.05 MCG/KG/MIN 19. 874 mls/hr IV .[id number] LILIBETH Rx#:[id number] Piperacillin-Tazobactam 3 100 .375 gm In Sodium Chloride 0.9% 100 ml @ 25 mls/hr IVPB Q12HR LILIB[facility] Rx #:[id number] Propofol 1,000 mg In 100 Empty Bag 1 bag @ Titrate IV .Q0M LILIBETH Rx#: [id number] Oral 480 Output: Urine 970 1285 625 Other: Voiding Method Indwelling Catheter Indwelling Catheter Indwelling Catheter # Bowel Movements 1 1 - Exam -GENERAL: The patient is patient awake and alert but lethargic HEENT: Pupils are round and equally reacting to light. EOMI. No scleral icterus. No conjunctival pallor. Normocephalic, atraumatic. No pharyngeal erythema. No thyromegaly. CARDIOVASCULAR: S1 and S2 present. No murmurs, rubs, or gallops. -PULMONARY: Chest is clear to auscultation, no wheezing or crackles. Decreased breath sounds on the left side ABDOMEN: Soft, nontender, nondistended, normoactive bowel sounds. No palpable organomegaly. MUSCULOSKELETAL: No joint swelling or deformity. EXTREMITIES: No cyanosis, clubbing, or pedal edema. NEUROLOGICAL: Gross neurological examination did not reveal any focal deficits. SKIN: No rashes. No petechiae - Labs CBC & Chem 7: 08/27/19 05:41 08/27/19 05:41 Labs: Abnormal Lab Results - Last 24 Hours (Table) 08/26/19 08/26/19 08/27/19 Range/Units 17:37 23:19 05:12 RBC (4.30-5.90) m/uL Hgb (13.0-17.5) gm/dL Hct (39.0-53.0) % RDW (11.5-15.5) % Plt Count (150-450) k/uL Neutrophils # (1.3-7.7) k/uL Lymphocytes # (1.0-4.8) k/uL Chloride (98-107) mmol/L Carbon Dioxide (22-30) mmol/L BUN (9-20) mg/dL Creatinine (0.66-1.25) mg/dL Glucose (74-99) mg/dL POC Glucose (mg/dL) 134 H 148 H 146 H (75-99) mg/dL Calcium (8.4-10.2) mg/dL 08/27/19 08/27/19 08/27/19 Range/Units 05:41 05:41 11:55 RBC 3.34 L (4.30-5.90) m/uL Hgb 9.3 L D (13.0-17.5) gm/dL Hct 28.7 L (39.0-53.0) % RDW 16.8 H (11.5-15.5) % Plt Count 82 L (150-450) k/uL Neutrophils # 7.8 H (1.3-7.7) k/uL Lymphocytes # 0.2 L (1.0-4.8) k/uL Chloride 116 H (98-107) mmol/L Carbon Dioxide 20 L (22-30) mmol/L BUN 36 H (9-20) mg/dL Creatinine 1.46 H (0.66-1.25) mg/dL Glucose 138 H (74-99) mg/dL POC Glucose (mg/dL) 194 H (75-99) mg/dL Calcium 7.3 L (8.4-10.2) mg/dL Assessment and Plan Assessment: status post cardiac arrest and PEA. with acute hypoxic respiratory failure requiring intubation and Extubation Acute left lower lobe pneumonia, suspicious for aspiration pneumonia left upper lobe squamous cell lung cancer with metastasis including the skin status post chemo and radiotherapy Acute delirium and metabolic encephalopathy, secondary to above Bicytopenia with thrombocytopenia and anemia Acute kidney injury Chronic atrial fibrillation, was on Eliquis Chronic systolic heart failure History of coronary artery disease status post stent COPD GERD one sided kidney on the right Hyperlipidemia Hypertension Osteoarthritis benign prostatic hypertrophy history of Chronic back pain Plan: this is a 69 years old male who presents with cardiac arrest status post intubation/extubation. Also patient developing pneumonia, and a CHRISTOPHER. Patient kept on IV fluid, kidney with antibiotics and steroids. follow breathing status and chest x-ray. Follow-up platelets and hemoglobin. Follow-up creatinine. pulmonary/critical care team or the case. Cardiology consult and consult oncology service Labs and medication were reviewed.. Continue same treatment. Continue with symptomatic treatment. Resume home medication. Monitor lytes and vitals. DVT and GI prophylaxis. Further recommendations of the clinical course of the patient DVT prophylaxis: eliquis GI Prophylaxis: Ppi Prognosis is guarded
[2019-08-28] MEDS: SODIUM CHLORIDE 0.9% 1,000 ML IV SCH ×2 (01:04→18:57)
[2019-08-28 07:08] LABS: Glucose,Whole Blood 104 mg/dL (75-99)
[2019-08-28 07:43] LABS: Calcium 7.6 mg/dL (8.4-10.2); Potassium 4.5 mmol/L (3.5-5.1)
[2019-08-28] MEDS: METOPROLOL TARTRATE 25 MG TAB PO SCH ×3 (07:52→21:10)
[2019-08-28] MEDS: HYDROcodone/APAP 5-325MG 1 EACH TAB PO PRN ×2 (07:52→19:26)
[2019-08-28] MEDS: INSULIN ASPART (NovoLOG) 100 UNIT/ML VIAL SQ SCH ×4 (07:53→21:10)
[2019-08-28] MEDS: amLODIPine 5 MG TAB PO SCH (07:54)
[2019-08-28] MEDS: AMIODARONE 200 MG TAB PO SCH ×2 (07:54→21:10)
[2019-08-28] MEDS: PANTOPRAZOLE 40 MG/10 ML VIAL IVP SCH (07:54)
[2019-08-28] MEDS: predniSONE 20 MG TAB PO SCH (07:54)
[2019-08-28] MEDS: SODIUM BICARBONATE TAB 650 MG TAB PO SCH (07:54)
[2019-08-28] MEDS: APIXABAN 5 MG TAB PO SCH ×2 (07:54→21:10)
[2019-08-28] MEDS: PIPERACILLIN-TAZOBACTAM 3.375 GM in SODIUM CHLORIDE 0.9% 100 ML IVPB SCH ×3 (07:54→23:44)
[2019-08-28] MEDS: ALBUTEROL HFA INHALER INHALATION SCH ×4 (08:41→19:24)
[2019-08-28] MEDS ORDERED: amLODIPine 5 MG TAB PO STA (09:33)
[2019-08-28 11:04] LABS: Glucose,Whole Blood 102 mg/dL (75-99)
--- NOTE | 2019-08-28 11:20 | P.PN ---
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 He follows in the office with Dr. Washburn. He is seen and examined sitting up in the chair in no acute distress. He continues to feel discomfort in his upper torso secondary to CPR. He denies exertional chest pain, no shortness of breath, dizziness or palpitations. He is currently maintaining sinus mechanism. Blood pressure 167/79 heart rate 60 afebrile and maintaining oxygen saturation on nasal cannula. Laboratory data reviewed, sodium 141, potassium 4.5, creatinine 1.16. Currently maintained on amiodarone 400 mg BID, amlodipine 5 mg daily, eliquis 5 mg BID and lopressor 25 mg TID. PHYSICAL EXAMINATION CONSTITUTIONAL: No apparent distress. HEENT: Head is normocephalic. Pupils are equal, round. Sclerae anicteric. Mucous membranes of the mouth are moist. No JVD. No carotid bruit. CHEST EXAMINATION: Faint expiratory wheeze noted throughout, no rales or rhonchi. Mild chest wall tenderness is noted on palpation and with deep breathing. HEART EXAMINATION: Regular rate and rhythm. S1, S2 heard. Systolic ejection murmur at the base, no gallops or rub. EXTREMITIES: 2+ peripheral pulses, no lower extremity edema and no calf tenderness. ASSESSMENT Paroxysmal atrial fibrillation, currently maintaining sinus mechanism. PEA cardiac arrest s/p CPR Metastatic squamous cell lung cancer COPD PLAN Increase amlodipine to 10 mg daily, give additional dose of 5 mg now. He remains in sinus rhythm. Amiodarone taper for discharge as follows: 400 mg BID until 09/01; start 200 mg B ID 09/02 until September 08; then 200 mg daily thereafter. We will follow as needed, please call with further questions or concerns. Follow closely in the office with Dr. Washburn upon discharge. Nurse Practitioner note has been reviewed, I agree with a documented findings and plan of care. Patient was seen and examined. Objective - Vital Signs Vital signs: Vital Signs Temp 98.0 F 08/28/19 04:23 Pulse 60 08/28/19 04:23 Resp 19 08/28/19 04:23 BP 167/79 08/28/19 04:23 Pulse Ox 94 L 08/28/19 04:23 Intake & Output 08/27/19 08/28/19 08/28/19 18:59 06:59 18:59 Intake Total 805 1900 Output Total 625 Balance 180 1900 Weight 99.2 kg Intake: IV 225 900 Sodium Chloride 0.9% 1, 225 900 000 ml @ 75 mls/hr IV . [id number] LILIBETH Rx#:[id number] Intake, IV Titration 100 100 Amount Piperacillin-Tazobactam 3 100 100 .375 gm In Sodium Chloride 0.9% 100 ml @ 25 mls/hr IVPB Q12HR [facility] Rx #:[id number] Oral 480 900 Output: Urine 625 Other: Voiding Method Indwelling Catheter Toilet Urinal # Voids 2 # Bowel Movements 1 - Labs CBC & Chem 7: 08/27/19 05:41 08/28/19 06:33 Labs: Abnormal Lab Results - Last 24 Hours (Table) 08/27/19 08/27/19 08/27/19 Range/Units 11:55 16:59 20:39 Chloride (98-107) mmol/L BUN (9-20) mg/dL POC Glucose (mg/dL) 194 H 132 H 139 H (75-99) mg/dL Calcium (8.4-10.2) mg/dL 08/28/19 08/28/19 Range/Units 06:33 07:06 Chloride 114 H (98-107) mmol/L BUN 35 H (9-20) mg/dL POC Glucose (mg/dL) 104 H (75-99) mg/dL Calcium 7.6 L (8.4-10.2) mg/dL
--- NOTE | 2019-08-28 13:13 | P.PN ---
Subjective Progress Note Date: 08/28/19 Principal diagnosis: Cardiopulmonary arrest, of unknown etiology, aspiration pneumonia This is a 69-year-old male patient diagnosed having squamous cell carcinoma lung was undergoing systemic chemotherapy on outpatient setting with the patient's acutely collapse and the patient was found to be in PEA during which a CODE BLUE was called and the patient was resuscitated for a total of 2-3 minutes during which she was given epinephrine, received CPR, intubated and there was return of spontaneous circulation and pulse and blood pressure. Following that the patient got transferred to the emergency department where I had the chance to evaluate the patient. The patient was already intubated on a mechanical ventilator. The patient was sedated with propofol. The patient was also started on pressors and norepinephrine was being titrated to bring up the mean artery pressure above 65. He was started on IV fluids also. A triple lumen catheter was established in the left subclavian vein. The chest x-ray post-line insertion shows no acute abnormalities. There is a left upper lobe mass which was seen on previous chest x-ray consistent with his history of lung cancer. Po st intubation blood gases showed a pH of 7.17 with a pCO2 of 54 and pO2 more than 400. Necessity ventilator changes were done and the patient was placed on a tidal volume of 500 with a rate of 20 and FiO2 was gradually weaned off to maintain a saturation above 90%. The rest of the blood work showed a normal white cell count, normal hemoglobin, normal coagulation profile, calcium level of 7.3, magnesium level of 1.8, troponin of 0.026, electrolytes showed a mild non-anion gap metabolic acidosis. EKG was consistent with atrial fibrillation and a rapid ventricular response. His current heart rate is 123, A. fib. This patient is known case of lung cancer. He initially presented in September 2018 with a left perihilar mass. CAT scan of the chest showed a 5.4 x 3.8 cm soft tissue mass adjacent to the left main pulmonary artery with enlarged pretracheal lymph nodes. The patient also had a PET scan that showed increased uptake within the left suprahilar mass and there was some opacity extending superiorly anterior to the area with a 1.2 cm cavitary lesion in this area measuring an SUV of 4.9. This soft tissue extension occluded the left upper lobe bronchus partially. There was also an incidental uptake in the right upper extremity and a biopsy of the right upper extremity lesion was also consistent with squamous cell carcinoma, likely metastatic disease. The patient was started on systemic chemotherapy and it was decided to treat him with radiation as the metastatic focus in the right upper extremity was considered to be in a legal metastases and he was treated for curative intent. He was given combination of chemoradiation therapy with received weekly carboplatinum and Taxol as of 12/16/2018 and he completed radiation therapy in early February 2019. He was subsequently admitted to the hospital for atrial fibrillation with rapid ventricular response. He was found to have an intermediate probability VQ scan. He was started to coagulation with Eliquis. 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 CAT scan of the chest from 05/04/2019 showed a stable left upper lobe mass measuring 2.2 cm and is stable precarinal lymph node measuring 1.6 x 1.3 cm. He continued to receive chemotherapy and during the course of treatment he was noted to have a heart mass developing in the right axilla which was shaking with systemic chemotherapy. Noted the patient was tolerating systemic chemotherapy rather well and his treatment was initiated as the patient developed progression in the right axillary lesion and he continued to receive a combination of carboplatinum and Taxol and he was supposed to have Keytruda added to his regimen. He was under the care of Dr. Carballo. The patient also has history of coronary artery disease, hypertension, hyperlipidemia and peripheral vascular disease. He is known to have COPD as comorbidities. The patient's has history of chronic atrial fibrillation and has been anticoagulation. He has a single kidney which is only a right-sided kidney. His other comorbidities include BPH, and history of kidney stones. He has undergone previous cardiac catheterization in September 2018 and the patient was found to have mild disease involving the LAD and RCA with an occluded diagonal branch. His previous echocardiogram done in December 2018 had shown ejection fraction 45-50% in addition to moderate pulmonary hypertension with a PA pressure 42 along with some segmental wall motion abnormalities in the most recent CAT scan of the chest abdomen and pelvis that was done on 07/20/2019 showed a stable left hilar and suprahilar mass unchanged from previous evaluation in addition to a satellite left apical nodule measuring 7 mm in size and there was a new area of lymphadenopathy in the right axillary measuring 1.9 cm and is stable 1.6 cm soft tissue nodule in the left adrenal bed stable compared to previous evaluation. He had a tiny left-sided pleural effusion also. On today's evaluation of 08/26/2019, the patient is being seen in follow-up. As mentioned earlier, the patient is post cardiac arrest. The patient had a brief cardiac arrest, that was less than 5 minutes during which she was found to be in PEA. Overnight the patient was kept on a mechanical ventilator. This morning, he is still on propofol which will be taken off and his mental status will be assessed. In terms of his ventilator septic, the patient on a assist-control at the rate of 22 with tidal volume of 550 and FiO2 of 50% with a PEEP of 5. Peak air pressures 26. Static pressure is 16. The patient is on norepinephrine infusion running at 0.05 mg per KG per minute. The patient is also on normal saline running at 75 mL an hour. He remains in atrial fibrillation. Around 10:00 when he converted back into sinus rhythm and the patient is still on amiodarone maintenance. The chest x-ray shows no interval change. There is no acute abnormalities. There is a left upper lobe opacity which has remained unchanged and this is related to his lung cancer. No significant respiratory secretions. Blood gases from today showed a pH of 7.33 with a pCO2 of 36 and pO2 of 170. The white cell count is at 20. The patient is afebrile. Creatinine is at 1.5 with a BMI of 27. The calcium level is at 7.3. The troponin levels were at 1.02 and 1.05 respectively. The echo of the heart showed a moderate concentric LVH, EF around 55-60%, there was some diastolic filling pattern, no significant valvular abnormalities noted and there was a trivial pericardial effusion. CAT scan of the brain was also negative for an a cute abnormalities. When the process of giving this patient a sedation holiday to assess his mental status and assess his readiness for further weaning. On 08/27/2019, patient is being seen for a follow-up. The patient is extubated and the patient was extubated yesterday without any major difficulties. Postextubation, the patient was not cooperating with the medical treatment. Overnight, the patient became quite uncooperative and he wanted to leave the hospital and he wanted to stop all treatment and he wanted to . He pulled his triple-lumen catheter and an outlying catheter. He was refusing any form of oral medication. This morning, he seems much more comfortable and he is sabina ating more so with the treatment offered to him. There is a sitter at the bedside. He seems to be calm and appropriate on today's evaluation. He has a sinus rhythm. He was taken off the amiodarone drip and the patient is currently on oral amiodarone 400 mg by mouth twice a day. The patient is also on metoprolol 25 mg by mouth 3 times a day. He had a follow-up chest x-ray today that showed worsening in the left lung findings and the patient developed a new onset infiltration of the left lung and the patient will be started on Zosyn and Antibiotic coverage considering the possibility of an aspiration pneumonia. He is on IV fluids at 75 mL an hour normal saline. He is currently on 2 L of oxygen by nasal cannula with a pulse of 76%. On 08/28/2019 patient seen in follow-up on the general medical floor, he is awake and alert, in no acute distress, he is on room air, with a pleasant 73%, hemodynamically stable, his been afebrile, he remains on Zosyn for possibility of aspiration pneumonia, no new chest x-ray today, no acute events overnight. Today's labs have been reviewed, showing BUN of 35, and creatinine is down to 1.16, patient remains on IV hydration with 0.9 normal saline at a rate of 75 ML per hour, no worsening dyspnea, no acute events overnight. Patient has been transitioned to oral amiodarone. No specific complaints, we'll obtain follow-up chest x-ray tomorrow. Objective - Vital Signs Vital signs: Vital Signs Temp 98 F 08/28/19 12:17 Pulse 60 08/28/19 12:17 Resp 20 08/28/19 12:17 BP 169/78 08/28/19 12:17 Pulse Ox 93 L 08/28/19 12:17 Intake & Output 08/27/19 08/28/19 08/28/19 18:59 06:59 18:59 Intake Total 805 1900 Output Total 625 Balance 180 1900 Weight 99.2 kg Intake: IV 225 900 Sodium Chloride 0.9% 1, 225 900 000 ml @ 75 mls/hr IV . [id number] [facility] Rx#:[id number] Intake, IV Titration 100 100 Amount Piperacillin-Tazobactam 3 100 100 .375 gm In Sodium Chloride 0.9% 100 ml @ 25 mls/hr IVPB Q12HR [facility] Rx #:[id number] Oral 480 900 Output: Urine 625 Other: Voiding Method Indwelling Catheter Toilet Toilet Urinal Urinal # Voids 2 # Bowel Movements 1 - Exam GENERAL EXAM: Alert, very pleasant, 69-year-old white male, on room air, with pulse ox of 93% comfortable in no apparent distress. HEAD: Normocephalic/atraumatic. EYES: Normal reaction of pupils, equal size. Conjunctiva pink, sclera white. NOSE: Clear with pink turbinates. THROAT: No erythema or exudates. NECK: No masses, no JVD, no thyroid enlargement, no adenopathy. CHEST: No chest wall deformity. Symmetrical expansion. LUNGS: Equal air entry with no crackles, wheeze, rhonchi or dullness. CVS: Regular rate and rhythm, normal S1 and S2, no gallops, no murmurs, no rubs ABDOMEN: Soft, nontender. No hepatosplenomegaly, normal bowel sounds, no guarding or rigidity. EXTREMITIES: No clubbing, no edema, no cyanosis, 2+ pulses and upper and lower extremities. MUSCULOSKELETAL: Muscle strength and tone normal. SPINE: No scoliosis or deformity SKIN: No rashes CENTRAL NERVOUS SYSTEM: Alert and oriented -3. No focal deficits, tone is normal in all 4 extremities. PSYCHIATRIC: Alert and oriented -3. Appropriate affect. Intact judgment and insight. - Labs CBC & Chem 7: 08/27/19 05:41 08/28/19 06:33 Labs: Abnormal Lab Results - Last 24 Hours (Table) 08/27/19 08/27/19 08/28/19 Range/Units 16:59 20:39 06:33 Chloride 114 H (98-107) mmol/L BUN 35 H (9-20) mg/dL POC Glucose (mg/dL) 132 H 139 H (75-99) mg/dL Calcium 7.6 L (8.4-10.2) mg/dL 08/28/19 08/28/19 Range/Units 07:06 11:00 Chloride (98-107) mmol/L BUN (9-20) mg/dL POC Glucose (mg/dL) 104 H 102 H (75-99) mg/dL Calcium (8.4-10.2) mg/dL Assessment and Plan Plan: Assessment: 1 acute cardiac pulmonary arrest, patient was found to be in PEA , exact cause is not clear. The patient is currently under investigation. The workup for the cardiac arrest of been negative and the patient has no clear cause for his underlying cardiac arrest. The patient was intubated, received CP R per ACLS protocol and ultimately was extubated yesterday and his been hemodynamically stable since. 2 acute hypercapnic/hypoxic respiratory failure following cardiac arrest, currently the patient is extubated and the patient has developed a left lung consolidation over the past 24 hours highly suspicion for an underlying aspiration pneumonia. 3 squamous cell lung cancer with solitary metastases to his right upper extremity. The patient was treated with systemic chemotherapy and radiation [facility] for curative intent. The patient was found to have a right axillary mass consistent with metastases and the patient was started on systemic chemotherapy by oncology. Original diagnosis established and 2019. The patient has received 4 cycles of systemic chemotherapy and for no further chemotherapy is on hold. 4 COPD, with secondary exacerbation currently on a combination of bronchodilator s and steroids 5 coronary artery disease with previous coronary intervention and the results of the cardiac catheterization from 2019 showed nonocclusive disease 6 chronic atrial fibrillation, currently back into normal sinus rhythm 7 peripheral vascular disease 8 solitary kidney, right-sided within normal kidney function 9 BPH and history of nephrolithiasis 10 hyperlipidemia 11 acute leukocytosis, improving 12 acute kidney injury in the creatinine is improving is down to 1.16 Plan: Continue current a better coverage, follow-up chest x-ray tomorrow, increase activity as tolerated, no acute events overnight, renal function has recovered. Increase oral intake as tolerated, will continue to follow I performed a history & physical examination of the patient and discussed their management with my nurse practitioner, Rosa Hitchcock. I reviewed the nurse practitioner's note and agree with the documented findings and plan of care. Lung sounds are positive for diminished breath sounds. The findings and the impression was discussed with the patient. I attest to the documentation by the nurse practitioner. Time with Patient: Less than 30
--- NOTE | 2019-08-28 13:57 | PN ---
PROGRESS NOTE Patient is seen for followup for acute kidney injury, post cardiac arrest. Renal function has improved, creatinine down to 1.16. Patient is doing well, he is sitting up in a bedside chair. Patient has solitary kidney as he was born with an atrophic left kidney. PHYSICAL EXAMINATION: On examination, blood pressure is 167/79, heart rate 60 per minute, he is afebrile. Examination of the heart S1, S2. Examination of the lungs, decreased breath sounds at the bases. Abdomen is soft, nontender, obese. Examination of the lower extremities shows no evidence of edema. LABS: Show sodium 141, potassium 4.5, chloride 114, CO2 is 26, BUN 35, creatinine 1.16. ASSESSMENT: 1. Acute kidney injury post cardiac arrest, currently improved. 2. Status post cardiac arrest. 3. Atrial fibrillation, status post amiodarone. 4. Chronic kidney disease stage III secondary to diabetic nephropathy and nephrosclerosis. 5. Solitary kidney. Patient was born with an atrophic/absent left kidney. 6. Metabolic acidosis maintained on oral sodium bicarb, currently resolved. PLAN: Discontinue sodium bicarb. Patient is stable for discharge from nephrology standpoint. MMODL / IJN: [id number] /
--- NOTE | 2019-08-28 14:24 | P.PN ---
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 he Is a patient of Dr. Carballo, patient could not provide information so it was obtained from the records and staff patient was getting his chemotherapy at the [facility] side of this hospital, when he collapsed and became unresponsive and followed the EEA and tao silva was called, he was resuscitated and the down time was about 2-5 minutes per staff and transferred to the emergency room. He was hypothermic. Patient got intubated and placed on mechanical ventilation, started on norepinephrine drip Echocardiogram: Ejection fraction 55-60%, LVH. Chest x-ray: Improved left upper lobe atelectasis with a new left basilar consolidation suspicious for atelectasis. CT of the brain: No acute process. Renal ultrasound: No hydronephrosis This morning patient was able to come off the vent and he got extubated, currently he is on 5 L oxygen on nasal cannula. He is little confused, however as per son patient usually develops hallucination for 1-3 days postchemotherapy Also patient was started on amiodarone drip for his A. fib, he converted to sinus and this morning and the amiodarone drip will be stopped tonight per protocol. 08/27/2019 Patient got extubated last night however he was agitated and he wanted to leave the hospital and fusion treatment currently smoke, sitter at bedside Possibly patient has metabolic encephalopathy related to his cardiac arrest and left lower lobe pneumonia seen on chest x-ray today suspicious for aspiration pneumonia patient was started on Zosyn, His heart rate is better controlled, continue on amiodarone pills 200 mg. Vital showing temperature of 98.2, heart rate 63, breathing at a rate of 24 and blood pressure 157/78, he saturating 94% 2 L oxygen via nasal cannula Labs reviewed showing hemoglobin of 9.3, leukocytosis improved from 20 K down to 8.2K, platelets are trending down, today at 80 2K. Creatinine is slightly improving from 1.5 down to 1.4. Glucose controlled 08/28/2019 Patient was transferred to oncology floor. He is sitting in chair not in respiratory distress, however he still feels dyspneic with occasional coughing. Vitals stable. Saturating 93% and 20 oxygen via nasal cannula. Patients with closed by several consultants Tenderness on Eliquis 5 mg, Zosyn for pneumonia, also he is on prednisone 40 mg a normal sinus 75 mL/h Review of systems HEENT: No recent visual problems or hearing problems. Denied any sore throat. CARDIOVASCULAR: No orthopnea, PND, no palpitations, no syncope. GASTROINTESTINAL: No diarrhea, no nausea, no vomiting, no abdominal pain. Normoactive bowel sounds. NEUROLOGICAL: No headaches, no weakness, no numbness. HEMATOLOGICAL: Denies any bleeding or petechiae. GENITOURINARY: Denies any burning micturition, frequency, or urgency. MUSCULOSKELETAL/RHEUMATOLOGICAL: Denies any joint pain, swelling, or any muscle pain. ENDOCRINE: Denies any polyuria or polydipsia. Active Medications Generic Name Dose Route Start Last Admin Trade Name Freq PRN Reason Stop Dose Admin Hydrocodone Bitart/Acetaminophen 1 each 08/27/19 11:49 08/28/19 07:52 [place] 5-325 PO 1 each Q6HR PRN Administration Pain Albuterol Sulfate 2 puff 08/26/19 04:00 Ventolin Hfa Inhaler INHALATION RT-QID PRN Shortness Of Breath Albuterol Sulfate 2 puff 08/26/19 16:00 08/28/19 11:56 Ventolin Hfa Inhaler INHALATION 2 puff RT-QID LILIBETH Administration Amiodarone HCl 400 mg 08/27/19 09:00 08/28/19 07:54 Cordarone PO 09/02/19 23:59 400 mg BID LILIBETH Administration Amiodarone HCl 200 mg 09/03/19 09:00 Cordarone PO BID LILIBETH Amlodipine Besylate 10 mg 08/29/19 09:00 Norvasc PO DAILY LILIBETH Apixaban 5 mg 08/25/19 21:00 08/28/19 07:54 Eliquis PO 5 mg BID LILIBETH Administration Sodium Chloride 1,000 mls @ 75 mls/hr 08/25/19 20:15 08/28/19 01:04 Saline 0.9% IV 75 mls/hr .[id number] LILIBETH Administration Piperacillin Sod/Tazobactam 100 mls @ 25 mls/hr 08/28/19 16:00 Sod 3.375 gm/ Sodium Chloride IVPB Q8HR [facility] Insulin Aspart 0 unit 08/27/19 12:30 08/28/19 13:10 Novolog SQ Not Given ACHS [facility] Protocol Metoprolol Tartrate 25 mg 08/27/19 09:00 08/28/19 07:52 Lopressor PO 25 mg TID LILIBETH Administration Naloxone HCl 0.2 mg 08/25/19 18:06 Narcan IV Q2M PRN Opioid Reversal Pantoprazole Sodium 40 mg 08/29/19 09:00 Protonix PO DAILY [facility] Prednisone 40 mg 08/28/19 09:00 08/28/19 07:54 PO 40 mg DAILY LILIBETH Administration Objective - Vital Signs Vital signs: Vital Signs Temp 98 F 08/28/19 12:17 Pulse 60 08/28/19 12:17 Resp 20 08/28/19 12:17 BP 169/78 08/28/19 12:17 Pulse Ox 93 L 08/28/19 12:17 Intake & Output 08/27/19 08/28/19 08/28/19 18:59 06:59 18:59 Intake Total 805 1900 Output Total 625 Balance 180 1900 Weight 99.2 kg Intake: IV 225 900 Sodium Chloride 0.9% 1, 225 900 000 ml @ 75 mls/hr IV . [id number] [facility] Rx#:[id number] Intake, IV Titration 100 100 Amount Piperacillin-Tazobactam 3 100 100 .375 gm In Sodium Chloride 0.9% 100 ml @ 25 mls/hr IVPB Q12HR [facility] Rx #:[id number] Oral 480 900 Output: Urine 625 Other: Voiding Method Indwelling Catheter Toilet Toilet Urinal Urinal # Voids 2 # Bowel Movements 1 - Exam -GENERAL: The patient is patient awake and alert but lethargic HEENT: Pupils are round and equally reacting to light. EOMI. No scleral icterus. No conjunctival pallor. Normocephalic, atraumatic. No pharyngeal erythema. No thyromegaly. CARDIOVASCULAR: S1 and S2 present. No murmurs, rubs, or gallops. -PULMONARY: Chest is clear to auscultation, no wheezing or crackles. Decreased breath sounds on the left side ABDOMEN: Soft, nontender, nondistended, normoactive bowel sounds. No palpable organomegaly. MUSCULOSKELETAL: No joint swelling or deformity. EXTREMITIES: No cyanosis, clubbing, or pedal edema. NEUROLOGICAL: Gross neurological examination did not reveal any focal deficits. SKIN: No rashes. No petechiae - Labs CBC & Chem 7: 08/27/19 05:41 08/28/19 06:33 Labs: Abnormal Lab Results - Last 24 Hours (Table) 08/27/19 08/27/19 08/28/19 Range/Units 16:59 20:39 06:33 Chloride 114 H (98-107) mmol/L BUN 35 H (9-20) mg/dL POC Glucose (mg/dL) 132 H 139 H (75-99) mg/dL Calcium 7.6 L (8.4-10.2) mg/dL 08/28/19 08/28/19 Range/Units 07:06 11:00 Chloride (98-107) mmol/L BUN (9-20) mg/dL POC Glucose (mg/dL) 104 H 102 H (75-99) mg/dL Calcium (8.4-10.2) mg/dL Assessment and Plan Assessment: status post cardiac arrest and PEA. with acute hypoxic respiratory failure requiring intubation and Extubation Acute left lower lobe pneumonia, suspicious for aspiration pneumonia left upper lobe squamous cell lung cancer with metastasis including the skin status post chemo and radiotherapy Acute delirium and metabolic encephalopathy, secondary to above Bicytopenia with thrombocytopenia and anemia Acute kidney injury Chronic atrial fibrillation, was on Eliquis Chronic systolic heart failure History of coronary artery disease status post stent COPD GERD one sided kidney on the right Hyperlipidemia Hypertension Osteoarthritis benign prostatic hypertrophy history of Chronic back pain Plan: this is a 69 years old male who presents with cardiac arrest status post intubation/extubation. Also patient developing pneumonia, and a CHRISTOPHER. Patient kept on IV fluid, kidney with antibiotics and steroids. follow breathing status and chest x-ray. Follow-up platelets and hemoglobin. Follow-up creatinine. pulmonary/critical care team or the case. Cardiology consult and consult oncology service Labs and medication were reviewed.. Continue same treatment. Continue with symptomatic treatment. Resume home medication. Monitor lytes and vitals. DVT and GI prophylaxis. Further recommendations of the clinical course of the patient DVT prophylaxis: eliquis GI Prophylaxis: Ppi Prognosis is guarded
[2019-08-28 17:28] LABS: Glucose,Whole Blood 126 mg/dL (75-99)
--- NOTE | 2019-08-28 17:32 | P.PN ---
Subjective Progress Note Date: 08/28/19 Principal diagnosis: Status POst PEA during chemotherapy infusion Awaiting CBC today, overall patient is improving Objective - Vital Signs Vital signs: Vital Signs Temp 98 F 08/28/19 12:17 Pulse 60 08/28/19 12:17 Resp 20 08/28/19 12:17 BP 169/78 08/28/19 12:17 Pulse Ox 93 L 08/28/19 12:17 Intake & Output 08/27/19 08/28/19 08/28/19 18:59 06:59 18:59 Intake Total 805 1900 1340 Output Total 625 Balance 180 1900 1340 Weight 99.2 kg Intake: IV 225 900 640 Sodium Chloride 0.9% 1, 225 900 640 000 ml @ 75 mls/hr IV . [id number] [facility] Rx#:[id number] Intake, IV Titration 100 100 100 Amount Piperacillin-Tazobactam 3 100 100 .375 gm In Sodium Chloride 0.9% 100 ml @ 25 mls/hr IVPB Q12HR [facility] Rx #:[id number] Piperacillin-Tazobactam 3 100 .375 gm In Sodium Chloride 0.9% 100 ml @ 25 mls/hr IVPB Q8HR [facility] Rx# :[id number] Oral 480 900 600 Output: Urine 625 Other: Voiding Method Indwelling Catheter Toilet Toilet Urinal Urinal # Voids 2 3 # Bowel Movements 1 - Exam Gen: Awake, no ncrease distress Head: NC AT Neck Supple Previous palpable adenopathy not palpable Heart Irr, Irr Lungs: DIminshed Abd: Soft, ND Ext: pedal edema Mood: grumpy - Labs CBC & Chem 7: 08/27/19 05:41 08/28/19 06:33 Labs: Abnormal Lab Results - Last 24 Hours (Table) 08/27/19 08/28/19 08/28/19 Range/Units 20:39 06:33 07:06 Chloride 114 H (98-107) mmol/L BUN 35 H (9-20) mg/dL POC Glucose (mg/dL) 139 H 104 H (75-99) mg/dL Calcium 7.6 L (8.4-10.2) mg/dL 08/28/19 08/28/19 Range/Units 11:00 17:26 Chloride (98-107) mmol/L BUN (9-20) mg/dL POC Glucose (mg/dL) 102 H 126 H (75-99) mg/dL Calcium (8.4-10.2) mg/dL Assessment and Plan Plan: Assessement and Recommendations: 1. Acute Cardiac Arrest PEA requiring intubation: - Since been extubated - Per intensive care and branch account executive - Exact cause unknown 2. Metastatic Lung Cancer: - Status Post 4th cycle chemotherapy - Further chemotherapy on hold. - Good clinical response, will discuss further treatment measures at follow-up in hospital. Normocytic Anemia: - Likely secondary to recent chemotherapy and dilution but will work up further Thrombocytopenia: - Await CBC today and monitor daily - Monitor closely, if less than 50K stop AC therapy less than 10K transfuse We will follow along with you All acute problems currently under care of primary team Physician Attest: I have completed the full history and physical and agree with above dictation, dictated as a scribe
[2019-08-28 17:48] LABS: Anisocytosis Slight; Basophils % (A) 0 %; Eosinophils % (A) 0 %; HCT 27.4 % (39.0-53.0); HGB 8.7 gm/dL (13.0-17.5); Hypochromasia Moderate; Lymphocytes # (A) 0.4 k/uL (1.0-4.8); Lymphocytes % (A) 6 %; MCH 28.8 pg (25.0-35.0); MCHC 31.6 g/dL (31.0-37.0); Mean Platelet Volume 10.8; Monocytes # (A) 0.1 k/uL (0-1.0); Monocytes % (A) 2 %; Neutrophils # (A) 5.2 k/uL (1.3-7.7); Neutrophils % (A) 91 %; RBC 3.01 m/uL (4.30-5.90); RDW 17.2 % (11.5-15.5); WBC 5.7 k/uL (3.8-10.6)
[2019-08-28 17:50] LABS: Platelet Count 66 k/uL (150-450)
[2019-08-28 18:02] LABS: Albumin 2.8 g/dL (3.5-5.0); Magnesium 1.7 mg/dL (1.6-2.3); Total Bilirubin 0.6 mg/dL (0.2-1.3); Total Protein 5.1 g/dL (6.3-8.2)
[2019-08-28 20:25] LABS: Glucose,Whole Blood 179 mg/dL (75-99)
[2019-08-29] MEDS: SODIUM CHLORIDE 0.9% 1,000 ML IV SCH (04:34)
[2019-08-29 06:14] LABS: Anisocytosis Slight; Basophils % (A) 0 %; Eosinophils # (A) 0.1 k/uL (0-0.7); Eosinophils % (A) 2 %; HCT 27.9 % (39.0-53.0); HGB 9.1 gm/dL (13.0-17.5); Hypochromasia Slight; Lymphocytes # (A) 0.4 k/uL (1.0-4.8); Lymphocytes % (A) 8 %; MCHC 32.6 g/dL (31.0-37.0); MCV 88.9 fL (80.0-100.0); Mean Platelet Volume 10.2; Monocytes # (A) 0.1 k/uL (0-1.0); Monocytes % (A) 2 %; Neutrophils # (A) 4.7 k/uL (1.3-7.7); Neutrophils % (A) 88 %; RBC 3.14 m/uL (4.30-5.90); RDW 16.8 % (11.5-15.5); WBC 5.4 k/uL (3.8-10.6)
[2019-08-29 06:20] LABS: Platelet Count 69 k/uL (150-450)
[2019-08-29 06:31] LABS: ALT 19 U/L (4-49); AST 22 U/L (17-59); African American GFR (CKD) >90 (>60 ml/min/1.73 sqM); Alkaline Phosphatase 96 U/L (38-126); Anion Gap 6 mmol/L; Blood Urea Nitrogen 30 mg/dL (9-20); Calcium 7.8 mg/dL (8.4-10.2); Carbon Dioxide 24 mmol/L (22-30); Chloride 111 mmol/L (98-107); Glucose 94 mg/dL (74-99); Magnesium 1.6 mg/dL (1.6-2.3); Non-African American GFR(CKD) 79 (>60 ml/min/1.73 sqM); Sodium 141 mmol/L (137-145); Total Bilirubin 0.8 mg/dL (0.2-1.3); Total Protein 5.5 g/dL (6.3-8.2)
--- NOTE | 2019-08-29 06:34 | XR ---
EXAMINATION TYPE: XR chest 1V portable DATE OF EXAM: 08/29/2019 HISTORY: shortness of breath, pneumonia. REFERENCE: Previous study dated 08/27/2019. FINDINGS: There is improved aeration of the left lung. Some residual airspace disease persists in the basal portion. The right lung appears clear. Heart size upper limits of normal. There is blunting of the left CP angle and I could not exclude a small left effusion. IMPRESSION: IMPROVED AERATION, LEFT LUNG.
[2019-08-29] MEDS: ALBUTEROL HFA INHALER INHALATION SCH ×4 (07:12→19:06)
[2019-08-29 07:18] LABS: Glucose,Whole Blood 93 mg/dL (75-99)
[2019-08-29] MEDS: INSULIN ASPART (NovoLOG) 100 UNIT/ML VIAL SQ SCH ×4 (07:47→20:56)
[2019-08-29] MEDS: HYDROcodone/APAP 5-325MG 1 EACH TAB PO PRN ×3 (08:00→21:01)
[2019-08-29] MEDS: METOPROLOL TARTRATE 25 MG TAB PO SCH ×3 (08:01→20:55)
[2019-08-29] MEDS: PANTOPRAZOLE 40 MG TABLET PO SCH (08:01)
[2019-08-29] MEDS: AMIODARONE 200 MG TAB PO SCH ×2 (08:02→20:56)
[2019-08-29] MEDS: PIPERACILLIN-TAZOBACTAM 3.375 GM in SODIUM CHLORIDE 0.9% 100 ML IVPB SCH ×3 (08:02→23:53)
[2019-08-29] MEDS: APIXABAN 5 MG TAB PO SCH ×2 (08:02→20:56)
[2019-08-29] MEDS: predniSONE 20 MG TAB PO SCH (08:02)
[2019-08-29] MEDS: amLODIPine 10 MG TAB PO SCH (08:02)
[2019-08-29 11:27] LABS: Glucose,Whole Blood 110 mg/dL (75-99)
--- NOTE | 2019-08-29 13:13 | PN ---
PROGRESS NOTE Patient is seen for followup for acute kidney injury post cardiac arrest. Serum creatinine now decreased to 0.98 mg/dL from peak of 1.54. The patient is doing well. EXAMINATION: Blood pressure is 142/68, heart rate of 58 per minute. He is afebrile. Examination shows patient is euvolemic. No evidence of edema bilateral lower extremities. ABDOMEN: Soft, obese, nontender. He is maintained on IV fluids at 75 mL an hour. The patient was also started on antibiotics for acute left lower lobe pneumonia. ASSESSMENT: 1. 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 2. Status post cardiac arrest. 3. Acute kidney injury, status post cardiac arrest, now resolved. PLAN: Discontinue IV fluids. Continue to encourage increased oral intake. Monitor labs as outpatient. MMODL / IJN: [id number] /
[2019-08-29 16:49] LABS: Glucose,Whole Blood 203 mg/dL (75-99)
[2019-08-29 21:04] LABS: Glucose,Whole Blood 165 mg/dL (75-99)
--- NOTE | 2019-08-29 21:21 | P.PN ---
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 he Is a patient of Dr. Carballo, patient could not provide information so it was obtained from the records and staff patient was getting his chemotherapy at the [facility] side of this hospital, when he collapsed and became unresponsive and followed the EEA and tao silva was called, he was resuscitated and the down time was about 2-5 minutes per staff and transferred to the emergency room. He was hypothermic. Patient got intubated and placed on mechanical ventilation, started on norepinephrine drip Echocardiogram: Ejection fraction 55-60%, LVH. Chest x-ray: Improved left upper lobe atelectasis with a new left basilar consolidation suspicious for atelectasis. CT of the brain: No acute process. Renal ultrasound: No hydronephrosis This morning patient was able to come off the vent and he got extubated, currently he is on 5 L oxygen on nasal cannula. He is little confused, however as per son patient usually develops hallucination for 1-3 days postchemotherapy Also patient was started on amiodarone drip for his A. fib, he converted to sinus and this morning and the amiodarone drip will be stopped tonight per protocol. 08/27/2019 Patient got extubated last night however he was agitated and he wanted to leave the hospital and fusion treatment currently smoke, sitter at bedside Possibly patient has metabolic encephalopathy related to his cardiac arrest and left lower lobe pneumonia seen on chest x-ray today suspicious for aspiration pneumonia patient was started on Zosyn, His heart rate is better controlled, continue on amiodarone pills 200 mg. Vital showing temperature of 98.2, heart rate 63, breathing at a rate of 24 and blood pressure 157/78, he saturating 94% 2 L oxygen via nasal cannula Labs reviewed showing hemoglobin of 9.3, leukocytosis improved from 20 K down to 8.2K, platelets are trending down, today at 80 2K. Creatinine is slightly improving from 1.5 down to 1.4. Glucose controlled 08/28/2019 Patient was transferred to oncology floor. He is sitting in chair not in respiratory distress, however he still feels dyspneic with occasional coughing. Vitals stable. Saturating 93% and 20 oxygen via nasal cannula. Patients with closed by several consultants Tenderness on Eliquis 5 mg, Zosyn for pneumonia, also he is on prednisone 40 mg a normal sinus 75 mL/h 08/29/2019 Patient improving and chest x-ray improving. Continue on prednisone 40 mg Patient is hemodynamically stable and labs are stable, platelets 69, hemoglobin 9.1, oxygen saturation is 90 on 2 L oxygen via NC Also he is on IV Zosyn Discontinue normal saline Objective - Vital Signs Vital signs: Vital Signs Temp 97.4 F L 08/29/19 11:11 Pulse 50 L 08/29/19 11:11 Resp 20 08/29/19 11:11 BP 142/68 08/29/19 11:11 Pulse Ox 98 08/29/19 11:11 Intake & Output 08/29/19 08/29/19 08/30/19 06:59 18:59 06:59 Intake Total 2200 Output Total 1300 700 Balance 900 -700 Intake: IV 900 Sodium Chloride 0.9% 1, 900 000 ml @ 75 mls/hr IV . [id number] [facility] Rx#:[id number] Intake, IV Titration 100 Amount Piperacillin-Tazobactam 3 100 .375 gm In Sodium Chloride 0.9% 100 ml @ 25 mls/hr IVPB Q8HR [facility] Rx# :[id number] Oral 1200 Output: Urine 1300 700 Other: Voiding Method Urinal Urinal # Voids 3 2 - Exam -GENERAL: The patient is patient awake and alert but lethargic HEENT: Pupils are round and equally reacting to light. EOMI. No scleral icterus. No conjunctival pallor. Normocephalic, atraumatic. No pharyngeal erythema. No thyromegaly. CARDIOVASCULAR: S1 and S2 present. No murmurs, rubs, or gallops. -PULMONARY: Chest is clear to auscultation, no wheezing or crackles. Decreased breath sounds on the left side ABDOMEN: Soft, nontender, nondistended, normoactive bowel sounds. No palpable organomegaly. MUSCULOSKELETAL: No joint swelling or deformity. EXTREMITIES: No cyanosis, clubbing, or pedal edema. NEUROLOGICAL: Gross neurological examination did not reveal any focal deficits. SKIN: No rashes. No petechiae - Labs CBC & Chem 7: 04/25/20 05:57 08/29/19 05:57 Labs: Abnormal Lab Results - Last 24 Hours (Table) 08/29/19 08/29/19 08/29/19 Range/Units 05:57 05:57 11:08 RBC 3.14 L (4.30-5.90) m/uL Hgb 9.1 L (13.0-17.5) gm/dL Hct 27.9 L (39.0-53.0) % RDW 16.8 H (11.5-15.5) % Plt Count 69 L (150-450) k/uL Lymphocytes # 0.4 L (1.0-4.8) k/uL Chloride 111 H (98-107) mmol/L BUN 30 H (9-20) mg/dL POC Glucose (mg/dL) 110 H (75-99) mg/dL Calcium 7.8 L (8.4-10.2) mg/dL Total Protein 5.5 L (6.3-8.2) g/dL Albumin 3.0 L (3.5-5.0) g/dL 08/29/19 08/29/19 Range/Units 16:44 20:51 RBC (4.30-5.90) m/uL Hgb (13.0-17.5) gm/dL Hct (39.0-53.0) % RDW (11.5-15.5) % Plt Count (150-450) k/uL Lymphocytes # (1.0-4.8) k/uL Chloride (98-107) mmol/L BUN (9-20) mg/dL POC Glucose (mg/dL) 203 H 165 H (75-99) mg/dL Calcium (8.4-10.2) mg/dL Total Protein (6.3-8.2) g/dL Albumin (3.5-5.0) g/dL Assessment and Plan Assessment: status post cardiac arrest and PEA. with acute hypoxic respiratory failure requiring intubation and Extubation Acute left lower lobe pneumonia, suspicious for aspiration pneumonia left upper lobe squamous cell lung cancer with metastasis including the skin status post chemo and radiotherapy Acute delirium and metabolic encephalopathy, secondary to above Bicytopenia with thrombocytopenia and anemia Acute kidney injury Chronic atrial fibrillation, was on Eliquis Chronic systolic heart failure History of coronary artery disease status post stent COPD GERD one sided kidney on the right Hyperlipidemia Hypertension Osteoarthritis benign prostatic hypertrophy history of Chronic back pain Plan: this is a 69 years old male who presents with cardiac arrest status post intubation/extubation. Also patient developing pneumonia, and a CHRISTOPHER. Patient kept on IV fluid, kidney with antibiotics and steroids. follow breathing status and chest x-ray. Follow-up platelets and hemoglobin. Follow-up creatinine. pulmonary/critical care team or the case. Cardiology consult and consult oncology service Labs and medication were reviewed.. Continue same treatment. Continue with symptomatic treatment. Resume home medication. Monitor lytes and vitals. DVT and GI prophylaxis. Further recommendations of the clinical course of the patient DVT prophylaxis: eliquis GI Prophylaxis: Ppi Prognosis is guarded
[2019-08-30 06:55] LABS: Glucose,Whole Blood 93 mg/dL (75-99)
[2019-08-30 06:56] LABS: Anisocytosis Slight; Basophils % (A) 1 %; Eosinophils # (A) 0.2 k/uL (0-0.7); Eosinophils % (A) 6 %; HCT 27.8 % (39.0-53.0); Lymphocytes # (A) 0.5 k/uL (1.0-4.8); Lymphocytes % (A) 15 %; MCH 27.9 pg (25.0-35.0); MCHC 32.2 g/dL (31.0-37.0); MCV 86.4 fL (80.0-100.0); Mean Platelet Volume 7.8; Monocytes # (A) 0.1 k/uL (0-1.0); Monocytes % (A) 2 %; Neutrophils # (A) 2.5 k/uL (1.3-7.7); Neutrophils % (A) 76 %; Platelet Count 88 k/uL (150-450); RBC 3.22 m/uL (4.30-5.90); RDW 16.7 % (11.5-15.5); WBC 3.3 k/uL (3.8-10.6)
[2019-08-30] MEDS: ALBUTEROL HFA INHALER INHALATION SCH ×4 (07:11→19:33)
[2019-08-30] MEDS: INSULIN ASPART (NovoLOG) 100 UNIT/ML VIAL SQ SCH ×4 (07:44→20:56)
[2019-08-30] MEDS: PIPERACILLIN-TAZOBACTAM 3.375 GM in SODIUM CHLORIDE 0.9% 100 ML IVPB SCH ×3 (08:45→23:41)
[2019-08-30] MEDS: AMIODARONE 200 MG TAB PO SCH ×2 (08:45→20:56)
[2019-08-30] MEDS: METOPROLOL TARTRATE 25 MG TAB PO SCH ×3 (08:46→20:56)
[2019-08-30] MEDS: PANTOPRAZOLE 40 MG TABLET PO SCH (08:46)
[2019-08-30] MEDS: predniSONE 20 MG TAB PO SCH (08:46)
[2019-08-30] MEDS: APIXABAN 5 MG TAB PO SCH ×2 (08:46→20:56)
[2019-08-30] MEDS: amLODIPine 10 MG TAB PO SCH (08:46)
--- NOTE | 2019-08-30 08:47 | P.PN ---
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 he Is a patient of Dr. Carballo, patient could not provide information so it was obtained from the records and staff patient was getting his chemotherapy at the [facility] side of this hospital, when he collapsed and became unresponsive and followed the EEA and tao silva was called, he was resuscitated and the down time was about 2-5 minutes per staff and transferred to the emergency room. He was hypothermic. Patient got intubated and placed on mechanical ventilation, started on norepinephrine drip Echocardiogram: Ejection fraction 55-60%, LVH. Chest x-ray: Improved left upper lobe atelectasis with a new left basilar consolidation suspicious for atelectasis. CT of the brain: No acute process. Renal ultrasound: No hydronephrosis This morning patient was able to come off the vent and he got extubated, currently he is on 5 L oxygen on nasal cannula. He is little confused, however as per son patient usually develops hallucination for 1-3 days postchemotherapy Also patient was started on amiodarone drip for his A. fib, he converted to sinus and this morning and the amiodarone drip will be stopped tonight per protocol. 08/27/2019 Patient got extubated last night however he was agitated and he wanted to leave the hospital and fusion treatment currently smoke, sitter at bedside Possibly patient has metabolic encephalopathy related to his cardiac arrest and left lower lobe pneumonia seen on chest x-ray today suspicious for aspiration pneumonia patient was started on Zosyn, His heart rate is better controlled, continue on amiodarone pills 200 mg. Vital showing temperature of 98.2, heart rate 63, breathing at a rate of 24 and blood pressure 157/78, he saturating 94% 2 L oxygen via nasal cannula Labs reviewed showing hemoglobin of 9.3, leukocytosis improved from 20 K down to 8.2K, platelets are trending down, today at 80 2K. Creatinine is slightly improving from 1.5 down to 1.4. Glucose controlled 08/28/2019 Patient was transferred to oncology floor. He is sitting in chair not in respiratory distress, however he still feels dyspneic with occasional coughing. Vitals stable. Saturating 93% and 20 oxygen via nasal cannula. Patients with closed by several consultants Tenderness on Eliquis 5 mg, Zosyn for pneumonia, also he is on prednisone 40 mg a normal sinus 75 mL/h 08/29/2019 Patient improving and chest x-ray improving. Continue on prednisone 40 mg Patient is hemodynamically stable and labs are stable, platelets 69, hemoglobin 9.1, oxygen saturation is 90 on 2 L oxygen via NC Also he is on IV Zosyn Discontinue normal saline 08/30/2019 Patient feels better, his dyspnea is minimal, is able to ambulate, chest x-ray is showing improvement from yesterday. Hemodynamically stable. And he saturating 95% on 2 L oxygen via nasal cannula WBC from today 3.3K, hemoglobin 9.0 platelet 88 Objective - Vital Signs Vital signs: Vital Signs Temp 98 F 08/30/19 04:09 Pulse 65 08/30/19 04:09 Resp 20 08/30/19 04:09 BP 169/81 08/30/19 04:09 Pulse Ox 95 08/30/19 04:09 Intake & Output 08/29/19 08/30/19 08/30/19 18:59 06:59 18:59 Intake Total 150 Output Total 700 500 300 Balance -700 -350 -300 Intake: IV 150 Sodium Chloride 0.9% 1, 150 000 ml @ 75 mls/hr IV . [id number] [facility] Rx#:[id number] Output: Urine 700 500 300 Other: Voiding Method Urinal Urinal # Voids 2 6 1 - Exam -GENERAL: The patient is patient awake and alert but lethargic HEENT: Pupils are round and equally reacting to light. EOMI. No scleral icterus. No conjunctival pallor. Normocephalic, atraumatic. No pharyngeal erythema. No thyromegaly. CARDIOVASCULAR: S1 and S2 present. No murmurs, rubs, or gallops. -PULMONARY: Chest is clear to auscultation, no wheezing or crackles. Decreased breath sounds on the left side ABDOMEN: Soft, nontender, nondistended, normoactive bowel sounds. No palpable organomegaly. MUSCULOSKELETAL: No joint swelling or deformity. EXTREMITIES: No cyanosis, clubbing, or pedal edema. NEUROLOGICAL: Gross neurological examination did not reveal any focal deficits. SKIN: No rashes. No petechiae - Labs CBC & Chem 7: 08/30/19 06:03 08/29/19 05:57 Labs: Abnormal Lab Results - Last 24 Hours (Table) 08/29/19 08/29/19 08/29/19 Range/Units 11:08 16:44 20:51 WBC (3.8-10.6) k/uL RBC (4.30-5.90) m/uL Hgb (13.0-17.5) gm/dL Hct (39.0-53.0) % RDW (11.5-15.5) % Plt Count (150-450) k/uL Lymphocytes # (1.0-4.8) k/uL POC Glucose (mg/dL) 110 H 203 H 165 H (75-99) mg/dL 08/30/19 Range/Units 06:03 WBC 3.3 L (3.8-10.6) k/uL RBC 3.22 L (4.30-5.90) m/uL Hgb 9.0 L (13.0-17.5) gm/dL Hct 27.8 L (39.0-53.0) % RDW 16.7 H (11.5-15.5) % Plt Count 88 L (150-450) k/uL Lymphocytes # 0.5 L (1.0-4.8) k/uL POC Glucose (mg/dL) (75-99) mg/dL Assessment and Plan Assessment: status post cardiac arrest and PEA. with acute hypoxic respiratory failure requiring intubation and Extubation Acute left lower lobe pneumonia, suspicious for aspiration pneumonia left upper lobe squamous cell lung cancer with metastasis including the skin status post chemo and radiotherapy Acute delirium and metabolic encephalopathy, secondary to above Bicytopenia with thrombocytopenia and anemia Acute kidney injury Chronic atrial fibrillation, was on Eliquis Chronic systolic heart failure History of coronary artery disease status post stent COPD GERD one sided kidney on the right Hyperlipidemia Hypertension Osteoarthritis benign prostatic hypertrophy history of Chronic back pain Plan: this is a 69 years old male who presents with cardiac arrest status post intubation/extubation. Also patient developing pneumonia, and a CHRISTOPHER. Patient kept on IV fluid, kidney with antibiotics and steroids. follow breathing status and chest x-ray. Follow-up platelets and hemoglobin. Follow-up creatinine. pulmonary/critical care team or the case. Cardiology consult and consult oncology service Labs and medication were reviewed.. Continue same treatment. Continue with symptomatic treatment. Resume home medication. Monitor lytes and vitals. DVT and GI prophylaxis. Further recommendations of the clinical course of the patient DVT prophylaxis: eliquis GI Prophylaxis: Ppi Prognosis is guarded
[2019-08-30] MEDS: HYDROcodone/APAP 5-325MG 1 EACH TAB PO PRN ×2 (08:51→20:55)
[2019-08-30 11:35] LABS: Glucose,Whole Blood 118 mg/dL (75-99)
[2019-08-30 17:42] LABS: Glucose,Whole Blood 153 mg/dL (75-99)
[2019-08-30 20:22] LABS: Glucose,Whole Blood 159 mg/dL (75-99)
[2019-08-31 06:52] LABS: Anisocytosis Slight; Basophils % (A) 1 %; Eosinophils # (A) 0.1 k/uL (0-0.7); Eosinophils % (A) 8 %; HCT 25.8 % (39.0-53.0); HGB 8.5 gm/dL (13.0-17.5); Hypochromasia Slight; Lymphocytes # (A) 0.4 k/uL (1.0-4.8); Lymphocytes % (A) 26 %; MCH 28.8 pg (25.0-35.0); MCHC 32.9 g/dL (31.0-37.0); MCV 87.5 fL (80.0-100.0); Mean Platelet Volume 9.2; Monocytes % (A) 2 %; Neutrophils # (A) 1.1 k/uL (1.3-7.7); Neutrophils % (A) 62 %; RBC 2.94 m/uL (4.30-5.90); RDW 16.5 % (11.5-15.5); WBC 1.7 k/uL (3.8-10.6)
[2019-08-31 06:54] LABS: Platelet Count 78 k/uL (150-450)
[2019-08-31 07:12] LABS: Glucose,Whole Blood 90 mg/dL (75-99)
[2019-08-31] MEDS: ALBUTEROL HFA INHALER INHALATION SCH ×4 (07:21→20:42)
[2019-08-31] MEDS: INSULIN ASPART (NovoLOG) 100 UNIT/ML VIAL SQ SCH ×4 (07:28→21:06)
[2019-08-31] MEDS: AMIODARONE 200 MG TAB PO SCH ×2 (07:59→21:05)
[2019-08-31] MEDS: predniSONE 20 MG TAB PO SCH (07:59)
[2019-08-31] MEDS: METOPROLOL TARTRATE 25 MG TAB PO SCH ×3 (07:59→21:06)
[2019-08-31] MEDS: amLODIPine 10 MG TAB PO SCH (07:59)
[2019-08-31] MEDS: PIPERACILLIN-TAZOBACTAM 3.375 GM in SODIUM CHLORIDE 0.9% 100 ML IVPB SCH ×2 (07:59→16:07)
[2019-08-31] MEDS: PANTOPRAZOLE 40 MG TABLET PO SCH (07:59)
[2019-08-31] MEDS: APIXABAN 5 MG TAB PO SCH ×2 (08:00→21:06)
[2019-08-31 10:47] LABS: Glucose,Whole Blood 121 mg/dL (75-99)
--- NOTE | 2019-08-31 15:32 | P.PN ---
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 he Is a patient of Dr. Carballo, patient could not provide information so it was obtained from the records and staff patient was getting his chemotherapy at [facility], when he collapsed and became unresponsive and followed the EEA and cold blue was called, he was resuscitated and the down time was about 2-5 minutes per staff and transferred to the emergency room. He was hypothermic. Patient got intubated and placed on mechanical ventilation, started on norepinephrine drip Echocardiogram: Ejection fraction 55-60%, LVH. Chest x-ray: Improved left upper lobe atelectasis with a new left basilar consolidation suspicious for atelectasis. CT of the brain: No acute process. Renal ultrasound: No hydronephrosis This morning patient was able to come off the vent and he got extubated, currently he is on 5 L oxygen on nasal cannula. He is little confused, however as per son patient usually develops hallucination for 1-3 days postchemotherapy Also patient was started on amiodarone drip for his A. fib, he converted to sinus and this morning and the amiodarone drip will be stopped tonight per protocol. 08/27/2019 Patient got extubated last night however he was agitated and he wanted to leave the hospital and fusion treatment currently smoke, sitter at bedside Possibly patient has metabolic encephalopathy related to his cardiac arrest and left lower lobe pneumonia seen on chest x-ray today suspicious for aspiration pneumonia patient was started on Zosyn, His heart rate is better controlled, continue on amiodarone pills 200 mg. Vital showing temperature of 98.2, heart rate 63, breathing at a rate of 24 and blood pressure 157/78, he saturating 94% 2 L oxygen via nasal cannula Labs reviewed showing hemoglobin of 9.3, leukocytosis improved from 20 K down to 8.2K, platelets are trending down, today at 80 2K. Creatinine is slightly improving from 1.5 down to 1.4. Glucose controlled 08/28/2019 Patient was transferred to oncology floor. He is sitting in chair not in respiratory distress, however he still feels dyspneic with occasional coughing. Vitals stable. Saturating 93% and 20 oxygen via nasal cannula. Patients with closed by several consultants Tenderness on Eliquis 5 mg, Zosyn for pneumonia, also he is on prednisone 40 mg a normal sinus 75 mL/h 08/29/2019 Patient improving and chest x-ray improving. Continue on prednisone 40 mg Patient is hemodynamically stable and labs are stable, platelets 69, hemoglobin 9.1, oxygen saturation is 90 on 2 L oxygen via NC Also he is on IV Zosyn Discontinue normal saline 08/30/2019 Patient feels better, his dyspnea is minimal, is able to ambulate, chest x-ray is showing improvement from yesterday. Hemodynamically stable. And he saturating 95% on 2 L oxygen via nasal cannula WBC from today 3.3K, hemoglobin 9.0 platelet 88 08/31/2019 Patient is seen and evaluated in follow-up today. Patient states he continues to have an intermittent cough and has not been able to bring anything up although denies any shortness of breath at this time. Multiple medical consultations following. Current hemoglobin today is 8.5 with platelet count of 78. Patient is currently on room air. PT/OT following as patient was weak. No reports of chest pain or palpitations. Patient is afebrile. When discussing with the patient about discharge planning needs patient states he will be going home and is refusing rehab at this time. Will continue to monitor closely. Review of systems: Constitutional: No reports of fatigue, no reports of fevers or chills Cardiovascular: No reports of chest pain or palpitations Respiratory: No reports of shortness of breath, no reports of cough GI: No reports of nausea, vomiting, or diarrhea : No reports of dysuria or retention Neurovascular: No reports of weakness or numbness Active Medications Hydrocodone Bitart/Acetaminophen ([place] 5-325) 1 each PO Q6HR PRN PRN Reason: Pain Last Admin: 08/30/19 20:55 Dose: 1 each Documented by: Albuterol Sulfate (Ventolin Hfa Inhaler) 2 puff INHALATION RT-QID PRN PRN Reason: Shortness Of Breath Albuterol Sulfate (Ventolin Hfa Inhaler) 2 puff INHALATION RT-QID LILIBETH Last Admin: 08/31/19 11:06 Dose: 2 puff Documented by: Amiodarone HCl (Cordarone) 400 mg PO BID [facility] Stop: 09/02/19 23:59 Last Admin: 08/31/19 07:59 Dose: 400 mg Documented by: Amiodarone HCl (Cordarone) 200 mg PO BID [facility] Amlodipine Besylate (Norvasc) 10 mg PO DAILY [facility] Last Admin: 08/31/19 07:59 Dose: 10 mg Documented by: Apixaban (Eliquis) 5 mg PO BID [facility] Last Admin: 08/31/19 08:00 Dose: 5 mg Documented by: Piperacillin Sod/Tazobactam (Sod 3.375 gm/ Sodium Chloride) 100 mls @ 25 mls/hr IVPB Q8HR [facility] Last Admin: 08/31/19 07:59 Dose: 25 mls/hr Documented by: Insulin Aspart (Novolog) 0 unit SQ ACHS [facility]; Protocol Last Admin: 08/31/19 11:45 Dose: Not Given Documented by: Metoprolol Tartrate (Lopressor) 25 mg PO TID [facility] Last Admin: 08/31/19 07:59 Dose: 25 mg Documented by: Naloxone HCl (Narcan) 0.2 mg IV Q2M PRN PRN Reason: Opioid Reversal Pantoprazole Sodium (Protonix) 40 mg PO DAILY [facility] Last Admin: 08/31/19 07:59 Dose: 40 mg Documented by: Prednisone () 40 mg PO DAILY [facility] Last Admin: 08/31/19 07:59 Dose: 40 mg Documented by: Objective - Vital Signs Vital signs: Vital Signs Temp 98 F 08/31/19 11:32 Pulse 74 08/31/19 11:32 Resp 20 08/31/19 11:32 BP 136/65 08/31/19 11:32 Pulse Ox 96 08/31/19 11:32 Intake & Output 08/30/19 08/31/19 08/31/19 18:59 06:59 18:59 Intake Total 100 400 650 Output Total 300 550 Balance -200 400 100 Weight 95.2 kg Intake: Intake, IV Titration 100 Amount Piperacillin-Tazobactam 3 100 .375 gm In Sodium Chloride 0.9% 100 ml @ 25 mls/hr IVPB Q8HR [facility] Rx# :[id number] Oral 400 650 Output: Urine 300 550 Other: Voiding Method Toilet Toilet Toilet Urinal Urinal Urinal # Voids 1 1 1 - Exam GENERAL: The patient is patient awake and alert, oriented 2-3. Well-developed, well-nourished. Temp is 98F, pulse is 74, respirations are 20, blood pressure is 136/65, oxygen saturation is 96% on room air. HEENT: Pupils are round and equally reacting to light. EOMI. No scleral icterus. No conjunctival pallor. Normocephalic, atraumatic. No pharyngeal erythema. No thyromegaly. CARDIOVASCULAR: S1, S2 are muffled. No murmurs, rubs, or gallops. PULMONARY: Diminished breath sounds bilaterally, more so on the left. No rhonc hi or wheezing noted on exam. ABDOMEN: Soft, nontender, nondistended, normoactive bowel sounds. No palpable organomegaly. MUSCULOSKELETAL: No joint swelling or deformity. EXTREMITIES: No cyanosis, clubbing, or pedal edema. NEUROLOGICAL: Gross neurological examination did not reveal any focal deficits. SKIN: No rashes. No petechiae - Labs CBC & Chem 7: 08/31/19 05:57 08/29/19 05:57 Labs: Abnormal Lab Results - Last 24 Hours (Table) 08/30/19 08/30/19 08/31/19 Range/Units 17:38 20:04 05:57 WBC 1.7 L (3.8-10.6) k/uL RBC 2.94 L (4.30-5.90) m/uL Hgb 8.5 L (13.0-17.5) gm/dL Hct 25.8 L (39.0-53.0) % RDW 16.5 H (11.5-15.5) % Plt Count 78 L (150-450) k/uL Neutrophils # 1.1 L (1.3-7.7) k/uL Lymphocytes # 0.4 L (1.0-4.8) k/uL POC Glucose (mg/dL) 153 H 159 H (75-99) mg/dL 08/31/19 Range/Units 10:43 WBC (3.8-10.6) k/uL RBC (4.30-5.90) m/uL Hgb (13.0-17.5) gm/dL Hct (39.0-53.0) % RDW (11.5-15.5) % Plt Count (150-450) k/uL Neutrophils # (1.3-7.7) k/uL Lymphocytes # (1.0-4.8) k/uL POC Glucose (mg/dL) 121 H (75-99) mg/dL Assessment and Plan Assessment: status post cardiac arrest and PEA. with acute hypoxic respiratory failure requiring intubation and Extubation Acute left lower lobe pneumonia, suspicious for aspiration pneumonia left upper lobe squamous cell lung cancer with metastasis including the skin status post chemo and radiotherapy Acute delirium and metabolic encephalopathy, secondary to above Bicytopenia with thrombocytopenia and anemia Acute kidney injury Chronic atrial fibrillation, was on Eliquis Chronic systolic heart failure History of coronary artery disease status post stent COPD GERD one sided kidney on the right Hyperlipidemia Hypertension Osteoarthritis benign prostatic hypertrophy history of Chronic back pain DVT prophylaxis: Eliquis GI prophylaxis: Protonix Recommendations and discussion: Recommend to continue current medications, management, and symptomatic treatment. Multiple medical consultations following. Patient to continue with inhalation treatments along with oral steroids. Patient continues on IV antibi otics in the form of Zosyn and will continue at this time. Continue to encourage increased oral intake. IV fluids have been discontinued. Hemoglobin today is 8.5 and platelets are 78. Patient was receiving chemotherapy with oncology in the outpatient setting and will follow-up with them outpatient to discuss possible continuation of treatment. In discussing with the patient about discharge planning patient states he will be going home and does not want to go to rehab. Patient does not feel rehab is necessary. Due to multiple complex medical issues, prognosis is guarded. The recommendations to follow. Possible discharge in 24-48 hours.
--- NOTE | 2019-08-31 17:01 | P.PN ---
Subjective Progress Note Date: 08/31/19 Principal diagnosis: Status POst PEA during chemotherapy infusion NO acute complaints or changes Objective - Vital Signs Vital signs: Vital Signs Temp 98 F 08/31/19 11:32 Pulse 74 08/31/19 11:32 Resp 20 08/31/19 11:32 BP 136/65 08/31/19 11:32 Pulse Ox 96 08/31/19 11:32 Intake & Output 08/30/19 08/31/19 08/31/19 18:59 06:59 18:59 Intake Total 100 400 650 Output Total 300 550 Balance -200 400 100 Weight 95.2 kg Intake: Intake, IV Titration 100 Amount Piperacillin-Tazobactam 3 100 .375 gm In Sodium Chloride 0.9% 100 ml @ 25 mls/hr IVPB Q8HR [facility] Rx# :[id number] Oral 400 650 Output: Urine 300 550 Other: Voiding Method Toilet Toilet Toilet Urinal Urinal Urinal # Voids 1 1 1 - Exam Gen: Awake, no ncrease distress Head: NC AT Neck Supple Previous palpable adenopathy not palpable Heart Irr, Irr Lungs: DIminshed Abd: Soft, ND Ext: pedal edema Mood: grumpy - Labs CBC & Chem 7: 08/31/19 05:57 08/29/19 05:57 Labs: Abnormal Lab Results - Last 24 Hours (Table) 08/30/19 08/30/19 08/31/19 Range/Units 17:38 20:04 05:57 WBC 1.7 L (3.8-10.6) k/uL RBC 2.94 L (4.30-5.90) m/uL Hgb 8.5 L (13.0-17.5) gm/dL Hct 25.8 L (39.0-53.0) % RDW 16.5 H (11.5-15.5) % Plt Count 78 L (150-450) k/uL Neutrophils # 1.1 L (1.3-7.7) k/uL Lymphocytes # 0.4 L (1.0-4.8) k/uL POC Glucose (mg/dL) 153 H 159 H (75-99) mg/dL 08/31/19 Range/Units 10:43 WBC (3.8-10.6) k/uL RBC (4.30-5.90) m/uL Hgb (13.0-17.5) gm/dL Hct (39.0-53.0) % RDW (11.5-15.5) % Plt Count (150-450) k/uL Neutrophils # (1.3-7.7) k/uL Lymphocytes # (1.0-4.8) k/uL POC Glucose (mg/dL) 121 H (75-99) mg/dL Assessment and Plan Plan: Assessement and Recommendations: 1. Acute Cardiac Arrest PEA requiring intubation: - Since been extubated - Per intensive care and pacu nurse - Exact cause unknown 2. Metastatic Lung Cancer: - Status Post 4th cycle chemotherapy - Further chemotherapy on hold. - Good clinical response, will discuss further treatment measures at follow-up in hospital. Normocytic Anemia: - Likely secondary to recent chemotherapy and dilution but will work up further Thrombocytopenia: - Await CBC today and monitor daily - Monitor closely, if less than 50K stop AC therapy less than 10K transfuse - Stable not requiring intervention today Plan to follow-up after discharge Physician Attest: I have completed the full history and physical and agree with above dictation, dictated as a scribe
[2019-08-31 17:15] LABS: Glucose,Whole Blood 156 mg/dL (75-99)
[2019-08-31 20:51] LABS: Glucose,Whole Blood 139 mg/dL (75-99)
[2019-08-31] MEDS: HYDROcodone/APAP 5-325MG 1 EACH TAB PO PRN (21:06)
[2019-08-31 21:27] VITALS: RESP 20
[2019-09-01] MEDS: PIPERACILLIN-TAZOBACTAM 3.375 GM in SODIUM CHLORIDE 0.9% 100 ML IVPB SCH ×2 (01:31→08:25)
[2019-09-01] MEDS: HYDROcodone/APAP 5-325MG 1 EACH TAB PO PRN (03:43)
[2019-09-01 05:10] VITALS: BP 134/77; PULSE 82; TEMP 98
[2019-09-01 06:47] LABS: Glucose,Whole Blood 96 mg/dL (75-99)
[2019-09-01 07:13] LABS: Anisocytosis Slight; Basophils % (A) 0 %; Eosinophils # (A) 0.1 k/uL (0-0.7); Eosinophils % (A) 6 %; HCT 24.2 % (39.0-53.0); HGB 8.2 gm/dL (13.0-17.5); Lymphocytes # (A) 0.5 k/uL (1.0-4.8); Lymphocytes % (A) 42 %; MCH 29.5 pg (25.0-35.0); MCHC 33.8 g/dL (31.0-37.0); MCV 87.4 fL (80.0-100.0); Mean Platelet Volume 10.1; Monocytes % (A) 2 %; Neutrophils # (A) 0.6 k/uL (1.3-7.7); Neutrophils % (A) 48 %; RBC 2.76 m/uL (4.30-5.90); RDW 16.2 % (11.5-15.5)
[2019-09-01 07:16] LABS: Calcium 8.5 mg/dL (8.4-10.2); Potassium 3.5 mmol/L (3.5-5.1)
[2019-09-01] MEDS: ALBUTEROL HFA INHALER INHALATION SCH ×2 (07:37→11:21)
[2019-09-01 07:51] LABS: Platelet Count 78 k/uL (150-450)
[2019-09-01 07:53] LABS: WBC 1.2 k/uL (3.8-10.6)
[2019-09-01] MEDS: predniSONE 20 MG TAB PO SCH (08:24)
[2019-09-01] MEDS: METOPROLOL TARTRATE 25 MG TAB PO SCH (08:24)
[2019-09-01] MEDS: amLODIPine 10 MG TAB PO SCH (08:24)
[2019-09-01] MEDS: APIXABAN 5 MG TAB PO SCH (08:25)
[2019-09-01] MEDS: AMIODARONE 200 MG TAB PO SCH (08:25)
[2019-09-01] MEDS: INSULIN ASPART (NovoLOG) 100 UNIT/ML VIAL SQ SCH (08:25)
[2019-09-01] MEDS: PANTOPRAZOLE 40 MG TABLET PO SCH (08:25)
[2019-09-01 11:02] LABS: Glucose,Whole Blood 119 mg/dL (75-99)
--- NOTE | 2019-09-01 14:08 | P.DS ---
Providers Date of admission: 08/25/19 18:06 Expected date of discharge: 09/01/19 Attending physician: Clovis Ta Consults: 08/25/19 18:06 Consult Physician Routine Consulting Provider: Ronnie Rubin Consult Reason/Comments: Cardiac arrest Do you want consulting provider notified?: Yes Consult Physician Stat Consulting Provider: [facility] Consult Reason/Comments: Cardiac arrest Do you want consulting provider notified?: Yes 08/26/19 06:00 Consult Physician Routine Consulting Provider: Heaven Zamudio Consult Reason/Comments: decreased urine output Do you want consulting provider notified?: Yes, Notify in am 08/26/19 13:49 Consult Physician Stat Consulting Provider: Mark Carballo Consult Reason/Comments: Previously known Do you want consulting provider notified?: Yes, Notify in am Primary care physician: Mark Carballo Hospital Course: Final diagnosis status post cardiac arrest and PEA. with acute hypoxic respiratory failure requiring intubation Acute left lower lobe pneumonia, suspicious for aspiration pneumonia left upper lobe squamous cell lung cancer with metastasis including the skin status post chemo and radiotherapy Acute delirium and metabolic encephalopathy, secondary to above Bicytopenia with thrombocytopenia and anemia Acute kidney injury Chronic atrial fibrillation, on Eliquis Chronic systolic heart failure History of coronary artery disease status post stent COPD GERD one sided kidney on the right Hyperlipidemia Hypertension Osteoarthritis benign prostatic hypertrophy history of Chronic back pain DVT prophylaxis GI prophylaxis Discharge disposition Patient is being discharged in a stable condition with guarded prognosis to home and will follow-up with Dr. Carballo upon discharge. Patient will also need to follow-up with cardiology Dr. Washburn on an outpatient basis. Total time taken is 35 minutes. History of present illness This is a 69-year-old male who was recently admitted with PEA postcardiac arrest with ROSC while receiving chemotherapy at the oncology center here at the hospital and was brought to the ICU for close monitoring. Patient was intubated due to acute hypoxic respiratory failure and was suspected of acute left lower lobe pneumonia suspicious for aspiration pneumonia and was initiated on IV antibiotics in the form of Zosyn. Multiple medical consultations following. Patient was seen and evaluated by cardiology and was initiated on amiodarone and will continue in the outpatient setting with instructions as discussed below. Patient was successfully extubated and transferred to the medical oncology floor with continued close monitoring. Patient was slightly weak initially and seen and evaluated by physical therapy. Patient is adamant about going home and refusing any form of rehab at this time as well as Homecare as he states he has family that lives close by with a lot of support if needed. Patient will follow-up with oncology in the outpatient setting to discuss further options of continued treatment. Patient will also need to follow-up closely with Dr. Washburn cardiology within the next 1-2 weeks. No reports of chest pain, shortness of breath, or palpitations. Patient is afebrile. No reports of nausea or vomiting and patient is tolerating diet. Patient states he would like to go home today. Patient will be discharged today. On exam vital signs are stable. Temp is 98F, pulse is 82, respirations are 20, blood pressure is 134/77, oxygen saturation is 93% on room air. Cardio S1, S2 are muffled. Respiratory system shows diminished breath sounds at the bases with a few scattered rhonchi noted. Abdomen is soft and nontender. Nervous system shows no focal deficits. Please refer to medication reconciliation sheet for a list of medications. Patient Condition at Discharge: Stable Plan - Discharge Summary Discharge Rx Participant: Yes New Discharge Prescriptions: New Amiodarone [Cordarone] 200 mg PO BID #52 tab Metoprolol Tartrate [Lopressor] 25 mg PO TID 30 Days #90 tab amLODIPine [Norvasc] 10 mg PO DAILY 30 Days #30 tab predniSONE 10 mg PO DIRECTED #30 tab Continue ALPRAZolam [Xanax] 1 mg PO BID PRN PRN Reason: Anxiety HYDROcodone/APAP 10-325MG [[place] 10-325] 1 tab PO QID PRN PRN Reason: Moderate To Severe Pain Esomeprazole Magnesium [NexIUM] 40 mg PO DAILY Apixaban [Eliquis] 5 mg PO BID Montelukast [Singulair] 10 mg PO HS Furosemide [Lasix] 40 mg PO DAILY Ferrous Sulfate [Iron (65 MG Elemental)] 325 mg PO DAILY Tamsulosin HCl [Flomax] 0.4 mg PO HS Fluticasone/Vilanterol [Breo Ellipta 200-25 Mcg INH] 1 puff INHALATION RT- DAILY Loratadine 10 mg PO DAILY Albuterol Sulfate [Ventolin HFA] 2 puff INHALATION RT-QID PRN PRN Reason: Shortness Of Breath Discontinued Atorvastatin [Lipitor] 40 mg PO HS Spironolactone 25 mg PO DAILY Metoprolol Tartrate [Lopressor] 25 mg PO BID Discharge Medication List ALPRAZolam [Xanax] 1 mg PO BID PRN 09/09/13 [History] HYDROcodone/APAP 10-325MG [[place] 10-325] 1 tab PO QID PRN 05/20/17 [History] Esomeprazole Magnesium [NexIUM] 40 mg PO DAILY 12/25/18 [History] Apixaban [Eliquis] 5 mg PO BID 01/12/19 [History] Ferrous Sulfate [Iron (65 MG Elemental)] 325 mg PO DAILY 03/18/19 [History] Fluticasone/Vilanterol [Breo Ellipta 200-25 Mcg INH] 1 puff INHALATION RT-DAILY 03/18/19 [History] Furosemide [Lasix] 40 mg PO DAILY 03/18/19 [History] Montelukast [Singulair] 10 mg PO HS 03/18/19 [History] Tamsulosin HCl [Flomax] 0.4 mg PO HS 03/18/19 [History] Albuterol Sulfate [Ventolin HFA] 2 puff INHALATION RT-QID PRN 08/25/19 [History] Loratadine 10 mg PO DAILY 08/25/19 [History] Amiodarone [Cordarone] 200 mg PO BID #52 tab 09/01/19 [Rx] Metoprolol Tartrate [Lopressor] 25 mg PO TID 30 Days #90 tab 09/01/19 [Rx] amLODIPine [Norvasc] 10 mg PO DAILY 30 Days #30 tab 09/01/19 [Rx] predniSONE 10 mg PO DIRECTED #30 tab 09/01/19 [Rx] Follow up Appointment(s)/Referral(s): Mark Carballo MD [Primary Care Provider] - 09/03/19 3:00 pm (labs scheduled at 1:15 on Friday 09/01 at [facility]. Keep appointment with Amina Alexander NP on 09/02.) Giorgio Washburn MD [STAFF PHYSICIAN] - 09/16/19 9:30 am Ambulatory/Diagnostic Orders: Basic Metabolic Panel [LAB.AMB] Time Frame: 2 Days, Location: None Selected Complete Blood Count w/diff [LAB.AMB] Time Frame: 2 Days, Location: None Selected Patient Instructions/Handouts: Metoprolol (By mouth), Prednisone (By mouth), Amiodarone (By mouth), Amlodipine (By mouth), Hypotension (DC) Activity/Diet/Wound Care/Special Instructions: Activity Limited until follow-up Continue current diet Follow-up with primary care provider upon discharge Follow-up with oncology in the outpatient setting Repeat labs in 2-3 days Continue taking amiodarone 400 mg twice daily on 09/01/2019 and 09/02/2019, then take 200 mg twice daily starting 09/03/2019 until 09/09/2019, then take 200 mg daily starting 09/10/2019. Follow-up with cardiology in the outpatient setting Discharge Disposition: HOME SELF-CARE
--- NOTE | 2019-09-01 16:40 | P.PN ---
Subjective Progress Note Date: 09/01/19 Principal diagnosis: Status POst PEA during chemotherapy infusion no acute changes. Objective - Vital Signs Vital signs: Vital Signs Temp 98 F 09/01/19 05:00 Pulse 82 09/01/19 05:00 Resp 20 09/01/19 05:00 BP 134/77 09/01/19 05:00 Pulse Ox 93 L 09/01/19 05:00 Intake & Output 08/31/19 09/01/19 09/01/19 18:59 06:59 18:59 Intake Total 650 Output Total 550 Balance 100 Weight 96 kg Intake: Oral 650 Output: Urine 550 Other: Voiding Method Toilet Toilet Toilet Urinal Urinal Urinal # Voids 1 1 1 # Bowel Movements 1 - Exam Gen: Awake, no ncrease distress Head: NC AT Neck Supple Previous palpable adenopathy not palpable Heart Irr, Irr Lungs: DIminshed Abd: Soft, ND Ext: pedal edema Mood: grumpy - Labs CBC & Chem 7: 09/01/19 06:25 09/01/19 06:25 Labs: Abnormal Lab Results - Last 24 Hours (Table) 08/31/19 08/31/19 09/01/19 Range/Units 17:13 20:50 06:25 WBC 1.2 L* (3.8-10.6) k/uL RBC 2.76 L (4.30-5.90) m/uL Hgb 8.2 L (13.0-17.5) gm/dL Hct 24.2 L (39.0-53.0) % RDW 16.2 H (11.5-15.5) % Plt Count 78 L (150-450) k/uL Neutrophils # 0.6 L (1.3-7.7) k/uL Lymphocytes # 0.5 L (1.0-4.8) k/uL Chloride (98-107) mmol/L BUN (9-20) mg/dL POC Glucose (mg/dL) 156 H 139 H (75-99) mg/dL 09/01/19 09/01/19 Range/Units 06:25 11:00 WBC (3.8-10.6) k/uL RBC (4.30-5.90) m/uL Hgb (13.0-17.5) gm/dL Hct (39.0-53.0) % RDW (11.5-15.5) % Plt Count (150-450) k/uL Neutrophils # (1.3-7.7) k/uL Lymphocytes # (1.0-4.8) k/uL Chloride 108 H (98-107) mmol/L BUN 27 H (9-20) mg/dL POC Glucose (mg/dL) 119 H (75-99) mg/dL Assessment and Plan Plan: Assessement and Recommendations: 1. Acute Cardiac Arrest PEA requiring intubation: - Since been extubated - Per intensive care and electrician aircraft - Exact cause unknown 2. Metastatic Lung Cancer: - Status Post 4th cycle chemotherapy - Further chemotherapy on hold. - Good clinical response, will discuss further treatment measures at follow-up in hospital. Normocytic Anemia: - Likely secondary to recent chemotherapy and dilution but will work up further Thrombocytopenia: - Await CBC today and monitor daily - Monitor closely, if less than 50K stop AC therapy less than 10K transfuse - Stable not requiring intervention today Plan to follow-up after discharge Will see him in office in 2 weeks for follow-up and follow-up scans. Physician Attest: I have completed the full history and physical and agree with above dictation, dictated as a scribe
[2019-09-03] MEDS ORDERED: AMIODARONE 200 MG TAB PO SCH (09:00)
== END 2019-09-01 12:25 | disposition home or self-care (01) | DRG 208 ==
LOC: EC 14:54 → SUPCPDRO 14:54 → 2SICU 18:06 → 5NMEDONC 08-27 14:47
PROVIDERS: ADMIT Hospitalist; ATTEND Hospitalist
PROC: 5A1945Z Respiratory Ventilation, 24-96 Consecutive Hours (ICD-10-PCS; principal; 2019-08-25)
PROC: 02HV33Z Insertion of Infusion Device into Superior Vena Cava, Percutaneous Approach (ICD-10-PCS; 2019-08-25)
DX: J96.01 Acute respiratory failure with hypoxia (principal); G93.41 Metabolic encephalopathy; J69.0 Pneumonitis due to inhalation of food and vomit; I46.9 Cardiac arrest, cause unspecified; I13.0 Hypertensive heart and chronic kidney disease with heart failure and stage 1 through stage 4 chronic kidney disease, or unspecified chronic kidney disease; E87.2 Acidosis; N17.9 Acute kidney failure, unspecified; F05 Delirium due to known physiological condition; C79.2 Secondary malignant neoplasm of skin; C34.12 Malignant neoplasm of upper lobe, left bronchus or lung; Q60.0 Renal agenesis, unilateral; I50.22 Chronic systolic (congestive) heart failure; I42.9 Cardiomyopathy, unspecified; E78.5 Hyperlipidemia, unspecified; D69.6 Thrombocytopenia, unspecified; E11.22 Type 2 diabetes mellitus with diabetic chronic kidney disease; E11.51 Type 2 diabetes mellitus with diabetic peripheral angiopathy without gangrene; E66.9 Obesity, unspecified; J44.9 Chronic obstructive pulmonary disease, unspecified; N18.3 Chronic kidney disease, stage 3 (moderate); M54.5 Low back pain; D64.9 Anemia, unspecified; Z20.828 Contact with and (suspected) exposure to other viral communicable diseases; G89.29 Other chronic pain; N40.0 Benign prostatic hyperplasia without lower urinary tract symptoms; K21.9 Gastro-esophageal reflux disease without esophagitis; M19.90 Unspecified osteoarthritis, unspecified site; I25.10 Atherosclerotic heart disease of native coronary artery without angina pectoris; F17.200 Nicotine dependence, unspecified, uncomplicated; I48.0 Paroxysmal atrial fibrillation; J96.02 Acute respiratory failure with hypercapnia; Z79.01 Long term (current) use of anticoagulants; Z79.899 Other long term (current) drug therapy; I25.2 Old myocardial infarction; Z87.442 Personal history of urinary calculi; Z85.118 Personal history of other malignant neoplasm of bronchus and lung; Z80.6 Family history of leukemia; Z92.3 Personal history of irradiation; Z92.21 Personal history of antineoplastic chemotherapy; Z90.49 Acquired absence of other specified parts of digestive tract; Z98.890 Other specified postprocedural states; Z95.5 Presence of coronary angioplasty implant and graft; Z98.42 Cataract extraction status, left eye; Z80.9 Family history of malignant neoplasm, unspecified
CPT/HCPCS: 36415; 36556; 36600; 70450; 71045; 76770; 80048; 80053; 81001; 82805; 83735; 84100; 84484; 85025; 85610; 85730; 87635; 93005; 93306; 94002; 94003; 94640; 96365; 96366; 96367; 96375; 96413; 96415; 96417; 99291

== ENCOUNTER → 2019-09-15 | Outpatient (CLI) | payer MEDICARE ==
--- NOTE | 2019-09-15 13:44 | CT ---
EXAMINATION TYPE: CT ChestAbdPelvis wo con DATE OF EXAM: 09/15/2019 COMPARISON: 07/20/2019, 02/16/2019 HISTORY: follow up lung cancer CT DLP: 1587 mGycm. Automated Exposure Control for Dose Reduction was Utilized. TECHNIQUE: CT scan of the thorax, abdomen and pelvis is performed without IV contrast. Lack of contrast signific antly limits the exam. FINDINGS: LUNGS: Background mild to moderate underlying emphysematous change. Persistent left hilar mass or perfecto plasm causing mass effect or narrowing of the lingular bronchus not significantly changed from most p rior study. Estimated to measure 2.2 x 2.2 cm with anterior superior lateral extension showing bronch iectatic change extending to pleural surface similar to prior study with adjacent satellite nodularit y again seen. Entire region extending from the hilum to the pleural space measures 6.1 cm and stable from prior ex am. There is a 7 mm apical nodule stable. 2 mm subpleural nodule right lung apex stable. Additional a reas of pleural-based thickening are noted. No new lesions. Effusion. Interval near complete resolution of tiny left pleural effusion. No pneumothorax. MEDIASTINUM: Left upper lobe mass does extend to the left hilum appears stable with peribronchial wal l thickening involving the left mainstem and upper lobe bronchus similar to the prior exam. Coronary artery calcification noted. Heart is enlarged and there is a trace of pericardial OTHER: There is a right axillary lymphadenopathy again noted now measuring 2.7 x 2.7 cm and previousl y measuring 1.9 x 2 cm. Postsurgical change involving the right shoulder likely related to rotator cu ff surgery.. LIVER/GB: No significant abnormality is appreciated. PANCREAS: No significant abnormality is seen. SPLEEN: No significant abnormality is seen. ADRENALS: No significant abnormality is seen. KIDNEYS: Small hypodensities within the right kidney are indeterminate by noncontrast technique but a lso noted on the prior exam and appears stable in size. Likely related to simple cyst statistically. Left kidney has been removed. BOWEL: No significant abnormality is seen. LYMPH NODES: No greater than 1 cm abdominal or pelvic lymph nodes are appreciated. OSSEOUS STRUCTURES: Hypertrophic and degenerative change of the spine. Suspect multilevel canal steno sis. OTHER: Atherosclerotic change aorta. No free fluid. Ectasia left common iliac artery. Mild bladder wa ll thickening is noted. Prostate calcifications are seen. There is an ill-defined area of attenuation in the left renal bed measuring 1.6 cm retrospectively stable from the prior exam just inferior to t he left adrenal gland. Suggestion of pars defect of L5. IMPRESSION: 1. Stable left hilar and suprahilar mass unchanged in size from prior exam. Satellite left apical nod ule measuring 7 mm also stable 2. There is persistence area of lymphadenopathy in the right axilla. Measuring 2.7 x 2.7 cm and previ ously measuring 2.0 x 1.9 cm. 3. There is a stable 1.6 cm soft tissue nodule in the left renal bed unchanged from both of the prior exams as well as the exam of 10/09/2018. 4. Post left nephrectomy changes.
== END | disposition home or self-care (01) ==
LOC: RADCTMAIN 09:32
PROVIDERS: ATTEND Internal Medicine Hematology & Oncology
DX: C34.12 Malignant neoplasm of upper lobe, left bronchus or lung (principal); R59.0 Localized enlarged lymph nodes; N28.89 Other specified disorders of kidney and ureter; Z90.5 Acquired absence of kidney; Z91.041 Radiographic dye allergy status
CPT/HCPCS: 36415; 71250; 74176; 82565; 84520

== ENCOUNTER → 2019-12-07 | Outpatient (CLI) | payer MEDICARE, OTHER ==
--- NOTE | 2019-12-07 12:54 | CT ---
EXAMINATION TYPE: CT ChestAbdPelvis wo/w con DATE OF EXAM: 12/07/2019 COMPARISON: 09/15/2019 HISTORY: Lung CA CT DLP: 2155.7 mGycm CONTRAST: CT scan of the chest, abdomen and pelvis is performed with Oral Contrast and without and with IV Cont rast, patient injected with 80 mL of Isovue 300. CT Chest: LUNGS: Persistent left upper lobe mass which currently measures 4.2 x 2.2 cm versus 4.3 x 2.7 cm. Ple ural extension noted with pleural thickening identified. [id number] underlying emphysematous ch vinod. Stable 7 mm left apical nodular density. No additional nodules identified with certainty at thi s time. MEDIASTINUM: Thoracic aorta is of normal caliber. The heart is not enlarged. No evidence for media stinal mass or adenopathy. HILAR STRUCTURES: No evidence for mass. No hilar adenopathy is appreciated. OTHER: 3 cm mass right axilla is felt to reflect necrotic lymph node. CONTRAST CT ABDOMEN AND PELVIS FINDINGS: LIVER/GB: No calcified gallstones. No space occupying hepatic lesion. Biliary tree is of normal ca liber. PANCREAS: No inflammation. No distinct mass. SPLEEN: No splenic enlargement. No lesion seen. ADRENALS: No nodule. No thickening. KIDNEYS/BLADDER: No hydronephrosis. No nephrolithiasis. Left-sided nephrectomy change. Small cyst r ight kidney. No solid right renal lesion. BOWEL: Normal appendix. Normal bowel caliber. No inflamma tion. GENITAL ORGANS: No gross abnormality. LYMPH NODES: No greater than 1cm abdominal or pelvic lymph nodes are appreciated. AORTA: No significant abnormality. OSSEOUS STRUCTURES: Sclerosis involving the sternal body may reflect fracture without fracture or met astatic lesion. Degenerative changes lumbar spine. OTHER: No significant additional abnormality is seen. IMPRESSION: 1. Left upper lobe mass extending from left hilum is essentially unchanged relative to the prior stud y. 2. Necrotic right axillary lymph node. 3. Sclerosis involving the sacral body may reflect a metastatic disease versus fracture. Correlate cl inically.
== END | disposition home or self-care (01) ==
LOC: RADCTMAIN 10:32
PROVIDERS: ATTEND Internal Medicine Hematology & Oncology
DX: M53.3 Sacrococcygeal disorders, not elsewhere classified (principal); C34.12 Malignant neoplasm of upper lobe, left bronchus or lung; C77.3 Secondary and unspecified malignant neoplasm of axilla and upper limb lymph nodes; C49.11 Malignant neoplasm of connective and soft tissue of right upper limb, including shoulder; C79.2 Secondary malignant neoplasm of skin; Z92.3 Personal history of irradiation; F17.210 Nicotine dependence, cigarettes, uncomplicated
CPT/HCPCS: 82565; 84520; 71270; 74178; 36415; Q9967

== ENCOUNTER 2019-12-21 07:54 | Day surgery (SDC) | payer MEDICARE, OTHER ==
[2019-12-17 11:03] VITALS: BMI 30.4
[~2019-12-21 07:54] MED LIST changes: +ACETAMINOPHEN TAB 500 MG TAB PO ONE; +DEXAMETHASONE SOD PHOSPHATE 10 MG/ML 1 ML VIAL IV ONE; -EPINEPHrine 10 ML SYRINGE (0.1 MG/ML) ONE; +HEPARIN SODIUM,PORCINE 5,000 UNIT/ML 1 ML VIAL SQ ONE; +HYDROmorphone 0.5 MG/0.5 ML SYRINGE IVP PRN; +LACTATED RINGERS 1,000 ML IV SCH; +MIDAZOLAM 2 MG/2 ML VIAL IV PRN; +ONDANSETRON 4 MG/2 ML VIAL IVP ONE; +Pre Op ABX Message 1 EACH MISC MISCELLANE ONE; -SODIUM BICARB 8.4% 50 ML SYR (1 MEQ/ML) ONE
[2019-12-21] MEDS ORDERED: ACETAMINOPHEN TAB 500 MG TAB ONE (08:18)
[2019-12-21] MEDS ORDERED: ONDANSETRON 4 MG/2 ML VIAL ONE (08:18)
[2019-12-21] MEDS ORDERED: HEPARIN SODIUM,PORCINE 5,000 UNIT/ML 1 ML VIAL ONE (08:18)
[2019-12-21] MEDS ORDERED: LACTATED RINGERS 1,000 ML IV ONE (08:24)
[2019-12-21] MEDS ORDERED: LIDOCAINE 1% (10MG/ML) FOR IV START INTRADERMA ONE (08:25)
[2019-12-21] MEDS ORDERED: fentaNYL (PF) 50 MCG/ML 2 ML AMP ONE (09:36)
[2019-12-21] MEDS ORDERED: LIDOCAINE 1% INJ 10MG/ML (20 ML MDV) ONE (09:36)
[2019-12-21] MEDS ORDERED: PROPOFOL 10 MG/ML 20 ML VIAL IV ONE (09:36)
[2019-12-21] MEDS ORDERED: ROCURONIUM BROMIDE 10 MG/ML 5 ML VIAL IV ONE (09:36)
[2019-12-21] MEDS ORDERED: SUCCINYLCHOLINE CHLORIDE 100 MG/5 ML SYR IV ONE (09:36)
[2019-12-21] MEDS ORDERED: MIDAZOLAM 2 MG/2 ML VIAL ONE (09:36)
[2019-12-21] MEDS ORDERED: BUPIVACAINE (PF) 0.5% 30 ML VIAL SQ ONE (09:56)
[2019-12-21] MEDS ORDERED: HYDROcodone/APAP 5-325MG 1 EACH TAB PO PRN (10:40)
[2019-12-21] MEDS ORDERED: NALOXONE 0.4 MG/ML 1 ML VIAL IV PRN (10:40)
--- NOTE | 2019-12-21 10:43 | P.OP ---
Date of Procedure: 12/21/19 Procedure(s) Performed: PREOPERATIVE DIAGNOSIS: Right axillary lymphadenopathy POSTOPERATIVE DIAGNOSIS: Same PROCEDURE: Excision of deep right axillary lymph node SURGEON: Bertram EBL: Minimal ANESTHESIA: General COMPLICATIONS: None OPERATIVE PROCEDURE: Patient placed in the operating table in the supine posi tion. The right axilla was prepped and draped sterilely. A curvilinear incision was made and the subcutaneous tissues were dissected using electrocautery. The patient's palpable node was identified. This was a deep axillary node. This was fully excised using a combination of blunt dissection, electrocautery, LigaSure device. Small vessels were ligated with Vicryl ties. Node measured 4 x 5 cm. This was sent off in formalin. Operative site irrigated with saline. Subcutaneous tissues closed with 3-0 Vicryl sutures. Skin closed with 4-0 Monocryl sutures. Skin glue was applied. DISPOSITION: Stable to recovery room
[2019-12-21 10:51] VITALS: TEMP 98
[2019-12-21 11:49] VITALS: BP 162/76; PULSE 55; RESP 16
== END 2019-12-21 12:10 | disposition home or self-care (01) ==
LOC: OR 07:54
PROVIDERS: ATTEND Surgery
DX: C77.3 Secondary and unspecified malignant neoplasm of axilla and upper limb lymph nodes (principal); I48.91 Unspecified atrial fibrillation; M19.90 Unspecified osteoarthritis, unspecified site; Q60.0 Renal agenesis, unilateral; F41.9 Anxiety disorder, unspecified; K21.9 Gastro-esophageal reflux disease without esophagitis; I25.2 Old myocardial infarction; J44.9 Chronic obstructive pulmonary disease, unspecified; E78.5 Hyperlipidemia, unspecified; I25.10 Atherosclerotic heart disease of native coronary artery without angina pectoris; I11.0 Hypertensive heart disease with heart failure; I50.9 Heart failure, unspecified; F17.200 Nicotine dependence, unspecified, uncomplicated; Z85.118 Personal history of other malignant neoplasm of bronchus and lung; Z92.21 Personal history of antineoplastic chemotherapy; Z92.3 Personal history of irradiation; Z85.828 Personal history of other malignant neoplasm of skin; Z79.899 Other long term (current) drug therapy; Z79.01 Long term (current) use of anticoagulants; Z79.51 Long term (current) use of inhaled steroids; Z79.891 Long term (current) use of opiate analgesic; Z87.438 Personal history of other diseases of male genital organs; Z98.890 Other specified postprocedural states; Z90.49 Acquired absence of other specified parts of digestive tract; Z86.69 Personal history of other diseases of the nervous system and sense organs; Z98.41 Cataract extraction status, right eye; Z98.42 Cataract extraction status, left eye; Z95.5 Presence of coronary angioplasty implant and graft; Z87.828 Personal history of other (healed) physical injury and trauma; Z95.820 Peripheral vascular angioplasty status with implants and grafts; Z97.2 Presence of dental prosthetic device (complete) (partial); Z86.74 Personal history of sudden cardiac arrest; Z80.9 Family history of malignant neoplasm, unspecified
CPT/HCPCS: 38525; 88342; 88307; 88341; J2250; J1644; J1100; J2405; J2001; J3010; J0330; J2704

== ENCOUNTER → 2020-03-07 | Outpatient (CLI) | payer MEDICARE ==
--- NOTE | 2020-03-08 22:07 | CT ---
EXAMINATION TYPE: CT ChestAbdPelvis wo/w con DATE OF EXAM: 03/07/2020 COMPARISON: CT chest abdomen pelvis 12/07/2019 HISTORY: Lung cancer. CT DLP: 1892 mGycm Automated exposure control for dose reduction was used. CONTRAST: CT scan of the chest, abdomen and pelvis is performed with Oral Contrast and without and with IV Cont rast, patient injected with 80 mL of Isovue M300. FINDINGS: LUNGS: There is interval increase in size of the left upper lobe spiculated lung mass measuring up to approximately 4.3 x 2.8 cm, previously 4.2 x 2.4 cm on 12/07/2019 comparison. Adjacent pleural thicken ing is redemonstrated . The subsolid left apical nodule measures up to 8 x 4 mm (4:7), unchanged vers us 12/07/2019. Redemonstrated mild centrilobular emphysematous change. No pleural effusion. No pneumoth orax. The tracheobronchial tree is patent. MEDIASTINUM/SOFT TISSUES: There is a right axillary 2.1 x 3.8 cm ovoid well-circumscribed hypodense l esion, previously 3.1 x 2.9 cm on 12/07/2019 comparison. No hilar or mediastinal lymphadenopathy greate r than 1 cm. Cardiac size is normal. Calcified coronary artery disease. No pericardial effusion. No t horacic aortic aneurysm. LIVER: Normal. BILIARY SYSTEM: No intrahepatic or extrahepatic biliary ductal dilatation. Gallbladder is contracted. PANCREAS: Normal. SPLEEN: New splenomegaly measuring 14.9 cm craniocaudal. ADRENALS: Normal right adrenal gland. Redemonstrated 2.2 cm nodule of the inferior left adrenal gland likely represents benign adenoma, and is unchanged versus 02/16/2019 comparison. KIDNEYS: Status post left nephrectomy. Right kidney demonstrates renal cyst and too small to characte rize hypodense lesion. No right hydronephrosis. BOWEL: No obstruction or thickening. PERITONEUM: No pneumoperitoneum. No free fluid. LYMPH NODES: No lymphadenopathy. PELVIS: Normal. VASCULATURE: Infrarenal abdominal aortic ectasia measures up to 2.4 cm AP, unchanged. Borderline ane urysmal left common iliac artery measures 1.7 cm, unchanged. MUSCULOSKELETAL: Degenerative changes of the spine. Grade 1 anterolisthesis of L4 and L5 with left p ars defect of L4. No aggressive osseous destructive lesions. IMPRESSION: 1. Interval increase in size of left upper lobe lung mass versus 12/07/2019. 2. Right axillary hypodense lesion may represent necrotic lymph node, measuring 2.1 x 3.8 cm, previou sly 3.1 x 2.9 cm on 12/07/2019. 3. New splenomegaly.
== END | disposition home or self-care (01) ==
LOC: RADCTMAIN 12:11
PROVIDERS: ATTEND Radiology Radiation Oncology
DX: R91.8 Other nonspecific abnormal finding of lung field (principal); R16.1 Splenomegaly, not elsewhere classified; J98.59 Other diseases of mediastinum, not elsewhere classified; C77.3 Secondary and unspecified malignant neoplasm of axilla and upper limb lymph nodes; C34.12 Malignant neoplasm of upper lobe, left bronchus or lung; C49.11 Malignant neoplasm of connective and soft tissue of right upper limb, including shoulder; C79.2 Secondary malignant neoplasm of skin; Z92.3 Personal history of irradiation; F17.210 Nicotine dependence, cigarettes, uncomplicated
CPT/HCPCS: 82565; 84520; 71270; 74178; 36415; Q9967 ×2

== ENCOUNTER 2020-10-27 14:21 | Inpatient (IN) | payer MEDICARE ==
[2020-10-27] MEDS ORDERED: HYDROcodone/APAP 10-325MG 1 EACH TAB PO ONE (15:51)
[2020-10-27] MEDS ORDERED: ACETAMINOPHEN TAB 325 MG TAB PO STA (15:52)
--- NOTE | 2020-10-27 15:56 | ED ---
Chest Pain HPI - General Chief Complaint: Chest Pain Stated Complaint: Dizziness Time Seen by Provider: 10/27/20 15:18 Source: patient, EMS Mode of arrival: EMS Limitations: no limitations - History of Present Illness Initial Comments: Is a 70-year-old male with a history of atrial fibrillation, CAD, hypertension who presents emergency department for multiple complaints. The patient has a history of cancer remotely and he states he's been in remission for the last year or so. He states that since that time he's been having chronic right shoulder pain and hip pain. He is been having burning in his lower extremities and feet. He also has intermittent episodes of dizziness that he states is worse with standing up. He states that this happens to him frequently. He also admits to headaches. He does follow with an oncologist and gets regular CTs of his head. He states he has another one scheduled for December. He apparently went over to Dr. Adame's office today and he had an episode of dizziness where he almost fell over. He was evaluated there by the physician who advised him to come the emergency department. The patient also states that he does get some left-sided chest pain with exertion. He states it does radiate to his right chest at times. He states that he is followed up with Dr. Washburn regarding this and has had normal testing. Patient otherwise denies any acute complaints. No cough or shortness of breath. No abdominal pain, nausea, vomiting, or diarrhea. No dysuria or hematuria. Denies any other complaints. - Related Data Home Medications Medication Instructions Recorded Confirmed HYDROcodone/APAP 10-325MG [Mathews 1 tab PO QID PRN 05/20/17 10/27/20 10-325] Apixaban [Eliquis] 5 mg PO BID 01/12/19 10/27/20 Ferrous Sulfate [Iron (65 MG 325 mg PO Q7D 03/18/19 10/27/20 Elemental)] Tamsulosin HCl [Flomax] 0.4 mg PO HS 03/18/19 10/27/20 ALPRAZolam [Xanax] 0.5 mg PO TID PRN 10/27/20 10/27/20 Fluticasone/Umeclidin/Vilanter 1 puff INHALATION RT-DAILY 10/27/20 10/27/20 [Trelegy Ellipta 100-62.5-25] Furosemide [Lasix] 10 mg PO DAILY PRN 10/27/20 10/27/20 Montelukast [Singulair] 10 mg PO HS 10/27/20 10/27/20 Nitroglycerin [Nitroglycerin 1 spray TRANSLINGU Q5M PRN 10/27/20 10/27/20 400MCG [place]] Omeprazole 40 mg PO BID 10/27/20 10/27/20 amLODIPine [Norvasc] 5 mg PO DAILY 10/27/20 10/27/20 Allergies Allergy/AdvReac Type Severity Reaction Status Date / Time No Known Allergies Allergy Verified 10/27/20 16:34 Review of Systems ROS Statement: Those systems with pertinent positive or pertinent negative responses have been documented in the HPI. ROS Other: All systems not noted in ROS Statement are negative. EKG Findings - EKG Comments: EKG Findings:: EKG showing intrafibrillation with a rate of 102. There is no abnormal ST segment changes. See any abnormal T-wave inversions. QTC is 456. Patient does have a few PVCs present. 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 Last chemo/radiation August 2019. Patient sttaes "after treatment my heart stopped, they did CPR and brought me back." Chronic SOB, chronic chest pain which goes into his back and shoulders, chronic low back pain, DJD, born with only R kidney, hx kidney stones, BPH, vertigo if looks upward, right cataract. Last Myocardial Infarction Date:: 1998 History of Any Multi-Drug Resistant Organisms: None Reported Past Surgical History: Appendectomy, Back Surgery, Heart Catheterization With Stent, Hernia Repair, Orthopedic Surgery Additional Past Surgical History / Comment(s): Stents in 1998 and 2013, and 2018 or 2019, bilateral carpal tunnel releases, bilateral shoulder surgery, bilateral knee arthroscopies, left jaw injury with surgery, abdominal angiography, EGD, colonoscopy, left cataract removal and surgery for "floaters" ("1 stent in right leg, 2 in chest.") Past Anesthesia/Blood Transfusion Reactions: No Reported Reaction Date of Last Stent Placement:: 1998, 2013, 2017 or 2018 Past Psychological History: Anxiety, Depression Smoking Status: Former smoker Past Alcohol Use History: None Reported Past Drug Use History: None Reported - Past Family History Brother(s) Family Medical History: Unable to Obtain Sister(s) Family Medical History: Unable to Obtain Mother History Unknown: Yes Family Medical History: Cancer Additional Family Medical History / Comment(s): Pt states he does not know his mothers health history/he had no relationship with her. Father Family Medical History: Cancer Additional Family Medical History / Comment(s): Leukemia. General Exam - General Exam Comments Initial Comments: Constitutional: Awake alert Appears comfortable Head: Normocephalic atraumatic Eyes: no conjunctival injection No scleral icterus EOMI, pupils are 4 mm and reactive bilaterally Neck: No JVD Supple Heart: Irregularly irregular normal S1-S2 no murmurs Lungs: Clear to auscultation bilaterally No wheezing No rales Abdomen: Soft nondistended nontender Extremities: Non edematous DP pulses intact Radial pulses intact post surgical changes to the right shoulder and upper arm area Neuro: A&Ox3 No focal neurologic deficits Psych: Appropriate mood and affect Limitations: no limitations Course Vital Signs 10/27/20 10/27/20 14:27 18:55 Temperature 100.1 F H 98.3 F Pulse Rate 93 77 Respiratory 18 18 Rate Blood Pressure 116/68 111/79 O2 Sat by Pulse 96 97 Oximetry Chest Pain MDM - MDM Is a 70-year-old male with a history of lung cancer who presents emergency department for chest pain and lightheadedness. The patient was found to have a low-grade temperature on arrival. The patient denies any cough or shortness of breath however. Chest x-ray showed left upper lobe mass with some new findings and questionable inflammatory changes. CT of the chest showed a necrotic mass with pleural effusion which was all new. The patient's white blood cell count was elevated. I decided to start the patient on antibiotics and keep him in the hospital for further evaluation. He does see Dr. Carballo and he was consulted. Dr. alvarado except for the patient for admission. The patient and his family were updated and agree with plan of care. Disposition Clinical Impression: Pneumonia, Sepsis, Lung cancer Disposition: ADMITTED IP TO THIS HOSP Condition: Stable Referrals: Michael Howell MD [Primary Care Provider] - 1-2 days
--- NOTE | 2020-10-27 16:21 | XR ---
EXAMINATION TYPE: XR chest 2V DATE OF EXAM: 10/27/2020 COMPARISON: 08/29/[address] 03/07/2020 HISTORY: 70-year-old male with chest pain TECHNIQUE: AP and lateral views FINDINGS: There is extensive volume loss in the left hemithorax with elevated left hemidiaphragm and leftward c ardiac mediastinal shift. Suspect a small left effusion. Extensive increased opacity filling the left upper lung. There seems to be some cavitation here with air-fluid level. Right lung and pleural spac e appear clear. IMPRESSION: Extensive new volume loss in the left hemithorax with leftward cardiomediastinal shift and elevation of the left hemidiaphragm. Increased opacity throughout the left upper lung could represent disease p rogression. There is associated cavitation here with air-fluid level. Correlate for possible tumor ne crosis with superinfection.
[2020-10-27 16:22] LABS: ALT 24 U/L (4-49); AST 21 U/L (17-59); African American GFR (CKD) >90 (>60 ml/min/1.73 sqM); Albumin 3.1 g/dL (3.5-5.0); Alkaline Phosphatase 127 U/L (38-126); Anion Gap 8 mmol/L; Blood Urea Nitrogen 23 mg/dL (9-20); Calcium 11.5 mg/dL (8.4-10.2); Carbon Dioxide 29 mmol/L (22-30); Chloride 97 mmol/L (98-107); Glucose 151 mg/dL (74-99); Non-African American GFR(CKD) 87 (>60 ml/min/1.73 sqM); Potassium 4.9 mmol/L (3.5-5.1); Sodium 134 mmol/L (137-145); Total Bilirubin 0.5 mg/dL (0.2-1.3)
[2020-10-27] MEDS ORDERED: RX INFO: IV CONTRAST WAS GIVEN 1 EACH MISC MISCELLANE PRN (16:24)
[2020-10-27] MEDS ORDERED: VANCOMYCIN IV PER PHARMACY 1 EACH MISC MISCELLANE PRN (16:26)
[2020-10-27] MEDS ORDERED: PIPERACILLIN-TAZOBACTAM 3.375 GM in SODIUM CHLORIDE 0.9% 100 ML IVPB STA (16:26)
[2020-10-27 16:29] LABS: INR 1.1 (<1.2); Partial Thromboplastin Time 24.6 sec (22.0-30.0); Prothrombin Time 11.9 sec (9.0-12.0)
[2020-10-27 16:33] LABS: Basophils % (A) 0 %; Eosinophils # (A) 0.1 k/uL (0-0.7); Eosinophils % (A) 0 %; HCT 33.6 % (39.0-53.0); HGB 10.5 gm/dL (13.0-17.5); Hypochromasia Slight; Lymphocytes # (A) 0.7 k/uL (1.0-4.8); Lymphocytes % (A) 4 %; MCH 24.2 pg (25.0-35.0); MCHC 31.4 g/dL (31.0-37.0); MCV 77.2 fL (80.0-100.0); Mean Platelet Volume 7.4; Microcytosis Slight; Monocytes # (A) 0.5 k/uL (0-1.0); Monocytes % (A) 3 %; Neutrophils # (A) 15.3 k/uL (1.3-7.7); Neutrophils % (A) 92 %; Platelet Count 378 k/uL (150-450); RBC 4.35 m/uL (4.30-5.90); RDW 15.9 % (11.5-15.5); WBC 16.5 k/uL (3.8-10.6)
[2020-10-27] MEDS ORDERED: VANCOMYCIN 1,250 MG in SODIUM CHLORIDE 0.9% 250 ML IVPB STA (16:33)
--- NOTE | 2020-10-27 16:44 | CT ---
EXAMINATION TYPE: CT brain wo con DATE OF EXAM: 10/27/2020 COMPARISON: CT 08/25/2019 HISTORY: weakness. CT DLP: 1129.4 mGycm Automated exposure control for dose reduction was used. FINDINGS: There is no interval change. Cerebral vascular calcifications are present. There is cortical atrophy. Periventricular white matter shows patchy low attenuation. Lisa bullosa present on the right. Calv arium is intact. Paranasal sinuses and mastoid air cells as visualized are normal. IMPRESSION: AGE-RELATED ATROPHY AND CHRONIC SMALL VESSEL ISCHEMIA. STABLE EXAM.
[2020-10-27] MEDS: SODIUM CHLORIDE 0.9% 500 ML 500 ML IV SCH ×2 (17:09→19:16)
[2020-10-27 17:31] LABS: Amorphous Sediment,Urine Rare /hpf; Appearance,Urine Cloudy (Clear); Bacteria,Urine Rare /hpf; Bilirubin,Urine Negative (Negative); Blood,Urine Negative (Negative); Calcium Oxalate Crystals,Urine Few /hpf; Color,Urine Yellow; Glucose,Urine (UA) Negative (Negative); Ketones,Urine Negative (Negative); Leukocyte Esterase,Urine Negative (Negative); Mucus,Urine Rare /hpf; Nitrite,Urine Negative (Negative); Protein,Urine Trace (Negative); RBC,Urine 3 /hpf (0-5); Specific Gravity,Urine 1.026 (1.001-1.035); WBC,Urine 3 /hpf (0-5)
--- NOTE | 2020-10-27 18:15 | CT ---
EXAMINATION TYPE: CT chest w con DATE OF EXAM: 10/27/2020 COMPARISON: Chest radiograph 10/27/[address] chest 03/07/2020 HISTORY: lung mass, further characterization of radiographic findings CT DLP: 340.8 mGycm Automated exposure control for dose reduction was used. TECHNIQUE: CT scan of the chest is performed with IV Contrast, patient injected with 100 mL of Isovue 300. MIP Images are created on CT scanner and reviewed. 3D reconstructed images are created on an [employer] workstation and reviewed. FINDINGS: AIRWAYS: There is new cutoff of the left mainstem bronchus, with left hilar/mediastinal adenopathy co ntiguous with the left upper lobe bronchogenic mass. LEFT LUNG AND LEFT PLEURAL SPACE: On the previous study March 07, 2020 the left upper lobe mass, co ntiguous with the left suprahilar position, measured 4.4 x 2.8 cm in axial cross section. The abnorma lity is now 9 x 9 cm in axial cross section, with a large gas fluid level within the center of the le monica consistent with cavitation. There is now a [id number] left pleural effusion, new since e previous study. Also, the left upper lobe pulmonary artery shows caliber narrowing suggesting invas ion, not seen on the prior CT. There is no evidence of pulmonary embolism or right heart strain. Ther e is no other vascular involvement. The overlying ribs are intact. RIGHT LUNG AND RIGHT PLEURAL SPACE: On the right, the lung is clear and the pleural spaces negative. OTHER: There is mild cardiomegaly. No pericardial effusion. Prominent coronary calcifications are not ed. No focal skeletal lesions. No visualized subdiaphragmatic lesions. IMPRESSION: Interval neoplastic progression as discussed.
[2020-10-27] MEDS ORDERED: NALOXONE 0.4 MG/ML 1 ML VIAL IV PRN (19:06)
[2020-10-28] MEDS: VANCOMYCIN 1,250 MG in SODIUM CHLORIDE 0.9% 250 ML IVPB SCH ×3 (05:02→20:33)
[2020-10-28 09:48] LABS: Basophils # (A) 0.04 X 10*3/uL (0.00-0.10); Basophils % (A) 0.3 %; Eosinophils # (A) 0.21 X 10*3/uL (0.04-0.35); Eosinophils % (A) 1.7 %; HCT 30.1 % (39.6-50.0); HGB 9.3 g/dL (13.0-17.0); Lymphocytes # (A) 1.01 X 10*3/uL (0.90-5.00); MCH 24.5 pg (27.0-32.0); MCHC 30.9 g/dL (32.0-37.0); MCV 79.2 fL (80.0-97.0); Monocytes # (A) 0.84 X 10*3/uL (0.20-1.00); Monocytes % (A) 6.6 %; Platelet Count 324 X 10*3/uL (140-440); RDW 17.4 % (11.5-14.5); WBC 12.65 X 10*3/uL (4.50-10.00)
[2020-10-28 11:00] LABS: African American GFR (CKD) 99.2 (60.0-200.0); Albumin/Globulin Ratio 1.3 (1.60-3.17); Anion Gap 3.2 mmol/L (4.00-12.00); BUN/Creat Ratio 24.44 Ratio (12.00-20.00); Calcium 9.9 mg/dL (8.7-10.3); Carbon Dioxide 29.8 mmol/L (21.6-31.8); Globulin 2.3 g/dL (1.6-3.3); Non-African American GFR(CKD) 85.6 (60.0-200.0); Potassium 4.6 mmol/L (3.5-5.5); Total Bilirubin 0.4 mg/dL (0.2-1.2); Total Protein 5.3 g/dL (6.2-8.2)
[2020-10-28 15:05] VITALS: BMI 23.9
[2020-10-28] MEDS ORDERED: ALPRAZolam 1 MG TAB PO PRN (19:23)
[2020-10-28] MEDS ORDERED: FUROSEMIDE 10 MG TAB PO PRN (19:23)
[2020-10-28] MEDS ORDERED: FERROUS SULFATE 325 MG TAB PO SCH (19:30)
--- NOTE | 2020-10-28 19:30 | P.HPIM ---
History of Present Illness H&P Date: 10/28/20 Chief Complaint: Chest pain/dizziness 70-year-old male with a history of atrial fibrillation, CAD, hypertension who presents emergency department for multiple complaints. The patient has a history of cancer remotely and he states he's been in remission for the last year or so. He states that since that time he's been having chronic right shoulder pain and hip pain. He is been having burning in his lower extremities and feet. He also has intermittent episodes of dizziness that he states is worse with standing up. He states that this happens to him frequently. He also admits to headaches. He does follow with an oncologist and gets regular CTs of his head. He states he has another one scheduled for December. He apparently went over to Dr. Adame's office today and he had an episode of dizziness where he almost fell over. He was evaluated there by the physician who advised him to come the emergency department. The patient also states that he does get some l eft-sided chest pain with exertion. he patient was found to have a low-grade temperature on arrival. The patient denies any cough or shortness of breath however. Chest x-ray showed left upper lobe mass with some new findings and questionable inflammatory changes. CT of the chest showed a necrotic mass with pleural effusion which was all new. The patient's white blood cell count was elevated. I decided to start the patient on antibiotics and keep him in the hospital for further evaluation. He does see Dr. Carballo and he was consulted. Review of Systems REVIEW OF SYSTEMS: CONSTITUTIONAL: No fever, no malaise, no fatigue. HEENT: No recent visual problems or hearing problems. Denied any sore throat. CARDIOVASCULAR: No chest pain, orthopnea, PND, no palpitations, no syncope. PULMONARY: No shortness of breath, no cough, no hemoptysis. GASTROINTESTINAL: No diarrhea, no nausea, no vomiting, no abdominal pain. NEUROLOGICAL: No headaches, no weakness, no numbness. HEMATOLOGICAL: Denies any bleeding or petechiae. GENITOURINARY: Denies any burning micturition, frequency, or urgency. MUSCULOSKELETAL/RHEUMATOLOGICAL: Denies any joint pain, swelling, or any muscle pain. ENDOCRINE: Denies any polyuria or polydipsia. The rest of the 14-point review of systems is negative. 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 Last chemo/radiation August 2019. Patient sttaes "after treatment my heart stopped, they did CPR and brought me back." Chronic SOB, chronic chest pain which goes into his back and shoulders, chronic low back pain, DJD, born with only R kidney, hx kidney stones, BPH, vertigo if looks upward, right cataract. Last Myocardial Infarction Date:: 1998 History of Any Multi-Drug Resistant Organisms: None Reported Past Surgical History: Appendectomy, Back Surgery, Heart Catheterization With Stent, Hernia Repair, Orthopedic Surgery Additional Past Surgical History / Comment(s): Stents in 1998 and 2013, and 2018 or 2019, bilateral carpal tunnel releases, bilateral shoulder surgery, bilateral knee arthroscopies, left jaw injury with surgery, abdominal angiography, EGD, colonoscopy, left cataract removal and surgery for "floaters" ("1 stent in right leg, 2 in chest.") Past Anesthesia/Blood Transfusion Reactions: No Reported Reaction Date of Last Stent Placement:: 1998, 2013, 2017 or 2019 Past Psychological History: Anxiety, Depression Additional Psychological History / Comment(s): Pt resides alone. He states he uses no assistive device. He states he no longer drives, his exspouse drives him to appts. Pt states he manages his own medications and still cooks. Pt states he currently is not having problems with depression and has no thoughts/plans of suicide Smoking Status: Former smoker Past Alcohol Use History: None Reported Additional Past Alcohol Use History / Comment(s): Started smoking in 1954, currently smokes 5 cigarettes daily. Past Drug Use History: None Reported - Past Family History Brother(s) Family Medical History: Unable to Obtain Sister(s) Family Medical History: Unable to Obtain Mother History Unknown: Yes Family Medical History: Cancer Additional Family Medical History / Comment(s): Pt states he does not know his mothers health history/he had no relationship with her. Father Family Medical History: Cancer Additional Family Medical History / Comment(s): Leukemia. Medications and Allergies Home Medications Medication Instructions Recorded Confirmed Type HYDROcodone/APAP 10-325MG [[place] 1 tab PO QID PRN 05/20/17 10/27/20 History 10-325] Apixaban [Eliquis] 5 mg PO BID 01/12/19 10/27/20 History Ferrous Sulfate [Iron (65 MG 325 mg PO Q7D 03/18/19 10/27/20 History Elemental)] Tamsulosin HCl [Flomax] 0.4 mg PO HS 03/18/19 10/27/20 History ALPRAZolam [Xanax] 0.5 mg PO TID PRN 10/27/20 10/27/20 History Fluticasone/Umeclidin/Vilanter 1 puff INHALATION RT-DAILY 10/27/20 10/27/20 History [Trelegy Ellipta 100-62.5-25] Furosemide [Lasix] 10 mg PO DAILY PRN 10/27/20 10/27/20 History Montelukast [Singulair] 10 mg PO HS 10/27/20 10/27/20 History Nitroglycerin [Nitroglycerin 1 spray TRANSLINGU Q5M PRN 10/27/20 10/27/20 History 400MCG [place]] Omeprazole 40 mg PO BID 10/27/20 10/27/20 History amLODIPine [Norvasc] 5 mg PO DAILY 10/27/20 10/27/20 History Allergies Allergy/AdvReac Type Severity Reaction Status Date / Time No Known Allergies Allergy Verified 10/27/20 16:34 Physical Exam Vitals: Vital Signs Temp Pulse Pulse Resp BP BP Pulse Ox 10/28/20 07:44 98.7 F 72 16 105/65 97 10/28/20 07:10 72 16 10/28/20 02:40 98.4 F 71 17 92/50 96 10/27/20 21:39 98.0 F 70 16 95/55 97 10/27/20 20:09 81 18 111/79 97 10/27/20 18:55 98.3 F 77 18 111/79 97 Intake and Output 10/27/20 10/28/20 10/28/20 22:59 06:59 14:59 Intake Total 240 200 Balance 240 200 Intake: Oral 240 200 Other: # Voids 2 Weight 73.482 kg PHYSICAL EXAMINATION: GENERAL: The patient is alert and oriented x3, not in any acute distress. Well developed, well nourished. HEENT: Pupils are round and equally reacting to light. EOMI. No scleral icterus. No conjunctival pallor. Normocephalic, atraumatic. No pharyngeal erythema. No thyromegaly. CARDIOVASCULAR: S1 and S2 present. No murmurs, rubs, or gallops. PULMONARY: Chest is clear to auscultation, no wheezing or crackles. ABDOMEN: Soft, nontender, nondistended, normoactive bowel sounds. No palpable or ganomegaly. MUSCULOSKELETAL: No joint swelling or deformity. EXTREMITIES: No cyanosis, clubbing, or pedal edema. NEUROLOGICAL: Gross neurological examination did not reveal any focal deficits. SKIN: No rashes. Results CBC & Chem 7: 10/28/20 05:33 10/28/20 05:33 Labs: Abnormal Lab Results - Last 24 Hours (Table) 10/27/20 10/27/20 10/27/20 Range/Units 15:55 15:55 15:55 WBC 16.5 H (3.8-10.6) k/uL RBC (4.40-5.60) X 10*6/uL Hgb 10.5 L (13.0-17.5) gm/dL Hct 33.6 L (39.0-53.0) % MCV 77.2 L (80.0-100.0) fL MCH 24.2 L (25.0-35.0) pg MCHC (32.0-37.0) g/dL RDW 15.9 H (11.5-15.5) % Immature Gran # (0.00-0.04) X 10*3/uL Neutrophils # 15.3 H (1.3-7.7) k/uL Lymphocytes # 0.7 L (1.0-4.8) k/uL D-Dimer 0.76 H (<0.60) mg/L FEU Sodium 134 L (137-145) mmol/L Chloride 97 L (98-107) mmol/L Anion Gap (4.00-12.00) mmol/L BUN 23 H (9-20) mg/dL BUN/Creatinine Ratio (12.00-20.00) Ratio Glucose 151 H (74-99) mg/dL Calcium 11.5 H (8.4-10.2) mg/dL AST (14-35) U/L Alkaline Phosphatase 127 H (38-126) U/L Total Protein 6.0 L (6.3-8.2) g/dL Albumin 3.1 L (3.5-5.0) g/dL Albumin/Globulin Ratio (1.60-3.17) g/dL Urine Protein (Negative) Calcium Oxalate Crystal (None) /hpf Amorphous Sediment (None) /hpf Urine Bacteria (None) /hpf Urine Mucus (None) /hpf 10/27/20 10/28/20 10/28/20 Range/Units 16:56 05:33 05:33 WBC 12.65 H (3.8-10.6) k/uL RBC 3.80 L (4.40-5.60) X 10*6/uL Hgb 9.3 L (13.0-17.5) gm/dL Hct 30.1 L (39.0-53.0) % MCV 79.2 L (80.0-100.0) fL MCH 24.5 L (25.0-35.0) pg MCHC 30.9 L (32.0-37.0) g/dL RDW 17.4 H (11.5-15.5) % Immature Gran # 0.05 H (0.00-0.04) X 10*3/uL Neutrophils # 10.50 H (1.3-7.7) k/uL Lymphocytes # (1.0-4.8) k/uL D-Dimer (<0.60) mg/L FEU Sodium (137-145) mmol/L Chloride (98-107) mmol/L Anion Gap 3.20 L (4.00-12.00) mmol/L BUN (9-20) mg/dL BUN/Creatinine Ratio 24.44 H (12.00-20.00) Ratio Glucose 142 H (74-99) mg/dL Calcium (8.4-10.2) mg/dL AST 12 L (14-35) U/L Alkaline Phosphatase 131 H (38-126) U/L Total Protein 5.3 L (6.3-8.2) g/dL Albumin 3.00 L (3.5-5.0) g/dL Albumin/Globulin Ratio 1.30 L (1.60-3.17) g/dL Urine Protein Trace H (Negative) Calcium Oxalate Crystal Few H (None) /hpf Amorphous Sediment Rare H (None) /hpf Urine Bacteria Rare H (None) /hpf Urine Mucus Rare H (None) /hpf Thrombosis Risk Factor Assmnt - Choose All That Apply Any of the Below Risk Factors Present?: No Other Risk Factors: Yes Each Risk Factor Represents 2 Points: Age 61-74 years, Malignancy Other congenital or acquired thrombophilia - If yes, enter type in comment: No Thrombosis Risk Factor Assessment Total Risk Factor Score: 4 Thrombosis Risk Factor Assessment Level: Moderate Risk Assessment and Plan Assessment: 1. Pneumonia/sepsis - Patient is started on IV Zosyn and vancomycin with pharmacy dosing service; bronchodilator nebulizer treatments; we will monitor inflammatory markers closely and make adjustments accordingly; consult pulmonary for further recommendations 2. Necrotic lung mass - Patient sees Dr. Carballo an outpatient setting; pulmonary and oncology has been consulted; await recommendations on further workup 3. Pleural effusion; related to pneumonia versus lung mass; patient might need diagnostic or therapeutic thoracentesis; pulmonary to see patient 4. Hypertension; blood pressure remained soft; we will continue with home dose of Norvasc one blood pressure is more stable 5. Atrial fibrillation; not on any rate control medication; continue with current anticoagulation therapy 6. COPD/asthma; not in exacerbation; we will continue with home inhaler therapy along with Singulair 10 mg daily at bedtime 7. BPH; Flomax 0.4 mg by mouth daily at bedtime DVT prophylaxis; SCDs/systemic anticoagulation CODE STATUS; full code
[2020-10-28] MEDS: HYDROcodone/APAP 10-325MG 1 EACH TAB PO PRN (20:34)
[2020-10-28] MEDS: TAMSULOSIN 0.4 MG CAP.ER.24H PO SCH (20:34)
[2020-10-28] MEDS: MONTELUKAST 10 MG TAB PO SCH (20:34)
[2020-10-28] MEDS: PANTOPRAZOLE 40 MG TABLET PO SCH (20:34)
[2020-10-28] MEDS: APIXABAN 5 MG TAB PO SCH (20:34)
[2020-10-28] MEDS: IPRATROPIUM 0.5 MG/2.5 ML NEBU INHALATION SCH (21:10)
[2020-10-29] MEDS ORDERED: VANCOMYCIN TROUGH DUE 1 EACH MISC MISCELLANE ONE (03:00)
[2020-10-29 04:16] LABS: Basophils % (A) 0 %; Eosinophils # (A) 0.2 k/uL (0-0.7); Eosinophils % (A) 2 %; HCT 29.8 % (39.0-53.0); HGB 9.8 gm/dL (13.0-17.5); Lymphocytes # (A) 0.9 k/uL (1.0-4.8); Lymphocytes % (A) 8 %; MCH 25.4 pg (25.0-35.0); MCHC 33.1 g/dL (31.0-37.0); MCV 76.8 fL (80.0-100.0); Mean Platelet Volume 7.7; Microcytosis Slight; Monocytes # (A) 0.6 k/uL (0-1.0); Monocytes % (A) 5 %; Neutrophils # (A) 10.4 k/uL (1.3-7.7); Neutrophils % (A) 85 %; Platelet Count 293 k/uL (150-450); RBC 3.87 m/uL (4.30-5.90); RDW 15.9 % (11.5-15.5); WBC 12.2 k/uL (3.8-10.6)
[2020-10-29] MEDS: VANCOMYCIN 1,250 MG in SODIUM CHLORIDE 0.9% 250 ML IVPB SCH (04:31)
[2020-10-29] MEDS: APIXABAN 5 MG TAB PO SCH ×2 (07:45→20:24)
[2020-10-29] MEDS: PANTOPRAZOLE 40 MG TABLET PO SCH ×2 (07:45→20:24)
[2020-10-29] MEDS: MORPHINE SULFATE 4 MG/ML SYRINGE IVP PRN (07:50)
[2020-10-29] MEDS: IPRATROPIUM 0.5 MG/2.5 ML NEBU INHALATION SCH ×4 (09:12→19:19)
[2020-10-29] MEDS: SYMBICORT 80-4.5 MCG INHALER INHALATION SCH ×3 (09:13→19:21)
[2020-10-29] MEDS: VANCOMYCIN 1,000 MG in SODIUM CHLORIDE 0.9% 250 ML IVPB SCH ×2 (11:31→20:24)
[2020-10-29 11:47] LABS: African American GFR (CKD) 99.2 (60.0-200.0); Anion Gap 4.7 mmol/L (4.00-12.00); BUN/Creat Ratio 18.89 Ratio (12.00-20.00); C Reactive Protein 11.3 mg/dL (0.0-0.8); Calcium 10.8 mg/dL (8.7-10.3); Carbon Dioxide 30.3 mmol/L (21.6-31.8); Non-African American GFR(CKD) 85.6 (60.0-200.0); Potassium 4.1 mmol/L (3.5-5.5)
--- NOTE | 2020-10-29 12:10 | P.CNPUL ---
History of Present Illness Consult date: 10/29/20 Requesting physician: Clovis Ta Reason for consult: dyspnea, abnormal CXR/CT Chief complaint: Dizziness, lightheadedness History of present illness: This is a 70-year-old gentleman who follows with Dr. Adame as his primary care provider. He has a history of coronary artery disease with previous stent placement, atrial fibrillation anticoagulated with Eliquis, congestive heart failure, hyperlipidemia, hypertension, chronic obstructive pulmonary disease, chronic back pain peripheral vascular disease with previous stent placement, chronic and ongoing tobacco dependence. 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 He had undergone systemic chemotherapy and radiation. During one of the treatments in August 2019 he states his heart stopped and they had performed CPR and brought him back. He has not had any further treatment since then. He came into the emergency room on 10/27/2020 after being seen at his PCPs office and developed an episode of dizziness and lightheadedness. Computed tomography scan of the brain revealed age-related atrophy with chronic small vessel ischemia. No evidence of metastasis. Computed tomography scan of the chest compared to one in March 2020 revealed a left upper lobe mass, contiguous with the left suprahilar position, previously measuring 4.4 x 2.8 cm. The abnormality is now 9 x 9 cm with a large gas fluid-filled level within the center of the lesion consistent with cavitation. There is a small to moderate left pleural effusion. Left upper lobe pulmonary artery shows caliber narrowing suggesting invasion. No pulmonary embolism. Right lung is clear. We're consulted for the same. The patient is seen today on the regular medical floor. Currently resting fairly comfortably in bed. Awake and alert in no acute distress. He is maintaining O2 saturations in the mid 90s on room air. He's afebrile. Hemodynamically stable. Blood culture reveals no growth to date. White count 12.2. Hemoglobin 9.8. Sodium 135. Potassium 4.1. Creatinine 0.9. Troponins negative. [place] virus not detected. He's been initiated on bronchodilators, antibiotics in form of vancomycin. Review of Systems REVIEW OF SYSTEMS: CONSTITUTIONAL: Denies any recent significant weight loss or weight gain. EYES: Denies change in vision. EARS, NOSE, MOUTH, THROAT: Denies headaches, denies sore throat. CARDIOVASCULAR: Positive for chest pain, dizziness. RESPIRATORY: Positive for shortness of breath, cough, congestion or hemoptysis. GASTROINTESTINAL: Denies change in appetite, denies abdominal pain GENITOURINARY: Denies hematuria, denies infections. MUSKULOSKELETAL: Denies pain, denies swelling. INTEGUMENTARY: Denies rash, denies eczema. NEUROLOGICAL: Denies recent memory loss, no recent seizure activity. PSYCHIATRIC: Denies anxiety, denies depression. HEMATOLOGIC/LYMPHATIC: Denies anemia, denies enlarged lymph nodes. 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 Last chemo/radiation August 2019. Patient sttaes "after treatment my heart stopped, they did CPR and brought me back." Chronic SOB, chronic chest pain which goes into his back and shoulders, chronic low back pain, DJD, born with only R kidney, hx kidney stones, BPH, vertigo if looks upward, right cataract. Last Myocardial Infarction Date:: 1998 History of Any Multi-Drug Resistant Organisms: None Reported Past Surgical History: Appendectomy, Back Surgery, Heart Catheterization With Stent, Hernia Repair, Orthopedic Surgery Additional Past Surgical History / Comment(s): Stents in 1998 and 2013, and 2018 or 2019, bilateral carpal tunnel releases, bilateral shoulder surgery, bilateral knee arthroscopies, left jaw injury with surgery, abdominal angiography, EGD, colonoscopy, left cataract removal and surgery for "floaters" ("1 stent in right leg, 2 in chest.") Past Anesthesia/Blood Transfusion Reactions: No Reported Reaction Date of Last Stent Placement:: 1998, 2013, 2017 or 2019 Past Psychological History: Anxiety, Depression Additional Psychological History / Comment(s): Pt resides alone. He states he uses no assistive device. He states he no longer drives, his exspouse drives him to appts. Pt states he manages his own medications and still cooks. Pt states he currently is not having problems with depression and has no thoughts/plans of suicide Smoking Status: Former smoker Past Alcohol Use History: None Reported Additional Past Alcohol Use History / Comment(s): Started smoking in 1954, currently smokes 5 cigarettes daily. Past Drug Use History: None Reported - Past Family History Brother(s) Family Medical History: Unable to Obtain Sister(s) Family Medical History: Unable to Obtain Mother History Unknown: Yes Family Medical History: Cancer Additional Family Medical History / Comment(s): Pt states he does not know his mothers health history/he had no relationship with her. Father Family Medical History: Cancer Additional Family Medical History / Comment(s): Leukemia. Medications and Allergies Home Medications Medication Instructions Recorded Confirmed Type HYDROcodone/APAP 10-325MG [[place] 1 tab PO QID PRN 05/20/17 10/27/20 History 10-325] Apixaban [Eliquis] 5 mg PO BID 01/12/19 10/27/20 History Ferrous Sulfate [Iron (65 MG 325 mg PO Q7D 03/18/19 10/27/20 History Elemental)] Tamsulosin HCl [Flomax] 0.4 mg PO HS 03/18/19 10/27/20 History ALPRAZolam [Xanax] 0.5 mg PO TID PRN 10/27/20 10/27/20 History Fluticasone/Umeclidin/Vilanter 1 puff INHALATION RT-DAILY 10/27/20 10/27/20 History [Trelegy Ellipta 100-62.5-25] Furosemide [Lasix] 10 mg PO DAILY PRN 10/27/20 10/27/20 History Montelukast [Singulair] 10 mg PO HS 10/27/20 10/27/20 History Nitroglycerin [Nitroglycerin 1 spray TRANSLINGU Q5M PRN 10/27/20 10/27/20 History 400MCG [place]] Omeprazole 40 mg PO BID 10/27/20 10/27/20 History amLODIPine [Norvasc] 5 mg PO DAILY 10/27/20 10/27/20 History Allergies Allergy/AdvReac Type Severity Reaction Status Date / Time No Known Allergies Allergy Verified 10/27/20 16:34 Physical Exam Vitals: Vital Signs Temp Pulse Pulse Resp BP Pulse Ox 10/29/20 09:14 76 10/29/20 07:49 98.3 F 94 16 130/65 97 10/29/20 00:22 98.3 F 51 L 14 115/68 97 10/28/20 21:18 82 10/28/20 21:12 80 10/28/20 20:00 68 14 10/28/20 19:04 98.9 F 68 14 143/70 97 10/28/20 15:06 98.6 F 79 16 133/78 97 Intake and Output 10/28/20 10/29/20 10/29/20 22:59 06:59 14:59 Intake Total 250 Output Total 400 375 Balance -400 -375 250 Intake: Intake, IV Titration 250 Amount Vancomycin 1,000 mg In 250 Sodium Chloride 0.9% 250 ml @ 125 mls/hr IVPB Q8H [facility] Rx#:[id number] Output: Urine 400 375 GENERAL EXAM: Alert, 70-year-old gentleman, on room air, currently comfortable in no apparent distress. HEAD: Normocephalic. EYES: Normal reaction of pupils, equal size. NOSE: Clear with pink turbinates. THROAT: No erythema or exudates. NECK: No masses, no JVD. CHEST: No chest wall deformity. LUNGS: Equal air entry with no crackles, wheeze, rhonchi or dullness. Diminished. CVS: S1 and S2 normal with no audible murmur, regular rhythm. ABDOMEN: No hepatosplenomegaly, normal bowel sounds, no guarding or rigidity. SPINE: No scoliosis or deformity SKIN: No rashes CENTRAL NERVOUS SYSTEM: No focal deficits, tone is normal in all 4 extremities. EXTREMITIES: There is no peripheral edema. No clubbing, no cyanosis. Per ipheral pulses are intact. Results - Laboratory Findings CBC and BMP: 10/29/20 03:43 10/29/20 03:43 PT/INR, D-dimer PT 11.9 sec (9.0-12.0) 10/27/20 15:55 INR 1.1 (<1.2) 10/27/20 15:55 D-Dimer 0.76 mg/L FEU (<0.60) H 10/27/20 15:55 Abnormal lab findings: Abnormal Labs 10/27/20 10/27/20 10/27/20 15:55 15:55 15:55 WBC 16.5 H RBC Hgb 10.5 L Hct 33.6 L MCV 77.2 L MCH 24.2 L MCHC RDW 15.9 H Immature Gran # Neutrophils # 15.3 H Lymphocytes # 0.7 L D-Dimer 0.76 H Sodium 134 L Chloride 97 L Anion Gap BUN 23 H BUN/Creatinine Ratio Glucose 151 H Calcium 11.5 H AST Alkaline Phosphatase 127 H C-Reactive Protein Total Protein 6.0 L Albumin 3.1 L Albumin/Globulin Ratio Urine Protein Calcium Oxalate Crystal Amorphous Sediment Urine Bacteria Urine Mucus 10/27/20 10/28/20 10/28/20 16:56 05:33 05:33 WBC 12.65 H RBC 3.80 L Hgb 9.3 L Hct 30.1 L MCV 79.2 L MCH 24.5 L MCHC 30.9 L RDW 17.4 H Immature Gran # 0.05 H Neutrophils # 10.50 H Lymphocytes # D-Dimer Sodium Chloride Anion Gap 3.20 L BUN BUN/Creatinine Ratio 24.44 H Glucose 142 H Calcium AST 12 L Alkaline Phosphatase 131 H C-Reactive Protein Total Protein 5.3 L Albumin 3.00 L Albumin/Globulin Ratio 1.30 L Urine Protein Trace H Calcium Oxalate Crystal Few H Amorphous Sediment Rare H Urine Bacteria Rare H Urine Mucus Rare H 10/29/20 10/29/20 03:43 03:43 WBC 12.2 H RBC 3.87 L Hgb 9.8 L Hct 29.8 L MCV 76.8 L MCH MCHC RDW 15.9 H Immature Gran # Neutrophils # 10.4 H Lymphocytes # 0.9 L D-Dimer Sodium Chloride Anion Gap BUN BUN/Creatinine Ratio Glucose Calcium 10.8 H AST Alkaline Phosphatase C-Reactive Protein 11.3 H Total Protein Albumin Albumin/Globulin Ratio Urine Protein Calcium Oxalate Crystal Amorphous Sediment Urine Bacteria Urine Mucus - Diagnostic Findings Chest x-ray: image reviewed CT scan - chest: image reviewed Assessment and Plan Assessment: 1 Episode of dizziness and near syncope of unclear etiology 2 History of metastatic squamous cell carcinoma of the lung in September 2018, treated with systemic chemotherapy in the form of carboplatinum and Taxol 3 Metastatic focus in the right upper extremity treated with radiation therapy completed in February 2019 4 Cardiopulmonary arrest with PE a in August 2019 during chemotherapy treatment, subsequently recovered 5 History of coronary artery disease with previous stent placement 6 Atrial fibrillation, anticoagulated with Eliquis 7 Chronic obstructive pulmonary disease 8 Chronic and ongoing tobacco dependence 9 Hyperlipidemia 10 Hypertension Plan: The patient was seen and evaluated by Dr. Snowden Chest x-ray and CAT scan reviewed Evidence of progression of his squamous cell lung cancer Possible postobstructive pneumonia Currently on vancomycin Add Zosyn Obtain sputum culture Continue bronchodilators Educated regarding the importance of complete smoking cessation Anticoagulated with Eliquis Medical oncology consultation We will continue to follow and make further recommendations based on his clinical status I, the cosigning physician, performed a history & physical examination of the patient. Lungs sounds are clear but diminished. Maintaining good O2 saturations in the 90s on room air. I discussed the assessment and plan of care with my nurse practitioner, Michelle Holland. I attest to the above consultation as dictated by her. Time with Patient: Greater than 30
--- NOTE | 2020-10-29 14:28 | P.CONS ---
History of Present Illness - Reason for Consult Consult date: 10/29/20 lung mass Requesting physician: Donnie Alejandro Sheet - Chief Complaint SOB - History of Present Illness Mr. Perez is a very pleasant 70-year-old gentleman with multiple comorbidities including lung cancer history status post chemotherapy with radiation followed by chemotherapy who is here for multiple issues including pain. He underwent workup with a CT of the chest in the ER which revealed a 9 cm necrotic mass in left upper lobe 4 cm in March 2020. He was last seen by Dr. Carballo in March 2020 and the plan was to repeat scans in another 2 months as his mass was still for to 4.5 cm in stable from prior scan. Unfortunately he failed to follow-up and has not been seen by a medical oncologist since March. No other significant complaints at this point. He does continue to smoke a few cigarettes a day. He has cut back significantly from his history of smoking. Oncologic history: Mr Perez is a pleasant white male with multiple medical problems. The patient has a history of pain in the mid chest area in a bandlike distribution, described as burning in nature. This actually has been chronic for several months. He was complaining of possibly some change in that as well as a pressure sensation, leading to a chest x-ray on 09/25/18. This showed possibi lity of a mass in the left perihilar region. A CT of the chest was done on 10/09/18 revealing 3.8 x 5.4 cm soft tissue mass adjacent to the left main pulmonary artery with an enlarged pretracheal lymph node. The patient was referred to pulmonary medicine, Dr. Pena, and had a PET scan on 10/18/18. This showed a left suprahilar mass measuring 4.4 x 4 cm with indistinct margins from adjacent mediastinum with SUV of 23.39. There is some opacity extending superior and anterior to this with nodularity. There was a 1.2 cm cavitary lesion in this area with SUV of 4.97. The soft tissue extension into the left hilar region with occlusion of the left upper lobe bronchus. An enlarged precarinal node was seen without associated uptake. There was no other areas of uptake noted. Incidentally there was a hypermetabolic focus noted in the right upper extremity. The patient had navigational bronchoscopy with biopsy on 10/31/18. Lavage and fine-needle aspiration revealed highly atypical cells consistent with non-small cell carcinoma with IHC consistent with pulmonary origin. The patient has a known history of COPD, as well as coronary artery disease. He was referred to radiation oncology and medical oncology as he was not felt to be a good candidate for resection based on extent of disease and underlying medical issues. The patient had noted right upper arm nodular lesion, around early October and since then has observed significant growth in size. He denied any prior history of malignancy. He had biopsy of the right upper extremity lesion by dermatology, revealing squamous cell cancer. It could not be definitively determined if this was primary versus metastatic. However the clinical appearance on exam appeared to be much more suggestive of a metastatic lesion. Case was discussed in dermatology who agreed. MRI of the brain was negative. The patient was also seen by radiation oncology. After detailed discussion of the case with dermatology and radiation oncology, it was decided to treat him with a definitive intent, as for oligo metastatic disease He started concurrent chemoRT with weekly Carbo/Taxol on 12/16/18. He completed chemo RT in early 02/21 He was admitted to [facility] for weakness and afib with RVR. VQ scans showed intermediate probability. He was discharged on Eliquis on 12/27/18. He had a repeat admission for hypertension, and A. fib with RVR in mid 01/22. As he still had residual lesion on his RUE, he was referred for resection, w hich was performed by Ortho Onc at [facility] on 03.18.19 he had somewhat persistent cytopenias been seen in the office in early 04/23. Lab work up showed a small monoclonal gammopathy which was felt to be most likely an incidental finding. Blood counts did recover subsequently CT chest from 05/04/19 showed stable left upper lobe mass 2.2 cm, and stable precarinal node 1.6 x 1.3 cm. He was then resumed on chemo with Carbo/Taxol. Keytruda was not covered by his insurance. Thus it was planned to used Imfinzi as maintenance after completion of chemo, assuming no progression He is s/p 4 cycles of Carbo/Taxol, started on 06/15/19, and completed on 08/25/19. Telemedicine 08/20/19: the patient had developed PEA and cardiac arrest after cycle 4 and was admitted to the hospital. He was in the ICU on ventilator support. He subsequently recovered and was able to discharged. Workup for infection including coronavirus, as well as PE was negative. He denied any fever/chills/nausea/vomiting. The hard mass in the rt axilla has shrunk since starting chemo. Respiratory status is mostly stable though he says that he feels he can't groin has deeper breath as before since his recent hospitalization.. His chest discomfort described as burning across the mid chest, is mostly resolved. He has palpitations off and on. Appetite is maintained. he denied any difficulty swallowing. He has mild cough with whitish clear expectoration. Review of systems otherwise as per HPI and negative out of 10. as above. The patient was referred back to radiation oncology for radiation to the right axillary mass. He completed the same in mid 10/23 . Follow-up CT scans on 0 showed persistent 3 cm mass in the right axilla , though it was not clear if this was a necrotic versus persistent viable disease. he was referred to surgery and had resection of the right axillary mass on 12/21/19 with pathology showing a right axillary node involvement with grade 2 squamous cell carcinoma He denied any fevers/chills/nausea/vomiting. Respiratory status continues to be stable. He states that the right axillary mass intermittently appears to be increase in size, with some burning. Appetite is fair. Bowel movements are normal. No unusual dizziness or headaches. He denied any new areas of bone pain. Review of systems otherwise as per HPI and negative out of 10 Last seen 03/2020. Plan was: the patient is clinically stable. His CT scans were reviewed with him. They show increase in size of the left upper lobe mass, but the change in dimensions is quite minimal 4.3 x 2.8 cm versus 4.2 x 2.4 cm. He was noted to have a circumscribed right axillary density, which is smaller than before. In correlation with physical exam this most likely represented some postoperative/post radiation scarring. Mediastinal lymph node is stable. - Therefore, at this time the patient does not have any definite evidence of progression. Continue on observation. Repeat scans in 2 months. Signs and symptoms of progression discussed - TBC is now normal. Check labs Past Medical History Past Medical History: Atrial Fibrillation, Coronary Artery Disease (CAD), Cancer, Heart Failure, COPD, Eye Disorder, GERD/Reflux, Hyperlipidemia, Hypertension, Memory Impairment, Myocardial Infarction ([place]), Musculoskeletal Disorder, Osteoarthritis (OA), Prostate Disorder, Renal Disease, Vascular Disorder Additional Past Medical History / Comment(s): 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 Last chemo/radiation August 2019. Patient sttaes "after treatment my heart stopped, they did CPR and brought me back." Chronic SOB, chronic chest pain which goes into his back and shoulders, chronic low back pain, DJD, born with only R kidney, hx kidney stones, BPH, vertigo if looks upward, right cataract. Last Myocardial Infarction Date:: 1998 History of Any Multi-Drug Resistant Organisms: None Reported Past Surgical History: Appendectomy, Back Surgery, Heart Catheterization With Stent, Hernia Repair, Orthopedic Surgery Additional Past Surgical History / Comment(s): Stents in 1998 and 2013, and 2018 or 2019, bilateral carpal tunnel releases, bilateral shoulder surgery, bilateral knee arthroscopies, left jaw injury with surgery, abdominal angiography, EGD, colonoscopy, left cataract removal and surgery for "floaters" ("1 stent in right leg, 2 in chest.") Past Anesthesia/Blood Transfusion Reactions: No Reported Reaction Date of Last Stent Placement:: 1998, 2013, 2018 or 2019 Past Psychological History: Anxiety, Depression Additional Psychological History / Comment(s): Pt resides alone. He states he uses no assistive device. He states he no longer drives, his exspouse drives him to appts. Pt states he manages his own medications and still cooks. Pt states he currently is not having problems with depression and has no thoughts/plans of suicide Smoking Status: Former smoker Past Alcohol Use History: None Reported Additional Past Alcohol Use History / Comment(s): Started smoking in 1954, currently smokes 5 cigarettes daily. Past Drug Use History: None Reported - Past Family History Brother(s) Family Medical History: Unable to Obtain Sister(s) Family Medical History: Unable to Obtain Mother History Unknown: Yes Family Medical History: Cancer Additional Family Medical History / Comment(s): Pt states he does not know his mothers health history/he had no relationship with her. Father Family Medical History: Cancer Additional Family Medical History / Comment(s): Leukemia. Medications and Allergies Home Medications Medication Instructions Recorded Confirmed Type HYDROcodone/APAP 10-325MG [[place] 1 tab PO QID PRN 05/20/17 10/27/20 History 10-325] Apixaban [Eliquis] 5 mg PO BID 01/12/19 10/27/20 History Ferrous Sulfate [Iron (65 MG 325 mg PO Q7D 03/18/19 10/27/20 History Elemental)] Tamsulosin HCl [Flomax] 0.4 mg PO HS 03/18/19 10/27/20 History ALPRAZolam [Xanax] 0.5 mg PO TID PRN 10/27/20 10/27/20 History Fluticasone/Umeclidin/Vilanter 1 puff INHALATION RT-DAILY 10/27/20 10/27/20 History [Trelegy Ellipta 100-62.5-25] Furosemide [Lasix] 10 mg PO DAILY PRN 10/27/20 10/27/20 History Montelukast [Singulair] 10 mg PO HS 10/27/20 10/27/20 History Nitroglycerin [Nitroglycerin 1 spray TRANSLINGU Q5M PRN 10/27/20 10/27/20 Histor y 400MCG [place]] Omeprazole 40 mg PO BID 10/27/20 10/27/20 History amLODIPine [Norvasc] 5 mg PO DAILY 10/27/20 10/27/20 History Allergies Allergy/AdvReac Type Severity Reaction Status Date / Time No Known Allergies Allergy Verified 10/27/20 16:34 Physical Exam Vitals: Vital Signs Temp Pulse Pulse Resp BP Pulse Ox 10/29/20 09:14 76 10/29/20 07:49 98.3 F 94 16 130/65 97 10/29/20 00:22 98.3 F 51 L 14 115/68 97 10/28/20 21:18 82 10/28/20 21:12 80 10/28/20 20:00 68 14 10/28/20 19:04 98.9 F 68 14 143/70 97 10/28/20 15:06 98.6 F 79 16 133/78 97 Intake and Output 10/28/20 10/29/20 10/29/20 22:59 06:59 14:59 Intake Total 250 Output Total 400 375 Balance -400 -375 250 Intake: Intake, IV Titration 250 Amount Vancomycin 1,000 mg In 250 Sodium Chloride 0.9% 250 ml @ 125 mls/hr IVPB Q8H [facility] Rx#:[id number] Output: Urine 400 375 Gen.: No acute distress HEENT: Mucosa moist Neck: Supple Lungs: No respiratory distress Heart: Regular rate Abdomen: Soft MSK: Appropriate strength in all 4 extremities Neuro: Alert and oriented Skin: No jaundice Psych: Appropriate affect Results CBC & Chem 7: 10/29/20 03:43 10/29/20 03:43 Labs: Abnormal Lab Results - Last 24 Hours (Table) 10/29/20 10/29/20 Range/Units 03:43 03:43 WBC 12.2 H (3.8-10.6) k/uL RBC 3.87 L (4.30-5.90) m/uL Hgb 9.8 L (13.0-17.5) gm/dL Hct 29.8 L (39.0-53.0) % MCV 76.8 L (80.0-100.0) fL RDW 15.9 H (11.5-15.5) % Neutrophils # 10.4 H (1.3-7.7) k/uL Lymphocytes # 0.9 L (1.0-4.8) k/uL Calcium 10.8 H (8.7-10.3) mg/dL C-Reactive Protein 11.3 H (0.0-0.8) mg/dL Microbiology - Last 24 Hours (Table) 10/27/20 18:54 Blood Culture - Preliminary Blood No Growth after 24 hours Chest x-ray: report reviewed CT scan - chest: report reviewed CT Scan - head: report reviewed Assessment and Plan Assessment: 1. Shoulder pain 2. Hip pain 3. Lung cancer 4. CAD 5. Atrial fib 6. HTN 7. Leukocytosis 8. Anemia, microcytic Plan: Mr. Perez is a very pleasant 70-year-old gentleman with a history of lung cancer status post chemotherapy and radiation as well as multiple comorbidities who is here for various complaints including shoulder and hip pain, workup with CT of the chest revealed an enlarged necrotic left upper lobe mass measuring 9 cm from 4.5 cm in March 2020 as well as microcytic anemia and leukocytosis. This is a cavitary/necrotic mass. Pulmonary consulted. His findings are concerning for possible recurrence of his lung cancer and possibly metastatic disease. Would rule out infection such as opportunistic/fungal infection or possibly TB with a necrotic cavitary mass. I would like to obtain a CT of the abdomen pelvis as well as a bone scan especially in light of slightly elevated alk phos and up trending calcium. He also has microcytic anemia of unclear etiology. Will complete workup. Further recommendations based on initial workup. We'll continue to follow patient with you. Discussed with patient in detail and is agreeable to the plan. All of his questions were answered.
[2020-10-29] MEDS: IOPAMIDOL CONTRAST (ORAL USE) VIAL PO PRN ×2 (14:49→15:43)
[2020-10-29] MEDS: PIPERACILLIN-TAZOBACTAM 3.375 GM in SODIUM CHLORIDE 0.9% 100 ML IVPB SCH (15:03)
--- NOTE | 2020-10-29 17:47 | CT ---
EXAMINATION TYPE: CT abdomen pelvis wo/w con DATE OF EXAM: 10/29/2020 COMPARISON: March 07, 2020 HISTORY: hypercalcemia, lung cancer with enlarged lung mass CT DLP: 1343.2 mGycm Automated exposure control for dose reduction was used. CONTRAST: Performed with IV Contrast, patient injected with 100 mL of Isovue 300. Images obtained from the diaphragm to the floor the pelvis without and with IV contrast. There is ora l contrast. There is moderate left pleural effusion. There is some elevation of the left diaphragm. The stomach i s intact. There is no focal liver defect. Gallbladder is contracted. I see no evidence of pancreatic mass. The spleen is intact. Spleen measures 13 cm. There is no adrenal mass. Left kidney is absent. The right kidney shows satisfactory contrast opacifi cation. There is no hydronephrosis. There is 2 cm cortical cyst posterior right kidney. Abdominal aor ta is atheromatous. There is no retroperitoneal adenopathy. Bladder distends smoothly. There is incre ased density in the posterior left side of the urinary bladder. This measures 2 cm. There is no ingui nal hernia. I see no pelvic mass. The lumbar vertebra have normal alignment. There is no compression fracture. There is hypertrophic fa cet arthropathy in the lower lumbar spine. The bony pelvis is intact. The hip joints are intact. IMPRESSION: Spleen is large and slightly increased compared to old exam. Absent left kidney. Atherosclerotic vasc ular disease. Possible new bladder mass on the posterior wall of the bladder on the left side compared to old exam. . There is moderate size left pleural effusion which is new compared to old exam and suggestive of prog ression of tumor.
[2020-10-29] MEDS: MONTELUKAST 10 MG TAB PO SCH (20:24)
[2020-10-29] MEDS: TAMSULOSIN 0.4 MG CAP.ER.24H PO SCH (20:24)
[2020-10-29 23:18] LABS: Reticulocyte % 1.5 % (0.10-1.80)
[2020-10-29 23:44] LABS: % Iron Saturation 1.33 (15.00-50.00); Protein, Total 5.5 g/dL (5.7-8.2)
[2020-10-29 23:56] LABS: Ferritin 521.6 ng/mL (22.0-322.0)
[2020-10-30] MEDS: PIPERACILLIN-TAZOBACTAM 3.375 GM in SODIUM CHLORIDE 0.9% 100 ML IVPB SCH ×3 (00:11→15:34)
[2020-10-30] MEDS: VANCOMYCIN 1,000 MG in SODIUM CHLORIDE 0.9% 250 ML IVPB SCH ×3 (05:19→19:41)
[2020-10-30] MEDS: IPRATROPIUM 0.5 MG/2.5 ML NEBU INHALATION SCH ×4 (07:17→20:31)
[2020-10-30] MEDS: SYMBICORT 80-4.5 MCG INHALER INHALATION SCH ×2 (07:18→20:32)
[2020-10-30] MEDS: APIXABAN 5 MG TAB PO SCH ×2 (08:01→19:41)
[2020-10-30] MEDS: PANTOPRAZOLE 40 MG TABLET PO SCH ×2 (08:01→19:41)
--- NOTE | 2020-10-30 12:17 | P.PN ---
Subjective Progress Note Date: 10/30/20 Principal diagnosis: Progressing lung cancer This is a 70-year-old gentleman who follows with Dr. Howell as his primary care provider. He has a history of coronary artery disease with previous stent placement, atrial fibrillation anticoagulated with Eliquis, congestive heart failure, hyperlipidemia, hypertension, chronic obstructive pulmonary disease, chronic back pain peripheral vascular disease with previous stent placement, chronic and ongoing tobacco dependence. 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 He had undergone systemic chemotherapy and radiation. During one of the treatments in August 2019 he states his heart stopped and they had performed CPR and brought him back. He has not had any further treatment since then. He came into the emergency room on 10/27/2020 after being seen at his PCPs office and developed an episode of dizziness and lightheadedness. Computed tomography scan of the brain revealed age-related atrophy with chronic small vessel ischemia. No evidence of metastasis. Computed tomography scan of the chest compared to one in March 2020 revealed a left upper lobe mass, contiguous with the left suprahilar position, previously measuring 4.4 x 2.8 cm. The abnormality is now 9 x 9 cm with a large gas fluid-filled level within the center of the lesion consistent with cavitation. There is a small to moderate left pleural effusion. Left upper lobe pulmonary artery shows caliber narrowing suggesting invasion. No pulmonary embolism. Right lung is clear. We're consulted for the same. The patient is seen today on the regular medical floor. Currently resting fairly comfortably in bed. Awake and alert in no acute distress. He is maintaining O2 saturations in the mid 90s on room air. He's afebrile. Hemodynamically stable. Blood culture reveals no growth to date. White count 12.2. Hemoglobin 9.8. Sodium 135. Potassium 4.1. Creatinine 0.9. Troponins negative. Horvath virus not detected. He's been initiated on bronchodilators, antibiotics in form of vancomycin. The patient is seen today 10/30/2020 in follow-up on the regular medical floor. He is currently resting fairly comfortably in bed. He is maintaining O2 saturations in the upper 90s on room air. He's afebrile. CAT scan of the abdomen and pelvis revealed moderate left pleural effusion with elevation of the left hemidiaphragm. Suggestive of progression of lung tumor..There is now a possible new bladder mass on the posterior wall of the bladder on the left. Spleen is large and slightly increased. Absent left kidney. Atherosclerotic vascular disease. Blood culture reveals no growth. Sputum culture pending. He remains on vancomycin and Zosyn. Continued on bronchodilators. Objective - Vital Signs Vital signs: Vital Signs Temp 97.3 F L 10/30/20 07:29 Pulse 92 10/30/20 11:30 Resp 16 10/30/20 07:29 BP 125/76 10/30/20 07:29 Pulse Ox 98 10/30/20 07:29 Intake & Output 10/29/20 10/30/20 10/30/20 18:59 06:59 18:59 Intake Total 250 450 Output Total 950 Balance 250 -950 450 Intake: Intake, IV Titration 250 450 Amount Piperacillin-Tazobactam 3 200 .375 gm In Sodium Chloride 0.9% 100 ml @ 25 mls/hr IVPB Q8HR [facility] Rx# :[id number] Vancomycin 1,000 mg In 250 250 Sodium Chloride 0.9% 250 ml @ 125 mls/hr IVPB Q8H [facility] Rx#:[id number] Output: Urine 950 Other: Voiding Method Urinal # Bowel Movements 0 - Exam GENERAL EXAM: Alert, 70-year-old gentleman, on room air, currently comfortable in no apparent distress. HEAD: Normocephalic. EYES: Normal reaction of pupils, equal size. NOSE: Clear with pink turbinates. THROAT: No erythema or exudates. NECK: No masses, no JVD. CHEST: No chest wall deformity. LUNGS: Equal air entry with crackles and diminished left base. CVS: S1 and S2 normal with no audible murmur, regular rhythm. ABDOMEN: No hepatosplenomegaly, normal bowel sounds, no guarding or rigidity. SPINE: No scoliosis or deformity SKIN: No rashes CENTRAL NERVOUS SYSTEM: No focal deficits, tone is normal in all 4 extremities. EXTREMITIES: There is no peripheral edema. No clubbing, no cyanosis. Peripher al pulses are intact. - Labs CBC & Chem 7: 10/29/20 03:43 10/29/20 03:43 Labs: Abnormal Lab Results - Last 24 Hours (Table) 06/10/29/20 10/29/20 Range/Units 14:48 14:48 14:48 Iron 3 L (65-175) ug/dL TIBC 225 L (228-460) ug/dL % Saturation 1.33 L (15.00-50.00) Ferritin 521.6 H (22.0-322.0) ng/mL Total Protein (PEP) 5.5 L (5.7-8.2) g/dL Vitamin B12 1303.0 H (200.0-944.0) pg/mL Vitamin D 25-Hydroxy 25.4 L (30.0-100.0) ng/mL PTH Intact 4.3 L (14.0-72.0) pg/mL Microbiology - Last 24 Hours (Table) 10/29/20 15:00 Gram Stain - Preliminary Sputum Sputum Culture - Preliminary 10/27/20 18:54 Blood Culture - Preliminary Blood No Growth after 48 hours Assessment and Plan Assessment: 1 Episode of dizziness and near syncope of unclear etiology. Computed tomography scan of the brain revealed age-related atrophy and chronic small vessel ischemia. No evidence of metastasis. 2 History of metastatic squamous cell carcinoma of the lung in September 2018, treated with systemic chemotherapy in the form of carboplatinum and Taxol. Computed tomography scan of the chest reveals enlarging left suprahilar mass now measuring 9 x 9 cm compared to 4.4 x 2.8. Large gastric fluid-filled level within the center of the lesion consistent with cavitation. [id number] left pleural effusion. The left upper lobe pulmonary artery shows caliber narrowing suggesting invasion not seen on previous CT. These are findings suggestive of progression of the disease. Computed tomography scan of the abdomen and pelvis reveals a possible new mass in the posterior wall on the left bladder. 3 Metastatic focus in the right upper extremity treated with radiation therapy completed in February 2019 4 Cardiopulmonary arrest with PEA in August 2019 during chemotherapy treatment, subsequently recovered 5 History of coronary artery disease with previous stent placement 6 Atrial fibrillation, anticoagulated with Eliquis 7 Chronic obstructive pulmonary disease 8 Chronic and ongoing tobacco dependence 9 Hyperlipidemia 10 Hypertension Plan: The patient was seen and evaluated by Dr. Snowden Evidence of progression of his squamous cell lung cancer Possible postobstructive pneumonia, remains on vancomycin and Zosyn Continue bronchodilators Patient's CAT scans reveal evidence of progression of disease He was intolerant to his last round of chemotherapy May need to consider hospice/comfort care I, the cosigning physician, performed a history & physical examination of the patient. Lungs sounds with crackles in diminished in the left base. Maintaining good O2 saturations in the 90s on room air. I discussed the assessment and plan of care with my nurse practitioner, Michelle Holland. I attest to the above note as dictated by her.
--- NOTE | 2020-10-30 12:27 | P.PN ---
Subjective Progress Note Date: 10/29/20 Principal diagnosis: Postobstructive Pneumonia/sepsis Necrotic lung mass Pleural effusion 70-year-old male with a history of atrial fibrillation, CAD, hypertension who presents emergency department for multiple complaints. The patient has a history of cancer remotely and he states he's been in remission for the last year or so. He states that since that time he's been having chronic right shoulder pain and hip pain. He is been having burning in his lower extremities and feet. He also has intermittent episodes of dizziness that he states is wors e with standing up. He states that this happens to him frequently. He also admits to headaches. He does follow with an oncologist and gets regular CTs of his head. He states he has another one scheduled for December. He apparently went over to Dr. Adame's office today and he had an episode of dizziness where he almost fell over. He was evaluated there by the physician who advised him to come the emergency department. The patient also states that he does get some left-sided chest pain with exertion. he patient was found to have a low-grade temperature on arrival. The patient denies any cough or shortness of breath however. Chest x-ray showed left upper lobe mass with some new findings and questionable inflammatory changes. CT of the chest showed a necrotic mass with pleural effusion which was all new. The patient's white blood cell count was elevated. I decided to start the patient on antibiotics and keep him in the hospital for further evaluation. He does see Dr. Carballo and he was consulted. Objective - Vital Signs Vital signs: Vital Signs Temp 98.3 F 10/29/20 07:49 Pulse 76 10/29/20 09:14 Resp 16 10/29/20 07:49 BP 130/65 10/29/20 07:49 Pulse Ox 97 10/29/20 07:49 Intake & Output 10/28/20 10/29/20 10/29/20 18:59 06:59 18:59 Intake Total 200 250 Output Total 400 375 Balance -200 -375 250 Weight 73.482 kg Intake: Intake, IV Titration 250 Amount Vancomycin 1,000 mg In 250 Sodium Chloride 0.9% 250 ml @ 125 mls/hr IVPB Q8H [facility] Rx#:[id number] Oral 200 Output: Urine 400 375 - Exam GENERAL: The patient is alert and oriented x3, not in any acute distress. Well developed, well nourished. HEENT: Pupils are round and equally reacting to light. EOMI. No scleral icterus. No conjunctival pallor. Normocephalic, atraumatic. No pharyngeal erythema. No thyromegaly. CARDIOVASCULAR: S1 and S2 present. No murmurs, rubs, or gallops. PULMONARY: Chest is clear to auscultation, no wheezing or crackles. ABDOMEN: Soft, nontender, nondistended, normoactive bowel sounds. No palpable organomegaly. MUSCULOSKELETAL: No joint swelling or deformity. EXTREMITIES: No cyanosis, clubbing, or pedal edema. NEUROLOGICAL: Gross neurological examination did not reveal any focal deficits. SKIN: No rashes. - Labs CBC & Chem 7: 10/29/20 03:43 10/29/20 03:43 Labs: Abnormal Lab Results - Last 24 Hours (Table) 10/29/20 10/29/20 Range/Units 03:43 03:43 WBC 12.2 H (3.8-10.6) k/uL RBC 3.87 L (4.30-5.90) m/uL Hgb 9.8 L (13.0-17.5) gm/dL Hct 29.8 L (39.0-53.0) % MCV 76.8 L (80.0-100.0) fL RDW 15.9 H (11.5-15.5) % Neutrophils # 10.4 H (1.3-7.7) k/uL Lymphocytes # 0.9 L (1.0-4.8) k/uL Calcium 10.8 H (8.7-10.3) mg/dL C-Reactive Protein 11.3 H (0.0-0.8) mg/dL Microbiology - Last 24 Hours (Table) 10/27/20 18:54 Blood Culture - Preliminary Blood No Growth after 24 hours Assessment and Plan Assessment: 1. Pneumonia/sepsis - Patient is started on IV Zosyn and vancomycin with pharmacy dosing service; bronchodilator nebulizer treatments; we will monitor inflammatory markers closely and make adjustments accordingly; consult pulmonary for further recommendations 2. Necrotic lung mass - Patient sees Dr. Carballo an outpatient setting; pulmonary and oncology has been consulted; await recommendations on further workup 3. Pleural effusion; related to pneumonia versus lung mass; patient might need diagnostic or therapeutic thoracentesis; pulmonary to see patient 4. Hypertension; blood pressure remained soft; we will continue with home dose of Norvasc one blood pressure is more stable 5. Atrial fibrillation; not on any rate control medication; continue with current anticoagulation therapy 6. COPD/asthma; not in exacerbation; we will continue with home inhaler therapy along with Singulair 10 mg daily at bedtime 7. BPH; Flomax 0.4 mg by mouth daily at bedtime DVT prophylaxis; SCDs/systemic anticoagulation CODE STATUS; full code
[2020-10-30 13:12] LABS: Basophils % (A) 0 %; Eosinophils # (A) 0.1 k/uL (0-0.7); Eosinophils % (A) 1 %; HCT 30.4 % (39.0-53.0); HGB 9.7 gm/dL (13.0-17.5); Lymphocytes # (A) 0.7 k/uL (1.0-4.8); Lymphocytes % (A) 6 %; MCH 24.7 pg (25.0-35.0); MCV 77.4 fL (80.0-100.0); Mean Platelet Volume 8.6; Microcytosis Slight; Monocytes # (A) 0.4 k/uL (0-1.0); Monocytes % (A) 3 %; Neutrophils # (A) 9.9 k/uL (1.3-7.7); Neutrophils % (A) 89 %; Platelet Count 287 k/uL (150-450); RBC 3.93 m/uL (4.30-5.90); RDW 15.7 % (11.5-15.5); WBC 11.1 k/uL (3.8-10.6)
[2020-10-30 13:28] LABS: African American GFR (CKD) >90 (>60 ml/min/1.73 sqM); Anion Gap 6 mmol/L; Blood Urea Nitrogen 17 mg/dL (9-20); Calcium 10.8 mg/dL (8.4-10.2); Carbon Dioxide 29 mmol/L (22-30); Chloride 102 mmol/L (98-107); Glucose 167 mg/dL (74-99); Non-African American GFR(CKD) 85 (>60 ml/min/1.73 sqM); Potassium 3.8 mmol/L (3.5-5.1); Sodium 137 mmol/L (137-145)
[2020-10-30] MEDS ORDERED: HALOPERIDOL LACTATE 5 MG/ML 1 ML VIAL IM PRN ×2 (14:27→14:36)
[2020-10-30] MEDS: NICOTINE 14MG/24HR PATCH TRANSDERM SCH (15:34)
--- NOTE | 2020-10-30 18:30 | P.PN ---
Subjective Progress Note Date: 10/30/20 Principal diagnosis: Postobstructive Pneumonia/sepsis Necrotic lung mass Pleural effusion 70-year-old male with a history of atrial fibrillation, CAD, hypertension who presents emergency department for multiple complaints. The patient has a history of cancer remotely and he states he's been in remission for the last year or so. He states that since that time he's been having chronic right shoulder pain and hip pain. He is been having burning in his lower extremities and feet. He also has intermittent episodes of dizziness that he states is wors e with standing up. He states that this happens to him frequently. He also admits to headaches. He does follow with an oncologist and gets regular CTs of his head. He states he has another one scheduled for December. He apparently went over to Dr. Adame's office today and he had an episode of dizziness where he almost fell over. He was evaluated there by the physician who advised him to come the emergency department. The patient also states that he does get some left-sided chest pain with exertion. he patient was found to have a low-grade temperature on arrival. The patient denies any cough or shortness of breath however. Chest x-ray showed left upper lobe mass with some new findings and questionable inflammatory changes. CT of the chest showed a necrotic mass with pleural effusion which was all new. The patient's white blood cell count was elevated. I decided to start the patient on antibiotics and keep him in the hospital for further evaluation. He does see Dr. Carballo and he was consulted. 10/30/2020 Patient is seen and evaluated in follow-up on the regular medical floor. Patient is somewhat agitated and demanding to be able to smoke. Refuses nicotine patch. He is maintaining O2 saturations in the upper 90s on room air. Remains afebrile. CAT scan of the abdomen and pelvis revealed moderate left pleural effusion with elevation of the left hemidiaphragm. Suggestive of progression of lung tumor..There is now a possible new bladder mass on the posterior wall of the bladder on the left; urology is consulted. Spleen is large and slightly increased. Absent left kidney. Atherosclerotic vascular disease. Blood culture reveals no growth. Sputum culture pending. He remains on vancomycin and Zosyn. Continued on bronchodilators. Oncology on board and will review CT of abdomen and pelvis and make further recommendations Objective - Vital Signs Vital signs: Vital Signs Temp 97.3 F L 10/30/20 07:29 Pulse 92 10/30/20 11:30 Resp 16 10/30/20 07:29 BP 125/76 10/30/20 07:29 Pulse Ox 98 10/30/20 07:29 Intake & Output 10/29/20 10/30/20 10/30/20 18:59 06:59 18:59 Intake Total 250 450 Output Total 950 Balance 250 -950 450 Intake: Intake, IV Titration 250 450 Amount Piperacillin-Tazobactam 3 200 .375 gm In Sodium Chloride 0.9% 100 ml @ 25 mls/hr IVPB Q8HR [facility] Rx# :[id number] Vancomycin 1,000 mg In 250 250 Sodium Chloride 0.9% 250 ml @ 125 mls/hr IVPB Q8H [facility] Rx#:[id number] Output: Urine 950 Other: Voiding Method Urinal # Bowel Movements 0 - Exam GENERAL: The patient is alert and oriented x3, not in any acute distress. Well developed, well nourished. HEENT: Pupils are round and equally reacting to light. EOMI. No scleral icterus. No conjunctival pallor. Normocephalic, atraumatic. No pharyngeal erythema. No thyromegaly. CARDIOVASCULAR: S1 and S2 present. No murmurs, rubs, or gallops. PULMONARY: Chest is clear to auscultation, no wheezing or crackles. ABDOMEN: Soft, nontender, nondistended, normoactive bowel sounds. No palpable organomegaly. MUSCULOSKELETAL: No joint swelling or deformity. EXTREMITIES: No cyanosis, clubbing, or pedal edema. NEUROLOGICAL: Gross neurological examination did not reveal any focal deficits. SKIN: No rashes. - Labs CBC & Chem 7: 10/30/20 12:59 10/30/20 12:59 Labs: Abnormal Lab Results - Last 24 Hours (Table) 10/29/20 10/29/20 10/29/20 Range/Units 14:48 14:48 14:48 Iron 3 L (65-175) ug/dL TIBC 225 L (228-460) ug/dL % Saturation 1.33 L (15.00-50.00) Ferritin 521.6 H (22.0-322.0) ng/mL Total Protein (PEP) 5.5 L (5.7-8.2) g/dL Vitamin B12 1303.0 H (200.0-944.0) pg/mL Vitamin D 25-Hydroxy 25.4 L (30.0-100.0) ng/mL PTH Intact 4.3 L (14.0-72.0) pg/mL Microbiology - Last 24 Hours (Table) 10/29/20 15:00 Gram Stain - Preliminary Sputum Sputum Culture - Preliminary 10/27/20 18:54 Blood Culture - Preliminary Blood No Growth after 48 hours Assessment and Plan Assessment: 1. Pneumonia/sepsis - Patient is started on IV Zosyn and vancomycin with pharmacy dosing service; bronchodilator nebulizer treatments; we will monitor inflammatory markers ana sely and make adjustments accordingly; consult pulmonary for further recommendations 2. Necrotic lung mass - Patient sees Dr. Carballo an outpatient setting; pulmonary and oncology has been consulted; await recommendations on further workup 3. Pleural effusion; related to pneumonia versus lung mass; patient might need diagnostic or therapeutic thoracentesis; pulmonary to see patient 4. Hypertension; blood pressure remained soft; we will continue with home dose of Norvasc one blood pressure is more stable 5. Atrial fibrillation; not on any rate control medication; continue with current anticoagulation therapy 6. COPD/asthma; not in exacerbation; we will continue with home inhaler therapy along with Singulair 10 mg daily at bedtime 7. BPH; Flomax 0.4 mg by mouth daily at bedtime DVT prophylaxis; SCDs/systemic anticoagulation CODE STATUS; full code
[2020-10-30] MEDS: MONTELUKAST 10 MG TAB PO SCH (19:41)
[2020-10-30] MEDS: TAMSULOSIN 0.4 MG CAP.ER.24H PO SCH (19:41)
[2020-10-30] MEDS: HYDROcodone/APAP 10-325MG 1 EACH TAB PO PRN (19:41)
[2020-10-31] MEDS: PIPERACILLIN-TAZOBACTAM 3.375 GM in SODIUM CHLORIDE 0.9% 100 ML IVPB SCH ×3 (00:52→15:14)
[2020-10-31] MEDS: VANCOMYCIN 1,000 MG in SODIUM CHLORIDE 0.9% 250 ML IVPB SCH ×2 (05:20→11:56)
[2020-10-31] MEDS: HYDROcodone/APAP 10-325MG 1 EACH TAB PO PRN (05:22)
[2020-10-31] MEDS: IPRATROPIUM 0.5 MG/2.5 ML NEBU INHALATION SCH ×4 (07:20→16:54)
[2020-10-31] MEDS: SYMBICORT 80-4.5 MCG INHALER INHALATION SCH (07:20)
[2020-10-31] MEDS: APIXABAN 5 MG TAB PO SCH (07:50)
[2020-10-31] MEDS: PANTOPRAZOLE 40 MG TABLET PO SCH (07:50)
[2020-10-31] MEDS: NICOTINE 14MG/24HR PATCH TRANSDERM SCH (07:50)
[2020-10-31] MEDS: MORPHINE SULFATE 4 MG/ML SYRINGE IVP PRN (08:00)
--- NOTE | 2020-10-31 08:01 | P.GSCN ---
History of Present Illness Consult date: 10/31/20 History of present illness: 70 yo male with a history of lung cancer treated with chemo radiation came to the er with multiple complaints including shoulder pain, left sided chest pain. He had a ct scan identifying a large necrotic chest mass 9cm[was 4 cm 03/2020]. The ct scan with contrast identified a possible mass in the bladder. He has bph and takes tamsulosin, He has a history of stones. He has a congenital solitary right kidney. His urine is clear.He states that he has had some intermittent gross hematuria Review of Systems All systems: negative - Constitutional Denies fever, Denies weight loss - EENT Eyes: denies blurred vision Ears, nose, mouth and throat: Denies dysphagia - Cardiovascular Denies chest pain, Denies shortness of breath - Respiratory Denies cough, Denies 7 - Gastrointestinal Reports as per HPI - Genitourinary Denies dysuria, Denies hematuria - Integumentary Denies rash, Denies unusual bruising - Neurological Denies headaches, Denies syncope - Hematologic/Lymphatic Denies easy bleeding, Denies easy bruising Past Medical History Past Medical History: Atrial Fibrillation, Coronary Artery Disease (CAD), Cancer, Heart Failure, COPD, Eye Disorder, GERD/Reflux, Hyperlipidemia, Hype rtension, Memory Impairment, Myocardial Infarction ([place]), Musculoskeletal Disorder, Osteoarthritis (OA), Prostate Disorder, Renal Disease, Vascular Disorder Additional Past Medical History / Comment(s): 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 Last chemo/radiation August 2019. Patient sttaes "after treatment my heart stopped, they did CPR and brought me back." Chronic SOB, chronic chest pain which goes into his back and shoulders, chronic low back pain, DJD, born with only R kidney, hx kidney stones, BPH, vertigo if looks upward, right cataract. Last Myocardial Infarction Date:: 1998 History of Any Multi-Drug Resistant Organisms: None Reported Past Surgical History: Appendectomy, Back Surgery, Heart Catheterization With Stent, Hernia Repair, Orthopedic Surgery Additional Past Surgical History / Comment(s): Stents in 1998 and 2013, and 2018 or 2019, bilateral carpal tunnel releases, bilateral shoulder surgery, bilateral knee arthroscopies, left jaw injury with surgery, abdominal angiography, EGD, colonoscopy, left cataract removal and surgery for "floaters" ("1 stent in right leg, 2 in chest.") Past Anesthesia/Blood Transfusion Reactions: No Reported Reaction Date of Last Stent Placement:: 1998, 2013, 2017 or 2019 Past Psychological History: Anxiety, Depression Additional Psychological History / Comment(s): Pt resides alone. He states he uses no assistive device. He states he no longer drives, his exspouse drives him to appts. Pt states he manages his own medications and still cooks. Pt states he currently is not having problems with depression and has no thoughts/plans of suicide Smoking Status: Former smoker Past Alcohol Use History: None Reported Additional Past Alcohol Use History / Comment(s): Started smoking in 1954, currently smokes 5 cigarettes daily. Past Drug Use History: None Reported - Past Family History Brother(s) Family Medical History: Unable to Obtain Sister(s) Family Medical History: Unable to Obtain Mother History Unknown: Yes Family Medical History: Cancer Additional Family Medical History / Comment(s): Pt states he does not know his mothers health history/he had no relationship with her. Father Family Medical History: Cancer Additional Family Medical History / Comment(s): Leukemia. Medications and Allergies Home Medications Medication Instructions Recorded Confirmed Type HYDROcodone/APAP 10-325MG [[place] 1 tab PO QID PRN 05/20/17 10/27/20 History 10-325] Apixaban [Eliquis] 5 mg PO BID 01/12/19 10/27/20 History Ferrous Sulfate [Iron (65 MG 325 mg PO Q7D 03/18/19 10/27/20 History Elemental)] Tamsulosin HCl [Flomax] 0.4 mg PO HS 03/18/19 10/27/20 History ALPRAZolam [Xanax] 0.5 mg PO TID PRN 10/27/20 10/27/20 History Fluticasone/Umeclidin/Vilanter 1 puff INHALATION RT-DAILY 10/27/20 10/27/20 History [Trelegy Ellipta 100-62.5-25] Furosemide [Lasix] 10 mg PO DAILY PRN 10/27/20 10/27/20 History Montelukast [Singulair] 10 mg PO HS 10/27/20 10/27/20 History Nitroglycerin [Nitroglycerin 1 spray TRANSLINGU Q5M PRN 10/27/20 10/27/20 History 400MCG [place]] Omeprazole 40 mg PO BID 10/27/20 10/27/20 History amLODIPine [Norvasc] 5 mg PO DAILY 10/27/20 10/27/20 History Allergies Allergy/AdvReac Type Severity Reaction Status Date / Time No Known Allergies Allergy Verified 10/27/20 16:34 Surgical - Exam Vital Signs Temp Pulse Resp BP Pulse Ox 100.1 F H 93 18 116/68 96 10/27/20 14:27 10/27/20 14:27 10/27/20 14:27 10/27/20 14:27 10/27/20 14:27 - General well developed, well nourished - Eyes PERRL - ENT no hearing loss - Respiratory normal respiratory effort - Cardiovascular Rhythm: regular - Abdomen slight sp pain to palpation Abdomen: soft, non tender - Genitourinary normal penis with no external lesions, testicles present - Integumentary no rash, no growths - Neurologic normal coordination, normal sensation - Musculoskeletal normal posture - Psychiatric oriented to time, oriented to person, oriented to place, speech is normal, memory intact Results - Labs 10/30/20 12:59 10/30/20 12:59 Abnormal Lab Results - Last 24 Hours (Table) 10/30/20 10/30/20 Range/Units 12:59 12:59 WBC 11.1 H (3.8-10.6) k/uL RBC 3.93 L (4.30-5.90) m/uL Hgb 9.7 L (13.0-17.5) gm/dL Hct 30.4 L (39.0-53.0) % MCV 77.4 L (80.0-100.0) fL MCH 24.7 L (25.0-35.0) pg RDW 15.7 H (11.5-15.5) % Neutrophils # 9.9 H (1.3-7.7) k/uL Lymphocytes # 0.7 L (1.0-4.8) k/uL Glucose 167 H (74-99) mg/dL Calcium 10.8 H (8.4-10.2) mg/dL Microbiology - Last 24 Hours (Table) 10/27/20 18:54 Blood Culture - Preliminary Blood No Growth after 72 hours 10/29/20 15:00 Gram Stain - Preliminary Sputum Sputum Culture - Preliminary Diabetes panel 10/30/20 Range/Units 12:59 Sodium 137 (137-145) mmol/L Potassium 3.8 (3.5-5.1) mmol/L Chloride 102 (98-107) mmol/L Carbon Dioxide 29 (22-30) mmol/L BUN 17 (9-20) mg/dL Creatinine 0.91 (0.66-1.25) mg/dL Glucose 167 H (74-99) mg/dL Calcium 10.8 H (8.4-10.2) mg/dL Calcium panel 10/30/20 Range/Units 12:59 Calcium 10.8 H (8.4-10.2) mg/dL Pituitary panel 10/30/20 Range/Units 12:59 Sodium 137 (137-145) mmol/L Potassium 3.8 (3.5-5.1) mmol/L Chloride 102 (98-107) mmol/L Carbon Dioxide 29 (22-30) mmol/L BUN 17 (9-20) mg/dL Creatinine 0.91 (0.66-1.25) mg/dL Glucose 167 H (74-99) mg/dL Calcium 10.8 H (8.4-10.2) mg/dL Adrenal panel 10/30/20 Range/Units 12:59 Sodium 137 (137-145) mmol/L Potassium 3.8 (3.5-5.1) mmol/L Chloride 102 (98-107) mmol/L Carbon Dioxide 29 (22-30) mmol/L BUN 17 (9-20) mg/dL Creatinine 0.91 (0.66-1.25) mg/dL Glucose 167 H (74-99) mg/dL Calcium 10.8 H (8.4-10.2) mg/dL - Imaging CT scan - abdomen: report reviewed, image reviewed CT scan - pelvis: report reviewed, image reviewed Assessment and Plan Assessment: Impression: Progressive lung cancer. Multiple medical illness. Abnormal ct scan of bladder r/o mass. Plan: The abnormality of the bladder could just be a urine jet with contrast vs a bladder mass. He has clear urine Will need a cysto as an oupatient
[2020-10-31 08:47] LABS: Basophils # (A) 0.03 X 10*3/uL (0.00-0.10); Basophils % (A) 0.3 %; Eosinophils % (A) 2.1 %; HGB 8.8 g/dL (13.0-17.0); Lymphocytes # (A) 1.07 X 10*3/uL (0.90-5.00); Lymphocytes % (A) 11.4 %; MCH 24.1 pg (27.0-32.0); MCHC 30.3 g/dL (32.0-37.0); MCV 79.5 fL (80.0-97.0); Monocytes # (A) 0.74 X 10*3/uL (0.20-1.00); Monocytes % (A) 7.9 %; Neutrophils # (A) 7.32 X 10*3/uL (1.80-7.70); Neutrophils % (A) 77.9 %; Platelet Count 331 X 10*3/uL (140-440); RBC 3.65 X 10*6/uL (4.40-5.60); RDW 17.4 % (11.5-14.5)
[2020-10-31 09:45] LABS: African American GFR (CKD) 99.2 (60.0-200.0); Anion Gap 6.1 mmol/L (4.00-12.00); BUN/Creat Ratio 16.67 Ratio (12.00-20.00); Calcium 10.2 mg/dL (8.7-10.3); Carbon Dioxide 27.9 mmol/L (21.6-31.8); Non-African American GFR(CKD) 85.6 (60.0-200.0); Potassium 3.8 mmol/L (3.5-5.5)
[2020-10-31 09:51] LABS: Free Kappa Lt Chain Qnt, Serum 4.12 mg/dL (0.33-1.94)
[2020-10-31] MEDS ORDERED: VANCOMYCIN TROUGH DUE 1 EACH MISC MISCELLANE ONE (11:00)
--- NOTE | 2020-10-31 13:37 | P.PN ---
Subjective Progress Note Date: 10/31/20 Principal diagnosis: Progressing lung cancer This is a 70-year-old gentleman who follows with Dr. Howell as his primary care provider. He has a history of coronary artery disease with previous stent placement, atrial fibrillation anticoagulated with Eliquis, congestive heart failure, hyperlipidemia, hypertension, chronic obstructive pulmonary disease, chronic back pain peripheral vascular disease with previous stent placement, chronic and ongoing tobacco dependence. 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 He had undergone systemic chemotherapy and radiation. During one of the treatments in August 2019 he states his heart stopped and they had performed CPR and brought him back. He has not had any further treatment since then. He came into the emergency room on 10/27/2020 after being seen at his PCPs office and developed an episode of dizziness and lightheadedness. Computed tomography scan of the brain revealed age-related atrophy with chronic small vessel ischemia. No evidence of metastasis. Computed tomography scan of the chest compared to one in March 2020 revealed a left upper lobe mass, contiguous with the left suprahilar position, previously measuring 4.4 x 2.8 cm. The abnormality is now 9 x 9 cm with a large gas fluid-filled level within the center of the lesion consistent with cavitation. There is a small to moderate left pleural effusion. Left upper lobe pulmonary artery shows caliber narrowing suggesting invasion. No pulmonary embolism. Right lung is clear. We're consulted for the same. The patient is seen today on the regular medical floor. Currently resting fairly comfortably in bed. Awake and alert in no acute distress. He is maintaining O2 saturations in the mid 90s on room air. He's afebrile. Hemodynamically stable. Blood culture reveals no growth to date. White count 12.2. Hemoglobin 9.8. Sodium 135. Potassium 4.1. Creatinine 0.9. Troponins negative. Horvath virus not detected. He's been initiated on bronchodilators, antibiotics in form of vancomycin. The patient is seen today 10/30/2020 in follow-up on the regular medical floor. He is currently resting fairly comfortably in bed. He is maintaining O2 saturations in the upper 90s on room air. He's afebrile. CAT scan of the abdomen and pelvis revealed moderate left pleural effusion with elevation of the left hemidiaphragm. Suggestive of progression of lung tumor..There is now a possible new bladder mass on the posterior wall of the bladder on the left. Spleen is large and slightly increased. Absent left kidney. Atherosclerotic vascular disease. Blood culture reveals no growth. Sputum culture pending. He remains on vancomycin and Zosyn. Continued on bronchodilators. On 10/31/2020 patient is seen in follow-up on medical surgical floor. He is resting comfortably in bed however he states he is having constant pain. Does not seem to be in any rest or distress, room air pulse ox is 94%, he is afebrile. Breathing comfortably, no use of accessory muscles of breathing. He remains on nebulized bronchodilators, and antibiotics in the form of Zosyn and vancomycin. He is receiving pain medications with a combination of Witter 10 mg every 6 hours, morphine 4 mg every 6 hours for breakthrough pain. Computed tomography scan of the chest revealed enlarging left suprahilar mass, with large gas fluid-filled level within the center of the lesion consistent with cavitation, small to moderate left pleural effusion, and left upper lobe pulmonary artery narrowing suggesting invasion, these findings are suggestive of progression of the disease and there is also possibility of a new mass on the posterior wall of the left bladder. We spoke about possibility of hospice for the patient, who states he just wants to go home. Patient is agreeable to [facility] hospice and we will consult social work were hospice evaluation Objective - Vital Signs Vital signs: Vital Signs Temp 98.5 F 10/31/20 07:54 Pulse 88 10/31/20 11:25 Resp 17 10/31/20 08:43 BP 112/58 10/31/20 07:54 Pulse Ox 94 L 10/31/20 07:54 Intake & Output 10/30/20 10/31/20 10/31/20 18:59 06:59 18:59 Intake Total 990 540 200 Output Total 100 Balance 990 440 200 Intake: Intake, IV Titration 450 Amount Piperacillin-Tazobactam 3 200 .375 gm In Sodium Chloride 0.9% 100 ml @ 25 mls/hr IVPB Q8HR [facility] Rx# :[id number] Vancomycin 1,000 mg In 250 Sodium Chloride 0.9% 250 ml @ 125 mls/hr IVPB Q8H [facility] Rx#:[id number] Oral 540 540 200 Output: Urine 100 Other: Voiding Method Urinal # Voids 3 1 # Bowel Movements 1 - Exam GENERAL EXAM: Alert, pleasant, 70-year-old white male, on room air, with pulse ox of 94%, comfortable in no apparent distress. HEAD: Normocephalic/atraumatic. EYES: Normal reaction of pupils, equal size. Conjunctiva pink, sclera white. NOSE: Clear with pink turbinates. THROAT: No erythema or exudates. NECK: No masses, no JVD, no thyroid enlargement, no adenopathy. CHEST: No chest wall deformity. Symmetrical expansion. LUNGS: Equal air entry with no crackles, wheeze, rhonchi or dullness. CVS: Regular rate and rhythm, normal S1 and S2, no gallops, no murmurs, no rubs ABDOMEN: Soft, nontender. No hepatosplenomegaly, normal bowel sounds, no guarding or rigidity. EXTREMITIES: No clubbing, no edema, no cyanosis, 2+ pulses and upper and lower extremities. MUSCULOSKELETAL: Muscle strength and tone normal. SPINE: No scoliosis or deformity SKIN: No rashes CENTRAL NERVOUS SYSTEM: Alert and oriented -3. No focal deficits, tone is normal in all 4 extremities. PSYCHIATRIC: Alert and oriented -3. Appropriate affect. Intact judgment and insight. - Labs CBC & Chem 7: 10/31/20 05:40 10/31/20 05:40 Labs: Abnormal Lab Results - Last 24 Hours (Table) 10/29/20 10/29/20 10/30/20 Range/Units 14:48 14:48 12:59 RBC (4.40-5.60) X 10*6/uL Hgb (13.0-17.0) g/dL Hct (39.6-50.0) % MCV (80.0-97.0) fL MCH (27.0-32.0) pg MCHC (32.0-37.0) g/dL RDW (11.5-14.5) % Haptoglobin 232.0 H (31.2-198.0) mg/dL Glucose 167 H (74-99) mg/dL Calcium 10.8 H (8.4-10.2) mg/dL Free [place] LC, Quant 4.12 H (0.33-1.94) mg/dL Free [place] LC, Quant 2.78 H (0.57-2.63) mg/dL 10/31/20 10/31/20 Range/Units 05:40 05:40 RBC 3.65 L (4.40-5.60) X 10*6/uL Hgb 8.8 L (13.0-17.0) g/dL Hct 29.0 L (39.6-50.0) % MCV 79.5 L (80.0-97.0) fL MCH 24.1 L (27.0-32.0) pg MCHC 30.3 L (32.0-37.0) g/dL RDW 17.4 H (11.5-14.5) % Haptoglobin (31.2-198.0) mg/dL Glucose 115 H (74-99) mg/dL Calcium (8.4-10.2) mg/dL Free [place] LC, Quant (0.33-1.94) mg/dL Free [place]ambda LC, Quant (0.57-2.63) mg/dL Microbiology - Last 24 Hours (Table) 10/29/20 15:00 Gram Stain - Preliminary Sputum Sputum Culture - Preliminary 10/27/20 18:54 Blood Culture - Preliminary Blood No Growth after 72 hours Assessment and Plan Plan: Assessment: #1. Episode of dizziness and near syncope of unclear etiology, computed tomography scan of the brain showed chronic small vessel ischemia, age-related atrophy, no evidence of metastasis #2. History of metastatic squamous cell carcinoma of the lung diagnosed in September 2018 status post systemic chemotherapy with carboplatin and Taxol. CT scanning of the chest from this admission shows enlarging left suprahilar mass measuring 9.9 cm, large gas-filled fluid level within the center of the lesion consistent cavitation, small to moderate left pleural effusion, left upper lobe pulmonary artery narrowing suggesting invasion, and these findings are suggestive of progression of the disease. CT scan of the abdomen and pelvis shows a possible new mass in the posterior wall of the left bladder #3. Metastatic focus in the right upper extremity treated with radiation therapy completed in February 2019 #4. Cardiopulmonary arrest with PUVA in August 2019 during chemotherapy treatment, subsequently recovered #5. History of CAD with previous stent placement #6. Atrial fibrillation, on Eliquis #7. Chronic and ongoing tobacco dependence #8. Hyperlipidemia #9. Hypertension Plan: We discussed patient's condition with him His lung cancer is advanced, and showing signs of progression He is having constant pain and just wants to go home We suggested possibility of hospice Patient is agreeable to hospice and hospice evaluation has been requested Overall prognosis is poor The meantime continue current medical treatment I performed a history & physical examination of the patient and discussed their management with my nurse practitioner, Rosa Hitchcock. I reviewed the nurse practitioner's note and agree with the documented findings and plan of care. Lung sounds are positive for diminished breath sounds. The findings and the impression was discussed with the patient. I attest to the documentation by the nurse practitioner. Time with Patient: Less than 30
--- NOTE | 2020-10-31 14:01 | NM ---
EXAMINATION TYPE: NM bone scan whole body DATE OF EXAM: 10/31/2020 COMPARISON: Correlation CT abdomen pelvis 10/29/2020 HISTORY: 70-year-old male history of lung cancer, enlarged lung mass, hypercalcemia. TECHNIQUE: Delayed whole-body scanning was performed following the injection of 23.4 mCi Tc 99m MDP. Images acquired 4 hours post injection. FINDINGS no suspicious distribution of tracer activity to suggest osseous metastatic disease. Mild de generative tracer activity at the hips, right knee, and shoulders.: IMPRESSION: No scintigraphic evidence for osseous metastatic disease.
[2020-10-31 14:55] VITALS: BP 115/71; PULSE 92; RESP 18; TEMP 98.4
[2020-10-31 18:01] LABS: Gamma Globulin 0.85 g/dL (0.70-1.50)
[2020-11-01] MEDS ORDERED: VANCOMYCIN 1,000 MG in SODIUM CHLORIDE 0.9% 250 ML IVPB SCH ×2
--- NOTE | 2020-11-01 13:04 | CDI ---
Documentation Clarification Form Date: 11/01/2020 12:54:18 PM From: Lillie Estes RN, CCDS Admit Date: 10/29/2020 10:45:00 AM Patient Name: Vamsi Perez Visit Number: [id number] Discharge Date: 10/31/2020 05:55:00 PM ATTENTION: The Clinical Documentation Specialists (CDI) and [facility] Coding Staff appreciate your assistance in clarifying documentation. Please respond to the clarification below the line at the bottom and electronically sign. The CDI & [facility] Coding staff will review the response and follow-up if needed. Please note: Queries are made part of the Legal Health Record. If you have any questions, please contact the author of this message via ITS. Dr. Alessandro Chadwick Atrial Fibrillation is documented in the past medical and subsequent progress notes.. Additional clarification regarding the type of atrial fibrillation is requested. History/Risk Factors: Atrial Fibrillation, CAD, Heart Failure, Hypertension Renal disease Clinical Indicators: 70-year-old male with progressing lung cancer. He is on anticoagulation for his atrial fibrillation 10/27 EKG/telemetry: Atrial fibrillation with rapid ventricular response vent rate 102 Treatment: Eliquis 5 MG PO BID Monitor PT/INR per orders Please clarify the type of atrial fibrillation, if known: [ ] Chronic [ ] Permanent [ ] Paroxysmal [ ] Persistent [ ] Other, please specify [ ] Unable to determine (Template Last Revised: September 2020) chronic AF MTDD
--- NOTE | 2020-11-01 13:57 | CDI ---
Documentation Clarification Form Date: 11/01/2020 01:04:54 PM From: Lillie Estes RN, CCDS Admit Date: 10/29/2020 10:45:00 AM Patient Name: Vamsi Perez Visit Number: [id number] Discharge Date: 10/31/2020 05:55:00 PM ATTENTION: The Clinical Documentation Specialists (CDI) and [facility] Coding Staff appreciate your assistance in clarifying documentation. Please respond to the clarification below the line at the bottom and electronically sign. The CDI & [facility] Coding staff will review the response and follow-up if needed. Please note: Queries are made part of the Legal Health Record. If you have any questions, please contact the author of this message via ITS. Dr. Alessandro Chadwick Your patient has the documented diagnosis of unspecified CHF per past medical history. Additional information regarding the [type, acuity] of CHF is requested. History/Risk Factors: Atrial Fibrillation, CAD, Heart Failure, Hypertension Renal disease Clinical Indicators: 70-year-old male with progressing lung cancer. He has a past medical history of heart failure with ongoing treatment. 10/27 VS/Pulse OX: 116/68 93 18 100.1 98% RA 10/27 BNP: 2910 08/26/19 Echocardiogram Results: Overall left ventricular systolic function is normal with, an EF between 55-60 % 10/27 Chest X Ray: Extensive new volume loss in the left hemithorax. Increased opacity throughout the left upper lung could represent disease progression. There is associated cavitation here with air-fluid level. Correlate for possible tumor necrosis with superinfection. Treatment: Lasix 10 mg po daily In your professional opinion, can you please clarify the [acuity and type] of CHF if known? [ ] Chronic Diastolic Heart Failure (preserved EF) [[ ] Other, please specify [ ] Unable to determine (Template Last Revised: June 2020) Chronic Diastolic Heart Failure (preserved EF MTDD
== END 2020-10-31 17:55 | DRG 871 ==
LOC: EC 14:21 → 4SSUR 19:06 → OBSVTOIN 10-29 10:45
PROVIDERS: ADMIT Internal Medicine; ATTEND Internal Medicine
DX: A41.9 Sepsis, unspecified organism (principal); J18.9 Pneumonia, unspecified organism; J85.0 Gangrene and necrosis of lung; C34.02 Malignant neoplasm of left main bronchus; C79.2 Secondary malignant neoplasm of skin; J44.0 Chronic obstructive pulmonary disease with (acute) lower respiratory infection; Q60.0 Renal agenesis, unilateral; I50.32 Chronic diastolic (congestive) heart failure; F17.210 Nicotine dependence, cigarettes, uncomplicated; D47.2 Monoclonal gammopathy; D50.9 Iron deficiency anemia, unspecified; E78.5 Hyperlipidemia, unspecified; F32.9 Major depressive disorder, single episode, unspecified; F41.9 Anxiety disorder, unspecified; G89.29 Other chronic pain; I11.0 Hypertensive heart disease with heart failure; I25.10 Atherosclerotic heart disease of native coronary artery without angina pectoris; I25.2 Old myocardial infarction; I48.91 Unspecified atrial fibrillation; I73.9 Peripheral vascular disease, unspecified; R31.9 Hematuria, unspecified; M54.9 Dorsalgia, unspecified; H26.9 Unspecified cataract; R42 Dizziness and giddiness; N40.0 Benign prostatic hyperplasia without lower urinary tract symptoms; Z20.822 Contact with and (suspected) exposure to COVID-19; Z79.01 Long term (current) use of anticoagulants; Z79.899 Other long term (current) drug therapy; Z80.6 Family history of leukemia; Z86.74 Personal history of sudden cardiac arrest; Z87.442 Personal history of urinary calculi; Z92.21 Personal history of antineoplastic chemotherapy; Z92.3 Personal history of irradiation; Z95.5 Presence of coronary angioplasty implant and graft; Z98.42 Cataract extraction status, left eye; Z95.9 Presence of cardiac and vascular implant and graft, unspecified; Z60.2 Problems related to living alone
CPT/HCPCS: 36415; 70450; 71046; 71260; 74178; 78306; 80048; 80053; 80202; 81001; 82306; 82607; 82728; 82746; 83010; 83540; 83550; 83605; 83615; 83880; 83883; 83970; 84145; 84165; 84484; 85025; 85045; 85379; 85610; 85730; 86140; 86334; 87040; 87070; 87205; 87635; 93005; 94640; 96374; 99285